=== PATIENT | male | born 1985 | race Caucasian/White ===

== ENCOUNTER 2019-04-13 11:33 | Emergency (ER) | payer MEDICARE, MEDICAID ==
[~2019-04-13] VITALS: Ht 172.7 cm; Wt 109.1 kg
[~2019-04-13 11:33] MED LIST: /THIA10TA; BENADRYL; DOC-Q-LACE; FLEXERIL; FOLI1TAB; LEXA1TAB2; MOBIC; PAXI30TA; PRIL20CA; SERO300T20; SERO400T; TRAZ100T PO
[2019-04-13] MEDS ORDERED: LIDOCAINE 2% 5ML JELLY UROJET TOP ONE (12:30)
[2019-04-13] MEDS ORDERED: DEPA250T32 PO (12:48)
[2019-04-13] MEDS ORDERED: GABA600T4 PO (12:55)
[2019-04-13] MEDS ORDERED: PANT40TA3 PO (12:55)
[2019-04-13] MEDS ORDERED: LITH300C PO (12:55)
[2019-04-13] MEDS ORDERED: COLA100C5 PO (12:55)
[2019-04-13] MEDS ORDERED: CHLO50TA PO (12:55)
[2019-04-13] MEDS ORDERED: PROP10TA56 PO (12:58)
[2019-04-13] MEDS ORDERED: VENL150C43 PO (12:58)
[2019-04-13 13:09] LABS: BLOOD UREA NITROGEN 14 MG/DL (7-18); CALCIUM LEVEL 8.5 MG/DL (8.5-10.1); CARBON DIOXIDE LEVEL 27 MEQ/L (21-32); CHLORIDE LEVEL 108 MEQ/L (98-107); CREATININE FOR GFR 0.81 MG/DL (0.70-1.30); GLOMERULAR FILTRATION RATE > 60.0 (>60); GLUCOSE, FASTING 82 MG/DL (70-100); POTASSIUM SERUM 4.6 MEQ/L (3.5-5.1); SODIUM LEVEL 141 MEQ/L (136-145)
[2019-04-13] MEDS ORDERED: BACTRIM 160MG/800MG DS TAB PO ONE (13:45)
[2019-04-13] MEDS ORDERED: BACT800T5 PO (13:47)
[2019-04-13 14:02] VITALS: BP 112/56
== END 2019-04-13 14:04 | disposition home or self-care (01) ==
LOC: M ED 11:33
DX: N39.0 Urinary tract infection, site not specified (principal); J45.909 Unspecified asthma, uncomplicated; Z88.1 Allergy status to other antibiotic agents; Z88.8 Allergy status to other drugs, medicaments and biological substances; Z79.899 Other long term (current) drug therapy

== ENCOUNTER 2019-04-14 07:16 | Emergency (ER) | payer MEDICARE, MEDICAID ==
[~2019-04-14] VITALS: Ht 172.7 cm; Wt 109.1 kg
[~2019-04-14 07:16] MED LIST changes: +BACT800T5 PO; +CHLO50TA PO; +COLA100C5 PO; +DEPA250T32 PO; +GABA600T4 PO; +LITH300C PO; +PANT40TA3 PO; +PROP10TA56 PO; +VENL150C43 PO
[2019-04-14 08:09] LABS: HEMATOCRIT 44.9 % (42.0-52.0); HEMOGLOBIN 14.5 g/dl (13.5-17.5)
[2019-04-14 09:04] VITALS: BP 117/75
[2019-04-15] MEDS ORDERED: TRAZ-252 (11:45)
== END 2019-04-14 09:10 | disposition home or self-care (01) ==
LOC: M ED 07:16
DX: R31.0 Gross hematuria (principal); Z96.0 Presence of urogenital implants; I10 Essential (primary) hypertension; J45.909 Unspecified asthma, uncomplicated; F20.9 Schizophrenia, unspecified; F17.210 Nicotine dependence, cigarettes, uncomplicated; Z79.899 Other long term (current) drug therapy

== ENCOUNTER 2019-04-15 10:54 | Emergency (ER) | payer MEDICARE, MEDICAID ==
[~2019-04-15] VITALS: Ht 172.7 cm; Wt 104.6 kg
[2019-04-15 11:40] VITALS: BP 118/62
[2019-04-15] MEDS ORDERED: TRAZ-252 (11:45)
[2019-04-15 12:22] LABS: HEMATOCRIT 47.5 % (42.0-52.0); MEAN CORPUSCULAR HEMOGLOBIN 29.7 pg (27.0-33.0); MEAN CORPUSCULAR HGB CONC 31.6 g/dl (32.0-36.5); MEAN CORPUSCULAR VOLUME 94.1 fl (80.0-96.0); PLATELET COUNT, AUTOMATED 234 10^3/uL (150-450); RED BLOOD COUNT 5.05 10^6/uL (4.30-6.10); WHITE BLOOD COUNT 7.9 10^3/uL (4.0-10.0)
[2019-04-15 12:50] LABS: BLOOD UREA NITROGEN 17 MG/DL (7-18); CALCIUM LEVEL 8.9 MG/DL (8.5-10.1); CARBON DIOXIDE LEVEL 27 MEQ/L (21-32); CHLORIDE LEVEL 103 MEQ/L (98-107); GLOMERULAR FILTRATION RATE > 60.0 (>60); GLUCOSE, FASTING 99 MG/DL (70-100); POTASSIUM SERUM 4.2 MEQ/L (3.5-5.1); SODIUM LEVEL 137 MEQ/L (136-145)
[2019-04-16] MEDS ORDERED: DICY10CA13 (19:18)
[2019-04-16] MEDS ORDERED: TRAZ-252 PO (23:16)
[2019-04-16] MEDS ORDERED: CHLOR10TAB PO (23:16)
[2019-04-16] MEDS ORDERED: GABA-843 PO (23:16)
[2019-04-16] MEDS ORDERED: VENL75CA2 PO (23:16)
[2019-04-16] MEDS ORDERED: BACT800T5 PO (23:16)
[2019-04-16] MEDS ORDERED: THIA100T7 PO (23:16)
[2019-04-16] MEDS ORDERED: FOLI1TAB11 PO (23:16)
== END 2019-04-15 12:26 | disposition left against medical advice (07) ==
LOC: M ED 10:54
DX: Z53.20 Procedure and treatment not carried out because of patient's decision for unspecified reasons (principal)

== ENCOUNTER 2019-04-16 18:17 | Inpatient (IN) | payer MEDICARE, MEDICAID ==
[~2019-04-16] VITALS: Ht 172.7 cm; Wt 106.5 kg
[~2019-04-16 18:17] MED LIST changes: +TRAZ-252
[2019-04-16] MEDS ORDERED: LORazepam 2 MG/ML VIAL (J2060) IM ONE (18:45)
[2019-04-16] MEDS ORDERED: HALOPERIDOL 5 MG/ML VIAL (J1630) IM ONE (18:45)
[2019-04-16 19:10] LABS: BASO # 0.1 10^3/uL (0.0-0.2); BASO % 0.8 % (0.0-1.0); EOS # 0.5 10^3/uL (0.0-0.5); EOS % 6.6 % (0.0-3.0); HEMATOCRIT 38.7 % (42.0-52.0); HEMOGLOBIN 12.7 g/dl (13.5-17.5); LYMPH % 39.6 % (24.0-44.0); MEAN CORPUSCULAR HEMOGLOBIN 30.5 pg (27.0-33.0); MEAN CORPUSCULAR HGB CONC 32.8 g/dl (32.0-36.5); NEUTROPHILS % 39.7 % (36.0-66.0); PLATELET COUNT, AUTOMATED 210 10^3/uL (150-450); RED BLOOD COUNT 4.16 10^6/uL (4.30-6.10); WHITE BLOOD COUNT 7.6 10^3/uL (4.0-10.0)
[2019-04-16] MEDS ORDERED: DICY10CA13 (19:18)
[2019-04-16 19:37] LABS: AMPHETAMINES LEVEL URINE NEGATIVE (NEGATIVE); BARBITURATES URINE NEGATIVE (NEGATIVE); BENZODIAZEPINES URINE NEGATIVE (NEGATIVE); CANNABINOIDS URINE NEGATIVE (NEGATIVE); COCAINE METABOLITE URINE NEGATIVE (NEGATIVE); METHADONE URINE NEGATIVE (NEGATIVE); OPIATES URINE NEGATIVE (NEGATIVE); PHENCYCLIDINE URINE NEGATIVE (NEGATIVE)
[2019-04-16] MEDS: NS 1,000 ML IV SCH ×2 (19:44→22:51)
[2019-04-16 19:45] LABS: ACETAMINOPHEN LEVEL < 2.0 UG/ML (10.0-30.0); ALBUMIN 3.3 GM/DL (3.2-5.2); ALT/SGPT 12 U/L (12-78); BILIRUBIN,DIRECT < 0.1 MG/DL (0.0-0.2); BILIRUBIN,TOTAL 0.1 MG/DL (0.2-1.0); BLOOD UREA NITROGEN 19 MG/DL (7-18); CALCIUM LEVEL 7.7 MG/DL (8.5-10.1); CARBON DIOXIDE LEVEL 26 MEQ/L (21-32); CHLORIDE LEVEL 106 MEQ/L (98-107); CPK CREATINE PHOSPHOKINASE 101 U/L (39-308); ETHYL ALCOHOL (ETHANOL) 0.006 % (0.000-0.010); GLOMERULAR FILTRATION RATE > 60.0 (>60); GLUCOSE, FASTING 105 MG/DL (70-100); POTASSIUM SERUM 4.4 MEQ/L (3.5-5.1); SALICYLATE LEVEL 2.1 MG/DL (5.0-30.0); SODIUM LEVEL 138 MEQ/L (136-145); TOTAL PROTEIN 6.4 GM/DL (6.4-8.2)
[2019-04-16 19:52] LABS: LITHIUM LEVEL 0.29 MEQ/L (0.60-1.20)
[2019-04-16] MEDS ORDERED: NS 1,000 ML IV ONE ×2 (20:15→22:30)
[2019-04-16 20:28] LABS: VALPROIC ACID (DEPAKOTE) 169.7 UG/ML (50.0-100.0)
--- NOTE | 2019-04-16 21:10 | ECGEPIP ---
[facility] - ED Test Date: 2019-04-16 Pat Name: OFE CHIN Department: Room: - Gender: Male [employer] Worker: COOKIE : 1985 Requested By: ADELAIDE Child Order Number: [id number] Reading MD: Bismark Millan Measurements Intervals [place] Rate: 82 P: 43 NH: 118 QRS: 60 QRSD: 88 T: 49 QT: 368 QTc: 430 Interpretive Statements SINUS RHYTHM WITH SHORT NH INTERVAL NO PRIORS FOR COMPARISON Electronically Signed on 04-16-2019 21:10:16 EST by Bismark Millan
[2019-04-16] MEDS ORDERED: TRAZ-252 PO (23:16)
[2019-04-16] MEDS ORDERED: GABA-843 PO (23:16)
[2019-04-16] MEDS ORDERED: BACT800T5 PO (23:16)
[2019-04-16] MEDS ORDERED: THIA100T7 PO (23:16)
[2019-04-16] MEDS ORDERED: CHLOR10TAB PO (23:16)
[2019-04-16] MEDS ORDERED: FOLI1TAB11 PO (23:16)
[2019-04-16] MEDS ORDERED: VENL75CA2 PO (23:16)
[2019-04-17] VITALS (18 sets, daily range): BP systolic 84–113; BP diastolic 50–77
[2019-04-17] MEDS ORDERED: NS 1,000 ML IV ONE ×2 (00:15→09:30)
[2019-04-17] MEDS: DOCUSATE SODIUM 100 MG CAP PO SCH ×3 (01:38→20:52)
[2019-04-17] MEDS: NS 1,000 ML IV SCH ×4 (02:26→22:03)
[2019-04-17] MEDS ORDERED: NOREPINEPHRINE 4 MG/4 ML AMP As Ordered ONE (03:20)
[2019-04-17] MEDS ORDERED: NOREPINEPHRINE BITARTRATE 8 MG in D5W 492 ML IV SCH ×2 (03:30→15:00)
[2019-04-17 04:23] LABS: BLOOD UREA NITROGEN 15 MG/DL (7-18); CALCIUM LEVEL 6.4 MG/DL (8.5-10.1); CARBON DIOXIDE LEVEL 23 MEQ/L (21-32); CHLORIDE LEVEL 117 MEQ/L (98-107); CREATININE FOR GFR 0.92 MG/DL (0.70-1.30); GLOMERULAR FILTRATION RATE > 60.0 (>60); GLUCOSE, FASTING 101 MG/DL (70-100); POTASSIUM SERUM 4.6 MEQ/L (3.5-5.1); SODIUM LEVEL 145 MEQ/L (136-145)
[2019-04-17 04:24] LABS: LITHIUM LEVEL 0.22 MEQ/L (0.60-1.20)
[2019-04-17 04:25] LABS: VALPROIC ACID (DEPAKOTE) 239.5 UG/ML (50.0-100.0)
--- NOTE | 2019-04-17 04:45 | ROOPDOC ---
[facility] Report Of Operation Report of Operation DATE OF PROCEDURE: 04/17/19 PREPROCEDURE DIAGNOSES: Need for IV access POSTPROCEDURE DIAGNOSES: Same PROCEDURE: US guided RIJ triple lumen central line placement SURGEON: Andrew Curran MD ANESTHESIA: Local anesthesia 3 cc lidocaine. INDICATION FOR PROCEDURE: Mr Rayo is a 33yo gentleman with urgent need fo Verna access, and I was asked to place central line. Patient is somewhat obtunded and cannot consent, and the hospitalist and ED physician did an emergency consent which I signed. Will proceed. INTERPRETATION: Post procedure CXR shows tip of catheter in SVC right atrial junction, no kinks in the line, no pnemothorax present. REPORT OF PROCEDURE: Patient placed in trendelenburg, and his right neck prepped and draped in a sterile fashion. A time out was performed. Local anesthesia administered to the skin and subcutaneous tissue over the jugular vein, and access was obtained with US guidance. A wire easily advanced, and a dilator was passed over the wire using a seldinger technique, and then the catheter was passed over the wire and the wire was removed. All three ports val back and flushed easily. Line was secured with suture at 4 points. Sterile dressing applied. CXR performed stat at bedside and line is in good position and no pneumothorax and OK to use. ESTIMATED BLOOD LOSS: Approximately 2 mL. COMPLICATIONS: None. PLAN: Ok to use central line. ANDREW CURRAN MD Apr 17, 2019 04:45
--- NOTE | 2019-04-17 06:19 | HPEPDOC ---
General Date of Admission Apr 16, 2019 at 23:34 Date of Service: Apr 16, 2019 Attending Physician: LION RECIO MD Chief Complaint The patient is a 33-year-old male admitted with a reason for visit of Drug O/D Intentional;Drug O/D Multiple Drugs. Source: Patient Exam Limitations: Clinical conditions Timing/Duration: 24 hours Associated Symptoms: Other (Overdose) History of Present Illness 33 yo man with a chart history of schizophrenia, bipolar, anxiety, with a prior history of suicide attempts including jumping off a bridge resulting in back surgeries, who presented to the ED after admitting overdosing on an unknown number of his depakote (500mg tabs) and abilify (5mg). On arrival to the ED he was initially normotensive, afebrile, saturating well on room air and agitated requiring 4 point restraints, banging his head on room equipment and screaming that he wants to . Poison controlled was called that recommended Q4 depakote and ammonia levels as well as supportive care. While in the ED, initial work up was notable for WBC 7.6, hgb 12.7, hct 38.7, platelets 210, na 138, K 4.4, Cr 1.1, normal LFTs, TSH 8.86 with a normal free T4, ammonia 67 --> 136, depakote 169.7-->191.3-->240, lithium level 0.29. He subsequently developed hypotension and was given up to 5L of fluids with persistent hypotension, and eventually a R IJ TLC was placed by Dr. Curran and levophed was started, neri placed with suboptimal output thus far and was placed on nasal canula. While he was initially agitated, he subsequently became somnolent and bradycardic with concern for apneic episodes. Anesthesia evaluated the patient and ultimately decided to defer intubation at this time and check an ABG that is still pending at this time, as he was mentating on waking him and was not hypoxemic. He is now being admitted to the ICU for close monitoring and supportive care and eventual psych evaluation for suicide attempt. Home Medications Scheduled Chlorpromazine HCl (Chlorpromazine HCl) 100 Mg Tablet, 50 MG PO BID, (Reported) Divalproex Sodium (Depakote) 250 Mg Tablet.dr, 750 MG PO BID, (Reported) Docusate Sodium (Colace) 100 Mg Capsule, 200 MG PO BID, (Reported) Folic Acid (Folic Acid) 1 Mg Tablet, 1 MG PO DAILY, (Reported) Gabapentin (Gabapentin) 300 Mg Capsule, 600 MG PO TID, (Reported) [place] Carbonate ([place] Carbonate) 300 Mg Capsule, 300 MG PO DAILY, (Reported) Pantoprazole Sodium (Pantoprazole Sodium) 40 Mg Tablet.dr, 40 MG PO DAILY, (Reported) Propranolol HCl (Propranolol HCl) 10 Mg Tablet, 10 MG PO TID, (Reported) Sulfamethoxazole/Trimethoprim (Bactrim Ds Tablet) 1 Each Tablet, 1 TAB PO Q12H, (Reported) Thiamine HCl (Thiamine HCl) 100 Mg Tablet, 100 MG PO DAILY, (Reported) Trazodone HCl (Trazodone HCl) 50 Mg Tablet, 50 MG PO QHS, (Reported) Venlafaxine HCl (Venlafaxine HCl ER) 75 Mg Cap.er.24h, 150 MG PO DAILY, (Reported) Miscellaneous Medications Dicyclomine HCl (Dicyclomine HCl) 10 Mg Capsule, (Reported) Allergies Coded Allergies: Cephalosporins (Verified Allergy, Mild, HIVES, 04/17/19) haloperidol (Verified Adverse Reaction, Severe, SEIZURES, 04/17/19) ziprasidone (Verified Adverse Reaction, Mild, VOMITING, 04/17/19) Past Medical History Medical History schizophrenia, bipolar, anxiety, with a prior history of suicide attempts including jumping off a bridge resulting in back surgeries, chronic straight cath Surgical History cholecystectomy back surgery after jumping off a bridge Family History Significant Family History: No pertinent family hx unable to get history from patient and unable to reach listed next of kin Social History * Smoker: current smoker Alcohol: Denies Drugs: denies Recent Travel/Sick Contacts: Denies: Recent travel, Recent sick contacts Psychosocial History: Anxiety, Bipolar, Schizophrenia A-FIB/CHADSVASC A-FIB History Current/History of A-Fib/PAF?: No Current PO Anticoag Therapy: No Age/Risk Factor Scoring CHADSVASC: CHADSVASC Response (Comments) Value Age Risk Factor Age < 65 years old 0 Gender Risk Factor Male 0 Hx of CHF No 0 Hx of HTN No 0 Hx of Stroke/TIA/or VTE No 0 Hx of Diabetes No 0 Hx of Vascular Disease No 0 Total 0 Treatment Treatment ordered: NONE Reason Anticoagulant not given: Not indicated/[id number] Review of Systems Constitutional: Denies: Chills, Fever, Night Sweats Eyes: Denies: Pain, Vision change ENT: Denies: Head Aches, Ear Pain, Dysphagia Skin: Denies: Rash, Lesions, Breakdown Pulmonary: Denies: Dyspnea, Cough Cardiovascular: Denies: Chest Pain, Palpitations, Orthopnea, Paroxysmal Noc. Dyspnea, Lt Headedness Gastrointestinal: Denies: Nausea, Vomiting, Abdominal Pain, Diarrhea Genitourinary: Denies: Dysuria, Frequency, Incontinence, Retention Hematologic: Denies: Bruising, Bleeding Excessively Endocrine: Denies: Polydipsia, Polyphagia, Polyuria, Heat Intolerance, Cold Intolerance, Other Endocrine Sx Musculoskeletal: Denies: Neck Pain, Back Pain, Joint Pain, Muscle Pain, Spasms Neurological: Denies: Weakness, Numbness, Change in speech, Confusion Psych: Reports: Depression, Thoughts of Self Harm (reports wanting to ) Physical Examination General Exam: Positive: No Acute Distress, Other (somnolent, responsive to rub and loud voice) Eye Exam: Positive: PERRLA; Negative: Sclera icteric ENT Exam: Positive: Pharynx Normal, Tongue Midline, Nares Patent; Negative: Mucous membr. moist/pink (dry) Neck Exam: Positive: Supple; Negative: JVD, thyromegaly Chest Exam: Positive: Clear to auscultation, Normal air movement, Other (has transmitted upper airway sounds, otherwise no crackles or wheezing) Heart Exam: Positive: Rate Normal, Regular Rhythm, Normal S1, Normal S2; Negative: Murmurs, Rubs Telemetry: Positive: Bradycardia Abdomen Exam: Positive: Normal bowel sounds, Soft; Negative: Tenderness, Hepatospenomegaly Extremity Exam: Positive: Normal pulses; Negative: Clubbing, Cyanosis, Edema Skin Exam: Positive: Nl turgor and temperature; Negative: Breakdown, Lesion Neuro Exam: Positive: Normal Speech (no slurring when he speaks), Strength at 5/5 X4 ext, Other (unable to assess cranial nerves due to his condition) Psych Exam: Negative: Mental status NL (not answering orientation questions, depressed, reports wanting to and bangs head on nearby equipment) Vital Signs Vital Signs Date Time Temp Pulse Resp B/P (MAP) Pulse Ox O2 Delivery O2 Flow Rate FiO2 04/17/19 04:56 104/51 (68) 04/17/19 04:55 85 98 04/17/19 03:39 17 Room Air 04/17/19 02:40 2.0 04/16/19 21:15 98.2 04/16/19 19:13 92 Laboratory Data Labs 24H Laboratory Tests 2 04/16/19 18:54: Immature Granulocyte % (Auto) 0.3, Neutrophils (%) (Auto) 39.7, Lymphocytes (%) (Auto) 39.6, Monocytes (%) (Auto) 13.0H, Eosinophils (%) (Auto) 6.6H, Basophils (%) (Auto) 0.8, Neutrophils # (Auto) 3.0, Lymphocytes # (Auto) 3.0, Monocytes # (Auto) 1.0H, Eosinophils # (Auto) 0.5, Basophils # (Auto) 0.1, Nucleated Red Blood Cells % (auto) 0.0, Anion Gap 6L, Glomerular Filtration Rate > 60.0, Calcium Level 7.7L, Total Bilirubin 0.1L, Direct Bilirubin < 0.1, Aspartate Amino Transf (AST/SGOT) 9, Alanine Aminotransferase (ALT/SGPT) 12, Alkaline Phosphatase 55, Total Creatine Kinase 101, Total Protein 6.4, Albumin 3.3, Albumin/Globulin Ratio 1.06, Thyroid Stimulating Hormone (TSH) 8.860H, Salicylates Level 2.1L, Urine Opiates Screen NEGATIVE, Urine Methadone Screen NEGATIVE, Acetaminophen Level < 2.0L, Urine Barbiturates Screen NEGATIVE, Valproic Acid (Depakene) Level 169.7H, Urine Phencyclidine Screen NEGATIVE, Urine Amphetamines Screen NEGATIVE, Urine Benzodiazepines Screen NEGATIVE, [place] Level 0.29L, Urine Cocaine Metabolite Screen NEGATIVE, Urine Cannabinoids Screen NEGATIVE, Ethyl Alcohol Level 0.006 04/16/19 20:32: Ammonia 67H 04/16/19 21:01: Valproic Acid (Depakene) Level 191.3H 04/17/19 03:02: Anion Gap 5L, Glomerular Filtration Rate > 60.0, Calcium Level 6.4#L, Valproic Acid (Depakene) Level 239.5H, [place] Level 0.22L, Ammonia 136H, Free Thyroxine 1.07 CBC/BMP Laboratory Tests 04/16/19 18:54 04/17/19 03:02 Assessment/Plan 33 yo man with a history of schizophrenia, depression and prior suicide attempt who presents with a drug overdose with his abilify and depakote with rising depakote and ammonia levels with increasing somnolence and hypotension currently on levophed with pending ABG saturating well on nasal canula, now being admitted to the ICU for close monitoring and supportive care with pending psychiatric evaluation when his condition improves. Drug overdose: -Poison controlled contacted by ED --> supportive measures, was past the interval for activated charcoal and without an adequate mental status. To check depakote and ammonia levels Q4H --> currently rising with worsening somnolence and hypotension --> continue nasal canula, ANG pending, s/p 5L fluids and on levophed via TLC. -AM CBC, BMP -Hold all psychotropes at this time -psychiatry consult -Neri for strict I/Os -NPO -sitter and suicide precautions Schizophrenia/Anxiety/Depression: -Psychiatry consulted -Hold all psych meds for now DVT ppx: heparin Dispo: ICU Plan / VTE VTE Prophylaxis Ordered?: Yes LION RECIO MD Apr 17, 2019 06:19
[2019-04-17] MEDS: HEPARIN SOD (PORCINE) 5000 UNITS/ML VIAL SC SCH ×3 (07:13→22:02)
--- NOTE | 2019-04-17 07:36 | REP ---
Portable chest, 03:44 a.m., single supine AP view post central line placement: There are no comparisons. There is a right IJ central venous catheter with the tip in the right atrium. There is no pneumothorax or hemothorax. There is increased density throughout the left lung compatible with diffuse infiltrate. Right lung is clear. Cardiac size is normal. The abril, mediastinum, skeletal structures are unremarkable for positioning. Impression: The central venous catheter is in satisfactory position. There is no hemothorax or pneumothorax. Diffuse left lung infiltrate. Electronically Signed by Cayetano Torre MD 04/17/2019 07:27 A
[2019-04-17] MEDS: PANTOPRAZOLE 40MG TAB (PROTONIX) PO SCH (08:02)
[2019-04-17] MEDS: FOLIC ACID 1 MG TAB PO SCH (08:02)
[2019-04-17] MEDS: THIAMINE 100 MG TAB PO SCH (08:02)
[2019-04-17] MEDS ORDERED: NS IV ONE (08:15)
[2019-04-17] MEDS ORDERED: LEVOCARNITINE IV ONE ×2 (08:15→10:00)
[2019-04-17 09:31] LABS: BLOOD UREA NITROGEN 13 MG/DL (7-18); CALCIUM LEVEL 6.5 MG/DL (8.5-10.1); CARBON DIOXIDE LEVEL 24 MEQ/L (21-32); CHLORIDE LEVEL 119 MEQ/L (98-107); CREATININE FOR GFR 0.85 MG/DL (0.70-1.30); GLOMERULAR FILTRATION RATE > 60.0 (>60); GLUCOSE, FASTING 91 MG/DL (70-100); POTASSIUM SERUM 4.4 MEQ/L (3.5-5.1); SODIUM LEVEL 147 MEQ/L (136-145)
[2019-04-17] MEDS ORDERED: LORazepam 2 MG TAB PO ONE (09:45)
[2019-04-17] MEDS ORDERED: LORazepam 2 MG/ML VIAL (J2060) As Ordered ONE (09:45)
[2019-04-17] MEDS ORDERED: LORazepam 2 MG/ML VIAL (J2060) IV STA (09:48)
[2019-04-17] MEDS ORDERED: LORazepam 2 MG TAB PO PRN (10:00)
[2019-04-17] MEDS ORDERED: LACTULOSE 20 GM/30 ML SYRUP UD PO SCH (12:00)
--- NOTE | 2019-04-17 12:44 | REP ---
Abdominal right upper quadrant ultrasound: The study is technically difficult because of patient altered mental status, inability to suspend respiration and patient body habitus. The gallbladder is not visualized. This is nonspecific and could be from the gallbladder collapse or surgical removal. The the patient has been n.p.o.. The patient is unable to respond to questioning concerning surgical history. The nursing staff has no knowledge of prior surgical history. There is no intrahepatic or extrahepatic biliary duct dilatation. The hepatic parenchyma is homogeneous and otherwise unremarkable. Limited views of the pancreas are unremarkable. The pancreas is mostly obscured by bowel gas. The right kidney measures 11.9 x 5.6 x 6.0 cm and is normal size. There is no right renal calculus or hydronephrosis. There is no right renal solid or cystic mass. There is no right upper quadrant abdominal free fluid. Impression: Limited study as described. The gallbladder could not be identified, as described. The pancreas is mostly obscured by bowel gas. Otherwise, negative right upper quadrant abdominal ultrasound. Electronically Signed by Cayetano Torre MD 04/17/2019 12:35 P
[2019-04-17] MEDS ORDERED: propofoL 200 MG/20 ML VIAL ONE (15:02)
[2019-04-17] MEDS ORDERED: SUCCINYLCHOLINE 100 MG/5 ML SYRINGE (J0330) ONE (15:02)
[2019-04-17] MEDS: LEVOCARNITINE 200 MG/ML IV SCH ×2 (15:12→22:03)
[2019-04-17] MEDS ORDERED: LEVOCARNITINE 200 MG/ML IV SCH (16:00)
--- NOTE | 2019-04-17 16:16 | IPNPDOC ---
Text Note Date of Service The patient was seen on 04/17/19. NOTE 33 yo man with a chart history of schizophrenia, bipolar, anxiety, with a prior history of suicide attempts including jumping off a bridge, who presented to the ED after admitting overdosing on an unknown number of his depakote (500mg tabs) and abilify (5mg). SUBJECTIVE: Patient was extremely lethargic this a.m., he can respond to questions, however a conversational patient was unlikely due to his lethargic. OBJECTIVE: PHYSICAL EXAMINATION: GENERAL APPEARANCE: Sleepy, lethargic, denied any pain SKIN: Warm, well perfused. ENT: Neck supple, moist oral mucosa LUNGS: Clear to auscultation bilaterally. HEART: Normal S1, S2. No murmurs, no rubs, no gallops ABDOMEN: Soft. No masses. Bowel sounds are present. EXTREMITIES: Moves all extremities equally. No gross deformities. PULSES: 2+ upper and lower extremity . LABORATORY DATA: Please see below. ASSEMENT 33 yo man with a chart history of schizophrenia, bipolar, anxiety, with a prior history of suicide attempts including jumping off a bridge, who presented to the ED after admitting overdosing on an unknown number of his depakote (500mg tabs) and abilify (5mg). PLAN: #Encephalopathy: Multifactorial in nature secondary to drug use, secondary to elevated ammonia, secondary to overdose on Depakote and Abilify, secondary suicidal attempt -Poison control has been contacted. Poison control recommended. L-carnitine loading dose, as well as every 6 hours. Poison control also recommended charcoal when patient is significantly more alert. -Monitor INR -Continue to trend ammonia -Continue to trend Depakote levels -[facility] Protocol -Liver ultrasound: Negative liver ultrasound -Consider CT of the head if encephalopathy does not improve #Overdose on Depakote and Abilify -Poison control has recommended. L-carnitine -Will trend ammonia and Depakote levels #Polysubstance abuse including alcohol -[facility] -Toxicology pending -Psych referral once patient is stable #Hypotension , secondary to lethargic, -Workup infection, monitor vitals, will consider UA -Normal saline bolus administered -Will consider labile fed if needed #Tachypnea, multiple etiologies etiologies including pain, lung injury, possible influenza, pneumonia is possible, drug use -Will continue to monitor, -Chest x-ray is negative, to rule out ammonia #Anemia -Reticulocyte count ordered, stool occult ordered #Hyponatremia secondary to fluid dilution. We'll continue to monitor. #DVT prophylaxis Heparin VS,Fishbone, I+O VS, Fishbone, I+O Laboratory Tests 04/16/19 18:54 04/17/19 03:02 04/17/19 08:24 Vital Signs Date Time Temp Pulse Resp B/P (MAP) Pulse Ox O2 Delivery O2 Flow Rate FiO2 04/17/19 15:06 87 104/53 (70) 97 Room Air 04/17/19 12:00 98.4 24 04/17/19 02:40 2.0 04/16/19 19:13 92 I&O- Last 24 Hours up to 6 AM 04/17/19 05:59 Intake Total 4000 ml Output Total 700 ml Balance 3300 ml GME ATTESTATION GME ATTESTATION My faculty preceptor for this patient encounter was physically present during the encounter and was fully available. All aspects of the patient interview, examination, medical decision making process, and medical care plan development were reviewed and approved by the faculty preceptor. The faculty preceptor is aware and concurs with the plan as stated in the body of this note and will attest to such by his/her cosignature. ATTENDING NOTE I examined the patient at 800AM, reviewed and edited the note, and discussed the case with the resident and agree with the findings as documented. DARLENE WIGGINS DO Apr 17, 2019 16:16 NARDA LORENZ MD Apr 17, 2019 17:03
[2019-04-17 17:34] LABS: FOLATE 20.6 NG/ML; PERCENT SATURATION 52.4 % (19.7-50.0)
[2019-04-17 18:34] LABS: BLOOD UREA NITROGEN 11 MG/DL (7-18); CALCIUM LEVEL 6.9 MG/DL (8.5-10.1); CARBON DIOXIDE LEVEL 21 MEQ/L (21-32); CHLORIDE LEVEL 118 MEQ/L (98-107); CREATININE FOR GFR 0.82 MG/DL (0.70-1.30); GLOMERULAR FILTRATION RATE > 60.0 (>60); GLUCOSE, FASTING 79 MG/DL (70-100); POTASSIUM SERUM 3.6 MEQ/L (3.5-5.1); SODIUM LEVEL 147 MEQ/L (136-145)
[2019-04-17] MEDS: LORazepam 2 MG/ML VIAL (J2060) IV PRN (21:43)
[2019-04-18] VITALS (11 sets, daily range): BP systolic 103–140; BP diastolic 56–79
[2019-04-18 01:05] LABS: BLOOD UREA NITROGEN 11 MG/DL (7-18); CALCIUM LEVEL 6.4 MG/DL (8.5-10.1); CARBON DIOXIDE LEVEL 23 MEQ/L (21-32); CHLORIDE LEVEL 115 MEQ/L (98-107); CREATININE FOR GFR 0.74 MG/DL (0.70-1.30); GLOMERULAR FILTRATION RATE > 60.0 (>60); GLUCOSE, FASTING 82 MG/DL (70-100); POTASSIUM SERUM 3.2 MEQ/L (3.5-5.1); SODIUM LEVEL 144 MEQ/L (136-145); VALPROIC ACID (DEPAKOTE) 220.6 UG/ML (50.0-100.0)
[2019-04-18] MEDS ORDERED: POTASSIUM CHLORIDE 10 MEQ SR TABLET PO ONE ×2 (01:45→13:30)
[2019-04-18] MEDS: NS 1,000 ML IV SCH ×3 (03:57→16:45)
[2019-04-18] MEDS: LEVOCARNITINE 200 MG/ML IV SCH ×3 (03:57→16:45)
[2019-04-18] MEDS: HEPARIN SOD (PORCINE) 5000 UNITS/ML VIAL SC SCH ×3 (06:27→21:21)
--- NOTE | 2019-04-18 07:51 | IPNPDOC ---
Text Note Date of Service The patient was seen on 04/18/19. NOTE S: Patient seen and examined at bedside. Reported patient was agitated overnight, resolved with BZD. Also reported large diarrhea. This morning patient has no complaints. Was not compliant with physical examination, stating he was too tired. O: PHYSICAL EXAMINATION: GENERAL APPEARANCE: lethargic, non-compliant, NAD, lying comfortably in bed HEENT: NC/AT LUNGS: Clear to auscultation bilaterally. HEART: Normal S1, S2. No murmurs, no rubs, no gallops ABDOMEN: soft, +BS, NT, ND Ext: no edema A/P: 33 yo man with a chart history of schizophrenia, bipolar, anxiety, with a prior history of suicide attempts including jumping off a bridge, who presented to the ED after admitting to intentional overdose on an unknown number of his depakote (500mg tabs) and abilify (5mg). #Encephalopathy - multifactorial in nature secondary to drug use, secondary to elevated ammonia, secondary to overdose on Depakote and Abilify, secondary suicidal attempt -Poison control has been contacted. Poison control recommended. L-carnitine loading dose, as well as every 6 hours. Poison control also recommended charcoal when patient is significantly more alert. -Monitor INR -Continue to trend ammonia -Continue to trend Depakote levels -[facility] Protocol -Negative liver ultrasound #hyperammonemia - possibly contributing to encephalopathy #Overdose on Depakote and Abilify -Poison control has recommended. L-carnitine -Will trend ammonia and Depakote levels #Polysubstance abuse including alcohol -[facility] -Toxicology pending -Psych referral once patient is stable #Hypotension - resolved - asymptomatic #Tachypnea, multiple etiologies etiologies including pain, lung injury, possible influenza, pneumonia is possible, drug use -Will continue to monitor, -Chest x-ray is negative, to rule out ammonia #Anemia - repeat CBC pending -Reticulocyte count ordered, stool occult ordered #Hypernatremia - BMP pending #DVT prophylaxis - Heparin Dispo: pending clinical improvement VS,Fishbone, I+O VS, Fishbone, I+O Laboratory Tests 04/17/19 08:24 04/17/19 17:49 04/17/19 23:52 Vital Signs Date Time Temp Pulse Resp B/P (MAP) Pulse Ox O2 Delivery O2 Flow Rate FiO2 1/23/20 06:00 85 20 108/56 (73) Room Air 04/18/19 04:00 98.8 99 04/17/19 02:40 2.0 04/16/19 19:13 92 I&O- Last 24 Hours up to 6 AM0 04/18/19 05:59 Intake Total 4280 ml Output Total 5925 ml Balance -1645 ml ALONSO NOYOLA MD Apr 18, 2019 07:51
[2019-04-18 08:09] LABS: HEMATOCRIT 34.8 % (42.0-52.0); HEMOGLOBIN 11.2 g/dl (13.5-17.5); MEAN CORPUSCULAR HGB CONC 32.2 g/dl (32.0-36.5); MEAN CORPUSCULAR VOLUME 93.3 fl (80.0-96.0); PLATELET COUNT, AUTOMATED 145 10^3/uL (150-450); RED BLOOD COUNT 3.73 10^6/uL (4.30-6.10); WHITE BLOOD COUNT 2.7 10^3/uL (4.0-10.0)
[2019-04-18 08:34] LABS: BLOOD UREA NITROGEN 7 MG/DL (7-18); CALCIUM LEVEL 6.6 MG/DL (8.5-10.1); CARBON DIOXIDE LEVEL 25 MEQ/L (21-32); CHLORIDE LEVEL 112 MEQ/L (98-107); CREATININE FOR GFR 0.65 MG/DL (0.70-1.30); GLOMERULAR FILTRATION RATE > 60.0 (>60); GLUCOSE, FASTING 119 MG/DL (70-100); POTASSIUM SERUM 3.2 MEQ/L (3.5-5.1); SODIUM LEVEL 144 MEQ/L (136-145)
[2019-04-18] MEDS: FOLIC ACID 1 MG TAB PO SCH (10:46)
[2019-04-18] MEDS: THIAMINE 100 MG TAB PO SCH (10:46)
[2019-04-18] MEDS: PANTOPRAZOLE 40MG TAB (PROTONIX) PO SCH (10:46)
[2019-04-18] MEDS: LORazepam 2 MG/ML VIAL (J2060) IV PRN ×5 (12:42→20:08)
[2019-04-18] MEDS: VENLAFAXINE **XR** 75MG CAPSULE PO SCH (13:14)
[2019-04-18] MEDS: LITHIUM CARBONATE 300 MG CAP PO SCH (13:14)
[2019-04-18] MEDS ORDERED: LORazepam 2 MG/ML VIAL (J2060) As Ordered ONE ×2 (14:00→18:19)
[2019-04-18] MEDS: NICOTINE 21MG/24HR 1 EA TRANSDERMAL TD SCH (14:30)
[2019-04-18 16:24] LABS: BLOOD UREA NITROGEN 8 MG/DL (7-18); CALCIUM LEVEL 7.1 MG/DL (8.5-10.1); CARBON DIOXIDE LEVEL 24 MEQ/L (21-32); CHLORIDE LEVEL 110 MEQ/L (98-107); GLOMERULAR FILTRATION RATE > 60.0 (>60); GLUCOSE, FASTING 89 MG/DL (70-100); POTASSIUM SERUM 3.6 MEQ/L (3.5-5.1); SODIUM LEVEL 141 MEQ/L (136-145)
[2019-04-18] MEDS: GABAPENTIN 300 MG CAP PO SCH ×2 (16:44→20:18)
[2019-04-18] MEDS ORDERED: LORazepam 2 MG/ML VIAL (J2060) IV STA (19:22)
[2019-04-18] MEDS: traZODone 50 MG TAB PO SCH (21:21)
[2019-04-19] VITALS: BP 134/79
[2019-04-19 00:07] LABS: DIAZEPAM1 <0.1 ug/mL (.); DIAZEPAM2 <0.1 ug/mL (.); DIAZEPAM3 <.2 ug/mL (0.2-2.5)
[2019-04-19 00:19] LABS: BLOOD UREA NITROGEN 6 MG/DL (7-18); CARBON DIOXIDE LEVEL 27 MEQ/L (21-32); CHLORIDE LEVEL 112 MEQ/L (98-107); CREATININE FOR GFR 0.65 MG/DL (0.70-1.30); GLOMERULAR FILTRATION RATE > 60.0 (>60); GLUCOSE, FASTING 96 MG/DL (70-100); POTASSIUM SERUM 3.7 MEQ/L (3.5-5.1); SODIUM LEVEL 141 MEQ/L (136-145)
[2019-04-19 04:00] VITALS: BP 146/75
[2019-04-19] MEDS: HEPARIN SOD (PORCINE) 5000 UNITS/ML VIAL SC SCH ×2 (05:05→14:30)
[2019-04-19 05:37] LABS: BLOOD UREA NITROGEN 6 MG/DL (7-18); CALCIUM LEVEL 7.1 MG/DL (8.5-10.1); CARBON DIOXIDE LEVEL 27 MEQ/L (21-32); CHLORIDE LEVEL 111 MEQ/L (98-107); CREATININE FOR GFR 0.66 MG/DL (0.70-1.30); GLOMERULAR FILTRATION RATE > 60.0 (>60); GLUCOSE, FASTING 91 MG/DL (70-100); POTASSIUM SERUM 3.5 MEQ/L (3.5-5.1); SODIUM LEVEL 143 MEQ/L (136-145)
[2019-04-19 08:00] VITALS: BP 137/84
[2019-04-19] MEDS: LORazepam 2 MG/ML VIAL (J2060) IV PRN ×2 (08:16→10:27)
[2019-04-19] MEDS: GABAPENTIN 300 MG CAP PO SCH ×3 (08:36→21:00)
[2019-04-19] MEDS: NICOTINE 21MG/24HR 1 EA TRANSDERMAL TD SCH (08:36)
[2019-04-19] MEDS: PANTOPRAZOLE 40MG TAB (PROTONIX) PO SCH (08:36)
[2019-04-19] MEDS: FOLIC ACID 1 MG TAB PO SCH (08:36)
[2019-04-19] MEDS: LITHIUM CARBONATE 300 MG CAP PO SCH (08:37)
[2019-04-19] MEDS: THIAMINE 100 MG TAB PO SCH (08:37)
[2019-04-19] MEDS: VENLAFAXINE **XR** 75MG CAPSULE PO SCH (08:37)
--- NOTE | 2019-04-19 10:46 | IPNPDOC ---
Text Note Date of Service The patient was seen on 04/18/19. NOTE 33 yo man with a chart history of schizophrenia, bipolar, anxiety, with a prior history of suicide attempts including jumping off a bridge, who presented to the ED after admitting overdosing on an unknown number of his depakote (500mg tabs) and abilify (5mg). SUBJECTIVE: Overnight patient was agitated. He was seen in his head against the window. Ativan was administered OBJECTIVE: PHYSICAL EXAMINATION: GENERAL APPEARANCE: Sleepy, lethargic, denied any pain SKIN: Warm, well perfused. ENT: Neck supple, moist oral mucosa LUNGS: Clear to auscultation bilaterally. HEART: Normal S1, S2. No murmurs, no rubs, no gallops ABDOMEN: Soft. No masses. Bowel sounds are present. EXTREMITIES: Moves all extremities equally. No gross deformities. PULSES: 2+ upper and lower extremity . LABORATORY DATA: Please see below. ASSEMENT 33 yo man with a chart history of schizophrenia, bipolar, anxiety, with a prior history of suicide attempts including jumping off a bridge, who presented to the ED after admitting overdosing on an unknown number of his depakote (500mg tabs) and abilify (5mg). PLAN: #Encephalopathy: Multifactorial in nature secondary to drug use, secondary to elevated ammonia, secondary to overdose on Depakote and Abilify, secondary suicidal attempt -Poison control has been contacted. Poison control recommended. L-carnitine loading dose, as well as every 6 hours. Poison control also recommended charcoal when patient is significantly more alert. -Monitor INR -Continue to trend ammonia -Continue to trend Depakote levels -[facility] Protocol -Liver ultrasound: Negative liver ultrasound -Consider CT of the head if encephalopathy does not improve #Overdose on Depakote and Abilify -Poison control has recommended. L-carnitine -Will trend ammonia and Depakote levels #Polysubstance abuse including alcohol -[facility] -Toxicology pending -Psych referral once patient is stable #Hypotension , secondary to lethargic, -Workup infection, monitor vitals, will consider UA -Normal saline bolus administered -Will consider labile fed if needed #Tachypnea, multiple etiologies etiologies including pain, lung injury, possible influenza, pneumonia is possible, drug use -Will continue to monitor, -Chest x-ray is negative, to rule out ammonia #Anemia -Reticulocyte count ordered, stool occult ordered #Hyponatremia secondary to fluid dilution. We'll continue to monitor. #DVT prophylaxis Heparin VS,Fishbone, I+O VS, Fishbone, I+O Laboratory Tests 04/17/19 08:24 04/17/19 17:49 04/17/19 23:52 Vital Signs Date Time Temp Pulse Resp B/P (MAP) Pulse Ox O2 Delivery O2 Flow Rate FiO2 04/18/19 06:00 85 20 108/56 (73) Room Air 04/18/19 04:00 98.8 99 04/17/19 02:40 2.0 04/16/19 19:13 92 l I&O- Last 24 Hours up to 6 AM 04/18/19 06:00 Intake Total 5480 ml Output Total 6025 ml Balance -545 ml DARLENE WIGGINS DO Apr 18, 2019 07:39
--- NOTE | 2019-04-19 10:53 | IPNPDOC ---
Text Note Date of Service The patient was seen on 04/19/19. NOTE 33 yo man with a chart history of schizophrenia, bipolar, anxiety, with a prior history of suicide attempts including jumping off a bridge, who presented to the ED after admitting overdosing on an unknown number of his depakote (500mg tabs) and abilify (5mg) SUBJECTIVE: Patient has been medically cleared. He is pending psychiatric evaluation and then transferred to inpatient mental health unit. He continues to have behavioral outburst. He is able to be redirected, by mouth Ativan is available for agitation. OBJECTIVE: PHYSICAL EXAMINATION: GENERAL APPEARANCE alert, denies any pain, no acute distress, eating breakfast SKIN: Warm, well perfused. ENT: Supple neck, no JVD LUNGS: Clear to auscultation bilaterally. HEART: Normal S1, S2. No murmurs, no rubs, no gallops ABDOMEN: Soft, nontender, bowel sounds in all 4 quadrants LABORATORY DATA: Please see below. ASSEMENT 33 yo man with a chart history of schizophrenia, bipolar, anxiety, with a prior history of suicide attempts including jumping off a bridge, who presented to the ED after admitting overdosing on an unknown number of his depakote (500mg tabs) and abilify (5mg). PLAN: #Encephalopathy: Multifactorial in nature secondary to drug use, secondary to elevated ammonia, secondary to overdose on Depakote and Abilify, secondary suicidal attempt -Resolved, was control has signed off, DC. L-carnitine -Ammonia and Depakote within normal range -Liver ultrasound: Negative liver ultrasound -CT head was normal #Urinary incontinence secondary to back injury from prior suicide attempt -Patient is allowed to self cath at least 3 times a day. #Overdose on Depakote and Abilify -Ammonia and Depakote within normal limits #Polysubstance abuse including alcohol -CIWA #Hypotension , secondary to lethargic, -Stable, blood pressure within normal limits #Tachypnea, multiple etiologies etiologies including pain, lung injury, possible influenza, pneumonia is possible, drug use -Resolved #Anemia , Hemoglobin and hematocrit stabilized #Hyponatremia secondary to fluid dilution. We'll continue to monitor. -Resolved #DVT prophylaxis Heparin Disposition, pending psych eval and transferred to [facility] Dank WOODARD, I+O VSDank I+O Laboratory Tests 04/18/19 15:44 04/18/19 23:40 04/19/19 05:00 Vital Signs Date Time Temp Pulse Resp B/P (MAP) Pulse Ox O2 Delivery O2 Flow Rate FiO2 04/19/19 04:00 106 146/75 04/19/19 04:00 98.9 24 94 Room Air 04/17/19 02:40 2.0 04/16/19 19:13 92 I&O- Last 24 Hours up to 6 AM 04/19/19 06:00 Intake Total 3560 ml Output Total 2250 ml Balance 1310 ml DARLENE WIGGINS DO Apr 19, 2019 10:53
[2019-04-19 12:00] VITALS: BP 138/88
--- NOTE | 2019-04-19 14:01 | DS.PDOC ---
Discharge Summary General Date of Admission Apr 16, 2019 at 23:34 Date of Discharge 04/19/19 Attending Physician: ALONSO NOYOLA MD Specialist/Consultants Involve: ANDREW ROLON MD Discharge Summary PROCEDURES PERFORMED DURING STAY: US guided RIJ triple lumen central line placement ADMITTING DIAGNOSES: 1. Intentional Overdose abilify and Depakote DISCHARGE DIAGNOSES: 1. Intentional overdose 2. Suicide attempt 3. Schizophrenia 4. Anxiety COMPLICATIONS/CHIEF COMPLAINT: Drug O/D Intentional;Drug O/D Multiple Drugs. HISTORY OF PRESENT ILLNESS/HOSPITAL COURSE: Presented to the ED after admitting to overdosing on an unknown number of his depakote (500mg tabs) and abilify (5mg). On arrival to the ED he was initially normotensive, afebrile, saturating well on room air and agitated requiring 4 point restraints, banging his head on room equipment and screaming that he wants to . Poison controlled was called and they recommended starting l-carnitine and every four hours levels of depakote and ammonia levels as well as supportive care. Poison control recommended trending patient's Depakote and ammonia until Depakote was less than 120 and ammonia was less than 80. Patient was admitted to the ICU due to initial hypotension after 5 L of fluids. Right internal jugular triple-lumen catheter was placed by vascular surgeon, Dr. Reece, and patient was started on levophed. Once his pressure stabilizes. Levophed was discontinued. Patient did not require intubation during his hospital stay. On day 2 of hospitalization, once patient's ammonia Depakote had normalized as per recommendation by poison control, His l-carnitine, was discontinued. Patient's mentation was also noted to have been significantly improved despite his behavior and somewhat violent outburst. His home medication was restarted and carefully monitored. On day 3 of hospitalization, patient was deemed medically stable for discharge to inpatient mental health unit. Psychiatrist, Dr. Aleman, was consulted. Psychiatrist evaluated patient and confirmed patient was appropriate to be discharged for inpatient mental health care. DISCHARGE MEDICATIONS: Please see below. ALLERGIES: Please see below. PHYSICAL EXAMINATION ON DISCHARGE: VITAL SIGNS: Please see below. General: NAD, no complaints HEENT: PERRL, Neck is supple Lungs: CTA B/L Heart: +S1S2, RRR, no murmur Abd: soft, tender, active bowel sounds Ext: no edema, no cyanosis LABORATORY DATA: Please see below. IMAGING: Abdominal CT IMPRESSION: 1. Limited noncontrast examination. 2. Questionable subtle peripancreatic edema. Correlate with serum amylase and lipase levels to exclude acute pancreatitis. 3. Mild wall thickening of the proximal small bowel loops in the left upper quadrant/mid abdomen, similar to prior. Mild nonspecific enteritis could produce this appearance. PROGNOSIS: Stable ACTIVITY: As tolerated DIET: As tolerated DISCHARGE PLAN: To [facility] DISPOSITION: Medically Stable DISCHARGE INSTRUCTIONS: 1. Follow follow recommendations, instructions per psychiatrist ITEMS TO FOLLOWUP ON ON OUTPATIENT: 1. Intentional overdose 2. Suicide attempt 3. Schizophrenia 4. Anxiety DISCHARGE CONDITION: Stable TIME SPENT ON DISCHARGE: Greater than 30 minutes. Vital Signs/I&Os Vital Signs Date Time Temp Pulse Resp B/P (MAP) Pulse Ox O2 Delivery O2 Flow Rate FiO2 04/19/19 12:00 98.0 88 22 138/88 (105) 98 Room Air 04/17/19 02:40 2.0 04/16/19 19:13 92 I&O- Last 24 Hours up to 6 AM 04/19/19 05:59 Intake Total 4700 ml Output Total 2800 ml Balance 1900 ml Laboratory Data Labs 24H Laboratory Tests 2 04/18/19 15:44: Anion Gap 7L, Glomerular Filtration Rate > 60.0, Calcium Level 7.1L, Ammonia 42H, Valproic Acid (Depakene) Level 81.1 04/18/19 19:23: Ammonia 79H, Valproic Acid (Depakene) Level 71.1 04/18/19 23:40: Anion Gap 2L, Glomerular Filtration Rate > 60.0, Calcium Level 7.0L, Ammonia 45H, Valproic Acid (Depakene) Level 56.4 04/19/19 05:00: Anion Gap 5L, Glomerular Filtration Rate > 60.0, Calcium Level 7.1L, Ammonia 41H, Valproic Acid (Depakene) Level 44.5L CBC/BMP Laboratory Tests 04/18/19 15:44 04/18/19 23:40 04/19/19 05:00 Discharge Medications Scheduled Chlorpromazine HCl (Chlorpromazine HCl) 100 Mg Tablet, 50 MG PO BID, (Reported) Divalproex Sodium (Depakote) 250 Mg Tablet.dr, 750 MG PO BID, (Reported) Docusate Sodium (Colace) 100 Mg Capsule, 200 MG PO BID, (Reported) Folic Acid (Folic Acid) 1 Mg Tablet, 1 MG PO DAILY, (Reported) Gabapentin (Gabapentin) 300 Mg Capsule, 600 MG PO TID, (Reported) [place] Carbonate ([place] Carbonate) 300 Mg Capsule, 300 MG PO DAILY, (Reported) Pantoprazole Sodium (Pantoprazole Sodium) 40 Mg Tablet.dr, 40 MG PO DAILY, (Reported) Propranolol HCl (Propranolol HCl) 10 Mg Tablet, 10 MG PO TID, (Reported) Sulfamethoxazole/Trimethoprim (Bactrim Ds Tablet) 1 Each Tablet, 1 TAB PO Q12H, (Reported) Thiamine HCl (Thiamine HCl) 100 Mg Tablet, 100 MG PO DAILY, (Reported) Trazodone HCl (Trazodone HCl) 50 Mg Tablet, 50 MG PO QHS, (Reported) Venlafaxine HCl (Venlafaxine HCl ER) 75 Mg Cap.er.24h, 150 MG PO DAILY, (Reported) Miscellaneous Medications Dicyclomine HCl (Dicyclomine HCl) 10 Mg Capsule, (Reported) Allergies Coded Allergies: Cephalosporins (Verified Allergy, Mild, HIVES, 04/17/19) haloperidol (Verified Adverse Reaction, Severe, SEIZURES, 04/17/19) ziprasidone (Verified Adverse Reaction, Mild, VOMITING, 04/17/19) DARLENE WIGGINS DO Apr 19, 2019 14:01
[2019-04-19] MEDS ORDERED: SODIUM CHLORIDE 0.9% INJ 10 ML SYR IV PRN (14:30)
[2019-04-19 16:00] VITALS: BP 151/96
[2019-04-19] MEDS ORDERED: LORazepam 2 MG/ML VIAL (J2060) IM STA ×2 (17:33→19:01)
[2019-04-19] MEDS ORDERED: HALOPERIDOL 5 MG/ML VIAL (J1630) As Ordered ONE (19:01)
[2019-04-19 20:00] VITALS: BP 146/88
--- NOTE | 2019-04-19 20:31 | MHCR ---
DATE OF CONSULTATION: 04/19/2019 CHIEF COMPLAINT: He took an overdose. SUBJECTIVE: I have been asked to see this patient, a 33-year-old male. Has a history of psychosis, dizziness versus bipolar disorder. Has had previous hospitalizations. The last one I can see through medical records here was about 10 y ears ago. Unclear at the moment if he is any treatment. He is on various psychotropics. These include Depakote, lithium, gabapentin, chlorpromazine, venlafaxine, trazodone. I have been asked to see him by the hospitalist, as he is deemed to be medically cleared. He came in after he had taken an unknown number of Depakote and Abilify tablets. Has had prior suicide attempts as well, including jumping off a bridge. Says it resulted in back injuries in the past. I was not able to obtain any historical information from the patient, as apparently he has been agitated during the day. He has just been given medication, 1 mg of Ativan intramuscular just before I saw him, and during an attempt at conversation he became quite agitated and began shouting, asking why I was questioning him. I understand from staff that he has been agitated and easily irritated, to the point where "a Code 25" was called. According to the emergency room records, he was quite agitated downstairs, required 4-point restraints, was banging his head on room equipment, and was screaming that he wanted to . Was hospitalized in the intensive care unit, which is where I saw him. Has had periods of agitation here. Depakote levels were 105; this was yesterday. Today 44.5. Ammonia levels were high, 79 yesterday and then later today 41 (normals are less than 32). PAST PSYCHIATRIC HISTORY: As indicated above, has a history of schizophrenia versus bipolar disorder. Has been hospitalized in the past. Last hospitalization was August 2009. At that time he carried a diagnosis of chronic paranoid schizophrenia. Apparently because of agitation was given lorazepam 2 mg intravenous yesterday and 1 mg intramuscular just a little while ago, less than half an hour ago. Has had prior suicide attempts, including jumping off a bride. This had resulted in back surgeries. Had recently had chronic straight catheterization. ALLERGIES: CEPHALOSPORINS, HALOPERIDOL, ZIPRASIDONE. SURGICAL HISTORY: Per record, cholecystectomy, back surgery. MEDICATIONS: Please see the list. Unclear whether he has been taking them. These include: - chlorpromazine 50 mg twice a day - Depakote 750 mg twice a day - gabapentin 600 mg three times a day - lithium carbonate 300 mg daily - trazodone 50 mg at night - thiamine 100 mg daily - venlafaxine 150 mg daily - propranolol 10 mg three times a day. FAMILY PSYCHIATRIC HISTORY: Unknown. SOCIAL HISTORY: Currently unknown. May need to refer to prior summaries for details. VITAL SIGNS: Blood pressure 151/96, pulse 92, temperature 99. OTHER INVESTIGATIONS: Metabolic profile. Essentially within normal limits except for chloride at 111 (98-107). Calcium is 7.1 (8.5-10.1). BUN is 6, creatinine 0.66. MENTAL STATUS EXAMINATION: Neat, sitting up in bed, somewhat superficially cooperative. No agitation initially but after a few minutes became quite agitated with me. Displayed considerable anger and started shouting as to why I was asking these questions. I had asked him questions related to orientation, and he indicated he knew that he was in the hospital at [facility] in [place]. Thought it was April 15. Then became quite agitated. Started shouting. Had sat up. Was coherent in his shouting, however. Did not ask him any further questions given the agitation displayed. Unable to ascertain for homicidal ideas or any current active psychosis. He is alert and oriented. Judgment and insight remain poor. ASSESSMENT: 1. Schizophrenia. 2. Status post overdose. Has a history of schizophrenia. Some question as to whether he is bipolar disorder, and it is quite possible the differential may include schizoaffective disorder given his history and the medications he has been on. He came in after he had taken an overdose. Was admitted to the ICU. H as been stabilized medically. Cleared by the hospitalist, Dr. Loera, and needs inpatient psychiatric hospitalization for further management and stabilization. RECOMMENDATIONS: Needs inpatient psychiatric hospitalization for further management and stabilization when fully medically cleared. I have spoken with Dr. Loera, and they will proceed with transferring the patient to inpatient psychiatry. The relevant legal forms will be signed by the hospitalist. Thank you for the consult. The assessment took 30 minutes.
[2019-04-19] MEDS ORDERED: chlorproMAZINE 25 MG TAB (Q0161) PO SCH (21:00)
[2019-04-19] MEDS ORDERED: DIVALPROEX 250 MG TAB PO SCH (21:00)
[2019-04-19] MEDS: traZODone 50 MG TAB PO SCH (21:01)
[2019-04-19] MEDS ORDERED: SODIUM CHLORIDE 0.9% INJ 10 ML SYR IV SCH (22:00)
== END 2019-04-19 21:15 | DRG 918 ==
LOC: EDBD 18:17 → M ED 18:17 → M ED INP 23:34 → ENRESERV 04-17 00:29 → M ICU 04-17 05:37
PROVIDERS: ADMIT Internal Medicine; ATTEND Internal Medicine
PROC: 05HM33Z Insertion of Infusion Device into Right Internal Jugular Vein, Percutaneous Approach (ICD-10-PCS; principal; 2019-04-17)
DX: T42.6X2A Poisoning by other antiepileptic and sedative-hypnotic drugs, intentional self-harm, initial encounter (principal); G93.40 Encephalopathy, unspecified; E87.1 Hypo-osmolality and hyponatremia; F20.9 Schizophrenia, unspecified; T43.592A Poisoning by other antipsychotics and neuroleptics, intentional self-harm, initial encounter; F31.9 Bipolar disorder, unspecified; I95.9 Hypotension, unspecified; F41.9 Anxiety disorder, unspecified; Z79.899 Other long term (current) drug therapy; Z88.8 Allergy status to other drugs, medicaments and biological substances; D64.9 Anemia, unspecified; F10.10 Alcohol abuse, uncomplicated

== ENCOUNTER 2019-04-19 19:43 | Inpatient (IN) | payer MEDICARE, MEDICAID ==
[~2019-04-19] VITALS: Ht 172.7 cm; Wt 106.5 kg
[~2019-04-19 19:43] MED LIST changes: +CHLOR10TAB PO; +DICY10CA13; +FOLI1TAB11 PO; +GABA-843 PO; +THIA100T7 PO; +TRAZ-252 PO; +VENL75CA2 PO
[2019-04-19] MEDS ORDERED: MAALOX 30 ML SUSP *UDC PO PRN (20:15)
[2019-04-19] MEDS ORDERED: MOM 30ML SUSPENSION UDC PO PRN (20:15)
[2019-04-19] MEDS ORDERED: DICYCLOMINE 10 MG CAP PO PRN (21:45)
[2019-04-19 22:25] VITALS: BP 149/100
[2019-04-19] MEDS: BACTRIM 160MG/800MG DS TAB PO SCH (22:49)
[2019-04-19] MEDS: PROPRANOLOL 10 MG TAB PO SCH (22:53)
[2019-04-20 06:31] VITALS: BP 137/87
[2019-04-20 08:00] VITALS: BP 139/91
[2019-04-20] MEDS: DIVALPROEX 250 MG TAB PO SCH ×2 (08:38→20:17)
[2019-04-20] MEDS: chlorproMAZINE 25 MG TAB (Q0161) PO SCH ×2 (08:40→20:15)
[2019-04-20] MEDS: PANTOPRAZOLE 40MG TAB (PROTONIX) PO SCH (08:40)
[2019-04-20] MEDS: GABAPENTIN 300 MG CAP PO SCH ×3 (08:40→20:17)
[2019-04-20] MEDS: DOCUSATE SODIUM 100 MG CAP PO SCH ×2 (08:41→20:17)
[2019-04-20] MEDS: THIAMINE 100 MG TAB PO SCH (08:41)
[2019-04-20] MEDS: VENLAFAXINE **XR** 75MG CAPSULE PO SCH (08:42)
[2019-04-20] MEDS: FOLIC ACID 1 MG TAB PO SCH (08:42)
[2019-04-20] MEDS: PROPRANOLOL 10 MG TAB PO SCH ×3 (08:42→20:17)
[2019-04-20] MEDS: LITHIUM CARBONATE 300 MG CAP PO SCH (08:42)
[2019-04-20] MEDS: BACTRIM 160MG/800MG DS TAB PO SCH ×2 (08:44→20:15)
[2019-04-20 09:00] VITALS: BP 133/87
[2019-04-20] MEDS: NICOTINE 21MG/24HR 1 EA TRANSDERMAL TD SCH (09:14)
[2019-04-20 10:00] VITALS: BP 148/83
[2019-04-20 11:00] VITALS: BP 135/79
[2019-04-20] MEDS: OLANZapine ORAL DISINTEGRATING TAB 5MG PO PRN (12:11)
[2019-04-20] MEDS: LORazepam 1 MG TAB PO PRN (12:11)
[2019-04-20] MEDS ORDERED: chlorproMAZINE INJ 50MG/2ML AMP (J3230) IM STA (12:34)
--- NOTE | 2019-04-20 15:22 | HPEPDOC ---
General Date of Admission Apr 19, 2019 at 21:21 Date of Service: Apr 20, 2019 Chief Complaint The patient is a 33-year-old male admitted with a reason for visit of Suicidal Ideations. Source: RN/, Old records History of Present Illness Went to see the Patient. As per nurses he was banging his head against the jennings, punching the jennings so he was on 4 point restraints. He had just come off restraints and was having lunch in his bed. I went into the room accompanied by nurse and another staff and introduced my self and explained that i was here for a medical history and physical . He refused to talk to me. He refused to allow a physical examination. He said until his lithium is increased he wont allow an examination. Home Medications Scheduled Chlorpromazine HCl (Chlorpromazine HCl) 100 Mg Tablet, 50 MG PO BID, (Reported) Divalproex Sodium (Depakote) 250 Mg Tablet.dr, 750 MG PO BID, (Reported) Docusate Sodium (Colace) 100 Mg Capsule, 200 MG PO BID, (Reported) Folic Acid (Folic Acid) 1 Mg Tablet, 1 MG PO DAILY, (Reported) Gabapentin (Gabapentin) 300 Mg Capsule, 600 MG PO TID, (Reported) [place] Carbonate ([place] Carbonate) 300 Mg Capsule, 300 MG PO DAILY, (Reported) Pantoprazole Sodium (Pantoprazole Sodium) 40 Mg Tablet.dr, 40 MG PO DAILY, (Reported) Propranolol HCl (Propranolol HCl) 10 Mg Tablet, 10 MG PO TID, (Reported) Sulfamethoxazole/Trimethoprim (Bactrim Ds Tablet) 1 Each Tablet, 1 TAB PO Q12H, (Reported) Thiamine HCl (Thiamine HCl) 100 Mg Tablet, 100 MG PO DAILY, (Reported) Trazodone HCl (Trazodone HCl) 50 Mg Tablet, 50 MG PO QHS, (Reported) Venlafaxine HCl (Venlafaxine HCl ER) 75 Mg Cap.er.24h, 150 MG PO DAILY, (Reported) Miscellaneous Medications Dicyclomine HCl (Dicyclomine HCl) 10 Mg Capsule, (Reported) Allergies Coded Allergies: Cephalosporins (Verified Allergy, Mild, HIVES, 04/17/19) haloperidol (Verified Adverse Reaction, Severe, SEIZURES, 04/17/19) ziprasidone (Verified Adverse Reaction, Mild, VOMITING, 04/17/19) Past Medical History Medical History As from EMR Intentional Overdose abilify and Depakote on 04/16/19 Depression with Suicide attempt Schizophrenia Anxiety prior history of suicide attempts including jumping off a bridge resulting in back surgeries, Urinary incontinence secondary to back injury from prior suicide attempt. Self caths Polysubstance abuse Alcohol abuse UTI Surgical History As from EMR Cholecystectomy and back surgeries A-FIB/CHADSVASC A-FIB History Current/History of A-Fib/PAF?: No Physical Examination Other physical findings refused Vital Signs Vital Signs Date Time Temp Pulse Resp B/P (MAP) Pulse Ox O2 Delivery O2 Flow Rate FiO2 04/20/19 11:00 76 20 135/79 (97) 04/20/19 06:31 98.6 04/19/19 22:25 98 Room Air Laboratory Data Labs 24H Laboratory Tests 2 04/20/19 07:47: [place] Level < 0.20L Assessment/Plan Pateint refused to give a history and refused to be examined. Plan / VTE VTE Prophylaxis Ordered?: No STEVENSON MARTINEZ MD Apr 20, 2019 13:28
[2019-04-20 16:30] VITALS: BP 128/81
[2019-04-20] MEDS: traZODone 50 MG TAB PO PRN (20:17)
--- NOTE | 2019-04-20 21:44 | MHHPE ---
DATE OF ADMISSION: 04/19/2019 VITAL SIGNS: Blood pressure 121/81, pulse 86, temperature 98.7. CHIEF COMPLAINT: He has been agitated. SUBJECTIVE: He is 33 years old. He has a history of psychiatric difficulties, primarily psychosis, has been diagnosed with schizophrenia. He was admitted here from the intensive care unit (ICU) where I saw him yesterday, he had taken an overdose. Please refer to yesterday's evaluation for details related to the circumstances of the admission and the assessment yesterday. He has a history of previous hospitalizations, last one here was several years ago. He is on various psychotropics, these include Depakote, lithium, chlorpromazine, gabapentin, venlafaxine, and trazodone. I had seen him yesterday after he had taken an overdose in an attempt to kill himself. He was admitted to the intensive care unit (ICU) for further stabilization. He was irritable and agitated when there, received antiagitation medication, including lorazepam. When I had seen him, he became quickly agitated. He was transferred to the inpatient psychiatry unit. I understand from staff that he has tried to leave the unit today by crawling on the floor and then was seen. He has been angry periodically. The anger had worsened. He was given antiagitation medications with limited effect, and then put in restraints to help address his current behaviors. When I saw him, he was in restraints, feeling a bit drowsy, but indicated that he took higher doses of lithium than he had been given here. This morning, his lithium level was quite low. He was not able to engage much in conversation after that, which is due to sedation. PAST PSYCHIATRIC HISTORY/BACKGROUND HISTORY: Please refer to previous summaries. MENTAL STATUS EXAMINATION: He is in four-point restraints, currently no agitation, feels drowsy but is coherent for only a brief period. Further evaluation regarding active suicidal thoughts could not be made. Judgment and insight are poor. ASSESSMENT: 1. Schizophrenia. 2. Status post overdose. Bipolar disorder, as well as schizoaffective disorder remain possibilities, this will require further information and collateral information. He had taken an overdose, had come to the hospital. PLAN: He is admitted to the inpatient psychiatry unit and placed on relevant precautions, including restraints if indicated. We will resume some of his medications that he has been on, but with caution. I resumed the lithium at 300 mg daily. He is on chlorpromazine at 50 mg twice a day, Depakote 750 mg twice a day, venlafaxine 150 mg daily. We will monitor him, per protocol. He will be encouraged to participate in activities in the unit as tolerated. He will be seen by the Department of Medicine. He will be discharged with followup once he is stable. I wound anticipate at least a 5 to 7 day stay. Further recommendations will be made depending on the clinical picture.
[2019-04-21 06:24] VITALS: BP 128/78
[2019-04-21] MEDS: VENLAFAXINE **XR** 75MG CAPSULE PO SCH (08:34)
[2019-04-21] MEDS: GABAPENTIN 300 MG CAP PO SCH ×3 (08:35→20:34)
[2019-04-21] MEDS: PROPRANOLOL 10 MG TAB PO SCH ×3 (08:36→20:35)
[2019-04-21] MEDS: DOCUSATE SODIUM 100 MG CAP PO SCH ×2 (08:36→20:36)
[2019-04-21] MEDS: PANTOPRAZOLE 40MG TAB (PROTONIX) PO SCH (08:37)
[2019-04-21] MEDS: LITHIUM CARBONATE 300 MG CAP PO SCH (08:37)
[2019-04-21] MEDS: FOLIC ACID 1 MG TAB PO SCH (08:38)
[2019-04-21] MEDS: BACTRIM 160MG/800MG DS TAB PO SCH ×2 (08:38→20:36)
[2019-04-21] MEDS: chlorproMAZINE 25 MG TAB (Q0161) PO SCH ×2 (08:38→20:36)
[2019-04-21] MEDS: THIAMINE 100 MG TAB PO SCH (08:38)
[2019-04-21] MEDS: DIVALPROEX 250 MG TAB PO SCH ×2 (08:39→20:37)
[2019-04-21] MEDS: NICOTINE 21MG/24HR 1 EA TRANSDERMAL TD SCH (08:40)
[2019-04-21] MEDS: LORazepam 1 MG TAB PO PRN (14:34)
[2019-04-21 16:49] VITALS: BP 131/92
[2019-04-21] MEDS: ACETAMINOPHEN TAB 650MG DOSE (2X325MG) PO PRN (18:24)
[2019-04-21] MEDS ORDERED: traMADol 50 MG TAB PO ONE (19:45)
[2019-04-21] MEDS: traZODone 50 MG TAB PO PRN (20:34)
[2019-04-21] MEDS ORDERED: chlorproMAZINE INJ 50MG/2ML AMP (J3230) IM STA (21:18)
[2019-04-21] MEDS ORDERED: LORazepam 2 MG/ML VIAL (J2060) IM STA (21:18)
[2019-04-21 21:36] VITALS: BP 131/92
[2019-04-21 21:51] VITALS: BP 120/74
[2019-04-21 22:06] VITALS: BP 131/92
[2019-04-21] MEDS: OLANZapine ORAL DISINTEGRATING TAB 5MG PO PRN (23:42)
[2019-04-22] MEDS: LITHIUM CARBONATE 300 MG CAP PO SCH (09:11)
[2019-04-22] MEDS: DOCUSATE SODIUM 100 MG CAP PO SCH ×2 (09:11→20:13)
[2019-04-22] MEDS: FOLIC ACID 1 MG TAB PO SCH (09:11)
[2019-04-22] MEDS: PROPRANOLOL 10 MG TAB PO SCH ×3 (09:12→20:15)
[2019-04-22] MEDS: VENLAFAXINE **XR** 75MG CAPSULE PO SCH (09:12)
[2019-04-22] MEDS: BACTRIM 160MG/800MG DS TAB PO SCH ×2 (09:12→20:13)
[2019-04-22] MEDS: PANTOPRAZOLE 40MG TAB (PROTONIX) PO SCH (09:12)
[2019-04-22] MEDS: DIVALPROEX 250 MG TAB PO SCH ×2 (09:12→20:15)
[2019-04-22] MEDS: THIAMINE 100 MG TAB PO SCH (09:12)
[2019-04-22] MEDS: GABAPENTIN 300 MG CAP PO SCH ×3 (09:12→20:15)
[2019-04-22] MEDS: chlorproMAZINE 25 MG TAB (Q0161) PO SCH ×2 (09:12→20:13)
[2019-04-22] MEDS: NICOTINE 21MG/24HR 1 EA TRANSDERMAL TD SCH (09:13)
--- NOTE | 2019-04-22 11:02 | MHIPNPDOC ---
[facility] Progress Note Progress Note DATE OF SERVICE: 04/22/19 HISTORY: Per Dr. Aleman admit note: "He is 33 years old. He has a history of psychiatric difficulties, primarily psychosis, has been diagnosed with schizophrenia. He was admitted here from the intensive care unit (ICU) where I saw him yesterday, he had taken an overdose. Please refer to yesterday's evaluation for details related to the circumstances of the admission and the assessment yesterday. He has a history of previous hospitalizations, last one here was several years ago. He is on various psychotropics, these include Depakote, lithium, chlorpromazine, gabapentin, venlafaxine, and trazodone. I had seen him yesterday after he had taken an overdose in an attempt to kill himself. He was admitted to the intensive care unit (ICU) for further stabilization. He was irritable and agitated when there, received antiagitation medication, including lorazepam. When I had seen him, he became quickly agitated. He was transferred to the inpatient psychiatry unit. I understand from staff that he has tried to leave the unit today by crawling on the floor and then was seen. He has been angry periodically. The anger had worsened. He was given anti-agitation medications with limited effect, and then put in restraints to help address his current behaviors. When I saw him, he was in restraints, feeling a bit drowsy, but indicated that he took higher doses of lithium than he had been given here. This morning, his lithium level was quite low. He was not able to engage much in conversation after that, which is due to sedation." VITAL SIGNS: See below. NEW TEST RESULTS: See below. CURRENT MEDICATIONS: See below. MENTAL STATUS EXAMINATION: Patient is a 33-year old male, who is in bed asleep and left sleeping due to agitation and psychosis when awake unable to assess rest of MSE as pt asleep. DIAGNOSES: Paranoid Schizophrenia ASSESSMENT: Per nursing pt agitated most of yesterday, refusing to follow nursing orders, urinating on himself and not straight cathing as he should, had to be restrained lst evening during to agitation. Pt seen in his room with sitter present and sleeping after given chemical and physical restraints last evening for agitation. Per staff did get up and eat breakfast this am then went back to sleep. Will d/c lithium as in light of recent overdose on it and depakote prior admission, safer to use one stabilizer rather than 2, will continue depakote. MANAGEMENT PLAN: D/c oral lithium, continue rest of meds and 1:1 sitter. chlorpromazine at 50 mg twice a day Depakote 750 mg twice a day, venlafaxine 150 mg daily. TIME SPENT: 30 minutes. Vital Signs Vital Signs Date Time Temp Pulse Resp B/P (MAP) Pulse Ox O2 Delivery O2 Flow Rate FiO2 04/22/19 09:12 85 136/80 04/21/19 22:06 98.8 85 99 04/21/19 21:36 Room Air Current Medications Current Medications Medications (Trade) Dose Ordered Sig/Ivette Route PRN Reason Start Time Stop Time Status Last Admin Dose Admin Acetaminophen (Tylenol Tab) 650 mg Q6HP PRN PO HEADACHE or DISCOMFORT 04/19/19 20:15 04/21/19 18:24 Al Hydrox/Mg Hydrox/Simethicone (Mylanta) 30 ml Q4HP PRN PO HEARTBURN/INDIGESTION 04/19/19 20:15 Chlorpromazine HCl (Thorazine) 25 mg STAT STAT IM 04/20/19 12:34 04/20/19 12:35 DC 04/20/19 12:43 Chlorpromazine HCl (Thorazine) 25 mg STAT STAT IM 04/21/19 21:18 04/21/19 21:24 DC 04/21/19 21:41 Chlorpromazine HCl (Thorazine) 50 mg BID PO 04/20/19 09:00 04/22/19 09:12 Dicyclomine HCl (Bentyl) 10 mg TIDP PRN PO CRAMPS 04/19/19 21:45 Divalproex Sodium (Depakote) 750 mg BID PO 04/20/19 09:00 04/22/19 09:12 Docusate Sodium (Colace) 200 mg BID PO 04/20/19 09:00 04/22/19 09:11 Folic Acid (Folic Acid) 1 mg DAILY PO 04/20/19 09:00 04/22/19 09:11 Gabapentin (Neurontin) 600 mg TID PO 04/20/19 09:00 04/22/19 09:12 [place] Carbonate ([place] Carbonate) 300 mg DAILY PO 04/20/19 09:00 04/22/19 09:11 Lorazepam (Ativan) 1 mg Q6HP PRN PO ANXIETY/AGITATION 04/19/19 20:15 04/21/19 14:34 Lorazepam (Ativan) 1 mg STAT STAT IM 04/21/19 21:18 04/21/19 21:24 DC 04/21/19 21:41 Magnesium Hydroxide (Milk Of Magnesia) 30 ml DAILYPRN PRN PO CONSTIPATION 04/19/19 20:15 Nicotine (Nicoderm Cq 21mg) 1 patch DAILY TD 04/20/19 09:00 04/22/19 09:13 Olanzapine (ZyPREXA ZYDIS) 5 mg Q4HP PRN PO ANXIETY 04/19/19 20:15 04/21/19 23:42 Pantoprazole Sodium (Protonix) 40 mg DAILY PO 04/20/19 09:00 04/22/19 09:12 Propranolol HCl (Inderal) 10 mg TID PO 04/19/19 21:00 04/22/19 09:12 Thiamine HCl (Thiamine HCl) 100 mg DAILY PO 04/20/19 09:00 04/22/19 09:12 Trazodone HCl (Desyrel) 50 mg QHSP PRN PO INSOMNIA 04/19/19 20:15 04/21/19 20:34 Trimethoprim/ Sulfamethoxazole (Bactrim Ds, Septra Ds 160mg/ 800mg) 1 tab Q12H PO 04/19/19 21:00 04/23/19 12:00 04/22/19 09:12 Venlafaxine HCl (Effexor Xr) 150 mg DAILY PO 04/20/19 09:00 04/22/19 09:12 Allergies Coded Allergies: Cephalosporins (Verified Allergy, Mild, HIVES, 04/17/19) haloperidol (Verified Adverse Reaction, Severe, SEIZURES, 04/17/19) ziprasidone (Verified Adverse Reaction, Mild, VOMITING, 04/17/19) MICHELLE CONLEY DO Apr 22, 2019 10:16 am
[2019-04-22 14:00] VITALS: BP 110/66
[2019-04-22] MEDS: LORazepam 1 MG TAB PO PRN ×2 (14:49→21:05)
[2019-04-22] MEDS: ACETAMINOPHEN TAB 650MG DOSE (2X325MG) PO PRN (18:15)
[2019-04-22] MEDS: NICOTINE POLACRILEX 2 MG GUM PO PRN ×3 (18:29→23:00)
--- NOTE | 2019-04-22 18:29 | MHIPN ---
DATE: 04/21/2019 VITAL SIGNS: Blood pressure 127/78, pulse 80, temperature 98.3. SUBJECTIVE: He has been less agitated. He had been agitated yesterday at night, required redirection and has had a relatively quiet night. He is currently asleep, so I did not wake him up or engage him in conversation. He remains on one-on-one observation, and we will continue with that for now. I would suggest that the combination of medications remain unchanged for now, and we will keep the lithium carbonate at 300 mg daily until we get further information on outpatient regimen and his adherence to treatment overall. We will continue monitoring on a one-on-one basis and further recommendations will be made when he sees the inpatient psychiatrist and team tomorrow.
--- NOTE | 2019-04-22 18:31 | MHIPN ---
DATE: 04/21/2019 A further attempt was made to engage with the patient, who has been resting, eyes closed, briefly opened them, and closed them again, did not reply to my attempts to engage in any conversation. He remains on one-to-one observation, and we will continue with that. Further recommendations will be made depending on the clinical picture.
[2019-04-23] MEDS: OLANZapine ORAL DISINTEGRATING TAB 5MG PO PRN (05:54)
[2019-04-23] MEDS: DIVALPROEX 250 MG TAB PO SCH (08:16)
[2019-04-23] MEDS: PROPRANOLOL 10 MG TAB PO SCH ×3 (08:17→20:08)
[2019-04-23] MEDS: BACTRIM 160MG/800MG DS TAB PO SCH (08:17)
[2019-04-23] MEDS: THIAMINE 100 MG TAB PO SCH (08:17)
[2019-04-23] MEDS: chlorproMAZINE 25 MG TAB (Q0161) PO SCH ×2 (08:17→20:06)
[2019-04-23] MEDS: FOLIC ACID 1 MG TAB PO SCH (08:18)
[2019-04-23] MEDS: DOCUSATE SODIUM 100 MG CAP PO SCH ×2 (08:18→20:06)
[2019-04-23] MEDS: GABAPENTIN 300 MG CAP PO SCH ×3 (08:18→20:06)
[2019-04-23] MEDS: PANTOPRAZOLE 40MG TAB (PROTONIX) PO SCH (08:18)
[2019-04-23] MEDS: NICOTINE POLACRILEX 2 MG GUM PO PRN ×6 (08:21→22:03)
[2019-04-23] MEDS: VENLAFAXINE **XR** 75MG CAPSULE PO SCH (08:41)
[2019-04-23] MEDS: LORazepam 1 MG TAB PO PRN ×2 (08:43→23:05)
--- NOTE | 2019-04-23 10:42 | MHIPNPDOC ---
[facility] Progress Note Progress Note Inpatient Progress Note Ofe Rayo MRN: N/A Date of : N/A Date of Service: 04/23/2019 History of Present Illness Patient a 33-year-old man with schizophrenia presents after significant overdose of Depakote, lithium and other medications Interval History Psychiatric symptoms today: The patient is initially attempted to be met with today, however, he was sedated on Ativan. He was later to be met with after requesting patient reports that he wants to be on lithium. Affective: unable to determine Psychotic: The patient is still disorganized and impulsive. Anxiety: Eating behavior is normal. Misc: Group Attendance: None Medication Side effects: See ROS below Behavioral problems/significant events overnight: Smashing head on jennings, needing medications Staff Report: The patient has remained psychotic and unable to redirect Review Of Systems Unable to determine due to mental status. Psychotherapy None on this visit. Vital Signs Reviewed. Mental Status Examination General: Poor hygiene. Speech: Monotone Thought processes: Tangential at times. MSK: Smooth and coordinated gait, no signs of tremors or involuntary orofacial movements Thought content: Focused on lithium. Abstract reasoning, and computation: Impaired. Description of associations: Impaired. Description of abnormal or psychotic thoughts: Is able to contract for safety on the unit. Judgment: Impaired. Insight: Impaired. Orientation: Alert and orientated 3 Cognition: Some slowing. Recent and remote memory: Intact Attention span and concentration: Some impairment. Fund of knowledge: Adequate Mood: "I want lithium." Affect: Flat with little reactivity. Diagnoses Schizophrenia. Assessment and Plan Schizophrenia: Discontinue Depakote, start lithium patient's home dose of extended release 600 mg daily with one time dose now. Continue Ativan as needed and neuroleptic as below. Disposition Patient will need a further inpatient admission due to his severely impairing psychosis and overdose. He will remain on a 1 to 1 sitter due to his agitation and self destructive behavior. Time Spent 15 minutes Monday Vital Signs Vital Signs Date Time Temp Pulse Resp B/P (MAP) Pulse Ox O2 Delivery O2 Flow Rate FiO2 04/23/19 08:17 99 114/76 04/22/19 14:00 98.0 16 04/21/19 22:06 99 04/21/19 21:36 Room Air Current Medications Current Medications Medications (Trade) Dose Ordered Sig/Ivette Route PRN Reason Start Time Stop Time Status Last Admin Dose Admin Acetaminophen (Tylenol Tab) 650 mg Q6HP PRN PO HEADACHE or DISCOMFORT 04/19/19 20:15 04/22/19 18:15 Al Hydrox/Mg Hydrox/Simethicone (Mylanta) 30 ml Q4HP PRN PO HEARTBURN/INDIGESTION 04/19/19 20:15 Chlorpromazine HCl (Thorazine) 25 mg STAT STAT IM 04/20/19 12:34 04/20/19 12:35 DC 04/20/19 12:43 Chlorpromazine HCl (Thorazine) 25 mg STAT STAT IM 04/21/19 21:18 04/21/19 21:24 DC 04/21/19 21:41 Chlorpromazine HCl (Thorazine) 50 mg BID PO 04/20/19 09:00 04/23/19 08:17 Dicyclomine HCl (Bentyl) 10 mg TIDP PRN PO CRAMPS 04/19/19 21:45 Divalproex Sodium (Depakote) 750 mg BID PO 04/20/19 09:00 04/23/19 08:16 Docusate Sodium (Colace) 200 mg BID PO 04/20/19 09:00 04/23/19 08:18 Folic Acid (Folic Acid) 1 mg DAILY PO 04/20/19 09:00 04/23/19 08:18 Gabapentin (Neurontin) 600 mg TID PO 04/20/19 09:00 04/23/19 08:18 [place] Carbonate ([place] Carbonate) 300 mg DAILY PO 04/20/19 09:00 04/22/19 11:05 DC 04/22/19 09:11 Lorazepam (Ativan) 1 mg Q6HP PRN PO ANXIETY/AGITATION 04/19/19 20:15 04/23/19 08:43 Lorazepam (Ativan) 1 mg STAT STAT IM 04/21/19 21:18 04/21/19 21:24 DC 04/21/19 21:41 Magnesium Hydroxide (Milk Of Magnesia) 30 ml DAILYPRN PRN PO CONSTIPATION 04/19/19 20:15 Nicotine (Nicoderm Cq 21mg) 1 patch DAILY TD 04/20/19 09:00 04/22/19 18:16 DC 04/22/19 09:13 Nicotine (Nicorette) 4 mg Q2HP PRN PO NICOTINE WITHDRAWAL 04/22/19 18:15 04/23/19 08:21 Olanzapine (ZyPREXA ZYDIS) 5 mg Q4HP PRN PO ANXIETY 04/19/19 20:15 04/23/19 05:54 Pantoprazole Sodium (Protonix) 40 mg DAILY PO 04/20/19 09:00 04/23/19 08:18 Propranolol HCl (Inderal) 10 mg TID PO 04/19/19 21:00 04/23/19 08:17 Thiamine HCl (Thiamine HCl) 100 mg DAILY PO 04/20/19 09:00 04/23/19 08:17 Trazodone HCl (Desyrel) 50 mg QHSP PRN PO INSOMNIA 04/19/19 20:15 04/21/19 20:34 Trimethoprim/ Sulfamethoxazole (Bactrim Ds, Septra Ds 160mg/ 800mg) 1 tab Q12H PO 04/19/19 21:00 04/23/19 12:00 04/23/19 08:17 Venlafaxine HCl (Effexor Xr) 150 mg DAILY PO 04/20/19 09:00 04/23/19 08:41 Allergies Coded Allergies: Cephalosporins (Verified Allergy, Mild, HIVES, 04/17/19) haloperidol (Verified Adverse Reaction, Severe, SEIZURES, 04/17/19) ziprasidone (Verified Adverse Reaction, Mild, VOMITING, 04/17/19) OFE WHITFIELD DO Apr 23, 2019 10:42
[2019-04-23] MEDS ORDERED: LORazepam 1 MG TAB PO ONE (15:30)
[2019-04-23] MEDS ORDERED: LITHIUM CARBONATE 300 MG **CR** TAB PO ONE (17:15)
[2019-04-23 17:43] VITALS: BP 136/90
[2019-04-23] MEDS: traZODone 50 MG TAB PO PRN (20:08)
[2019-04-24 08:17] VITALS: BP 133/80
[2019-04-24] MEDS: DOCUSATE SODIUM 100 MG CAP PO SCH ×2 (08:18→20:17)
[2019-04-24] MEDS: VENLAFAXINE **XR** 75MG CAPSULE PO SCH (08:18)
[2019-04-24] MEDS: LITHIUM CARBONATE 300 MG **CR** TAB PO SCH (08:19)
[2019-04-24] MEDS: THIAMINE 100 MG TAB PO SCH (08:19)
[2019-04-24] MEDS: PROPRANOLOL 10 MG TAB PO SCH ×3 (08:19→20:18)
[2019-04-24] MEDS: FOLIC ACID 1 MG TAB PO SCH (08:19)
[2019-04-24] MEDS: chlorproMAZINE 25 MG TAB (Q0161) PO SCH ×2 (08:20→20:17)
[2019-04-24] MEDS: NICOTINE POLACRILEX 2 MG GUM PO PRN ×3 (08:20→20:23)
[2019-04-24] MEDS: PANTOPRAZOLE 40MG TAB (PROTONIX) PO SCH (09:19)
[2019-04-24] MEDS: GABAPENTIN 300 MG CAP PO SCH ×3 (09:19→20:17)
[2019-04-24] MEDS: LORazepam 1 MG TAB PO PRN (10:06)
--- NOTE | 2019-04-24 10:41 | MHIPNPDOC ---
[facility] Progress Note Progress Note DATE OF SERVICE: 04/24/19 HISTORY: Per Dr. Aleman admit note: "He is 33 years old. He has a history of psychiatric difficulties, primarily psychosis, has been diagnosed with schizophrenia. He was admitted here from the intensive care unit (ICU) where I saw him yesterday, he had taken an overdose. Please refer to yesterday's evaluation for details related to the circumstances of the admission and the assessment yesterday. He has a history of previous hospitalizations, last one here was several years ago. He is on various psychotropics, these include Depakote, lithium, chlorpromazine, gabapentin, venlafaxine, and trazodone. I had seen him yesterday after he had taken an overdose in an attempt to kill himself. He was admitted to the intensive care unit (ICU) for further stabilization. He was irritable and agitated when there, received antiagitation medication, including lorazepam. When I had seen him, he became quickly agitated. He was transferred to the inpatient psychiatry unit. I understand from staff that he has tried to leave the unit today by crawling on the floor and then was seen. He has been angry periodically. The anger had worsened. He was given anti-agitation medications with limited effect, and then put in restraints to help address his current behaviors. When I saw him, he was in restraints, feeling a bit drowsy, but indicated that he took higher doses of lithium than he had been given here. This morning, his lithium level was quite low. He was not able to engage much in conversation after that, which is due to sedation." VITAL SIGNS: See below. NEW TEST RESULTS: See below. CURRENT MEDICATIONS: See below. MENTAL STATUS EXAMINATION: Pt seen and is cooperative and pleasant. States his mood is "better," affect appears euthymic but labile and reactive at times based on situation/internal stimulation, thoughts appear linear and concrete, insight and judgment are improving, appears to have improved concentration with less internal stimulation. Denies SI/HI. Denies delusions, appears mildly paranoid still but denies he is. DIAGNOSES: Paranoid Schizophrenia ASSESSMENT: Per nursing pt agitated and banging his head yesterday, had to be restrained lst evening during to agitation. Pt seen in his room with sitter present and sleeping after given chemically for agitation. Pt seen by Dr. Moreira yesterday and unhappy his lithium was discontinued by myself on Monday. Dr. Moreira restarted pt on lithium 600mg daily and d/c his depakote which per staff pt appears happy about and more engaged in his treatment on the unit after the change. Pts started on inderal 10mg tid for anxiety and agitation which pt appears to be tolerating well with good benefit regarding agitation and anxiety. Pt seen today and states he's doing better now that he's on lithium daily and depakote d/c and it's benficial with good tolerance. States the only reason he was agitated and banging his head yesterday was b/c his lithium was d/c and feels much better, no longer agitated since lithium restarted. Pt is seen to be more engaged in milieu and was cooperative when seen. States he feels he will be good without at 1:1 sitter now that he's on lithium and not having agitation anymore. States that he can cooperate with unit rules and treatment w/o sitter so will d/c sitter and see how pt does. Enouraged to go to groups. States he's find with returning to [facility] upon d/c and would like to work with them to return to [facility] as "my family lives in [facility] and I like being close to him." Denies SI/HI today. Feels safe here. MANAGEMENT PLAN: d/c 1:1 sitter. chlorpromazine at 50 mg twice a day [place] 600mg daily inderal 10mg tid venlafaxine 150 mg daily. TIME SPENT: 30 minutes. Vital Signs Vital Signs Date Time Temp Pulse Resp B/P (MAP) Pulse Ox O2 Delivery O2 Flow Rate FiO2 04/24/19 08:19 113 133/80 04/24/19 08:17 16 04/23/19 21:56 97.9 04/21/19 22:06 99 04/21/19 21:36 Room Air Current Medications Current Medications Medications (Trade) Dose Ordered Sig/Ivette Route PRN Reason Start Time Stop Time Status Last Admin Dose Admin Acetaminophen (Tylenol Tab) 650 mg Q6HP PRN PO HEADACHE or DISCOMFORT 04/19/19 20:15 04/22/19 18:15 Al Hydrox/Mg Hydrox/Simethicone (Mylanta) 30 ml Q4HP PRN PO HEARTBURN/INDIGESTION 04/19/19 20:15 Chlorpromazine HCl (Thorazine) 25 mg STAT STAT IM 04/20/19 12:34 04/20/19 12:35 DC 04/20/19 12:43 Chlorpromazine HCl (Thorazine) 25 mg STAT STAT IM 04/21/19 21:18 04/21/19 21:24 DC 04/21/19 21:41 Chlorpromazine HCl (Thorazine) 50 mg BID PO 04/20/19 09:00 04/24/19 08:20 Dicyclomine HCl (Bentyl) 10 mg TIDP PRN PO CRAMPS 04/19/19 21:45 Divalproex Sodium (Depakote) 750 mg BID PO 04/20/19 09:00 04/23/19 17:16 DC 04/23/19 08:16 Docusate Sodium (Colace) 200 mg BID PO 04/20/19 09:00 04/24/19 08:18 Folic Acid (Folic Acid) 1 mg DAILY PO 04/20/19 09:00 04/24/19 08:19 Gabapentin (Neurontin) 600 mg TID PO 04/20/19 09:00 04/23/19 20:06 [place] Carbonate ([place] Carbonate) 300 mg DAILY PO 04/20/19 09:00 04/22/19 11:05 DC 04/22/19 09:11 [place] Carbonate (Lithobid Cr) 600 mg QAM PO 04/24/19 09:00 04/24/19 08:19 Lorazepam (Ativan) 1 mg Q6HP PRN PO ANXIETY/AGITATION 04/19/19 20:15 04/23/19 23:05 Lorazepam (Ativan) 1 mg STAT STAT IM 04/21/19 21:18 04/21/19 21:24 DC 04/21/19 21:41 Magnesium Hydroxide (Milk Of Magnesia) 30 ml DAILYPRN PRN PO CONSTIPATION 04/19/19 20:15 Nicotine (Nicoderm Cq 21mg) 1 patch DAILY TD 04/20/19 09:00 04/22/19 18:16 DC 04/22/19 09:13 Nicotine (Nicorette) 4 mg Q2HP PRN PO NICOTINE WITHDRAWAL 04/22/19 18:15 04/24/19 08:20 Olanzapine (ZyPREXA ZYDIS) 5 mg Q4HP PRN PO ANXIETY 04/19/19 20:15 04/23/19 05:54 Pantoprazole Sodium (Protonix) 40 mg DAILY PO 04/20/19 09:00 04/23/19 08:18 Propranolol HCl (Inderal) 10 mg TID PO 04/19/19 21:00 04/24/19 08:19 Thiamine HCl (Thiamine HCl) 100 mg DAILY PO 04/20/19 09:00 04/24/19 08:19 Trazodone HCl (Desyrel) 50 mg QHSP PRN PO INSOMNIA 04/19/19 20:15 04/23/19 20:08 Trimethoprim/ Sulfamethoxazole (Bactrim Ds, Septra Ds 160mg/ 800mg) 1 tab Q12H PO 04/19/19 21:00 04/23/19 12:00 DC 04/23/19 08:17 Venlafaxine HCl (Effexor Xr) 150 mg DAILY PO 04/20/19 09:00 04/24/19 08:18 Allergies Coded Allergies: Cephalosporins (Verified Allergy, Mild, HIVES, 04/17/19) haloperidol (Verified Adverse Reaction, Severe, SEIZURES, 04/17/19) ziprasidone (Verified Adverse Reaction, Mild, VOMITING, 04/17/19) MICHELLE CONLEY DO Apr 24, 2019 09:11
[2019-04-24 16:00] VITALS: BP 123/69
[2019-04-24 16:12] VITALS: BP 123/69
[2019-04-24] MEDS: BACTRIM 160MG/800MG DS TAB PO SCH (18:02)
[2019-04-24 18:21] LABS: HEMATOCRIT 42.2 % (42.0-52.0); HEMOGLOBIN 13.4 g/dl (13.5-17.5); MEAN CORPUSCULAR HEMOGLOBIN 29.6 pg (27.0-33.0); MEAN CORPUSCULAR HGB CONC 31.8 g/dl (32.0-36.5); MEAN CORPUSCULAR VOLUME 93.4 fl (80.0-96.0); PLATELET COUNT, AUTOMATED 222 10^3/uL (150-450); RED BLOOD COUNT 4.52 10^6/uL (4.30-6.10); WHITE BLOOD COUNT 7.5 10^3/uL (4.0-10.0)
[2019-04-24] MEDS: OLANZapine ORAL DISINTEGRATING TAB 5MG PO PRN (18:34)
[2019-04-24 18:41] LABS: BLOOD UREA NITROGEN 15 MG/DL (7-18); CALCIUM LEVEL 8.7 MG/DL (8.5-10.1); CARBON DIOXIDE LEVEL 30 MEQ/L (21-32); CHLORIDE LEVEL 105 MEQ/L (98-107); CREATININE FOR GFR 1.16 MG/DL (0.70-1.30); GLOMERULAR FILTRATION RATE > 60.0 (>60); GLUCOSE, FASTING 95 MG/DL (70-100); POTASSIUM SERUM 4.5 MEQ/L (3.5-5.1); SODIUM LEVEL 138 MEQ/L (136-145)
[2019-04-25 06:28] VITALS: BP 116/72
[2019-04-25] MEDS: LITHIUM CARBONATE 300 MG **CR** TAB PO SCH (08:41)
[2019-04-25] MEDS: DOCUSATE SODIUM 100 MG CAP PO SCH ×2 (08:42→20:11)
[2019-04-25] MEDS: PANTOPRAZOLE 40MG TAB (PROTONIX) PO SCH (08:42)
[2019-04-25] MEDS: BACTRIM 160MG/800MG DS TAB PO SCH ×2 (08:42→20:10)
[2019-04-25] MEDS: FOLIC ACID 1 MG TAB PO SCH (08:42)
[2019-04-25] MEDS: GABAPENTIN 300 MG CAP PO SCH ×3 (08:42→20:11)
[2019-04-25] MEDS: THIAMINE 100 MG TAB PO SCH (08:42)
[2019-04-25] MEDS: VENLAFAXINE **XR** 75MG CAPSULE PO SCH (08:42)
[2019-04-25] MEDS: PROPRANOLOL 10 MG TAB PO SCH ×3 (08:42→20:11)
[2019-04-25] MEDS: NICOTINE POLACRILEX 2 MG GUM PO PRN ×4 (08:42→22:00)
[2019-04-25] MEDS: chlorproMAZINE 25 MG TAB (Q0161) PO SCH ×2 (08:42→20:11)
--- NOTE | 2019-04-25 10:04 | CR ---
DATE OF CONSULTATION: 04/24/2019 TIME: Approximately 5:00 p.m. REASON FOR CONSULTATION: Medical treatment of complicated urinary tract infection (UTI). HISTORY OF PRESENT ILLNESS: Mr. Rayo is a 33-year-old gentleman who was admitted to the inpatient psychiatric unit following an intentional overdose with Abilify and Depakote. He was hospitalized in the hospital in the intensive care unit (ICU) and then subsequently transferred to the inpatient psychiatric unit. He has a past medical history of neurogenic bladder, for which he self catheterizes following a back injury from jumping out of a building during a prior suicide attempt. The patient had a urinalysis done today, which was grossly abnormal. I was consulted to see the patient. Pending review of his previous urine cultures, it appears that on 04/13/2019 he grew Escherichia (E) coli resistant to ampicillin, as well as fluoroquinolones. At this point, he is not having any costovertebral angle tenderness suggestive of pyelonephritis. He did not appear septic. ALLERGIES: CEPHALOSPORINS, cause hives. HALOPERIDOL causes seizures. RISPERIDONE causes vomiting. MEDICATIONS: - Nicorette - lithium - thorazine - Colace - folic acid - Neurontin - Protonix - thiamine - Effexor - Ventolin - Inderal - Ativan - Desyrel PAST MEDICAL HISTORY: 1. Intentional overdose on 04/16/2019 with Abilify and Depakote. 2. History of depression with several suicide attempts. 3. History of chronic anxiety. 4. Neurogenic bladder. 5. Polysubstance use. 6. History of cholecystectomy. 7. Back surgeries in the past. LABORATORIES: White count 7.5, hemoglobin 13.4, hematocrit 42, platelet count 222,000. Sodium 138, potassium 4.5, chloride 101, bicarbonate 38, anion gap 3, BUN 15, creatinine 1.16, glucose 95, calcium 3.6. Microbiology: Urine culture is pending at this time. Urinalysis is grossly positive for nitrites, as well as 3+ leukocyte esterase with 4 urine RBCs, 3+ urine bacteria, and multiple urine WBCs. IMPRESSION: 1. Complicated urinary tract infection (UTI). RECOMMENDATION: At this point in time, the patient does not need transfer to the hospital floor. He is stable. Based on his prior sensitivities to organism growing in his previous urine culture, which shows Escherichia (E) coli, I assume he is growing another gram-negative. At this time, I am going to put him on Bactrim DS one tablet twice a day for the next 3 days. That should be sufficient to treat his urinary tract infection. He does not have any evidence to suggest pyelonephritis. We will monitor his cultures over the next 24 hours and if it is routine organism, we will sign off at that time. Thank you for consulting us. REBA
[2019-04-25] MEDS: LORazepam 1 MG TAB PO PRN (10:09)
--- NOTE | 2019-04-25 10:17 | MHIPNPDOC ---
[facility] Progress Note Progress Note DATE OF SERVICE: 04/25/19 HISTORY: Per Dr. Aleman admit note: "He is 33 years old. He has a history of psychiatric difficulties, primarily psychosis, has been diagnosed with schizophrenia. He was admitted here from the intensive care unit (ICU) where I saw him yesterday, he had taken an overdose. Please refer to yesterday's evaluation for details related to the circumstances of the admission and the assessment yesterday. He has a history of previous hospitalizations, last one here was several years ago. He is on various psychotropics, these include Depakote, lithium, chlorpromazine, gabapentin, venlafaxine, and trazodone. I had seen him yesterday after he had taken an overdose in an attempt to kill himself. He was admitted to the intensive care unit (ICU) for further stabilization. He was irritable and agitated when there, received antiagitation medication, including lorazepam. When I had seen him, he became quickly agitated. He was transferred to the inpatient psychiatry unit. I understand from staff that he has tried to leave the unit today by crawling on the floor and then was seen. He has been angry periodically. The anger had worsened. He was given anti-agitation medications with limited effect, and then put in restraints to help address his current behaviors. When I saw him, he was in restraints, feeling a bit drowsy, but indicated that he took higher doses of lithium than he had been given here. This morning, his lithium level was quite low. He was not able to engage much in conversation after that, which is due to sedation." VITAL SIGNS: See below. NEW TEST RESULTS: See below. CURRENT MEDICATIONS: See below. MENTAL STATUS EXAMINATION: Pt seen and is cooperative and pleasant. States his mood is "good," affect appears euthymic and no longer labile and reactive to situation, no longer appears to be responding to internal stimulation, thoughts appear linear and concrete, insight and judgment are improving, appears to have improved concentration. Able to have appropriate conversation with me and is present and engaged in the milieu. Cooperative and pleasant on the unit. Denies SI/HI. Denies delusions, and paranoia today. DIAGNOSES: Paranoid Schizophrenia ASSESSMENT: Pt seen and is cooperative and pleasant. States his mood is "good," affect appears euthymic and no longer labile and reactive to situation, no longer appears to be responding to internal stimulation, thoughts appear linear and concrete, insight and judgment are improving, appears to have improved concentration. Able to have appropriate conversation with me and is present and engaged in the milieu. States he's tolerating his medication well adn feels it's benefiical especially his lithium now that he's back on it. Per staff pt appears to be doing very well overall and no behavior problems for past 2 days, cooperative and pleasant on the unit. Denies SI/HI. Denies delusions, and paranoia today. is going to groups and feels they're helpful States he's find with returning to [facility] upon d/c and would like to work with them to return to [facility] as "my family lives in [facility] and I like being close to him." Denies SI/HI today. Feels safe here. MANAGEMENT PLAN: d/c back to [facility] tomorrow chlorpromazine at 50 mg twice a day [place] 600mg daily inderal 10mg tid venlafaxine 150 mg daily. TIME SPENT: 30 minutes. Vital Signs Vital Signs Date Time Temp Pulse Resp B/P (MAP) Pulse Ox O2 Delivery O2 Flow Rate FiO2 04/25/19 08:42 108 138/87 04/25/19 06:28 98.6 16 04/21/19 22:06 99 04/21/19 21:36 Room Air Laboratory Data 24H Labs Laboratory Tests 2 04/24/19 12:04: Urine Color YELLOW, Urine Appearance CLOUDYH, Urine pH 7.0, Urine Specific [place] 1.009, Urine Protein NEGATIVE, Urine Glucose (UA) NEGATIVE, Urine Ketones NEGATIVE, Urine Blood NEGATIVE, Urine Nitrite POSITIVEH, Urine Bilirubin NEGATIVE, Urine Urobilinogen 0.2, Urine Leukocyte Esterase 3+H, Urine WBC (Auto) TNTCH, Urine RBC (Auto) 4H, Urine Hyaline Casts (Auto) 0, Urine Bacteria (Auto) 3+H, Urine Squamous Epithelial Cells 0, Urine Sperm (Auto) 04/24/19 17:54: Nucleated Red Blood Cells % (auto) 0.0, Anion Gap 3L, Glomerular Filtration Rate > 60.0, Calcium Level 8.7 CBC/BMP Laboratory Tests 04/24/19 17:54 Current Medications Current Medications Medications (Trade) Dose Ordered Sig/Ivette Route PRN Reason Start Time Stop Time Status Last Admin Dose Admin Acetaminophen (Tylenol Tab) 650 mg Q6HP PRN PO HEADACHE or DISCOMFORT 04/19/19 20:15 04/22/19 18:15 Al Hydrox/Mg Hydrox/Simethicone (Mylanta) 30 ml Q4HP PRN PO HEARTBURN/INDIGESTION 04/19/19 20:15 Chlorpromazine HCl (Thorazine) 25 mg STAT STAT IM 04/20/19 12:34 04/20/19 12:35 DC 04/20/19 12:43 Chlorpromazine HCl (Thorazine) 25 mg STAT STAT IM 04/21/19 21:18 04/21/19 21:24 DC 04/21/19 21:41 Chlorpromazine HCl (Thorazine) 50 mg BID PO 04/20/19 09:00 04/25/19 08:42 Dicyclomine HCl (Bentyl) 10 mg TIDP PRN PO CRAMPS 04/19/19 21:45 Divalproex Sodium (Depakote) 750 mg BID PO 04/20/19 09:00 04/23/19 17:16 DC 04/23/19 08:16 Docusate Sodium (Colace) 200 mg BID PO 04/20/19 09:00 04/25/19 08:42 Folic Acid (Folic Acid) 1 mg DAILY PO 04/20/19 09:00 04/25/19 08:42 Gabapentin (Neurontin) 600 mg TID PO 04/20/19 09:00 04/25/19 08:42 [place] Carbonate ([place] Carbonate) 300 mg DAILY PO 04/20/19 09:00 04/22/19 11:05 DC 04/22/19 09:11 [place] Carbonate (Lithobid Cr) 600 mg QAM PO 04/24/19 09:00 04/25/19 08:41 Lorazepam (Ativan) 1 mg Q6HP PRN PO ANXIETY/AGITATION 04/19/19 20:15 04/24/19 10:06 Lorazepam (Ativan) 1 mg STAT STAT IM 04/21/19 21:18 04/21/19 21:24 DC 04/21/19 21:41 Magnesium Hydroxide (Milk Of Magnesia) 30 ml DAILYPRN PRN PO CONSTIPATION 04/19/19 20:15 Nicotine (Nicoderm Cq 21mg) 1 patch DAILY TD 04/20/19 09:00 04/22/19 18:16 DC 04/22/19 09:13 Nicotine (Nicorette) 4 mg Q2HP PRN PO NICOTINE WITHDRAWAL 04/22/19 18:15 04/24/19 10:45 DC 04/24/19 08:20 Nicotine (Nicorette) 4 mg Q4HP PRN PO NICOTINE WITHDRAWAL 04/24/19 10:45 04/25/19 08:42 Olanzapine (ZyPREXA ZYDIS) 5 mg Q4HP PRN PO ANXIETY 04/19/19 20:15 04/24/19 18:34 Pantoprazole Sodium (Protonix) 40 mg DAILY PO 04/20/19 09:00 04/25/19 08:42 Propranolol HCl (Inderal) 10 mg TID PO 04/19/19 21:00 04/25/19 08:42 Thiamine HCl (Thiamine HCl) 100 mg DAILY PO 04/20/19 09:00 04/25/19 08:42 Trazodone HCl (Desyrel) 50 mg QHSP PRN PO INSOMNIA 04/19/19 20:15 04/23/19 20:08 Trimethoprim/ Sulfamethoxazole (Bactrim Ds, Septra Ds 160mg/ 800mg) 1 tab BID PO 04/24/19 16:30 04/27/19 16:29 04/25/19 08:42 Trimethoprim/ Sulfamethoxazole (Bactrim Ds, Septra Ds 160mg/ 800mg) 1 tab Q12H PO 04/19/19 21:00 04/23/19 12:00 DC 04/23/19 08:17 Venlafaxine HCl (Effexor Xr) 150 mg DAILY PO 04/20/19 09:00 04/25/19 08:42 Allergies Coded Allergies: Cephalosporins (Verified Allergy, Mild, HIVES, 04/17/19) haloperidol (Verified Adverse Reaction, Severe, SEIZURES, 04/17/19) ziprasidone (Verified Adverse Reaction, Mild, VOMITING, 04/17/19) MICHELLE CONLEY DO Apr 25, 2019 9:12 am
[2019-04-25 15:42] VITALS: BP 121/75
[2019-04-25] MEDS ORDERED: TAMSULOSIN 0.4 MG CAP PO SCH (21:00)
[2019-04-26 06:11] VITALS: BP 133/70
[2019-04-26] MEDS: GABAPENTIN 300 MG CAP PO SCH (08:03)
[2019-04-26] MEDS: VENLAFAXINE **XR** 75MG CAPSULE PO SCH (08:04)
[2019-04-26 08:09] VITALS: BP 112/68
[2019-04-26] MEDS: PROPRANOLOL 10 MG TAB PO SCH (08:09)
[2019-04-26] MEDS: NICOTINE POLACRILEX 2 MG GUM PO PRN (08:10)
[2019-04-26] MEDS: LITHIUM CARBONATE 300 MG **CR** TAB PO SCH (08:10)
[2019-04-26] MEDS: FOLIC ACID 1 MG TAB PO SCH (08:10)
[2019-04-26] MEDS: THIAMINE 100 MG TAB PO SCH (08:10)
[2019-04-26] MEDS: DOCUSATE SODIUM 100 MG CAP PO SCH (08:10)
[2019-04-26] MEDS: chlorproMAZINE 25 MG TAB (Q0161) PO SCH (08:10)
[2019-04-26] MEDS: PANTOPRAZOLE 40MG TAB (PROTONIX) PO SCH (08:10)
[2019-04-26] MEDS ORDERED: LITH1TAB PO (08:50)
[2019-04-26] MEDS ORDERED: TRAZ-252 PO (08:50)
[2019-04-26] MEDS ORDERED: VENL75CA2 PO (08:50)
[2019-04-26] MEDS ORDERED: PROP10TA56 PO (08:50)
[2019-04-26] MEDS ORDERED: CHLOR10TAB PO (08:50)
--- NOTE | 2019-04-26 08:51 | MHDSPDOC ---
[facility] [place] Discharge Summary Discharge Summary DATE OF ADMISSION: Apr 19, 2019 at 9:21 pm DATE OF DISCHARGE: Apr 26, 2019 DISCHARGE DIAGNOSES: Paranoid Schizophrenia REASON FOR ADMISSION: Per Dr. Aleman admit note: "He is 33 years old. He has a history of psychiatric difficulties, primarily psychosis, has been diagnosed with schizophrenia. He was admitted here from the intensive care unit (ICU) where I saw him yesterday, he had taken an overdose. Please refer to yesterday's evaluation for details related to the circumstances of the admission and the assessment yesterday. He has a history of previous hospitalizations, last one here was several years ago. He is on various psychotropics, these include Depakote, lithium, chlorpromazine, gabapentin, venlafaxine, and trazodone. I had seen him yesterday after he had taken an overdose in an attempt to kill himself. He was admitted to the intensive care unit (ICU) for further stabilization. He was irritable and agitated when there, received antiagitation medication, including lorazepam. When I had seen him, he became quickly agitated. He was transferred to the inpatient psychiatry unit. I understand from staff that he has tried to leave the unit today by crawling on the floor and then was seen. He has been angry periodically. The anger had worsened. He was given anti-agitation medications with limited effect, and then put in restraints to help address his current behaviors. When I saw him, he was in restraints, feeling a bit drowsy, but indicated that he took higher doses of lithium than he had been given here. This morning, his lithium level was quite low. He was not able to engage much in conversation after that, which is due to sedation." CONSULTANTS INVOLVED: none TREATMENT AND PROGRESS ON THE UNIT :Pt was admitted to [facility], seen for psychiatric assessment and restarted on his outpatient medication chlorpromazine at 50 mg twice a day, [place] increased to 600mg daily, inderal 10mg tid, venlafaxine 150 mg daily. His depakote was discontinued after pt took an overdose on it and was already on lithium as a mood stabilizer. He was provided trazodone 50mg qhs prn insomnia. Pt had to be be given chemical and mechanical restraints twice during his admission due to agitation, self harm (banging his head on the wall), and aggression that he tolerated well and calmed down safely. After his lithium was increased his agitation, mood, aggression, thoughts, psychosis improved greatly to linear logical thought, pleasant/cooperative beh avior, good mood, denial of psychosis and paranoia. Pt found his medications beneficial and tolerated them well. He attended groups daily during his stay. His symptoms improved with treatment. On day of discharge he denied depression, anxiety, insomnia, SI/HI, hallucinations, delusions, paranoia. He was discharged back to [facility] residential with follow-up at [facility]. He felt safe for discharge. DISCHARGE ASSESSMENT: Pt seen and is cooperative and pleasant. States his mood is "good," affect appears euthymic and no longer labile and reactive to situation, no longer appears to be responding to internal stimulation, thoughts appear linear and concrete, insight and judgment are improving, appears to have good concentration. Able to have appropriate conversation with me and is present and engaged in the milieu. States he's tolerating his medication well and feels it's beneficial especially his lithium now that he's back on it. Per staff pt appears to be doing very well overall and no behavior problems for past 2 days, cooperative and pleasant on the unit. Denies SI/HI. Denies delusions, and paranoia today. is going to groups and feels they're helpful States he's looking forward to returning to [facility] residential today. He denies depression, anxiety, insomnia, SI/HI, hallucinations, delusions, paranoia. Feels safe to d/c back to [facility]. MENTAL STATUS EXAMINATION ON DISCHARGE: Pt seen and is cooperative and pleasant. States his mood is "good," affect appears euthymic and no longer labile and reactive to situation, no longer appears to be responding to internal stimulation, thoughts appear linear and concrete, insight and judgment are fair-good, appears to have good concentration. Able to have appropriate conversation with me and is present and engaged in the milieu. Cooperative and pleasant on the unit. Denies SI/HI. Denies delusions, and paranoia today. MEDICATIONS ON DISCHARGE: chlorpromazine at 50 mg twice a day [place] 600mg daily inderal 10mg tid venlafaxine 150 mg daily. trazodone 50mg qhs prn insomnia PLAN/FOLLOWUP ARRANGEMENTS: d/c back to [facility] with follow-up at [facility]. The amount of time spent in the coordination of care for this patient was approximately 30 minutes. Vital Signs/I&Os Vital Signs Date Time Temp Pulse Resp B/P (MAP) Pulse Ox O2 Delivery O2 Flow Rate FiO2 04/26/19 08:09 89 112/68 04/26/19 06:11 97.8 16 04/21/19 22:06 99 04/21/19 21:36 Room Air I&O- Last 24 Hours up to 6 AM 04/26/19 06:00 Output Total 400 ml Balance -400 ml Laboratory Data Microbiology Microbiology 04/24/19 Urine Culture - Final, Complete Enterobacter Cloacae Complex Medications Scheduled Chlorpromazine HCl (Chlorpromazine HCl) 100 Mg Tablet, 50 MG PO BID, (Reported) Divalproex Sodium (Depakote) 250 Mg Tablet.dr, 750 MG PO BID, (Reported) Docusate Sodium (Colace) 100 Mg Capsule, 200 MG PO BID, (Reported) Folic Acid (Folic Acid) 1 Mg Tablet, 1 MG PO DAILY, (Reported) Gabapentin (Gabapentin) 300 Mg Capsule, 600 MG PO TID, (Reported) [place] Carbonate ([place] Carbonate) 300 Mg Capsule, 300 MG PO DAILY, (Reported) Pantoprazole Sodium (Pantoprazole Sodium) 40 Mg Tablet.dr, 40 MG PO DAILY, (Reported) Propranolol HCl (Propranolol HCl) 10 Mg Tablet, 10 MG PO TID, (Reported) Sulfamethoxazole/Trimethoprim (Bactrim Ds Tablet) 1 Each Tablet, 1 TAB PO Q12H, (Reported) Thiamine HCl (Thiamine HCl) 100 Mg Tablet, 100 MG PO DAILY, (Reported) Trazodone HCl (Trazodone HCl) 50 Mg Tablet, 50 MG PO QHS, (Reported) Venlafaxine HCl (Venlafaxine HCl ER) 75 Mg Cap.er.24h, 150 MG PO DAILY, (Reported) Miscellaneous Medications Dicyclomine HCl (Dicyclomine HCl) 10 Mg Capsule, (Reported) Allergies Coded Allergies: Cephalosporins (Verified Allergy, Mild, HIVES, 04/17/19) haloperidol (Verified Adverse Reaction, Severe, SEIZURES, 04/17/19) ziprasidone (Verified Adverse Reaction, Mild, VOMITING, 04/17/19) MICHELLE CONLEY DO Apr 26, 2019 8:51 am
--- NOTE | 2019-04-26 08:56 | IPNPDOC ---
Subjective Date Seen The patient was seen on 04/26/19. Subjective Chief Complaint/HPI Carlos is fine this morning. Afebrile with normal vitals. No CVA tenderness. Had issues with self cath yesterday, but staff able to cath him w/o difficulty. Objective Physical Examination General Exam: Positive: Alert, No Acute Distress Eye Exam: Positive: EOMI; Negative: Sclera icteric ENT Exam: Positive: Atraumatic, Mucous membr. moist/pink, Pharynx Normal Neck Exam: Positive: Supple; Negative: JVD, thyromegaly Chest Exam: Positive: Clear to auscultation, Normal air movement Heart Exam: Positive: Rate Normal, Regular Rhythm, Normal S1, Normal S2; Negative: Murmurs, Rubs Telemetry: Positive: No significant arrhythmia Abdomen Exam: Positive: Normal bowel sounds, Soft; Negative: Tenderness, Hepatospenomegaly Male Exam: Positive: Normal Genital Exam Extremity Exam: Positive: Normal pulses; Negative: Clubbing, Cyanosis, Edema Skin Exam: Positive: Nl turgor and temperature; Negative: Rash, Breakdown Neuro Exam: Positive: Normal Gait, Normal Speech, Cranial Nerves 3-12 NL Psych Exam: Positive: Mood NL, Oriented x 3 Assessment /Plan Assessment Enterobacter - resistant to bactrim per c/s - stop bactrim - likely represents colonization, he has not clinically worsened nor developed worsening symptoms over the past 48 hours. - no treatment recommended unless develops fever or worsening symptoms - d/w with his nurse and patient this morning Plan/VTE VTE Prophylaxis Ordered?: No VS, I&O, 24H, Fishbone Vital Signs/I&O Vital Signs Date Time Temp Pulse Resp B/P (MAP) Pulse Ox O2 Delivery O2 Flow Rate FiO2 04/26/19 08:09 89 112/68 04/26/19 06:11 97.8 16 04/21/19 22:06 99 04/21/19 21:36 Room Air I&O- Last 24 Hours up to 6 AM 04/26/19 06:00 Output Total 400 ml Balance -400 ml Laboratory Data Microbiology Microbiology 04/24/19 Urine Culture - Final, Complete Enterobacter Cloacae Complex RAF LUNDBERG MD Apr 26, 2019 08:56
[2019-04-27] MEDS ORDERED: CIPR-249 PO (04:39)
== END 2019-04-26 10:49 | disposition home or self-care (01) | DRG 885 ==
LOC: M PSY 21:21
PROVIDERS: ADMIT Psychiatry & Neurology Psychiatry; ATTEND Psychiatry & Neurology Psychiatry
DX: F20.0 Paranoid schizophrenia (principal); N39.0 Urinary tract infection, site not specified; Z79.899 Other long term (current) drug therapy; Z88.8 Allergy status to other drugs, medicaments and biological substances

== ENCOUNTER 2019-04-29 17:25 | Inpatient (IN) | payer MEDICARE, MEDICAID ==
[~2019-04-29] VITALS: Ht 172.7 cm; Wt 112.7 kg
[~2019-04-29 17:25] MED LIST changes: +CIPR-249 PO; +LITH1TAB PO
[2019-04-29] MEDS ORDERED: ADACEL/BOOSTRIX VACCINE (DIPHTH/PERTUSS/ACELL/TETANUS)0.5ML SYR (90715) IM ONE (18:30)
[2019-04-29] MEDS ORDERED: VANCOMYCIN HCL 1,000 MG, VIAL MATE ADAPTER 1 EACH in D5W 250 ML IV ONE (18:30)
[2019-04-29 18:44] LABS: MEAN CORPUSCULAR HEMOGLOBIN 30.2 pg (27.0-33.0); MEAN CORPUSCULAR HGB CONC 32.4 g/dl (32.0-36.5); MEAN CORPUSCULAR VOLUME 93.2 fl (80.0-96.0); PLATELET COUNT, AUTOMATED 388 10^3/uL (150-450); RED BLOOD COUNT 3.97 10^6/uL (4.30-6.10); WHITE BLOOD COUNT 8.3 10^3/uL (4.0-10.0)
[2019-04-29] MEDS ORDERED: LIDOCAINE W/EPINEPHRINE 1% 20ML VIAL SC ONE (19:00)
[2019-04-29 19:10] LABS: ACETAMINOPHEN LEVEL < 2.0 UG/ML (10.0-30.0); ALBUMIN 3.2 GM/DL (3.2-5.2); ALT/SGPT 26 U/L (12-78); BILIRUBIN,DIRECT < 0.1 MG/DL (0.0-0.2); BILIRUBIN,TOTAL 0.1 MG/DL (0.2-1.0); BLOOD UREA NITROGEN 15 MG/DL (7-18); CARBON DIOXIDE LEVEL 28 MEQ/L (21-32); CHLORIDE LEVEL 109 MEQ/L (98-107); CREATININE FOR GFR 0.87 MG/DL (0.70-1.30); ETHYL ALCOHOL (ETHANOL) < 0.003 % (0.000-0.010); GLOMERULAR FILTRATION RATE > 60.0 (>60); GLUCOSE, FASTING 84 MG/DL (70-100); POTASSIUM SERUM 4.1 MEQ/L (3.5-5.1); SALICYLATE LEVEL < 1.7 MG/DL (5.0-30.0); SODIUM LEVEL 142 MEQ/L (136-145); TOTAL PROTEIN 6.4 GM/DL (6.4-8.2)
[2019-04-29 19:11] LABS: AMPHETAMINES LEVEL URINE NEGATIVE (NEGATIVE); BARBITURATES URINE NEGATIVE (NEGATIVE); BENZODIAZEPINES URINE NEGATIVE (NEGATIVE); CANNABINOIDS URINE POSITIVE (NEGATIVE); COCAINE METABOLITE URINE NEGATIVE (NEGATIVE); METHADONE URINE NEGATIVE (NEGATIVE); OPIATES URINE NEGATIVE (NEGATIVE); PHENCYCLIDINE URINE NEGATIVE (NEGATIVE)
[2019-04-29] MEDS ORDERED: MOM 30ML SUSPENSION UDC PO PRN (20:30)
[2019-04-29] MEDS ORDERED: ACETAMINOPHEN TAB 650MG DOSE (2X325MG) PO PRN (20:30)
[2019-04-29] MEDS ORDERED: MAALOX 30 ML SUSP *UDC PO PRN (20:30)
--- NOTE | 2019-04-29 20:37 | HPEPDOC ---
[facility] Medical History & Physical Date of Admission Apr 29, 2019 Date of Service: Apr 29, 2019 Attending Physician: NARDA LORENZ MD History and Physical TIME OF SERVICE: 9:30 PM CHIEF COMPLAINT: Depression HISTORY OF PRESENT ILLNESS: This is a 33-year-old male who came to the hospital after cutting his wrists because he is feeling very depressed. He has had multiple suicide attempts and reports feeling depressed since his mother during the summer. Currently, he is very agitated. He pulled out his IV line and has been trying to choke himself . REVIEW OF SYSTEMS: Obtainable because the patient is agitated PAST MEDICAL/ SURGICAL HISTORY: Schizophrenia Bipolar disorder Anxiety History of unintentional Depakote and Abilify overdose Strip multiple suicide attempts including jumping off a bridge resulting impact trauma requiring surgery's Status post cholecystectomy SOCIAL HISTORY: He smokes He uses THC FAMILY HISTORY: N/A ALLERGIES: Please see below. HOME MEDICATIONS: Please see below. PHYSICAL EXAMINATION: VITAL SIGNS: Please see below. GEN: well-nourished / well developed/ anxious INTEGUMENT: flushed/diaphoretic HEENT: NCAT / mucus membranes moist and pink CVS: RRR/NMRG LUNGS: clear to auscultation bilaterally on room air ABDOMEN: Contour (obese) MSK/EXTREMITIES: He has a splint, wrapped around his left lower arm covering his wrist NEURO: CN 2-12 are grossly intact / speech is not dysarthric PSYCH: alert and oriented to person place and time/ has a flat affect and is teary during parts of exam LABORATORY DATA: See below. IMAGING: Report from the wrist x-ray is pending MICROBIOLOGY: Please see below. ASSESSMENT: Mr. Rayo is 33-year-old male the past month. History of schizophrenia, anxiety, bipolar disorder, and previous suicide attempts who is admitted for management of left tendon tear secondary to cutting himself. PLAN: 1. Left Torn tendon secondary to cutting himself. He received vancomycin and tetanus vaccine in the ER. There are plans for surgery later on this week - Plan: Orthopedic Surgery consult,/Wound Care/continue vancomycin / tramadol for pain 2. Suicidal ideation. He has a history of schizophrenia, bipolar disorder, depression and multiple suicide attempts - Plan: One-on-one sitter psych consult in the morning, resume chlorpromazine, lithium, propranolol, thiamine, trazodone, and venlafaxine 3. Elevated TSH - Plan: Follow-up free T4 4. Normocytic normochromic anemia. His hemoglobin has dropped from his baseline of 15 on April 15 down to 12 today. - Plan: Follow-up reticulocyte count and iron panel and ferritin 5.Schizophrenia/bipolar/anxiety/depression - Plan: Continue home meds 6. Polysubstance abuse 7. Obesity. His BMI is 37.8 , which complicates care - Plan: can f/u w PCP for STOP BANG questionnaire, wood preparation supervisor consult & referral for Bariatric Surgeon / recommend cardiovascular exercise for 40 min 4-5 days a week DVT PROPHYLAXIS: SCDs DISPOSITION: Possibly transfer to inpatient psych after more than 2 midnight stay Vital Signs Vital Signs Date Time Temp Pulse Resp B/P (MAP) Pulse Ox O2 Delivery O2 Flow Rate FiO2 04/29/19 20:10 98.2 88 18 150/78 (102) 100 Room Air Laboratory Data Labs 24H Laboratory Tests 2 04/29/19 18:08: Nucleated Red Blood Cells % (auto) 0.0, Anion Gap 5L, Glomerular Filtration Rate > 60.0, Calcium Level 8.0L, Total Bilirubin 0.1L, Direct Bilirubin < 0.1, Aspartate Amino Transf (AST/SGOT) 11, Alanine Aminotransferase (ALT/SGPT) 26, Alkaline Phosphatase 63, Total Protein 6.4, Albumin 3.2, Albumin/Globulin Ratio 1.00, Thyroid Stimulating Hormone (TSH) 8.210H, Salicylates Level < 1.7L, Acetaminophen Level < 2.0L, Ethyl Alcohol Level < 0.003 04/29/19 18:11: Urine Opiates Screen NEGATIVE, Urine Methadone Screen NEGATIVE, Urine Barbiturates Screen NEGATIVE, Urine Phencyclidine Screen NEGATIVE, Urine Amphetamines Screen NEGATIVE, Urine Benzodiazepines Screen NEGATIVE, Urine Cocaine Metabolite Screen NEGATIVE, Urine Cannabinoids Screen POSITIVEH CBC/BMP Laboratory Tests 04/29/19 18:08 Home Medications Scheduled Chlorpromazine HCl (Chlorpromazine HCl) 100 Mg Tablet, 50 MG PO BID Ciprofloxacin HCl (Ciprofloxacin HCl) 500 Mg Tablet, 500 MG PO BID FILLED 04/27/19 - HAS NOT STARTED YET Docusate Sodium (Colace) 100 Mg Capsule, 200 MG PO BID Folic Acid (Folic Acid) 1 Mg Tablet, 1 MG PO DAILY Gabapentin (Gabapentin) 300 Mg Capsule, 600 MG PO TID [place] Carbonate ([place] Carbonate ER) 300 Mg Tablet.er, 600 MG PO DAILY Pantoprazole Sodium (Pantoprazole Sodium) 40 Mg Tablet.dr, 40 MG PO DAILY Propranolol HCl (Propranolol HCl) 10 Mg Tablet, 10 MG PO TID Trazodone HCl (Trazodone HCl) 50 Mg Tablet, 50 MG PO QHS Venlafaxine HCl (Venlafaxine HCl ER) 75 Mg Cap.er.24h, 150 MG PO DAILY Allergies Coded Allergies: Cephalosporins (Verified Allergy, Intermediate, HIVES, 04/29/19) haloperidol (Verified Adverse Reaction, Severe, SEIZURES, 04/29/19) ziprasidone (Verified Adverse Reaction, Mild, VOMITING, 04/29/19) A-FIB/CHADSVASC A-FIB History Current/History of A-Fib/PAF?: No Current PO Anticoag Therapy: NARDA Cruz MD Apr 29, 2019 20:37
[2019-04-29] MEDS ORDERED: LITH300T PO (20:42)
[2019-04-29] MEDS ORDERED: COLA100C5 PO (20:42)
[2019-04-29] MEDS ORDERED: CIPR500T3 PO (20:42)
[2019-04-29] MEDS ORDERED: PROP10TA56 PO (20:42)
[2019-04-29] MEDS ORDERED: CHLOR10TAB PO (20:42)
[2019-04-29] MEDS ORDERED: TRAZ-186 PO (20:42)
[2019-04-29] MEDS ORDERED: VENL75CA2 PO (20:42)
[2019-04-29] MEDS ORDERED: PANT-23 PO (20:42)
[2019-04-29] MEDS ORDERED: GABA-843 PO (20:42)
[2019-04-29] MEDS ORDERED: FOLI1TAB11 PO (20:42)
[2019-04-29] MEDS ORDERED: DOCUSATE SODIUM 100 MG CAP PO SCH (21:00)
[2019-04-29] MEDS ORDERED: chlorproMAZINE 25 MG TAB (Q0161) PO SCH (21:00)
[2019-04-29] MEDS ORDERED: traMADol ER 100MG TABLET (ULTRAM ER) PO SCH (21:00)
[2019-04-29] MEDS ORDERED: NICOTINE 21MG/24HR 1 EA TRANSDERMAL TD ONE (21:15)
[2019-04-29] MEDS ORDERED: LORazepam 2 MG/ML VIAL (J2060) As Ordered ONE (21:20)
[2019-04-29] MEDS ORDERED: LORazepam 2 MG/ML VIAL (J2060) IV STA (21:33)
[2019-04-29 21:42] LABS: FREE T4 0.97 NG/DL (0.76-1.46)
[2019-04-29] MEDS ORDERED: chlorproMAZINE INJ 50MG/2ML AMP (J3230) IM STA (22:03)
[2019-04-29] MEDS: GABAPENTIN 300 MG CAP PO SCH (22:28)
[2019-04-29] MEDS: traZODone 50 MG TAB PO SCH (22:28)
[2019-04-29] MEDS: PROPRANOLOL 10 MG TAB PO SCH (23:26)
[2019-04-29 23:30] VITALS: BP 137/82
[2019-04-29 23:31] VITALS: BP 137/82
[2019-04-29 23:36] VITALS: BP 137/82
[2019-04-29 23:38] LABS: FERRITIN 26 NG/ML (26-388); IRON (FE) 48 UG/DL (65-175); PERCENT SATURATION 16.1 % (19.7-50.0); TOTAL IRON BINDING CAPACITY 299 UG/DL (250-450)
[2019-04-30 00:06] VITALS: BP 139/85
[2019-04-30 00:15] VITALS: BP 139/85
[2019-04-30 02:00] VITALS: BP 130/79
[2019-04-30] MEDS: VANCOMYCIN HCL 1,000 MG, VIAL MATE ADAPTER 1 EACH in D5W 250 ML IV SCH ×4 (03:25→21:20)
[2019-04-30 06:00] VITALS: BP 116/71
[2019-04-30] MEDS ORDERED: CIPROFLOXACIN 500 MG TAB PO SCH (06:00)
--- NOTE | 2019-04-30 07:16 | REP ---
LEFT WRIST SERIES: Four views. HISTORY: Laceration. FINDINGS: Four views of the left wrist demonstrate no evidence of fracture, subluxation or opaque foreign body. There is soft tissue irregularity and swelling at the volar aspect of the distal forearm. IMPRESSION: Soft-tissue swelling and irregularity consistent with laceration. No fracture or opaque foreign body seen. Electronically Signed by Eladio Conde MD 04/30/2019 08:16 A
[2019-04-30] MEDS: LORazepam 2 MG/ML VIAL (J2060) IV PRN ×5 (08:07→22:49)
[2019-04-30] MEDS: LITHIUM CARBONATE 300 MG **CR** TAB PO SCH (08:21)
[2019-04-30] MEDS: GABAPENTIN 300 MG CAP PO SCH ×3 (08:21→21:19)
[2019-04-30] MEDS: VENLAFAXINE **XR** 75MG CAPSULE PO SCH (08:21)
[2019-04-30] MEDS: PANTOPRAZOLE 40MG TAB (PROTONIX) PO SCH (08:22)
[2019-04-30] MEDS: PROPRANOLOL 10 MG TAB PO SCH ×3 (08:22→21:20)
[2019-04-30] MEDS: DOCUSATE SODIUM 100 MG CAP PO SCH ×2 (08:22→21:19)
[2019-04-30] MEDS: FOLIC ACID 1 MG TAB PO SCH (08:22)
[2019-04-30] MEDS ORDERED: INFLUENZA QUADRIVALENT PF VACCINE 0.5ML SYRINGE (90686) IM ONE (09:00)
[2019-04-30] MEDS ORDERED: chlorproMAZINE 25 MG TAB (Q0161) PO SCH (09:00)
[2019-04-30] MEDS ORDERED: LORazepam 2 MG/ML VIAL (J2060) IV PRN (09:15)
[2019-04-30] MEDS: AZTREONAM 1 GM in D5W MINI-BAG PLUS 50 ML IV SCH ×2 (11:04→18:05)
--- NOTE | 2019-04-30 13:28 | CR ---
DATE OF CONSULTATION: 04/29/2019 CHIEF COMPLAINT: Left wrist pain. Patient presents today after being admitted overnight after cutting his wrist due to feeling depressed. Per report, he has had multiple suicide attempts in the past ever since his mother this past summer. He currently complains of a dull aching, constant pain to the left wrist along with intermittent sharp pains about 5-6 out of 10 when he tries to move his fingers or wrist. The pain is improved with immobilization. He was initially evaluated in the ER where it was reported possible tendon laceration. The wound was irrigated thoroughly and closed with suture. The patient was then placed into a brace to help maintain the dressing in place as the patient has been borderline combatable. The patient denies any fevers, chills, nausea or vomiting. We were unable to obtain a complete review of systems due to the patient's sedated state due to his previous severe agitation requiring multiple people to restrain. PAST MEDICAL/SURGICAL HISTORY: Bipolar. Anxiety. History of difficult Abilify overdose. Multiple suicide attempts including jumping off a bridge. Status post cholecystectomy. SOCIAL HISTORY: : He smokes and uses THC. ALLERGIES: 1. CEPHALOSPORINS - intermediate hives. 2. HALOPERIDOL - pseudoseizures. 3. RISPERIDONE - vomiting. CURRENT MEDICATIONS: - chlorpromazine - ciprofloxacin - docusate - folic acid - gabapentin - lithium - pantoprazole - propranolol - trazodone - venlafaxine PHYSICAL EXAMINATION: Patient is sedated. Normocephalic, atraumatic. Breathing unlabored on room air. Left upper extremity: There is about a 6 cm laceration over the distal volar forearm, approximately 3-4 cm from the buccal wrist crease. There is no surrounding erythema. It is nicely closed by the ER staff. Sutures in place. No significant fluctuance or drainage. The patient states he has intact sensation, superficial, sensory branch, radial nerve, median nerve and ulnar nerve distributions. Positive AIN, PIN and ulnar motor nerve function. Able to make a composite fist and with much encouragement able to flex his wrist and has palpable FCR distally, suggesting good tension without being lacerated or at least completely lacerated. Radial pulses 2+, regular rate. Imaging reviewed of the left wrist. Four views demonstrates no acute fracture, dislocation, but apparent soft tissue laceration evident on saggital view. ASSESSMENT: This is a 33-year-old male with self mutilation of the left wrist. Based on physical exam, I do not believe that the patient suffered laceration of any of his FDP or FDS to all four fingers. Appears to have FPL intact and is able to flex the wrist suggestive of either at least FCU or FCR intact. As long as he has one of these in continuity then he will have intact wrist flexion and there is no need for repair, especially in a high risk patient. At this point in time there is no urgency, or no indication for orthopedic surgical intervention for a tendon repair as it appears that he has all function as possible. He had a partial laceration of one or many of these, however the longer it remains in continuity and is less than 50% he will have full function. If he starts having issues in the future he is welcome to followup with me for a repeat evaluation. He can followup with his primary care in 2 weeks for suture removal. He should have his tetanus status updated and should be on oral antibiotics, preferably Keflex for 7 days to help prevent the risk of infection. Please feel free to call with any further questions or concerns. Once again, there is no indication at this point for surgical intervention.
[2019-04-30 14:00] VITALS: BP 127/91
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
[2019-04-30] MEDS ORDERED: OLANZapine INTRAMUSCULAR 10 MG VIAL (S0166) IM ONE (17:00)
[2019-04-30 19:47] LABS: LITHIUM LEVEL 0.51 MEQ/L (0.60-1.20); VANCOMYCIN LEVEL TROUGH 8.7 UG/ML (10.0-20.0)
[2019-04-30] MEDS ORDERED: VANCOMYCIN HCL 750 MG, VIAL MATE ADAPTER 1 EACH in D5W 250 ML IV SCH (20:30)
[2019-04-30] MEDS ORDERED: OLANZapine INTRAMUSCULAR 10 MG VIAL (S0166) IM SCH (21:00)
[2019-04-30] MEDS: traZODone 50 MG TAB PO SCH (21:20)
[2019-04-30 22:00] VITALS: BP 137/79
--- NOTE | 2019-04-30 22:18 | MHCR ---
DATE OF CONSULTATION: 04/30/2019 CHIEF COMPLAINT: He tried killing himself by cutting his left wrist. SUBJECTIVE: He is 33 years old. He has a long history of psychiatric difficulties, has been diagnosed with schizophrenia, has had several inpatient hospitalizations, has made several suicide attempts, including, on one occasion, jumping off a bridge, breaking his back, for which he required surgery. He was just recently discharged from the inpatient psychiatry unit here at [facility], about 4 days ago, Dr. Arellano discharge summary is reviewed. He was discharged after a 7-day stay. Please refer to the discharge summary for details related to the circumstances of the hospitalization, as well as the hospital course itself. On discharge, he was discharged on chlorpromazine 50 mg twice a day, lithium 600 mg daily, Inderal 10 mg three times a day, venlafaxine 150 mg a day, trazodone 50 mg at night as needed for insomnia. I had seen him at the time of admission, had seen on the consult service, within the last couple of weeks, and then in the inpatient unit, during the course of his hospitalization. Please see my consultation note and admission summary for details related to those circumstances and his state at the time of admission. He was quite agitated, required intramuscular medications, also required restraints at various points. He has come in this time around to the hospital as he cut his left wrist in an attempt to kill himself. He apparently used a pocket knife. He has been admitted to the medical floor, has been agitated, on one occasion, per the record, tried pulling his IV line out, and also tried to choke himself. A Code 25 was called this afternoon. He has been give anti-agitation medications. The medications have included a total of 6 mg of lorazepam intravenous in the last 24 hours, and olanzapine 10 mg intramuscular. He is being treated for a urinary tract infection as well, has urinary difficulties, which have been somewhat longstanding, requires regular catheterization. The patient has been sedated, particularly after the anti-agitation medications, and currently is not able to provide much of a history, as is somewhat drowsy but answers questions briefly, coherently. Not much of this history is obtained from him, the bulk is obtained from the medical record itself, and recent past history. PAST PSYCHIATRIC HISTORY: As indicated above. Please see previous summaries, has a history of schizophrenia, has had several hospitalizations, the last one was just a few days ago, was discharged after weeks of stay at [facility] inpatient psychiatry. Other matters of significance are the fact that he lost his mother last summer. MEDICAL HISTORY: See above, and has cut his left wrist. He has been seen by orthopedics, and they have concluded that he does not require surgery to repair it, at this point. There were concerns that he may require surgery earlier on, apparently. MENTAL STATUS EXAM: He is sitting up in bed, mildly unkempt, cooperative but appears tired, mildly sedated, currently there is no agitation. Some psychomotor retardation. Answers questions very briefly and logically. Affect is restricted. At present, can not ascertain for any active suicidal thoughts or intent, but within the last few hours, has demonstrated that he does have. No homicidal ideas or intent. Currently unable to ascertain any psychotic features. He is somewhat drowsy, but arousable, not able to maintain much attention. His judgment is quite clouded and insight is limited. ASSESSMENT: Schizophrenia. Status post laceration of left wrist, as a suicide attempt. The patient has a long history of psychiatric difficulties, schizophrenia, was hospitalized recently, discharged from the inpatient psychiatry unit 4 days ago. Has been agitated, has received lorazepam 6 mg intravenously in the last 24 hours or so, also got olanzapine 10 mg intramuscular. Has attempted killing himself, cutting his left wrist. Has been seen by the specialists, orthopedics, who do not think that he requires further surgery for the wrist or the tendon. He is currently a bit sedated, and not able to engage much in conversation, is coherent for brief periods. He is sedated mildly. Judgment and insight are poor. Affect is restricted in range. He is being treated for a urinary tract infection (UTI) with intravenous antibiotics, which I am told will require another 2 days or so. RECOMMENDATIONS: He will need inpatient psychiatric hospitalization for stabilization and management, when he is fully medically stable. May need to consider long-term psychiatric care, given the severity of his illness, and the latest of suicide attempts. Meanwhile, continue with current monitoring, including having a sitter. I would suggest discontinuing olanzapine intramuscular, as that combined with Ativan intravenous increases the risk of respiratory depression. Suggest using Thorazine 50 mg intramuscular instead of the olanzapine, may need to be combined with the Ativan if there is severe agitation. Thank you for the consult. If there are questions, please call. The assessment took 30 minutes.
[2019-04-30] MEDS ORDERED: chlorproMAZINE INJ 50MG/2ML AMP (J3230) IM PRN (22:45)
[2019-05-01] MEDS: VANCOMYCIN HCL 1,000 MG, VIAL MATE ADAPTER 1 EACH in D5W 250 ML IV SCH (04:55)
[2019-05-01] MEDS: LORazepam 2 MG/ML VIAL (J2060) IV PRN ×2 (05:55→10:12)
[2019-05-01] MEDS ORDERED: OLANZapine INTRAMUSCULAR 10 MG VIAL (S0166) IM ONE (07:00)
[2019-05-01] MEDS ORDERED: CEPHALEXIN 500 MG CAP PO SCH (09:00)
[2019-05-01 09:14] VITALS: BP 137/79
[2019-05-01] MEDS: LITHIUM CARBONATE 300 MG **CR** TAB PO SCH (09:14)
[2019-05-01] MEDS: FOLIC ACID 1 MG TAB PO SCH (09:14)
[2019-05-01] MEDS: DOCUSATE SODIUM 100 MG CAP PO SCH (09:14)
[2019-05-01] MEDS: PROPRANOLOL 10 MG TAB PO SCH (09:14)
[2019-05-01] MEDS: PANTOPRAZOLE 40MG TAB (PROTONIX) PO SCH (09:14)
[2019-05-01] MEDS: GABAPENTIN 300 MG CAP PO SCH (09:14)
[2019-05-01] MEDS: VENLAFAXINE **XR** 75MG CAPSULE PO SCH (09:14)
[2019-05-01] MEDS ORDERED: CLIN150C14 PO (09:45)
[2019-05-01 10:00] VITALS: BP 134/86
[2019-05-01] MEDS ORDERED: CLINDAMYCIN 150 MG CAP PO ONE (10:00)
[2019-05-01] MEDS ORDERED: NICOTINE POLACRILEX 2 MG GUM PO ONE (10:00)
[2019-05-01] MEDS ORDERED: chlorproMAZINE INJ 50MG/2ML AMP (J3230) IM STA (11:09)
--- NOTE | 2019-05-01 13:13 | DS.PDOC ---
Discharge Summary General Date of Admission Apr 29, 2019 at 20:33 Date of Discharge 05/01/19 Discharge Summary PROCEDURES PERFORMED DURING STAY: None. ADMITTING DIAGNOSES: 1. Suicidal attempt. Laceration of wrist. DISCHARGE DIAGNOSES: 1. Suicidal attempt. Laceration of left wrist. COMPLICATIONS/CHIEF COMPLAINT: Laceration Of Flecor Tendon On L Forearm. HISTORY OF PRESENT ILLNESS: This is a 33-year-old male who came to the hospital after cutting his wrists because he is feeling very depressed. He has had multiple suicide attempts and reports feeling depressed since his mother during the summer. Currently, he is very agitated. He pulled out his IV line and has been trying to choke himself .. HOSPITAL COURSE: Patient was a admitted to medical floor with possible laceration of flexor tendon on the forearm as he tried to cut his left wrist due to suicidal attempt. Patient was seen by Dr. Marquez from orthopedic and laceration was sutured, but since there was no damage to the flexor tendon no further orthopedic intervention was recommended and this time and patient has been advised to follow with him as an outpatient a few months. Patient was continued on all present medication, but he remained very agitated, pulling his IV lines. His dressing jumping on the bed and hands "25 was called and patient was given Thorazine 100 mg IM and psychiatric consult was called and patient was transferred to inpatient mental health unit for further psych care. DISCHARGE MEDICATIONS: Please see below. ALLERGIES: Please see below. PHYSICAL EXAMINATION ON DISCHARGE: VITAL SIGNS: Please see below. GENERAL: Within normal limits HEENT: PERRLA. Extraocular muscles intact NECK: [Supple. Negative JVD, negative lymphadenopathy CARDIOVASCULAR EXAMINATION: S1, S2, regular RESPIRATORY EXAMINATION: Clear to A&P ABDOMINAL EXAMINATION: , Soft, nontender. Pulses are present. Organomegaly EXTREMITIES: No clubbing, cyanosis, edema SKIN: Normal NEUROLOGICAL EXAMINATION: . No focal motor sensory deficit PSYCHIATRIC EXAMINATION: Agitated LABORATORY DATA: Please see below. IMAGING: Not applicable PROGNOSIS: Unknown ACTIVITY: As tolerated. DIET: As tolerated DISCHARGE PLAN: As tolerated DISPOSITION: [facility]. DISCHARGE INSTRUCTIONS: 1. As per discharge instruction. ITEMS TO FOLLOWUP ON ON OUTPATIENT: 1. Follow with psych in the inpatient psych unit. DISCHARGE CONDITION: Stable. TIME SPENT ON DISCHARGE: 35 minutes. Vital Signs/I&Os Vital Signs Date Time Temp Pulse Resp B/P (MAP) Pulse Ox O2 Delivery O2 Flow Rate FiO2 05/01/19 10:00 98.6 103 20 134/86 (102) 97 Room Air I&O- Last 24 Hours up to 6 AM 05/01/19 06:00 Intake Total 1890 ml Output Total 1225 ml Balance 665 ml Laboratory Data Labs 24H Laboratory Tests 2 04/30/19 19:02: Vancomycin Level Trough 8.7L, Keno Level 0.51L 05/01/19 05:00: Urine Color YELLOW, Urine Appearance HAZY, Urine pH 5.0, Urine Specific [place] 1.012, Urine Protein NEGATIVE, Urine Glucose (UA) NEGATIVE, Urine Ketones NEGATIVE, Urine Blood NEGATIVE, Urine Nitrite NEGATIVE, Urine Bilirubin NEGATI VE, Urine Urobilinogen 0.2, Urine Leukocyte Esterase TRACEH, Urine WBC (Auto) 31H, Urine RBC (Auto) 3, Urine Hyaline Casts (Auto) 0, Urine Bacteria (Auto) NEGATIVE, Urine Squamous Epithelial Cells 0, Urine Transitional Epithelial Cells <1, Urine Mucus (Auto) SMALL, Urine Sperm (Auto) 05/01/19 05:40: Methicillin-Resist S.aureus DNA PCR NOT DETECTED Microbiology Microbiology 05/01/19 Urine Culture, Received Pending Discharge Medications Scheduled Chlorpromazine HCl (Chlorpromazine HCl) 100 Mg Tablet, 50 MG PO BID, (Reported) Clindamycin Hcl (Clindamycin HCl) 150 Mg Capsule, 150 MG PO Q6H Docusate Sodium (Colace) 100 Mg Capsule, 200 MG PO BID, (Reported) Folic Acid (Folic Acid) 1 Mg Tablet, 1 MG PO DAILY, (Reported) Gabapentin (Gabapentin) 300 Mg Capsule, 600 MG PO TID, (Reported) Keno Carbonate (Keno Carbonate ER) 300 Mg Tablet.er, 600 MG PO DAILY, (Reported) Pantoprazole Sodium (Pantoprazole Sodium) 40 Mg Tablet.dr, 40 MG PO DAILY, (Reported) Propranolol HCl (Propranolol HCl) 10 Mg Tablet, 10 MG PO TID, (Reported) Trazodone HCl (Trazodone HCl) 50 Mg Tablet, 50 MG PO QHS, (Reported) Venlafaxine HCl (Venlafaxine HCl ER) 75 Mg Cap.er.24h, 150 MG PO DAILY, (Reported) Allergies Coded Allergies: Cephalosporins (Verified Allergy, Intermediate, HIVES, 04/29/19) haloperidol (Verified Adverse Reaction, Severe, SEIZURES, 04/29/19) ziprasidone (Verified Adverse Reaction, Mild, VOMITING, 04/29/19) GI PARIS MD May 01, 2019 13:13
[2019-05-01] MEDS ORDERED: CLINDAMYCIN 150 MG CAP PO SCH (18:00)
[2019-05-01] MEDS ORDERED: OLANZapine INTRAMUSCULAR 10 MG VIAL (S0166) IM SCH (21:00)
== END 2019-05-01 11:40 | DRG 914 ==
LOC: M ED 17:25 → M ED INP 20:33 → ENRESERV 22:55 → M MS5PR 23:30
PROVIDERS: ADMIT Internal Medicine; ATTEND Internal Medicine
DX: T14.91XA Suicide attempt, initial encounter (principal); F20.0 Paranoid schizophrenia; S56.222A Laceration of other flexor muscle, fascia and tendon at forearm level, left arm, initial encounter; F31.9 Bipolar disorder, unspecified; Z98.1 Arthrodesis status; F17.210 Nicotine dependence, cigarettes, uncomplicated; Z79.83 Long term (current) use of bisphosphonates; Z79.899 Other long term (current) drug therapy; Z88.8 Allergy status to other drugs, medicaments and biological substances; D64.9 Anemia, unspecified; E66.9 Obesity, unspecified; Z68.37 Body mass index [BMI] 37.0-37.9, adult

== ENCOUNTER 2019-05-01 11:57 | Inpatient (IN) | payer MEDICARE, MEDICAID ==
[2019-05-01] VITALS (7 sets, daily range): BP systolic 125–145; BP diastolic 78–91
[~2019-05-01] VITALS: Ht 172.7 cm; Wt 105.5 kg
[2019-05-01] MEDS: chlorproMAZINE 25 MG TAB (Q0161) PO SCH ×2 (09:00→21:00)
[~2019-05-01 11:57] MED LIST changes: +CIPR500T3 PO; +CLIN150C14 PO; +LITH300T PO; +PANT-23 PO; +TRAZ-186 PO
[2019-05-01] MEDS ORDERED: MAALOX 30 ML SUSP *UDC PO PRN (12:30)
[2019-05-01] MEDS ORDERED: ACETAMINOPHEN TAB 650MG DOSE (2X325MG) PO PRN (12:30)
--- NOTE | 2019-05-01 16:03 | MHIR ---
General Date: May 01, 2019 Time Initiated: 11:45 Restraint Documentation Order/Evaluation FACE TO FACE: yes PHYSICIAN ASSESSMENT: pt attempting to harm himself and stating he's going to harm himself, attempting to fight with staff during process of admission from medical floor REASON FOR RESTRAINT: Patient poses imminent danger of harming self or others: yes, per above DE-ESCALATION INTERVENTIONS ATTEMPTED BEFORE USE OF RESTRAINTS: redirection, prn meds, staff support [MECHANICAL AND/OR CHEMICAL] RESTRAINTS USED: both, given thorazine 100mg im x1 on unit (received on medical unit thorazine and ativan for agitation previously) LENGTH OF TIME ORDERED IN RESTRAINTS: 240 minutes. WHEN TO DISCONTINUE RESTRAINTS: When the patient is no longer a threat to themselves or others. Post evaluation of restraint due in 24 hours. MICHELLE CONLEY DO May 01, 2019 4:02 pm
[2019-05-01] MEDS: PROPRANOLOL 10 MG TAB PO SCH ×2 (16:57→20:11)
[2019-05-01] MEDS: GABAPENTIN 300 MG CAP PO SCH ×2 (16:57→20:10)
[2019-05-01] MEDS: NICOTINE POLACRILEX 2 MG GUM PO PRN ×2 (16:58→19:02)
[2019-05-01] MEDS ORDERED: LORazepam 2 MG TAB PO STA (18:16)
[2019-05-01] MEDS ORDERED: chlorproMAZINE 25 MG TAB (Q0161) PO STA (18:16)
[2019-05-01] MEDS: DOCUSATE SODIUM 100 MG CAP PO SCH (20:10)
[2019-05-01] MEDS: traZODone 50 MG TAB PO PRN (20:11)
[2019-05-02] VITALS (7 sets, daily range): BP systolic 131–167; BP diastolic 67–84
[2019-05-02] MEDS: NICOTINE POLACRILEX 2 MG GUM PO PRN ×4 (08:47→17:48)
[2019-05-02] MEDS: VENLAFAXINE **XR** 75MG CAPSULE PO SCH (08:47)
[2019-05-02] MEDS: GABAPENTIN 300 MG CAP PO SCH ×3 (08:48→21:00)
[2019-05-02] MEDS: PANTOPRAZOLE 40MG TAB (PROTONIX) PO SCH (08:48)
[2019-05-02] MEDS: DOCUSATE SODIUM 100 MG CAP PO SCH ×2 (08:48→21:00)
[2019-05-02] MEDS: LITHIUM CARBONATE 300 MG **CR** TAB PO SCH (08:48)
[2019-05-02] MEDS: FOLIC ACID 1 MG TAB PO SCH (08:48)
[2019-05-02] MEDS: chlorproMAZINE 25 MG TAB (Q0161) PO SCH ×2 (08:48→21:00)
[2019-05-02] MEDS: PROPRANOLOL 10 MG TAB PO SCH ×3 (08:49→21:00)
[2019-05-02] MEDS: LORazepam 2 MG TAB PO PRN ×2 (09:38→15:26)
--- NOTE | 2019-05-02 10:12 | MHHPEPDOC ---
General Date Of Admission: May 01, 2019 Legal Status: 9.39 Chief Complaint "I want to be in [place] where my family is." History of Present Illness HISTORY OF THE PRESENT ILLNESS: Patient is a 33 -year-old , male, with a history of schizophrenia who was recently d/c from [facility] s/p OD last week who was consulted on while on medical floor for SA via left arm laceration. Per Dr. Aleman's admit note: "He is 33 years old. He has a long history of psychiatric difficulties, has been diagnosed with schizophrenia, has had several inpatient hospitalizations, has made several suicide attempts, including, on one occasion, jumping off a bridge, breaking his back, for which he required surgery. He was just recently discharged from the inpatient psychiatry unit here at [facility], about 4 days ago, Dr. Arellano discharge summary is reviewed. He was discharged after a 7-day stay. Please refer to the discharge summary for details related to the circumstances of the hospitalization, as well as the hospital course itself. On discharge, he was discharged on chlorpromazine 50 mg twice a day, lithium 600 mg daily, Inderal 10 mg three times a day, venlafaxine 150 mg a day, trazodone 50 mg at night as needed for insomnia. I had seen him at the time of admission, had seen on the consult service, within the last couple of weeks, and then in the inpatient unit, during the course of his hospitalization. Please see my consultation note and admission summary for details related to those circumstances and his state at the time of admission. He was quite agitated, required intramuscular medications, also required restraints at various points. He has come in this time around to the hospital as he cut his left wrist in an attempt to kill himself. He apparently used a pocket knife. He has been admitted to the medical floor, has been agitated, on one occasion, per the record, tried pulling his IV line out, and also tried to choke himself. A Code 25 was called this afternoon. He has been give anti-agitation medications. The medications have included a total of 6 mg of lorazepam intravenous in the last 24 hours, and olanzapine 10 mg intramuscular. He is being treated for a urinary tract infection as well, has urinary difficulties, which have been somewhat longstanding, requires regular catheterization. The patient has been sedated, particularly after the anti-agitation medications, and currently is not able to provide much of a history, as is somewhat drowsy but answers questions briefly, coherently. Not much of this history is obtained from him, the bulk is obtained from the medical record itself, and recent past history." Past Psychiatric History Previous Psychiatric Diagnosis: schizophrenia Previous Psychiatric Admissions: multiple admissions to [facility] with recent d/c last week s/p OD on depakote and lithium Suicide Attempts: multiple, d/c [facility] last week s/p OD on depakote and lithium, unintentional Depakote and Abilify overdose, multiple suicide attempts including jumping off a bridge resulting impact trauma requiring surgery's Psychiatric Follow-up: [facility] Psychiatric medications: thorazine 50mg bid, effexor xr 150mg daily, lithium 600mg qhs, inderal 10mg tid Past Medical History Medical Problems currently being treated for a UTI. must self cath Head Injury: No Seizures: No Hospitalizations: Yes Surgeries: Yes (cholecystectomy) Family Medical/Psychiatric HX Medical Problems noncontributory Psychiatric Disorders: No Addiction: No Suicide Attemps/Completions: No Addiction History other (cannabis abuse, utox positive) Social History Childhood: born and raised [place] area where his family still resides and wants to move to [place] [facility] to be closer to them Abuse/Trauma:denies Current Living Situation: [facility] in [place] Education: some high school Employment: on disability Social Support: family Legal: denies Marital: single, never , no kids Mental Status Examination General Appearance: unkempt, disheveled, appears stated age, hospital scubs/c lothing Build: overweight Demeanor: average, preoccupied (with being close to family in [place]) Eye Contact: fair Activity: average, other (reactive) Behavior: cooperative, impulsive, restless Speech: clear, normal volume, non-spontaneous, impoverished Mood: euthymic, other (reactive) Mood "ok" Affect: full, flat, labile Thought Process: concrete Thought Content (Delusions): denies SI, HI, AVH (states cut himself b/c he wants to be in [place] close to his family) Thought Content (Other): obsessional (with being in [place] jer to family) Thought Content (Aggressive): aggressive (assess), other (impulsive) Perception (Hallucinations): none reported Perception (Other): none reported Cognition (Impairment of): attention/concentration, ability to abstract Cognition(Intelligence Est.): borderline Oriented: Awake, Alert, Oriented times three Insight: poor Judgment: Poor Psychosis: Abstract Thinking Diagnoses schizophrenia - undifferentiated type cannabise use d/o A-FIB/CHADSVASC A-FIB History Current/History of A-Fib/PAF?: No Assessment Pt had to be coded yesterday during admission from medical floor due to agitation, attempting to harm himself with a pillow case around his neck (this was on medical floor) and trying to fight staff with mechanical and chemical restraints that he tolerated well and feel asleep a little after although was attempting to pull off wrist restraints immediately after restraints but on and staff had to tighten the wrist restraints so the he could get to them with his teeth. Pt was place with a 1:1 sitter for safety and impulsive agitation and aggression. Pt seen this am with 1:1 sitter and states he feels "ok" and admits the reason he cut himself was b/c he wants to be placed back in the [facility] to be close with his family in [place] which was the same reason he OD 2 weeks ago when admitted to [facility] even though on d/c he said he would work with [facility] to be transferred to [place] and was ok residing at [facility] until that occurred. He continues to be labile with impulsive agitation, aggression, self harm as shortly after I saw him he was attempting to pull out his stitches on his left wrist and was given oral thorazine prn agitation which he took and the behavior stopped with medication and staff redirection. When pt was seen he said he was doing well on his medication and tolerating it well. He is compliant with all his meds. Encouraged to behave and follow unit rules when seen but did not as he attempted to remove his stitches shortly after being seen. States though that he feels safe here. Initial Treatment Plan 1. Patient was admitted on a 9.39 status. 2. Complete history was obtained. 3. With patients permission, family will be contacted and database will be expanded. 4. Patients medication regimen will be reviewed and changed accordingly. 5. Patient will be provided with protected environment. 6. Patient will be treated with individual, group, and milieu therapies. 7. Patient will receive supportive psych-education. 8. Discharge planning will commence immediately. 9. Outpatient follow-up treatment will be strongly recommended. 10. The initial treatment plan will focus initially on: * Depression. * Risk for suicide. 11. restart thorazine 50mg bid, effexor xr 150mg daily, lithium 600mg qhs, inderal 10mg tid; prn thorazine 100mg and ativan 2mg q4hr prn anxiety/agitation ESTIMATED LENGTH OF STAY: 7-10 DAYS. TIME SPENT COUNSELING AND COORDINATING INITIAL CARE: 60 minutes. Vital Signs Vital Signs Date Time Temp Pulse Resp B/P (MAP) Pulse Ox O2 Delivery O2 Flow Rate FiO2 05/02/19 08:49 104 150/84 05/01/19 16:59 98.4 18 05/01/19 13:40 96 Room Air Medications Scheduled Chlorpromazine HCl (Chlorpromazine HCl) 100 Mg Tablet, 50 MG PO BID, (Reported) Clindamycin Hcl (Clindamycin HCl) 150 Mg Capsule, 150 MG PO Q6H Docusate Sodium (Colace) 100 Mg Capsule, 200 MG PO BID, (Reported) Folic Acid (Folic Acid) 1 Mg Tablet, 1 MG PO DAILY, (Reported) Gabapentin (Gabapentin) 300 Mg Capsule, 600 MG PO TID, (Reported) Cubero Carbonate (Cubero Carbonate ER) 300 Mg Tablet.er, 600 MG PO DAILY, (Reported) Pantoprazole Sodium (Pantoprazole Sodium) 40 Mg Tablet.dr, 40 MG PO DAILY, (Reported) Propranolol HCl (Propranolol HCl) 10 Mg Tablet, 10 MG PO TID, (Reported) Trazodone HCl (Trazodone HCl) 50 Mg Tablet, 50 MG PO QHS, (Reported) Venlafaxine HCl (Venlafaxine HCl ER) 75 Mg Cap.er.24h, 150 MG PO DAILY, (Reported) Allergies Coded Allergies: Cephalosporins (Verified Allergy, Intermediate, HIVES, 04/29/19) haloperidol (Verified Adverse Reaction, Severe, SEIZURES, 04/29/19) ziprasidone (Verified Adverse Reaction, Mild, VOMITING, 04/29/19) MICHELLE ARELLANO DO May 02, 2019 9:35 am
--- NOTE | 2019-05-02 10:14 | MHPR ---
General Date: May 02, 2019 Post-Restraint Evaluation THE OUTCOME OF THE RESTRAINT: good EFFECTIVENESS OF THE RESTRAINT: Mechanical and/or chemical: both used, thorazine 100mg im give and outcome positive. ANY EVIDENCE THAT THE PATIENT WAS AFFECTED EMOTIONALLY: no ANY NEED FOR COUNSELING/ASSISTANCE: no CHANGES IN TREATMENT PLAN: no RECOMMENDATIONS FOR FUTURE INCIDENTS: continue current plan, encourage prn thorazine and ativan when pt agitated or aggressive MICHELLE CONLEY DO May 02, 2019 10:14 am
--- NOTE | 2019-05-02 15:22 | MHCR ---
DATE OF CONSULTATION: 04/30/2019 CHIEF COMPLAINT: Left wrist pain. HISTORY OF PRESENT ILLNESS: This is a 33-year-old male who was admitted to the medical service after a suicide attempt in which he lacerated his left wrist. I was called by the emergency room physician who stated during irrigation and debridement of the wound there appeared to be a lacerated tendon end. The patient's wound was washed out and appropriately closed in the emergency room. It was bandaged and he was placed into a splint and was then admitted to the medical service. He has been agitated since admission and has multiple suicide attempts in the summer. The patient denies any significant wrist pain at this moment and denies numbness or difficulty moving his fingers or wrist. PAST MEDICAL/SURGICAL HISTORY: 1. Biopolar. 2. Anxiety. 3. History of multiple suicide attempts. 4. Status post cholecystectomy. SOCIAL HISTORY: The patient smokes and uses THC. HOME MEDICATIONS: - chlorpromazine - ciprofloxacin - Colace - folic acid - gabapentin - lithium - pantoprazole - propranolol - trazodone - venlafaxine ALLERGIES: CEPHALOSPORINS, ALLOPURINOL and ZIPRASIDONE. PHYSICAL EXAMINATION: GENERAL: Well-nourished, but anxious and agitated. PULMONARY: Patient's breathing without difficulties. MUSCULOSKELETAL: With the patient's permission I am able to take down his brace and bandage. There is an approximately 4 to 5 cm laceration over the distal lower forearm, proximal to the wrist crease. There is no surrounding erythema. No drainage. He has intact medial, ulnar and radial sensation. He has intact flexion of his FDS, FDP and FPL. Extension of his wrist and fingers are also intact. He also is able to flex his wrist. There is a palpable radial pulse. IMAGING: Left wrist x-rays are reviewed and there are no fractures to the left wrist, but a soft tissue defect evident. IMPRESSION: Left wrist laceration. PLAN: Patient should keep the wound clean and dry and keep the brace on as well. I would continue with antibiotics to prevent infection. I will also defer to my partner, Dr. Marquez about a possible repair of tendon laceration, however, patient does appear to have adequate flexion of his wrist and fingers at this time. Dr. Marquez has agreed to see the patient today.
[2019-05-02] MEDS: chlorproMAZINE 25 MG TAB (Q0161) PO PRN (15:52)
[2019-05-03] MEDS: chlorproMAZINE 25 MG TAB (Q0161) PO SCH ×3 (00:36→21:00)
[2019-05-03] MEDS: DOCUSATE SODIUM 100 MG CAP PO SCH ×3 (00:37→21:00)
[2019-05-03] MEDS: GABAPENTIN 300 MG CAP PO SCH ×4 (00:37→21:00)
[2019-05-03] MEDS: traZODone 50 MG TAB PO PRN (00:37)
[2019-05-03] MEDS: NICOTINE POLACRILEX 2 MG GUM PO PRN ×5 (00:43→16:23)
[2019-05-03] MEDS: PROPRANOLOL 10 MG TAB PO SCH ×3 (08:06→21:00)
[2019-05-03] MEDS: VENLAFAXINE **XR** 75MG CAPSULE PO SCH (08:06)
[2019-05-03] MEDS: FOLIC ACID 1 MG TAB PO SCH (08:06)
[2019-05-03] MEDS: LITHIUM CARBONATE 300 MG **CR** TAB PO SCH (08:06)
[2019-05-03] MEDS: PANTOPRAZOLE 40MG TAB (PROTONIX) PO SCH (08:07)
[2019-05-03] MEDS: LORazepam 2 MG TAB PO PRN (08:48)
[2019-05-03] MEDS ORDERED: **PENDING PPD ENTRY XX SCH (09:00)
--- NOTE | 2019-05-03 10:27 | MHIPNPDOC ---
[facility] Progress Note Progress Note DATE OF SERVICE: 05/03/19 HISTORY: Patient is a 33 -year-old , male, with a history of schizophrenia who was recently d/c from [facility] s/p OD last week who was consulted on while on medical floor for SA via left arm laceration. Per Dr. Aleman's admit note: "He is 33 years old. He has a long history of psychiatric difficulties, has been diagnosed with schizophrenia, has had several inpatient hospitalizations, has made several suicide attempts, including, on one occasion, jumping off a bridge, breaking his back, for which he required surgery. He was just recently discharged from the inpatient psychiatry unit here at [facility], about 4 days ago, Dr. Arellano discharge summary is reviewed. He was discharged after a 7-day stay. Please refer to the discharge summary for details related to the circumstances of the hospitalization, as well as the hospital course itself. On discharge, he was discharged on chlorpromazine 50 mg twice a day, lithium 600 mg daily, Inderal 10 mg three times a day, venlafaxine 150 mg a day, trazodone 50 mg at night as needed for insomnia. I had seen him at the time of admission, had seen on the consult service, within the last couple of weeks, and then in the inpatient unit, during the course of his hospitalization. Please see my consultation note and admission summary for details related to those circumstances and his state at the time of admission. He was quite agitated, required intramuscular medications, also required restraints at various points. He has come in this time around to the hospital as he cut his left wrist in an attempt to kill himself. He apparently used a pocket knife. He has been admitted to the medical floor, has been agitated, on one occasion, per the record, tried pulling his IV line out, and also tried to choke himself. A Code 25 was called this afternoon. He has been give anti-agitation medications. The medications have included a total of 6 mg of lorazepam intravenous in the last 24 hours, and olanzapine 10 mg intramuscular. He is being treated for a urinary tract infection as well, has urinary difficulties, which have been somewhat longstanding, requires regular catheterization. The patient has been sedated, particularly after the anti-agitation medications, and currently is not able to provide much of a history, as is somewhat drowsy but answers questions briefly, coherently. Not much of this history is obtained from him, the bulk is obtained from the medical record itself, and recent past history." Pt had to be coded yesterday during admission from medical floor due to agitation, attempting to harm himself with a pillow case around his neck (this was on medical floor) and trying to fight staff with mechanical and chemical restraints that he tolerated well and feel asleep a little after although was attempting to pull off wrist restraints immediately after restraints but on and staff had to tighten the wrist restraints so the he could get to them with his teeth. Pt was place with a 1:1 sitter for safety and impulsive agitation and aggression. Pt seen this am with 1:1 sitter and states he feels "ok" and admits the reason he cut himself was b/c he wants to be placed back in the [facility] to be close with his family in [place] which was the same reason he OD 2 weeks ago when admitted to [facility] even though on d/c he said he would work with [facility] to be transferred to [place] and was ok residing at [facility] until that occurred. He continues to be labile with impulsive agitation, aggression, self harm as shortly after I saw him he was attempting to pull out his stitches on his left wrist and was given oral thorazine prn agitation which he took and the behavior stopped with medication and staff redirection. When pt was seen he said he was doing well on his medication and tolerating it well. He is compliant with all his meds. Encouraged to behave and follow unit rules when seen but did not as he attempted to remove his stitches shortly after being seen. States though that he feels safe here. VITAL SIGNS: See below. NEW TEST RESULTS: See below. CURRENT MEDICATIONS: See below. MENTAL STATUS EXAMINATION: General Appearance: unkempt, disheveled, appears stated age, hospital scubs/clothing Build: overweight Demeanor: average, preoccupied (with being close to family in [place]) Eye Contact: fair Activity: average, other (reactive) Behavior: cooperative, impulsive, restless Speech: clear, normal volume, non-spontaneous, impoverished Mood: euthymic, other (reactive) Mood "alright" Affect: full, labile Thought Process: concrete Thought Content (Delusions): denies SI, HI, AVH (states cut himself b/c he wa nts to be in [place] close to his family) Thought Content (Other): obsessional (with being in [place] jer to family) Thought Content (Aggressive): aggressive (assess), other (impulsive) Perception (Hallucinations): none reported Perception (Other): none reported Cognition (Impairment of): attention/concentration, ability to abstract Cognition(Intelligence Est.): borderline Oriented: Awake, Alert, Oriented times three Insight: poor Judgment: Poor Psychosis: Abstract Thinking 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 Pt seen this morning and states he's doing "alright." Per med nurse, pt just took prn ativan for anxiety prior to being seen with his sitter present. Pt stated that the ativan was helpful and that he no longer felt anxious. Asked pt why he was banging his head on the wall yesterday and wasn't really able to give me an answer as to why he was doing that. Pt encouraged to ask for help at times he feels agitated, anxious before he acts to harm himself in any way as he has prn thorazine and ativan to help him. Advised [facility] will be less likely to accept him to their residential treatment if he continues to harm himself and be agitated to encourage him to not do such things as he admits what he wants most is to go to the [facility] for residential services to be close to his family there. States he slept well last night. Feels he is tolerating his medications and they're beneficial. He is attending groups and finding them helpful. Pt feels safe here. MANAGEMENT PLAN: increase oral thorazine to 100mg bid. start referral process to [facility] residential. thorazine 100mg bid effexor xr 150mg daily lithium 600mg qhs, inderal 10mg tid thorazine 100mg q4hr prn anxiety/agitation ativan 2mg q4hr prn anxiety/agitation TIME SPENT: 30 minutes. Vital Signs Vital Signs Date Time Temp Pulse Resp B/P (MAP) Pulse Ox O2 Delivery O2 Flow Rate FiO2 2/7/20 08:06 94 134/81 05/02/19 18:47 97.9 18 05/02/19 17:30 96 Room Air Current Medications Current Medications Medications (Trade) Dose Ordered Sig/Ivette Route PRN Reason Start Time Stop Time Status Last Admin Dose Admin Acetaminophen (Tylenol Tab) 650 mg Q6HP PRN PO HEADACHE or DISCOMFORT 05/01/19 12:30 Al Hydrox/Mg Hydrox/Simethicone (Mylanta) 30 ml Q4HP PRN PO HEARTBURN/INDIGESTION 05/01/19 12:30 Chlorpromazine HCl (Thorazine) 50 mg BID PO 05/01/19 09:00 05/03/19 08:06 Chlorpromazine HCl (Thorazine) 100 mg Q4HP PRN PO AGITATION 05/02/19 09:30 05/02/19 15:52 Chlorpromazine HCl (Thorazine) 100 mg STAT STAT PO 05/01/19 18:16 05/01/19 18:18 DC 05/01/19 18:26 Docusate Sodium (Colace) 200 mg BID PO 05/01/19 21:00 05/03/19 08:07 Folic Acid (Folic Acid) 1 mg DAILY PO 05/02/19 09:00 05/03/19 08:06 Gabapentin (Neurontin) 600 mg TID PO 05/01/19 16:00 05/03/19 08:06 [place] Carbonate (Lithobid Cr) 600 mg DAILY PO 05/02/19 09:00 05/03/19 08:06 Lorazepam (Ativan) 2 mg Q4HP PRN PO ANXIETY/AGITATION 05/02/19 09:30 05/03/19 08:48 Lorazepam (Ativan) 2 mg STAT STAT PO 05/01/19 18:16 05/01/19 18:18 DC 05/01/19 18:26 Magnesium Hydroxide (Milk Of Magnesia) 30 ml DAILYPRN PRN PO CONSTIPATION 05/01/19 12:30 Nicotine (Nicorette) 2 mg Q2HP PRN PO NICOTINE WITHDRAWAL 05/01/19 14:00 05/03/19 08:07 Pantoprazole Sodium (Protonix) 40 mg DAILY PO 05/02/19 09:00 05/03/19 08:07 Propranolol HCl (Inderal) 10 mg TID PO 05/01/19 16:00 05/03/19 08:06 Trazodone HCl (Desyrel) 50 mg QHSP PRN PO INSOMNIA 05/01/19 12:30 05/03/19 00:37 Venlafaxine HCl (Effexor Xr) 150 mg DAILY PO 05/02/19 09:00 05/03/19 08:06 Allergies Coded Allergies: Cephalosporins (Verified Allergy, Intermediate, HIVES, 04/29/19) haloperidol (Verified Adverse Reaction, Severe, SEIZURES, 04/29/19) ziprasidone (Verified Adverse Reaction, Mild, VOMITING, 04/29/19) MICHELLE ARELLANO DO May 03, 2019 9:21 am
[2019-05-03] MEDS ORDERED: TUBERCULIN PPD 5 UNITS/0.1 ML ID ONE ×2 (10:30→11:00)
[2019-05-03] MEDS ORDERED: chlorproMAZINE INJ 50MG/2ML AMP (J3230) IM ONE (10:45)
[2019-05-03] MEDS ORDERED: LORazepam 2 MG/ML VIAL (J2060) IM ONE (11:30)
--- NOTE | 2019-05-03 12:38 | MHIPNPDOC ---
[facility] Progress Note Progress Note Patient seen for 2pc eval, agree with Dr. Arellano, has significant SI, attempting to self harm in front of this provider Vital Signs Vital Signs Date Time Temp Pulse Resp B/P (MAP) Pulse Ox O2 Delivery O2 Flow Rate FiO2 05/03/19 08:06 94 134/81 05/02/19 18:47 97.9 18 05/02/19 17:30 96 Room Air Current Medications Current Medications Medications (Trade) Dose Ordered Sig/Ivette Route PRN Reason Start Time Stop Time Status Last Admin Dose Admin Acetaminophen (Tylenol Tab) 650 mg Q6HP PRN PO HEADACHE or DISCOMFORT 05/01/19 12:30 Al Hydrox/Mg Hydrox/Simethicone (Mylanta) 30 ml Q4HP PRN PO HEARTBURN/INDIGESTION 05/01/19 12:30 Chlorpromazine HCl (Thorazine) 50 mg BID PO 05/01/19 09:00 05/03/19 08:06 Chlorpromazine HCl (Thorazine) 100 mg Q4HP PRN PO AGITATION 05/02/19 09:30 05/02/19 15:52 Chlorpromazine HCl (Thorazine) 100 mg STAT STAT PO 05/01/19 18:16 05/01/19 18:18 DC 05/01/19 18:26 Docusate Sodium (Colace) 200 mg BID PO 05/01/19 21:00 05/03/19 08:07 Folic Acid (Folic Acid) 1 mg DAILY PO 05/02/19 09:00 05/03/19 08:06 Gabapentin (Neurontin) 600 mg TID PO 05/01/19 16:00 05/03/19 08:06 [place] Carbonate (Lithobid Cr) 600 mg DAILY PO 05/02/19 09:00 05/03/19 08:06 Lorazepam (Ativan) 2 mg Q4HP PRN PO ANXIETY/AGITATION 05/02/19 09:30 05/03/19 08:48 Lorazepam (Ativan) 2 mg STAT STAT PO 05/01/19 18:16 05/01/19 18:18 DC 05/01/19 18:26 Magnesium Hydroxide (Milk Of Magnesia) 30 ml DAILYPRN PRN PO CONSTIPATION 05/01/19 12:30 Nicotine (Nicorette) 2 mg Q2HP PRN PO NICOTINE WITHDRAWAL 05/01/19 14:00 05/03/19 12:11 Non-Formulary Medication ( See Comment Field Below ) SEE COMMENTS SECTION 1T@10 ID 05/05/19 10:00 05/03/19 10:30 DC Non-Formulary Medication ( See Comment Field Below ) SEE LABEL COMMENTS DAILY XX 05/03/19 09:00 05/03/19 10:50 DC Pantoprazole Sodium (Protonix) 40 mg DAILY PO 05/02/19 09:00 05/03/19 08:07 Propranolol HCl (Inderal) 10 mg TID PO 05/01/19 16:00 05/03/19 08:06 Trazodone HCl (Desyrel) 50 mg QHSP PRN PO INSOMNIA 05/01/19 12:30 05/03/19 00:37 Venlafaxine HCl (Effexor Xr) 150 mg DAILY PO 05/02/19 09:00 05/03/19 08:06 Allergies Coded Allergies: Cephalosporins (Verified Allergy, Intermediate, HIVES, 04/29/19) haloperidol (Verified Adverse Reaction, Severe, SEIZURES, 04/29/19) ziprasidone (Verified Adverse Reaction, Mild, VOMITING, 04/29/19) OFE WHITFIELD DO May 03, 2019 12:37
--- NOTE | 2019-05-03 13:39 | MHIR ---
General Date: May 03, 2019 Time Initiated: 13:36 Restraint Documentation Order/Evaluation FACE TO FACE: Yes PHYSICIAN ASSESSMENT: Attempting to pull out stitches, thrashing around REASON FOR RESTRAINT: Patient poses imminent danger of harming self or others: self-harm, thrashing violence DE-ESCALATION INTERVENTIONS ATTEMPTED BEFORE USE OF RESTRAINTS: medication, redirection, remove from situation [MECHANICAL AND/OR CHEMICAL] RESTRAINTS USED: 4 points, Haldol 10mg Diphenhydramine 50mg LENGTH OF TIME ORDERED IN RESTRAINTS: 240 minutes. WHEN TO DISCONTINUE RESTRAINTS: when in behavioral control Post evaluation of restraint due in 24 hours. OFE WHITFIELD DO May 03, 2019 13:39
[2019-05-03] MEDS ORDERED: MULTI IM ONE (15:00)
[2019-05-03] MEDS ORDERED: FLUPHENAZINE 2.5 MG/ML IM ONE (15:00)
[2019-05-03] MEDS ORDERED: OLANZapine INTRAMUSCULAR 10 MG VIAL (S0166) IM ONE (16:00)
[2019-05-03 16:34] VITALS: BP 111/57
--- NOTE | 2019-05-03 17:42 | HPEPDOC ---
[facility] Medical History & Physical Date of Admission May 03, 2019 Date of Service: May 03, 2019 History and Physical CHIEF COMPLAINT: [Admitted to inpatient mental health unit for suicide attempt and depression] HISTORY OF PRESENT ILLNESS: [33-year-old male who was initially admitted to the hospital after attempted to commit suicide by lacerating his right wrist is now admitted to mental health unit for further treatment. Patient is had multiple suicide attempts in the past, reportedly due to most this family members passing away. Patient was seen in inpatient mental health unit, currently on 4 point restraints because he is trying to harm herself. He has been attempting to pull out his sutures and hurt himself in any way he can. Now that he is restrained. He appears calm, depressed, without any medical complaints at this time. He denies any shortness of breath, chest pain, nausea, vomiting or diarrhea. 10 point review of system is negative except for above PAST MEDICAL HISTORY: 1. [Depression]. 2. [Multiple suicide attempts]. PAST SURGICAL HISTORY: 1. [Back surgery]. SOCIAL HISTORY: Unable to obtain FAMILY HISTORY: Unable to obtain ALLERGIES: Please see below. PHYSICAL EXAMINATION: VITAL SIGNS: Please see below. GENERAL: [Currently restrained] HEENT: [moist mucous membranes] NECK: [Supple] CARDIOVASCULAR EXAMINATION: [S1, S2, no murmurs] RESPIRATORY EXAMINATION: [Clear to auscultation, no wheezing] ABDOMINAL EXAMINATION: [Soft, nontender, nondistended, positive bowel sounds] EXTREMITIES: [Range of motion intact] SKIN: [No rash] NEUROLOGICAL EXAMINATION: no focal deficits PSYCHIATRIC EXAMINATION: [Anxious] LABORATORY DATA: See below. MICROBIOLOGY: Please see below. ASSESSMENT: [33-year-old male who was initially admitted for suicide attempt by cutting his right wrist now admitted to outpatient mental health unit for further evaluation and treatment]. . PLAN: 1. [Suicide attempt]. Management as per primary team Patient does not have any active medical issues at this, please reconsult if needed. Vital Signs Vital Signs Date Time Temp Pulse Resp B/P (MAP) Pulse Ox O2 Delivery O2 Flow Rate FiO2 05/03/19 16:34 98.0 74 18 111/57 (75) 05/02/19 17:30 96 Room Air Home Medications Scheduled Chlorpromazine HCl (Chlorpromazine HCl) 100 Mg Tablet, 50 MG PO BID Clindamycin Hcl (Clindamycin HCl) 150 Mg Capsule, 150 MG PO Q6H Docusate Sodium (Colace) 100 Mg Capsule, 200 MG PO BID Folic Acid (Folic Acid) 1 Mg Tablet, 1 MG PO DAILY Gabapentin (Gabapentin) 300 Mg Capsule, 600 MG PO TID [place] Carbonate ([place] Carbonate ER) 300 Mg Tablet.er, 600 MG PO DAILY Pantoprazole Sodium (Pantoprazole Sodium) 40 Mg Tablet.dr, 40 MG PO DAILY Propranolol HCl (Propranolol HCl) 10 Mg Tablet, 10 MG PO TID Trazodone HCl (Trazodone HCl) 50 Mg Tablet, 50 MG PO QHS Venlafaxine HCl (Venlafaxine HCl ER) 75 Mg Cap.er.24h, 150 MG PO DAILY Allergies Coded Allergies: Cephalosporins (Verified Allergy, Intermediate, HIVES, 04/29/19) haloperidol (Verified Adverse Reaction, Severe, SEIZURES, 04/29/19) ziprasidone (Verified Adverse Reaction, Mild, VOMITING, 04/29/19) A-FIB/CHADSVASC A-FIB History Current/History of A-Fib/PAF?: No SHARRON DOWNEY MD May 03, 2019 17:42
[2019-05-04] MEDS: NICOTINE POLACRILEX 2 MG GUM PO PRN ×4 (06:04→21:08)
[2019-05-04] MEDS: LORazepam 2 MG TAB PO PRN ×2 (06:04→13:46)
[2019-05-04 06:28] VITALS: BP 130/91
[2019-05-04] MEDS: MOM 30ML SUSPENSION UDC PO PRN (07:32)
[2019-05-04] MEDS: LITHIUM CARBONATE 300 MG **CR** TAB PO SCH (08:04)
[2019-05-04] MEDS: VENLAFAXINE **XR** 75MG CAPSULE PO SCH (08:04)
[2019-05-04] MEDS: PANTOPRAZOLE 40MG TAB (PROTONIX) PO SCH (08:04)
[2019-05-04] MEDS: DOCUSATE SODIUM 100 MG CAP PO SCH ×2 (08:04→21:08)
[2019-05-04] MEDS: GABAPENTIN 300 MG CAP PO SCH ×3 (08:04→21:08)
[2019-05-04] MEDS: FOLIC ACID 1 MG TAB PO SCH (08:04)
[2019-05-04] MEDS: chlorproMAZINE 25 MG TAB (Q0161) PO SCH ×2 (08:04→21:07)
[2019-05-04] MEDS: PROPRANOLOL 10 MG TAB PO SCH ×3 (08:05→21:08)
--- NOTE | 2019-05-04 10:00 | MHIPNPDOC ---
[facility] Progress Note Progress Note DATE OF SERVICE: 05/04/19 HISTORY: Patient is a 33 -year-old , male, with a history of schizophrenia who was [facility] d[facility]/p [facility] last week who was consulted on while on medical floor for SA via left arm laceration. Per Dr. Aleman's admit note: "He is 33 years old. He has a long history of psychiatric difficulties, has been diagnosed with schizophrenia, has had several inpatient hospitalizations, has made several suicide attempts, including, on one occasion, jumping off a bridge, breaking his back, for which he required surgery. He was just recently discharged from the inpatient psychiatry unit here at [facility], about 4 days ago, Dr. Arellano discharge summary is reviewed. He was discharged after a 7-day stay. Please refer to the discharge summary for details related to the circumstances of the hospitalization, as well as the hospital course itself. On discharge, he was discharged on chlorpromazine 50 mg twice a day, lithium 600 mg daily, Inderal 10 mg three times a day, venlafaxine 150 mg a day, trazodone 50 mg at night as needed for insomnia. I had seen him at the time of admission, had seen on the consult service, within the last couple of weeks, and then in the inpatient unit, during the course of his hospitalization. Please see my consultation note and admission summary for details related to those circumstances and his state at the time of admission. He was quite agitated, required intramuscular medications, also required restraints at various points. He has come in this time around to the hospital as he cut his left wrist in an attempt to kill himself. He apparently used a pocket knife. He has been admitted to the medical floor, has been agitated, on one occasion, per the record, tried pulling his IV line out, and also tried to choke himself. A Code 25 was called this afternoon. He has been give anti-agitation medications. The medications have included a total of 6 mg of lorazepam intravenous in the last 24 hours, and olanzapine 10 mg intramuscular. He is being treated for a urinary tract infection as well, has urinary difficulties, which have been somewhat longstanding, requires regular catheterization. The patient has been sedated, particularly after the anti-agitation medications, and currently is not able to provide much of a history, as is somewhat drowsy but answers questions briefly, coherently. Not much of this history is obtained from him, the bulk is obtained from the medical record itself, and recent past history." Pt had to be coded yesterday during admission from medical floor due to agitation, attempting to harm himself with a pillow case around his neck (this was on medical floor) and trying to fight staff with mechanical and chemical restraints that he tolerated well and feel asleep a little after although was attempting to pull off wrist restraints immediately after restraints but on and staff had to tighten the wrist restraints so the he could get to them with his teeth. Pt was place with a 1:1 sitter for safety and impulsive agitation and aggression. Pt seen this am with 1:1 sitter and states he feels "ok" and admits the reason he cut himself was b/c he wants to be placed back in the [facility] to be close with his family in [place] which was the same reason he OD 2 weeks ago when admitted [facility] even though on d/c he said he would work with [facility] to be transferred to [place] and was ok residing at [facility] until that occurred. He continues to be labile with impulsive agitation, aggression, self harm as shortly after I saw him he was attempting to pull out his stitches on his left wrist and was given oral thorazine prn agitation which he took and the behavior stopped with medication and staff redirection. When pt was seen he said he was doing well on his medication and tolerating it well. He is compliant with all his meds. Encouraged to behave and follow unit rules when seen but did not as he attempted to remove his stitches shortly after being seen. States though that he feels safe here. VITAL SIGNS: See below. NEW TEST RESULTS: See below. CURRENT MEDICATIONS: See below. MENTAL STATUS EXAMINATION: General Appearance: unkempt, disheveled, appears stated age, hospital scubs/clothing Build: overweight Demeanor: average, preoccupied (with being close to family in [place]) Eye Contact: fair Activity: average, other (reactive) Behavior: cooperative, impulsive, restless Speech: clear, normal volume, non-spontaneous, impoverished Mood: euthymic, other (reactive) Mood "ok" Affect: full, labile Thought Process: concrete Thought Content (Delusions): denies SI, HI, AVH (states cut himself b/c he wants to be in [place] close to his family) Thought Content (Other): obsessional (with being in [place] jer to family) Thought Content (Aggressive): aggressive (assess), other (impulsive) Perception (Hallucinations): none reported Perception (Other): none reported Cognition (Impairment of): attention/concentration, ability to abstract Cognition(Intelligence Est.): borderline Oriented: Awake, Alert, Oriented times three Insight: poor Judgment: Poor Psychosis: Abstract Thinking 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 Ortho was called to re-suture pt's left arm and pt seen today with new clean stitches in place. Pt calmed after im zyprexa given. Pt encouraged to behave today and not ripe his stitches out again. Complains that he can't feel his fingers today and that that was going on prior to him ripping his stitches out. Pt advised that it's most carl due to him recent cutting his left arm badly and that with time and leaving his stitches alone it should improve which he stated ok to. Pt encouraged to ask for help at times he feels agitated, anxious before he acts to harm himself in any way as he has prn zyprexa zydis, thorazine, and ativan to help him. Advised again that [facility] will be less likely to accept him to their residential treatment if he continues to harm himself and be agitated to encourage him to not do such things as he admits what he wants most is to go to the [facility] for residential services to be close to his family there. States he slept well last night. Feels he is tolerating his medications and they're beneficial. He is attending groups and finding them helpful. Pt feels safe here. MANAGEMENT PLAN: increase oral thorazine to 100mg bid. [facility] started. thorazine 100mg bid effexor xr 150mg daily lithium 600mg qhs, inderal 10mg tid thorazine 100mg q4hr prn anxiety/agitation ativan 2mg q4hr prn anxiety/agitation zyprexa zydis 10mg q4hr prn anxiety/agitation TIME SPENT: 30 minutes. Vital Signs Vital Signs Date Time Temp Pulse Resp B/P (MAP) Pulse Ox O2 Delivery O2 Flow Rate FiO2 05/04/19 08:05 98 131/85 05/04/19 06:28 98.1 18 05/02/19 17:30 96 Room Air Current Medications Current Medications Medications (Trade) Dose Ordered Sig/Ivette Route PRN Reason Start Time Stop Time Status Last Admin Dose Admin Acetaminophen (Tylenol Tab) 650 mg Q6HP PRN PO HEADACHE or DISCOMFORT 05/01/19 12:30 Al Hydrox/Mg Hydrox/Simethicone (Mylanta) 30 ml Q4HP PRN PO HEARTBURN/INDIGESTION 05/01/19 12:30 Chlorpromazine HCl (Thorazine) 50 mg BID PO 05/01/19 09:00 05/04/19 08:04 Chlorpromazine HCl (Thorazine) 100 mg Q4HP PRN PO AGITATION 05/02/19 09:30 05/02/19 15:52 Chlorpromazine HCl (Thorazine) 100 mg STAT STAT PO 05/01/19 18:16 05/01/19 18:18 DC 05/01/19 18:26 Docusate Sodium (Colace) 200 mg BID PO 05/01/19 21:00 05/04/19 08:04 Folic Acid (Folic Acid) 1 mg DAILY PO 05/02/19 09:00 05/04/19 08:04 Gabapentin (Neurontin) 600 mg TID PO 05/01/19 16:00 05/04/19 08:04 [place] Carbonate (Lithobid Cr) 600 mg DAILY PO 05/02/19 09:00 05/04/19 08:04 Lorazepam (Ativan) 2 mg Q4HP PRN PO ANXIETY/AGITATION 05/02/19 09:30 05/04/19 06:04 Lorazepam (Ativan) 2 mg STAT STAT PO 05/01/19 18:16 05/01/19 18:18 DC 05/01/19 18:26 Magnesium Hydroxide (Milk Of Magnesia) 30 ml DAILYPRN PRN PO CONSTIPATION 05/01/19 12:30 05/04/19 07:32 Nicotine (Nicorette) 2 mg Q2HP PRN PO NICOTINE WITHDRAWAL 05/01/19 14:00 05/04/19 08:03 Non-Formulary Medication ( See Comment Field Below ) SEE COMMENTS SECTION 1T@10 ID 05/05/19 10:00 05/03/19 10:30 DC Non-Formulary Medication ( See Comment Field Below ) SEE LABEL COMMENTS DAILY XX 05/03/19 09:00 05/03/19 10:50 DC Pantoprazole Sodium (Protonix) 40 mg DAILY PO 05/02/19 09:00 05/04/19 08:04 Propranolol HCl (Inderal) 10 mg TID PO 05/01/19 16:00 05/04/19 08:05 Trazodone HCl (Desyrel) 50 mg QHSP PRN PO INSOMNIA 05/01/19 12:30 05/03/19 00:37 Venlafaxine HCl (Effexor Xr) 150 mg DAILY PO 05/02/19 09:00 05/04/19 08:04 Allergies Coded Allergies: Cephalosporins (Verified Allergy, Intermediate, HIVES, 04/29/19) haloperidol (Verified Adverse Reaction, Severe, SEIZURES, 04/29/19) ziprasidone (Verified Adverse Reaction, Mild, VOMITING, 04/29/19) MICHELLE ARELLANO DO May 04, 2019 10:00 am
[2019-05-04] MEDS: OLANZapine ORAL DISINTEGRATING TAB 5MG PO PRN (12:06)
[2019-05-04 16:22] VITALS: BP 135/90
[2019-05-04] MEDS: traZODone 50 MG TAB PO PRN (21:08)
[2019-05-05] MEDS: VENLAFAXINE **XR** 75MG CAPSULE PO SCH (08:13)
[2019-05-05] MEDS: FOLIC ACID 1 MG TAB PO SCH (08:14)
[2019-05-05] MEDS: PANTOPRAZOLE 40MG TAB (PROTONIX) PO SCH (08:14)
[2019-05-05] MEDS: GABAPENTIN 300 MG CAP PO SCH ×3 (08:14→21:18)
[2019-05-05] MEDS: DOCUSATE SODIUM 100 MG CAP PO SCH ×2 (08:14→21:17)
[2019-05-05] MEDS: NICOTINE POLACRILEX 2 MG GUM PO PRN ×5 (08:14→17:20)
[2019-05-05] MEDS: LITHIUM CARBONATE 300 MG **CR** TAB PO SCH (08:14)
[2019-05-05] MEDS: PROPRANOLOL 10 MG TAB PO SCH ×3 (08:14→21:17)
[2019-05-05] MEDS: chlorproMAZINE 25 MG TAB (Q0161) PO SCH ×2 (08:14→21:18)
[2019-05-05] MEDS: LORazepam 2 MG TAB PO PRN (09:42)
[2019-05-05] MEDS ORDERED: PPD DOCUMENTATION ENTRY MISC ID SCH (10:00)
[2019-05-05] MEDS ORDERED: PPD DOCUMENTATION ENTRY MISC XX ONE (11:00)
[2019-05-05] MEDS: OLANZapine ORAL DISINTEGRATING TAB 5MG PO PRN (13:37)
[2019-05-05] MEDS ORDERED: chlorproMAZINE INJ 50MG/2ML AMP (J3230) IM STA (13:59)
[2019-05-05] MEDS ORDERED: LORazepam 2 MG/ML VIAL (J2060) IM STA (13:59)
[2019-05-05 16:10] VITALS: BP 124/89
[2019-05-05] MEDS: traZODone 50 MG TAB PO PRN (21:18)
[2019-05-06] MEDS: LORazepam 2 MG TAB PO PRN ×3 (05:51→18:10)
[2019-05-06] MEDS: NICOTINE POLACRILEX 2 MG GUM PO PRN ×7 (05:51→20:08)
[2019-05-06 06:55] VITALS: BP 128/80
[2019-05-06] MEDS: DOCUSATE SODIUM 100 MG CAP PO SCH ×2 (08:07→20:08)
[2019-05-06] MEDS: LITHIUM CARBONATE 300 MG **CR** TAB PO SCH (08:07)
[2019-05-06] MEDS: chlorproMAZINE 25 MG TAB (Q0161) PO SCH ×2 (08:07→21:00)
[2019-05-06] MEDS: GABAPENTIN 300 MG CAP PO SCH ×3 (08:07→20:09)
[2019-05-06] MEDS: PROPRANOLOL 10 MG TAB PO SCH ×3 (08:07→20:09)
[2019-05-06] MEDS: FOLIC ACID 1 MG TAB PO SCH (08:07)
[2019-05-06] MEDS: PANTOPRAZOLE 40MG TAB (PROTONIX) PO SCH (08:07)
[2019-05-06] MEDS: VENLAFAXINE **XR** 75MG CAPSULE PO SCH (08:08)
--- NOTE | 2019-05-06 09:04 | MHIPNPDOC ---
[facility] Progress Note Progress Note DATE OF SERVICE: 05/06/19 HISTORY: Patient is a 33 -year-old , male, with a history of schizophrenia who was recently d/c from [facility] s/p OD last week who was consulted on while on medical floor for SA via left arm laceration. Per Dr. Aleman's admit note: "He is 33 years old. He has a long history of psychiatric difficulties, has been diagnosed with schizophrenia, has had several inpatient hospitalizations, has made several suicide attempts, including, on one occasion, jumping off a bridge, breaking his back, for which he required surgery. He was just recently discharged from the inpatient psychiatry unit here at [facility], about 4 days ago, Dr. Arellano discharge summary is reviewed. He was discharged after a 7-day stay. Please refer to the discharge summary for details related to the circumstances of the hospitalization, as well as the hospital course itself. On discharge, he was discharged on chlorpromazine 50 mg twice a day, lithium 600 mg daily, Inderal 10 mg three times a day, venlafaxine 150 mg a day, trazodone 50 mg at night as needed for insomnia. I had seen him at the time of admission, had seen on the consult service, within the last couple of weeks, and then in the inpatient unit, during the course of his hospitalization. Please see my consultation note and admission summary for details related to those circumstances and his state at the time of admission. He was quite agitated, required intramuscular medications, also required restraints at various points. He has come in this time around to the hospital as he cut his left wrist in an attempt to kill himself. He apparently used a pocket knife. He has been admitted to the medical floor, has been agitated, on one occasion, per the record, tried pulling his IV line out, and also tried to choke himself. A Code 25 was called this afternoon. He has been give anti-agitation medications. The medications have included a total of 6 mg of lorazepam intravenous in the last 24 hours, and olanzapine 10 mg intramuscular. He is being treated for a urinary tract infection as well, has urinary difficulties, which have been somewhat longstanding, requires regular catheterization. The patient has been sedated, particularly after the anti-agitation medications, and currently is not able to provide much of a history, as is somewhat drowsy but answers questions briefly, coherently. Not much of this history is obtained from him, the bulk is obtained from the medical record itself, and recent past history." Pt had to be coded yesterday during admission from medical floor due to agitation, attempting to harm himself with a pillow case around his neck (this was on medical floor) and trying to fight staff with mechanical and chemical restraints that he tolerated well and feel asleep a little after although was attempting to pull off wrist restraints immediately after restraints but on and staff had to tighten the wrist restraints so the he could get to them with his teeth. Pt was place with a 1:1 sitter for safety and impulsive agitation and aggression. Pt seen this am with 1:1 sitter and states he feels "ok" and admits the reason he cut himself was b/c he wants to be placed back in the [facility] to be close with his family in [place] which was the same reason he OD 2 weeks ago when admitted to [facility] even though on d/c he said he would work with [facility] to be transferred to [place] and was ok residing at [facility] until that occurred. He continues to be labile with impulsive agitation, ag gression, self harm as shortly after I saw him he was attempting to pull out his stitches on his left wrist and was given oral thorazine prn agitation which he took and the behavior stopped with medication and staff redirection. When pt was seen he said he was doing well on his medication and tolerating it well. He is compliant with all his meds. Encouraged to behave and follow unit rules when seen but did not as he attempted to remove his stitches shortly after being seen. States though that he feels safe here. VITAL SIGNS: See below. NEW TEST RESULTS: See below. CURRENT MEDICATIONS: See below. MENTAL STATUS EXAMINATION: General Appearance: unkempt, disheveled, appears stated age, hospital scubs/clothing Build: overweight Demeanor: average, preoccupied (with being close to family in [place]) Eye Contact: fair Activity: average, other (reactive) Behavior: cooperative, impulsive, restless Speech: clear, normal volume, non-spontaneous, impoverished Mood: euthymic, other (reactive) Mood "I'm constipated" Affect: full, labile Thought Process: concrete Thought Content (Delusions): denies SI, HI, AVH (states cut himself b/c he wants to be in [place] close to his family) Thought Content (Other): obsessional (with being in [place] jer to family) Thought Content (Aggressive): aggressive (assess), other (impulsive) Perception (Hallucinations): none reported Perception (Other): none reported Cognition (Impairment of): attention/concentration, ability to abstract Cognition(Intelligence Est.): borderline Oriented: Awake, Alert, Oriented times three Insight: poor Judgment: Poor Psychosis: Abstract Thinking 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 Pt given ativan 2mg and thorazine 100mg IM that called him down and he stopped trying to pull out his stitches. Pt see today with his sitter present endorsing constipation for 3.5 months stating he's a hap small bowel movements during that time with one yesterday. Pt is ask for an enema as he states he likes that it helps him to have a BM and did the last time he took one. Discussed with the pt the need for him to stop pulling at his stitches when he's feeling agitated and anxious. States "I was having schizophrenic problems" yesterday as to why he was pulling at them. pt has been endorsing numbness in the figures of his let had since he cute his writst and knows he is waiting for surgery on it to repair the damage he did and thought the surgery would be last week. Advised pt that the surgeon can't do the surgery with him constatly trying to ripe his stitches out and that he needs to stop so the surgery can be done and he can regain feeling in his figures. Pt seemed to understand this when put in context the he could understand and appears more receptive to not pulling at them. Encouraged to ask for help when he feels agitated or anxious rather than pulling at his stitches and pt stated "OK." Per nursing pt had to be restrained yesterday after he ripped his stitches out of his left arm with chemical (zyprexa 10mg im) and mechanical restraints. Ortho was called to re-suture pt's left arm and pt seen today with new clean stitches in place. Pt calmed after im zyprexa given. Pt encouraged to behave today and not ripe his stitches out again. Complains that he can't feel his fingers today and that that was going on prior to him ripping his stitches out. Pt advised that it's most carl due to him recent cutting his left arm badly and that with time and leaving his stitches alone it should improve which he stated ok to. Pt encouraged to ask for help at times he feels agitated, anxious before he acts to harm himself in any way as he has prn zyprexa zydis, thorazine, and ativan to help him. Advised again that [facility] will be less likely to accept him to their residential treatment if he continues to harm himself and be agitated to encourage him to not do such things as he admits what he wants most is to go to the [facility] for residential services to be close to his family there. States he slept well last night. Feels he is tolerating his medications and they're beneficial. He is attending groups and finding them helpful. Pt feels s afe here. MANAGEMENT PLAN: Continue plan. start [facility] started. thorazine 100mg bid effexor xr 150mg daily lithium 600mg qhs, inderal 10mg tid thorazine 100mg q4hr prn anxiety/agitation ativan 2mg q4hr prn anxiety/agitation zyprexa zydis 10mg q4hr prn anxiety/agitation TIME SPENT: 30 minutes. Vital Signs Vital Signs Date Time Temp Pulse Resp B/P (MAP) Pulse Ox O2 Delivery O2 Flow Rate FiO2 05/06/19 08:07 88 128/80 05/06/19 06:55 97.6 18 Room Air 05/02/19 17:30 96 Current Medications Current Medications Medications (Trade) Dose Ordered Sig/Ivette Route PRN Reason Start Time Stop Time Status Last Admin Dose Admin Acetaminophen (Tylenol Tab) 650 mg Q6HP PRN PO HEADACHE or DISCOMFORT 05/01/19 12:30 05/04/19 13:46 Al Hydrox/Mg Hydrox/Simethicone (Mylanta) 30 ml Q4HP PRN PO HEARTBURN/INDIGESTION 05/01/19 12:30 Chlorpromazine HCl (Thorazine) 50 mg BID PO 05/01/19 09:00 05/06/19 08:07 Chlorpromazine HCl (Thorazine) 100 mg Q4HP PRN PO AGITATION 05/02/19 09:30 05/02/19 15:52 Chlorpromazine HCl (Thorazine) 100 mg STAT STAT IM 05/05/19 13:59 05/05/19 14:01 DC 05/05/19 14:08 Chlorpromazine HCl (Thorazine) 100 mg STAT STAT PO 05/01/19 18:16 05/01/19 18:18 DC 05/01/19 18:26 Docusate Sodium (Colace) 200 mg BID PO 05/01/19 21:00 05/06/19 08:07 Folic Acid (Folic Acid) 1 mg DAILY PO 05/02/19 09:00 05/06/19 08:07 Gabapentin (Neurontin) 600 mg TID PO 05/01/19 16:00 05/06/19 08:07 [place] Carbonate (Lithobid Cr) 600 mg DAILY PO 05/02/19 09:00 05/06/19 08:07 Lorazepam (Ativan) 2 mg Q4HP PRN PO ANXIETY/AGITATION 05/02/19 09:30 05/06/19 05:51 Lorazepam (Ativan) 2 mg STAT STAT IM 05/05/19 13:59 05/05/19 14:01 DC 05/05/19 14:08 Lorazepam (Ativan) 2 mg STAT STAT PO 05/01/19 18:16 05/01/19 18:18 DC 05/01/19 18:26 Magnesium Hydroxide (Milk Of Magnesia) 30 ml DAILYPRN PRN PO CONSTIPATION 05/01/19 12:30 05/04/19 07:32 Nicotine (Nicorette) 2 mg Q2HP PRN PO NICOTINE WITHDRAWAL 05/01/19 14:00 05/06/19 08:08 Non-Formulary Medication ( See Comment Field Below ) SEE COMMENTS SECTION 1T@10 ID 05/05/19 10:00 05/03/19 10:30 DC Non-Formulary Medication ( See Comment Field Below ) SEE LABEL COMMENTS DAILY XX 05/03/19 09:00 05/03/19 10:50 DC Olanzapine (ZyPREXA ZYDIS) 10 mg Q4HP PRN PO ANXIETY/AGITATION 05/04/19 10:00 05/05/19 13:37 Pantoprazole Sodium (Protonix) 40 mg DAILY PO 05/02/19 09:00 05/06/19 08:07 Propranolol HCl (Inderal) 10 mg TID PO 05/01/19 16:00 05/06/19 08:07 Trazodone HCl (Desyrel) 50 mg QHSP PRN PO INSOMNIA 05/01/19 12:30 05/05/19 21:18 Venlafaxine HCl (Effexor Xr) 150 mg DAILY PO 05/02/19 09:00 05/06/19 08:08 Allergies Coded Allergies: Cephalosporins (Verified Allergy, Intermediate, HIVES, 04/29/19) haloperidol (Verified Adverse Reaction, Severe, SEIZURES, 04/29/19) ziprasidone (Verified Adverse Reaction, Mild, VOMITING, 04/29/19) MICHELLE ARELLANO DO May 06, 2019 9:04 am
[2019-05-06] MEDS: chlorproMAZINE 25 MG TAB (Q0161) PO PRN (12:27)
[2019-05-06] MEDS ORDERED: LORazepam 2 MG/ML VIAL (J2060) IM STA (13:59)
[2019-05-06] MEDS ORDERED: chlorproMAZINE INJ 50MG/2ML AMP (J3230) IM STA ×2 (13:59→17:05)
[2019-05-06 16:25] VITALS: BP 142/93
[2019-05-06 16:50] VITALS: BP 135/77
[2019-05-06 17:05] VITALS: BP 135/77
[2019-05-06 17:20] VITALS: BP 141/81
[2019-05-06 17:30] VITALS: BP 144/79
[2019-05-06] MEDS: IBUPROFEN 400 MG TAB PO PRN (18:16)
--- NOTE | 2019-05-06 19:37 | MHIR ---
DATE: 05/06/2019 This is a note for restraint. The patient had been seen a little earlier today. I had attempted seeing him, he declined and then agreed to see me afterwards when he indicated that things were essentially the same for him, I had come to do a confirmatory consult. Soon after I had left, I was called as the patient had become agitated, had started punching himself, and was not amenable to directions, and was placed in 4-point restraints. I was called by staff, and the patient was giving Thorazine at 50 mg intramuscular. I saw him about 10 minutes later, after I was called, and he was in restraints, he indicated that he had been thinking of his family, felt stressed, and had started hitting himself. Says has been feeling somewhat calmer. He is coherent, in restraints, less agitated with a somewhat restricted affect. PLAN: I would suggest that he is to be released from restraints as soon as it is feasible. He has just received Thorazine, had received some earlier in the afternoon as well, as well as some Ativan. We will continue monitoring him on a one-to-one basis. We will continue monitoring him. We will also look at prescribing him analgesic top help with pain, other than Tylenol temporarily.
[2019-05-06] MEDS: traZODone 50 MG TAB PO PRN (20:08)
[2019-05-07] MEDS: NICOTINE POLACRILEX 2 MG GUM PO PRN ×6 (06:53→21:48)
[2019-05-07] MEDS: LORazepam 2 MG TAB PO PRN (06:53)
[2019-05-07] MEDS: chlorproMAZINE 25 MG TAB (Q0161) PO SCH ×2 (08:06→21:48)
[2019-05-07] MEDS: VENLAFAXINE **XR** 75MG CAPSULE PO SCH (08:07)
[2019-05-07] MEDS: FOLIC ACID 1 MG TAB PO SCH (08:07)
[2019-05-07] MEDS: PANTOPRAZOLE 40MG TAB (PROTONIX) PO SCH (08:07)
[2019-05-07] MEDS: LITHIUM CARBONATE 300 MG **CR** TAB PO SCH (08:07)
[2019-05-07] MEDS: DOCUSATE SODIUM 100 MG CAP PO SCH ×2 (08:07→21:48)
[2019-05-07] MEDS: PROPRANOLOL 10 MG TAB PO SCH ×3 (08:07→21:58)
[2019-05-07] MEDS: GABAPENTIN 300 MG CAP PO SCH ×3 (08:08→21:48)
--- NOTE | 2019-05-07 09:28 | MHIPNPDOC ---
[facility] Progress Note Progress Note DATE OF SERVICE: 05/07/19 HISTORY: Patient is a 33 -year-old , male, with a history of schizophrenia who was recently d/c from [facility] s/p OD last week who was consulted on while on medical floor for SA via left arm laceration. Per Dr. Aleman's admit note: "He is 33 years old. He has a long history of psychiatric difficulties, has been diagnosed with schizophrenia, has had several inpatient hospitalizations, has made several suicide attempts, including, on one occasion, jumping off a bridge, breaking his back, for which he required surgery. He was just recently discharged from the inpatient psychiatry unit here at [facility], about 4 days ago, Dr. Arellano discharge summary is reviewed. He was discharged after a 7-day stay. Please refer to the discharge summary for details related to the circumstances of the hospitalization, as well as the hospital course itself. On discharge, he was discharged on chlorpromazine 50 mg twice a day, lithium 600 mg daily, Inderal 10 mg three times a day, venlafaxine 150 mg a day, trazodone 50 mg at night as needed for insomnia. I had seen him at the time of admission, had seen on the consult service, within the last couple of weeks, and then in the inpatient unit, during the course of his hospitalization. Please see my consultation note and admission summary for details related to those circumstances and his state at the time of admission. He was quite agitated, required intramuscular medications, also required restraints at various points. He has come in this time around to the hospital as he cut his left wrist in an attempt to kill himself. He apparently used a pocket knife. He has been admitted to the medical floor, has been agitated, on one occasion, per the record, tried pulling his IV line out, and also tried to choke himself. A Code 25 was called this afternoon. He has been give anti-agitation medications. The medications have included a total of 6 mg of lorazepam intravenous in the last 24 hours, and olanzapine 10 mg intramuscular. He is being treated for a urinary tract infection as well, has urinary difficulties, which have been somewhat longstanding, requires regular catheterization. The patient has been sedated, particularly after the anti-agitation medications, and currently is not able to provide much of a history, as is somewhat drowsy but answers questions briefly, coherently. Not much of this history is obtained from him, the bulk is obtained from the medical record itself, and recent past history." Pt had to be coded yesterday during admission from medical floor due to agitation, attempting to harm himself with a pillow case around his neck (this was on medical floor) and trying to fight staff with mechanical and chemical restraints that he tolerated well and feel asleep a little after although was attempting to pull off wrist restraints immediately after restraints but on and staff had to tighten the wrist restraints so the he could get to them with his teeth. Pt was place with a 1:1 sitter for safety and impulsive agitation and aggression. Pt seen this am with 1:1 sitter and states he feels "ok" and admits the reason he cut himself was b/c he wants to be placed back in the [facility] to be close with his family in [place] which was the same reason he OD 2 weeks ago when admitted to [facility] even though on d/c he said he would work with [facility] to be transferred to [place] and was ok residing at [facility] until that occurred. He continues to be labile with impulsive agitation, a ggression, self harm as shortly after I saw him he was attempting to pull out his stitches on his left wrist and was given oral thorazine prn agitation which he took and the behavior stopped with medication and staff redirection. When pt was seen he said he was doing well on his medication and tolerating it well. He is compliant with all his meds. Encouraged to behave and follow unit rules when seen but did not as he attempted to remove his stitches shortly after being seen. States though that he feels safe here. VITAL SIGNS: See below. NEW TEST RESULTS: See below. CURRENT MEDICATIONS: See below. MENTAL STATUS EXAMINATION: General Appearance: unkempt, disheveled, appears stated age, hospital scubs/clothing Build: overweight Demeanor: average, preoccupied (with being close to family in [place]) Eye Contact: fair Activity: average, other (reactive) Behavior: cooperative, impulsive, restless Speech: clear, normal volume, non-spontaneous, impoverished Mood: euthymic, other (reactive) Mood "better" Affect: full, labile Thought Process: concrete Thought Content (Delusions): denies SI, HI, AVH (states cut himself b/c he w ants to be in [place] close to his family) Thought Content (Other): obsessional (with being in [place] jer to family) Thought Content (Aggressive): aggressive (assess), other (impulsive) Perception (Hallucinations): none reported Perception (Other): none reported Cognition (Impairment of): attention/concentration, ability to abstract Cognition(Intelligence Est.): borderline Oriented: Awake, Alert, Oriented times three Insight: poor Judgment: Poor Psychosis: Abstract Thinking 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 Aleman was on. Pt see today with his sitter present stating he feels "better". Showed me where he pulled out his stitches and no stitches replaced as his cuts to his left arm appear to being healing well with early scar formation. Encouraged again to ask for help when he feels agitated or anxious rather than becoming physically aggressive to himself and pt stated again "OK." Pt encouraged to behave today. Complains that he can't feel his fingers today and advised it should improve as his cuts to his arm continue to heal. Pt advised that it's most likely due to him recent cutting his left arm badly and that with time it should improve which he stated ok to. Pt has prn zyprexa zydis, thorazine, and ativan to help him with anxiety/agitation. Advised daily that [facility] will be less likely to accept him to their residential treatment if he continues to harm himself and be agitated to encourage him to not do such things as he admits what he wants most is to go to the [facility] for residential services to be close to his family there. States he slept well last night. Feels he is tolerating his medications and they're beneficial. He is attending groups and finding them helpful. Pt feels safe here. MANAGEMENT PLAN: Continue plan. will start prolixin 10mg bid for continued psychosis/agitation/self harm. referred [facility]. prolixin 10mg bid thorazine 100mg bid effexor xr 150mg daily lithium 600mg qhs, inderal 10mg tid thorazine 100mg q4hr prn anxiety/agitation ativan 2mg q4hr prn anxiety/agitation zyprexa zydis 10mg q4hr prn anxiety/agitation TIME SPENT: 30 minutes. Vital Signs Vital Signs Date Time Temp Pulse Resp B/P (MAP) Pulse Ox O2 Delivery O2 Flow Rate FiO2 05/07/19 08:07 111 132/77 05/06/19 17:30 98.7 18 99 Room Air Current Medications Current Medications Medications (Trade) Dose Ordered Sig/Ivette Route PRN Reason Start Time Stop Time Status Last Admin Dose Admin Acetaminophen (Tylenol Tab) 650 mg Q6HP PRN PO HEADACHE or DISCOMFORT 05/01/19 12:30 05/04/19 13:46 Al Hydrox/Mg Hydrox/Simethicone (Mylanta) 30 ml Q4HP PRN PO HEARTBURN/INDIGESTION 05/01/19 12:30 Chlorpromazine HCl (Thorazine) 50 mg BID PO 05/01/19 09:00 05/07/19 08:06 Chlorpromazine HCl (Thorazine) 50 mg STAT STAT IM 05/06/19 17:05 05/06/19 17:06 DC 05/06/19 17:12 Chlorpromazine HCl (Thorazine) 100 mg Q4HP PRN PO AGITATION 05/02/19 09:30 05/02/19 15:52 Chlorpromazine HCl (Thorazine) 100 mg STAT STAT IM 05/06/19 13:59 05/06/19 14:01 DC 05/06/19 14:28 Chlorpromazine HCl (Thorazine) 100 mg STAT STAT IM 05/05/19 13:59 05/05/19 14:01 DC 05/05/19 14:08 Chlorpromazine HCl (Thorazine) 100 mg STAT STAT PO 05/01/19 18:16 05/01/19 18:18 DC 05/01/19 18:26 Docusate Sodium (Colace) 200 mg BID PO 05/01/19 21:00 05/07/19 08:07 Folic Acid (Folic Acid) 1 mg DAILY PO 05/02/19 09:00 05/07/19 08:07 Gabapentin (Neurontin) 600 mg TID PO 05/01/19 16:00 05/07/19 08:08 Ibuprofen (Advil) 400 mg BIDP PRN PO PAIN 05/06/19 17:45 05/07/19 17:00 05/06/19 18:16 [place] Carbonate (Lithobid Cr) 600 mg DAILY PO 05/02/19 09:00 05/07/19 08:07 Lorazepam (Ativan) 2 mg Q4HP PRN PO ANXIETY/AGITATION 05/02/19 09:30 05/07/19 06:53 Lorazepam (Ativan) 2 mg STAT STAT IM 05/06/19 13:59 05/06/19 14:01 DC 05/06/19 14:28 Lorazepam (Ativan) 2 mg STAT STAT IM 05/05/19 13:59 05/05/19 14:01 DC 05/05/19 14:08 Lorazepam (Ativan) 2 mg STAT STAT PO 05/01/19 18:16 05/01/19 18:18 DC 05/01/19 18:26 Magnesium Hydroxide (Milk Of Magnesia) 30 ml DAILYPRN PRN PO CONSTIPATION 05/01/19 12:30 05/04/19 07:32 Nicotine (Nicorette) 2 mg Q2HP PRN PO NICOTINE WITHDRAWAL 05/01/19 14:00 05/07/19 09:00 Non-Formulary Medication ( See Comment Field Below ) SEE COMMENTS SECTION 1T@10 ID 05/05/19 10:00 05/03/19 10:30 DC Non-Formulary Medication ( See Comment Field Below ) SEE LABEL COMMENTS DAILY XX 05/03/19 09:00 05/03/19 10:50 DC Olanzapine (ZyPREXA ZYDIS) 10 mg Q4HP PRN PO ANXIETY/AGITATION 05/04/19 10:00 05/05/19 13:37 Pantoprazole Sodium (Protonix) 40 mg DAILY PO 05/02/19 09:00 05/07/19 08:07 Propranolol HCl (Inderal) 10 mg TID PO 05/01/19 16:00 05/07/19 08:07 Trazodone HCl (Desyrel) 50 mg QHSP PRN PO INSOMNIA 05/01/19 12:30 05/06/19 20:08 Venlafaxine HCl (Effexor Xr) 150 mg DAILY PO 05/02/19 09:00 05/07/19 08:07 Allergies Coded Allergies: Cephalosporins (Verified Allergy, Intermediate, HIVES, 04/29/19) haloperidol (Verified Adverse Reaction, Severe, SEIZURES, 04/29/19) ziprasidone (Verified Adverse Reaction, Mild, VOMITING, 04/29/19) MICHELLE ARELLANO DO May 07, 2019 9:28 am
[2019-05-07] MEDS: MOM 30ML SUSPENSION UDC PO PRN (10:01)
[2019-05-07] MEDS ORDERED: diphenhydrAMINE INJ 50MG/ML VIAL (J1200) IM STA ×2 (11:30→17:28)
[2019-05-07] MEDS ORDERED: LORazepam 2 MG/ML VIAL (J2060) IM STA ×2 (11:30→17:28)
[2019-05-07] MEDS ORDERED: chlorproMAZINE INJ 50MG/2ML AMP (J3230) IM STA ×2 (11:30→17:28)
[2019-05-07] MEDS: IBUPROFEN 400 MG TAB PO PRN (13:01)
[2019-05-07 15:45] VITALS: BP 112/57
--- NOTE | 2019-05-07 16:41 | IPNPDOC ---
Text Note Date of Service The patient was seen on 05/07/19. NOTE Brief Synopsis: 33-year-old M who was initially admitted for suicide attempt by lacerating his right wrist c/b pulling out his sutures and hurting himself by banging his head with episodes of 4 point restraints for whom medicine was called for follow up of his chronic self cath that he self reports that he is having reduced urine output despite having adequate PO. He denies abdominal, suprapubic or new back pain. Instead he requested a 1 time percocet for R 5th digit pain and limited ROM due to the recent injury to which I referred back to his current pain regimen and if he is having mobility of his hand issues given the recent injury would warrant evaluation by surgery. PHYSICAL EXAMINATION: VITAL SIGNS: Please see below. GENERAL: NAD HEENT: Has bruise on forehead from repeatedly banging his head, otherwise PERRLA, EOMI, MMM NECK: Supple CARDIOVASCULAR EXAMINATION: RRR RESPIRATORY EXAMINATION: Speaking in full sentences with no accessory muscle use, no wheezing ABDOMINAL EXAMINATION: Obese, nontender EXTREMITIES: WWP, no LE edema SKIN: bruising on forehead, otherwise no rash noted NEUROLOGICAL EXAMINATION: no focal deficits, normal gait PSYCHIATRIC EXAMINATION: Initially cooperative but became visibly upset and banging his head after I declined to write a one time percocet order LABORATORY DATA: None done recently in the last 24h MICROBIOLOGY: Please see below. ASSESSMENT: 33-year-old male who was initially admitted for suicide attempt by cutting his right wrist now admitted to inpatient mental health unit for further evaluation and treatment for whom medicine is following up in reduced urine output as reported by patient. . PLAN: 1. Suicide attempt and self harm behavior: Management as per primary team 2. Decreased urine output: -With the lack of bladder scan in the [facility], will order a renal US to r/o obstructive uropathy -will also order BMP - I will follow up on the results of these tests 3.R finger complaints: -continue pain management as currently prescribed, if function is limited, may contact surgery though I would imagine this is likely to be determined to be something he can follow up as an outpatient 4. Constipation -Schedule the milk of mag for daily instead of being PRN because he has seldom received it. VS,Fishbone, I+O VS, Fishbone, I+O Vital Signs Date Time Temp Pulse Resp B/P (MAP) Pulse Ox O2 Delivery O2 Flow Rate FiO2 05/07/19 15:48 94 112/57 05/07/19 15:45 97.8 18 05/06/19 17:30 99 Room Air LION RECIO MD May 07, 2019 16:41
[2019-05-07 18:04] LABS: BLOOD UREA NITROGEN 17 MG/DL (7-18); CALCIUM LEVEL 8.8 MG/DL (8.5-10.1); CARBON DIOXIDE LEVEL 29 MEQ/L (21-32); CHLORIDE LEVEL 106 MEQ/L (98-107); CREATININE FOR GFR 0.96 MG/DL (0.70-1.30); GLOMERULAR FILTRATION RATE > 60.0 (>60); GLUCOSE, FASTING 101 MG/DL (70-100); POTASSIUM SERUM 4.3 MEQ/L (3.5-5.1); SODIUM LEVEL 140 MEQ/L (136-145)
[2019-05-07] MEDS: traZODone 50 MG TAB PO PRN (21:48)
[2019-05-08 07:18] VITALS: BP 138/81
--- NOTE | 2019-05-08 07:29 | REP ---
Clinical: Decreased urinary output. Technique: Real time scherer scale ultrasound examination using curved array transducer. Findings: Right kidney is normal in contour, size, echogenicity, and reniform shape without hydronephrosis, nephrolithiasis, cystic or renal mass lesion. Kidney measures 12.1 x 6.2 x 6.6 cm. The left kidney measures 10.7 x 6.5 x 5.1 cm and demonstrates mid pole cortical scar without hydronephrosis, nephrolithiasis, cystic or renal mass lesion. Impression: Left kidney suggesting prior focal scarring. No hydronephrosis. Electronically Signed by Isma Rodriguez MD 05/07/2019 05:02 P
[2019-05-08] MEDS: MOM 30ML SUSPENSION UDC PO SCH (07:49)
[2019-05-08] MEDS: PANTOPRAZOLE 40MG TAB (PROTONIX) PO SCH (07:50)
[2019-05-08] MEDS: VENLAFAXINE **XR** 75MG CAPSULE PO SCH (07:50)
[2019-05-08] MEDS: LITHIUM CARBONATE 300 MG **CR** TAB PO SCH (07:50)
[2019-05-08] MEDS: FOLIC ACID 1 MG TAB PO SCH (07:50)
[2019-05-08] MEDS: GABAPENTIN 300 MG CAP PO SCH ×3 (07:50→20:05)
[2019-05-08] MEDS: NICOTINE POLACRILEX 2 MG GUM PO PRN ×5 (07:50→20:04)
[2019-05-08] MEDS: PROPRANOLOL 10 MG TAB PO SCH ×3 (07:51→20:05)
[2019-05-08] MEDS: DOCUSATE SODIUM 100 MG CAP PO SCH ×2 (07:51→20:04)
[2019-05-08] MEDS: chlorproMAZINE 25 MG TAB (Q0161) PO SCH ×2 (07:51→20:05)
[2019-05-08] MEDS: LORazepam 2 MG TAB PO PRN ×2 (08:50→13:44)
--- NOTE | 2019-05-08 09:30 | MHIPNPDOC ---
[facility] Progress Note Progress Note DATE OF SERVICE: 05/08/19 HISTORY: Patient is a 33 -year-old , male, with a history of schizophrenia who was recently d/c from [facility] s/p OD last week who was consulted on while on medical floor for SA via left arm laceration. Per Dr. Aleman's admit note: "He is 33 years old. He has a long history of psychiatric difficulties, has been diagnosed with schizophrenia, has had several inpatient hospitalizations, has made several suicide attempts, including, on one occasion, jumping off a bridge, breaking his back, for which he required surgery. He was just recently discharged from the inpatient psychiatry unit here at [facility], about 4 days ago, Dr. Arellano discharge summary is reviewed. He was discharged after a 7-day stay. Please refer to the discharge summary for details related to the circumstances of the hospitalization, as well as the hospital course itself. On discharge, he was discharged on chlorpromazine 50 mg twice a day, lithium 600 mg daily, Inderal 10 mg three times a day, venlafaxine 150 mg a day, trazodone 50 mg at night as needed for insomnia. I had seen him at the time of admission, had seen on the consult service, within the last couple of weeks, and then in the inpatient unit, during the course of his hospitalization. Please see my consultation note and admission summary for details related to those circumstances and his state at the time of admission. He was quite agitated, required intramuscular medications, also required restraints at various points. He has come in this time around to the hospital as he cut his left wrist in an attempt to kill himself. He apparently used a pocket knife. He has been admitted to the medical floor, has been agitated, on one occasion, per the record, tried pulling his IV line out, and also tried to choke himself. A Code 25 was called this afternoon. He has been give anti-agitation medications. The medications have included a total of 6 mg of lorazepam intravenous in the last 24 hours, and olanzapine 10 mg intramuscular. He is being treated for a urinary tract infection as well, has urinary difficulties, which have been somewhat longstanding, requires regular catheterization. The patient has been sedated, particularly after the anti-agitation medications, and currently is not able to provide much of a history, as is somewhat drowsy but answers questions briefly, coherently. Not much of this history is obtained from him, the bulk is obtained from the medical record itself, and recent past history." Pt had to be coded yesterday during admission from medical floor due to agitation, attempting to harm himself with a pillow case around his neck (this was on medical floor) and trying to fight staff with mechanical and chemical restraints that he tolerated well and feel asleep a little after although was attempting to pull off wrist restraints immediately after restraints but on and staff had to tighten the wrist restraints so the he could get to them with his teeth. Pt was place with a 1:1 sitter for safety and impulsive agitation and aggression. Pt seen this am with 1:1 sitter and states he feels "ok" and admits the reason he cut himself was b/c he wants to be placed back in the [facility] to be close with his family in [place] which was the same reason he OD 2 weeks ago when admitted to [facility] even though on d/c he said he would work with [facility] to be transferred to [place] and was ok residing at [facility] until that occurred. He continues to be labile with impulsive agitation, aggression, self harm as shortly after I saw him he was attempting to pull out his stitches on his left wrist and was given oral thorazine prn agitation which he took and the behavior stopped with medication and staff redirection. When pt was seen he said he was doing well on his medication and tolerating it well. He is compliant with all his meds. Encouraged to behave and follow unit rules when seen but did not as he attempted to remove his stitches shortly after being seen. States though that he feels safe here. VITAL SIGNS: See below. NEW TEST RESULTS: See below. CURRENT MEDICATIONS: See below. MENTAL STATUS EXAMINATION: General Appearance: unkempt, disheveled, appears stated age, hospital scubs/clothing Build: overweight Demeanor: average, preoccupied (with being close to family in [place]) Eye Contact: fair Activity: average, other (reactive) Behavior: cooperative, impulsive, restless Speech: clear, normal volume, non-spontaneous, impoverished Mood: euthymic, other (reactive) Mood "ok" Affect: full, labile Thought Process: concrete Thought Content (Delusions): denies SI, HI, AVH (states cut himself b/c he wants to be in [place] close to his family) Thought Content (Other): obsessional (with being in [place] jer to family) Thought Content (Aggressive): aggressive (assess), other (impulsive) Perception (Hallucinations): none reported Perception (Other): none reported Cognition (Impairment of): attention/concentration, ability to abstract Cognition(Intelligence Est.): borderline Oriented: Awake, Alert, Oriented times three Insight: poor Judgment: Poor Psychosis: Abstract Thinking 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 Pt's episodes appear to be behavioral due to him seeking medications as per nursing pt seen by medicine yesterday regarding wrist cuts and asking for Percocet which he was declined so therefore he started to bang his head on the wall due to being refused it. Pt see today with his sitter and nurse present stating he feels "ok". Spoke with pt again encouraging him to control his behavior which he is capable of doing and to ask for help before he reacts and starts banging his head when he's anxious or agitated. Pt reminded that he needs to work on controlling his behavior if he wants [facility] to accept him as they will not if he continues to act as he is now on the unit. Admits he really wants to go to [facility] to be close to his family there. Pt has prn zyprexa zydis, thorazine, and ativan to help him with anxiety/agitation. States he slept well last night. Feels he is tolerating his medications and they're beneficial. Appears to be tolerating prolixin well even though he says it's made him vomit in the past as he is not vomiting after taking it last night and this morning. He is attending groups and finding them helpful. Pt feels safe here. MANAGEMENT PLAN: Continue plan. referred to [facility] for usp treatment started. prolixin 10mg bid thorazine 100mg bid effexor xr 150mg daily lithium 600mg qhs inderal 10mg tid thorazine 100mg q4hr prn anxiety/agitation ativan 2mg q4hr prn anxiety/agitation zyprexa zydis 10mg q4hr prn anxiety/agitation TIME SPENT: 30 minutes. Vital Signs Vital Signs Date Time Temp Pulse Resp B/P (MAP) Pulse Ox O2 Delivery O2 Flow Rate FiO2 05/08/19 07:51 99 138/81 05/08/19 07:18 98.1 16 05/06/19 17:30 99 Room Air Laboratory Data 24H Labs Laboratory Tests 2 05/07/19 16:24: Anion Gap 5L, Glomerular Filtration Rate > 60.0, Calcium Level 8.8 CBC/BMP Laboratory Tests 05/07/19 16:24 Current Medications Current Medications Medications (Trade) Dose Ordered Sig/Ivette Route PRN Reason Start Time Stop Time Status Last Admin Dose Admin Acetaminophen (Tylenol Tab) 650 mg Q6HP PRN PO HEADACHE or DISCOMFORT 05/01/19 12:30 05/04/19 13:46 Al Hydrox/Mg Hydrox/Simethicone (Mylanta) 30 ml Q4HP PRN PO HEARTBURN/INDIGESTION 05/01/19 12:30 Chlorpromazine HCl (Thorazine) 50 mg BID PO 05/01/19 09:00 05/08/19 07:51 Chlorpromazine HCl (Thorazine) 50 mg STAT STAT IM 05/06/19 17:05 05/06/19 17:06 DC 05/06/19 17:12 Chlorpromazine HCl (Thorazine) 100 mg Q4HP PRN PO AGITATION 05/02/19 09:30 05/02/19 15:52 Chlorpromazine HCl (Thorazine) 100 mg STAT STAT IM 05/06/19 13:59 05/06/19 14:01 DC 05/06/19 14:28 Chlorpromazine HCl (Thorazine) 100 mg STAT STAT IM 05/07/19 11:30 05/07/19 11:32 DC 05/07/19 11:59 Chlorpromazine HCl (Thorazine) 100 mg STAT STAT IM 05/07/19 17:28 05/07/19 17:30 DC 05/07/19 17:49 Chlorpromazine HCl (Thorazine) 100 mg STAT STAT IM 05/05/19 13:59 05/05/19 14:01 DC 05/05/19 14:08 Chlorpromazine HCl (Thorazine) 100 mg STAT STAT PO 05/01/19 18:16 05/01/19 18:18 DC 05/01/19 18:26 Diphenhydramine HCl (Benadryl) 50 mg STAT STAT IM 05/07/19 11:30 05/07/19 11:32 DC 05/07/19 11:59 Diphenhydramine HCl (Benadryl) 50 mg STAT STAT IM 05/07/19 17:28 05/07/19 17:30 DC 05/07/19 17:50 Docusate Sodium (Colace) 200 mg BID PO 05/01/19 21:00 05/08/19 07:51 Fluphenazine HCl (Prolixin) 10 mg BID PO 05/07/19 21:00 05/08/19 07:51 Folic Acid (Folic Acid) 1 mg DAILY PO 05/02/19 09:00 05/08/19 07:50 Gabapentin (Neurontin) 600 mg TID PO 05/01/19 16:00 05/08/19 07:50 Ibuprofen (Advil) 400 mg BIDP PRN PO PAIN 05/06/19 17:45 05/07/19 17:00 DC 05/07/19 13:01 [place] Carbonate (Lithobid Cr) 600 mg DAILY PO 05/02/19 09:00 05/08/19 07:50 Lorazepam (Ativan) 2 mg Q4HP PRN PO ANXIETY/AGITATION 05/02/19 09:30 05/08/19 08:50 Lorazepam (Ativan) 2 mg STAT STAT IM 05/06/19 13:59 05/06/19 14:01 DC 05/06/19 14:28 Lorazepam (Ativan) 2 mg STAT STAT IM 05/07/19 11:30 05/07/19 11:32 DC 05/07/19 11:59 Lorazepam (Ativan) 2 mg STAT STAT IM 05/07/19 17:28 05/07/19 17:30 DC 05/07/19 17:50 Lorazepam (Ativan) 2 mg STAT STAT IM 05/05/19 13:59 05/05/19 14:01 DC 05/05/19 14:08 Lorazepam (Ativan) 2 mg STAT STAT PO 05/01/19 18:16 05/01/19 18:18 DC 05/01/19 18:26 Magnesium Hydroxide (Milk Of Magnesia) 30 ml DAILY PO 05/08/19 09:00 05/08/19 07:49 Magnesium Hydroxide (Milk Of Magnesia) 30 ml DAILYPRN PRN PO CONSTIPATION 05/01/19 12:30 05/07/19 16:41 DC 05/07/19 10:01 Nicotine (Nicorette) 2 mg Q2HP PRN PO NICOTINE WITHDRAWAL 05/01/19 14:00 05/08/19 07:50 Non-Formulary Medication ( See Comment Field Below ) SEE COMMENTS SECTION 1T@10 ID 05/05/19 10:00 05/03/19 10:30 DC Non-Formulary Medication ( See Comment Field Below ) SEE LABEL COMMENTS DAILY XX 05/03/19 09:00 05/03/19 10:50 DC Olanzapine (ZyPREXA ZYDIS) 10 mg Q4HP PRN PO ANXIETY/AGITATION 05/04/19 10:00 05/05/19 13:37 Pantoprazole Sodium (Protonix) 40 mg DAILY PO 05/02/19 09:00 05/08/19 07:50 Propranolol HCl (Inderal) 10 mg TID PO 05/01/19 16:00 05/08/19 07:51 Trazodone HCl (Desyrel) 50 mg QHSP PRN PO INSOMNIA 05/01/19 12:30 05/07/19 21:48 Venlafaxine HCl (Effexor Xr) 150 mg DAILY PO 05/02/19 09:00 05/08/19 07:50 Allergies Coded Allergies: Cephalosporins (Verified Allergy, Intermediate, HIVES, 04/29/19) haloperidol (Verified Adverse Reaction, Severe, SEIZURES, 04/29/19) ziprasidone (Verified Adverse Reaction, Mild, VOMITING, 04/29/19) MICHELLE ARELLANO DO May 08, 2019 9:30 am
--- NOTE | 2019-05-08 12:35 | IPNPDOC ---
Text Note Date of Service The patient was seen on 05/08/19. NOTE Subjective: -No acute complaints this morning EXAM: NO EXAM DONE THIS AM: Spoke with nursing that confirmed that he straight cath 900cc of urine this morning. LABORATORY DATA: BMP within normal limites with Cr 0.96 at his baseline. MICROBIOLOGY: None IMAGING: renal US - No hydronephrosis. ASSESSMENT: 33-year-old man who was initially admitted for suicide attempt by cutting his right wrist now admitted to inpatient mental health unit for further evaluation and treatment for whom medicine is following up in reduced urine output as reported by patient whose studies suggest no acute pathology at this time. . PLAN: 1. Suicide attempt and self harm behavior: Management as per primary team 2. Decreased urine output: -renal US without evidence of obstructive uropathy and Cr at baseline -to continue straight cath per baseline and increase PO fluid intake 4. Constipation -Daily milk of mag Medicine will sign off at this time. Please let us know if medical issues arise. VS,Fishbone, I+O VS, Fishbone, I+O Laboratory Tests 05/07/19 16:24 Vital Signs Date Time Temp Pulse Resp B/P (MAP) Pulse Ox O2 Delivery O2 Flow Rate FiO2 05/07/19 21:58 96 131/80 05/07/19 15:45 97.8 18 05/06/19 17:30 99 Room Air LION RECIO MD May 08, 2019 07:35
[2019-05-08 17:16] VITALS: BP 138/75
[2019-05-09] MEDS: NICOTINE POLACRILEX 2 MG GUM PO PRN ×5 (05:12→16:29)
[2019-05-09] MEDS: LORazepam 2 MG TAB PO PRN ×2 (05:47→13:53)
[2019-05-09 06:09] VITALS: BP 140/83
[2019-05-09] MEDS: PANTOPRAZOLE 40MG TAB (PROTONIX) PO SCH (08:13)
[2019-05-09] MEDS: DOCUSATE SODIUM 100 MG CAP PO SCH ×2 (08:14→21:06)
[2019-05-09] MEDS: FOLIC ACID 1 MG TAB PO SCH (08:14)
[2019-05-09] MEDS: LITHIUM CARBONATE 300 MG **CR** TAB PO SCH (08:14)
[2019-05-09] MEDS: VENLAFAXINE **XR** 75MG CAPSULE PO SCH (08:14)
[2019-05-09] MEDS: GABAPENTIN 300 MG CAP PO SCH ×3 (08:15→21:06)
[2019-05-09] MEDS: chlorproMAZINE 25 MG TAB (Q0161) PO SCH ×2 (08:15→21:07)
[2019-05-09] MEDS: PROPRANOLOL 10 MG TAB PO SCH ×3 (08:16→21:07)
--- NOTE | 2019-05-09 08:24 | MHIPNPDOC ---
[facility] Progress Note Progress Note Inpatient Progress Note Ofe Rayo MRN: N/A Date of : N/A Date of Service: 05/09/2019 History of Present Illness The patient, a 33-year-old man with likely history of intellectual disability and who had presented after cutting his wrist, he underwent some medical treatment and was brought back onto the unit. He has had a protracted course primarily needing a one-to-one for the majority of his stay. Interval History Narrative: The patient is met within the group format, he reports he is doing much better and eventually wants to leave to go back to [facility]. Affective: The patient reports improved depressive symptoms, less low mood, less problems with interest and behavior problems. Psychotic: The patient denies any at this time. Anxiety: The patient reports much less anxiety. Eating and sleeping behaviors: Normalizing. Group Attendance: Some at times, but very few. Medication Side effects: See ROS below Behavioral problems/significant events overnight: The patient was successfully taken off one-to-one sitter with no behavioral problems afterwards. Staff Report: The patient has returned to his baseline mental status. Review Of Systems General: Denies fever or appetite changes Cardiovascular: Denies Chest pain or palpations GI: Denies Nausea, vomiting, or bowel changes Respiratory: Denies shortness of breath or cough Neuro: Denies dizziness, tremors Derm: Denies any rashes or pruritus : Denies any dysuria or urinary problems MSK: Denies any muscle tightness or stiffness HEENT: Denies any vision changes or headaches Psychotherapy None on this visit. Vital Signs Reviewed. Mental Status Examination General: Fair hygiene. Speech: Improved Thought processes: Linear. MSK: Smooth and coordinated gait, no signs of tremors or involuntary orofacial movements Thought content: More future orientated. Abstract reasoning, and computation: Improved. Description of associations: Improved. Description of abnormal or psychotic thoughts: Denies suicidal or homicidal ideation. Denies any auditory or visual hallucinations. Judgment: Improved. Insight: Improved. Orientation: Alert and orientated 3 Cognition: Appears at baseline. Recent and remote memory: Intact Attention span and concentration: Improved. Fund of knowledge: Likely, IQ of 60 and below. Mood: "I'm feeling better." Affect: More euthymic and reactive. Diagnoses Intellectual disability [id number]. Borderline/antisocial personality. Strong concern for malingering. Unspecified impulse/conduct disorder. Potentially TBI. Assessment and Plan Borderline personality/antisocial: Continue patient's current medication regimens as they have strong evidence for antiaggressive control. Intellectual disability: Likely will need IQ testing as outpatient. Strong concern for malingering: The patient had admitted the prior day as per Dr. Arellano' notes that he in fact was primarily here attempting to malinger his way again to getting into [facility] and had done his various cutting behaviors in order to get to that end. The patient does have significant suicide attempts when he does likely from a TBI versus intermittent explosive; however, he does have secondary gain as well. Unspecified impulse/conduct disorder: Continue above medication. Disposition Discharge tomorrow to [facility]. We will coordinate with AOT coordinator and TLS for a more proper safety planning to prevent readmissions unlikely to meet criteria for long-term admission and the patient at this time declines it, would be unlikely to be successful in a administrative hearing. Time Spent 15 minutes. Vital Signs Vital Signs Date Time Temp Pulse Resp B/P (MAP) Pulse Ox O2 Delivery O2 Flow Rate FiO2 05/09/19 08:16 101 130/77 05/09/19 06:09 98.0 16 05/06/19 17:30 99 Room Air Current Medications Current Medications Medications (Trade) Dose Ordered Sig/Ivette Route PRN Reason Start Time Stop Time Status Last Admin Dose Admin Acetaminophen (Tylenol Tab) 650 mg Q6HP PRN PO HEADACHE or DISCOMFORT 05/01/19 12:30 05/04/19 13:46 Al Hydrox/Mg Hydrox/Simethicone (Mylanta) 30 ml Q4HP PRN PO HEARTBURN/INDIGESTION 05/01/19 12:30 Chlorpromazine HCl (Thorazine) 50 mg BID PO 05/01/19 09:00 05/09/19 08:15 Chlorpromazine HCl (Thorazine) 50 mg STAT STAT IM 05/06/19 17:05 05/06/19 17:06 DC 05/06/19 17:12 Chlorpromazine HCl (Thorazine) 100 mg Q4HP PRN PO AGITATION 05/02/19 09:30 05/02/19 15:52 Chlorpromazine HCl (Thorazine) 100 mg STAT STAT IM 05/06/19 13:59 05/06/19 14:01 DC 05/06/19 14:28 Chlorpromazine HCl (Thorazine) 100 mg STAT STAT IM 05/07/19 11:30 05/07/19 11:32 DC 05/07/19 11:59 Chlorpromazine HCl (Thorazine) 100 mg STAT STAT IM 05/07/19 17:28 05/07/19 17:30 DC 05/07/19 17:49 Chlorpromazine HCl (Thorazine) 100 mg STAT STAT IM 05/05/19 13:59 05/05/19 14:01 DC 05/05/19 14:08 Chlorpromazine HCl (Thorazine) 100 mg STAT STAT PO 05/01/19 18:16 05/01/19 18:18 DC 05/01/19 18:26 Diphenhydramine HCl (Benadryl) 50 mg STAT STAT IM 05/07/19 11:30 05/07/19 11:32 DC 05/07/19 11:59 Diphenhydramine HCl (Benadryl) 50 mg STAT STAT IM 05/07/19 17:28 05/07/19 17:30 DC 05/07/19 17:50 Docusate Sodium (Colace) 200 mg BID PO 05/01/19 21:00 05/09/19 08:14 Fluphenazine HCl (Prolixin) 10 mg BID PO 05/07/19 21:00 05/09/19 08:15 Folic Acid (Folic Acid) 1 mg DAILY PO 05/02/19 09:00 05/09/19 08:14 Gabapentin (Neurontin) 600 mg TID PO 05/01/19 16:00 05/09/19 08:15 Ibuprofen (Advil) 400 mg BIDP PRN PO PAIN 05/06/19 17:45 05/07/19 17:00 DC 05/07/19 13:01 [place] Carbonate (Lithobid Cr) 600 mg DAILY PO 05/02/19 09:00 05/09/19 08:14 Lorazepam (Ativan) 2 mg Q4HP PRN PO ANXIETY/AGITATION 05/02/19 09:30 05/09/19 05:47 Lorazepam (Ativan) 2 mg STAT STAT IM 05/06/19 13:59 05/06/19 14:01 DC 05/06/19 14:28 Lorazepam (Ativan) 2 mg STAT STAT IM 05/07/19 11:30 05/07/19 11:32 DC 05/07/19 11:59 Lorazepam (Ativan) 2 mg STAT STAT IM 05/07/19 17:28 05/07/19 17:30 DC 05/07/19 17:50 Lorazepam (Ativan) 2 mg STAT STAT IM 05/05/19 13:59 05/05/19 14:01 DC 05/05/19 14:08 Lorazepam (Ativan) 2 mg STAT STAT PO 05/01/19 18:16 05/01/19 18:18 DC 05/01/19 18:26 Magnesium Hydroxide (Milk Of Magnesia) 30 ml DAILY PO 05/08/19 09:00 05/08/19 07:49 Magnesium Hydroxide (Milk Of Magnesia) 30 ml DAILYPRN PRN PO CONSTIPATION 05/01/19 12:30 05/07/19 16:41 DC 05/07/19 10:01 Nicotine (Nicorette) 2 mg Q2HP PRN PO NICOTINE WITHDRAWAL 05/01/19 14:00 05/09/19 08:16 Non-Formulary Medication ( See Comment Field Below ) SEE COMMENTS SECTION 1T@10 ID 05/05/19 10:00 05/03/19 10:30 DC Non-Formulary Medication ( See Comment Field Below ) SEE LABEL COMMENTS DAILY XX 05/03/19 09:00 05/03/19 10:50 DC Olanzapine (ZyPREXA ZYDIS) 10 mg Q4HP PRN PO ANXIETY/AGITATION 05/04/19 10:00 05/05/19 13:37 Pantoprazole Sodium (Protonix) 40 mg DAILY PO 05/02/19 09:00 05/09/19 08:13 Propranolol HCl (Inderal) 10 mg TID PO 05/01/19 16:00 05/09/19 08:16 Trazodone HCl (Desyrel) 50 mg QHSP PRN PO INSOMNIA 05/01/19 12:30 05/07/19 21:48 Venlafaxine HCl (Effexor Xr) 150 mg DAILY PO 05/02/19 09:00 05/09/19 08:14 Allergies Coded Allergies: Cephalosporins (Verified Allergy, Intermediate, HIVES, 04/29/19) haloperidol (Verified Adverse Reaction, Severe, SEIZURES, 04/29/19) ziprasidone (Verified Adverse Reaction, Mild, VOMITING, 04/29/19) OFE WHITFIELD DO May 09, 2019 08:24
[2019-05-09] MEDS: MOM 30ML SUSPENSION UDC PO SCH (09:14)
[2019-05-09] MEDS ORDERED: BENZTROPINE 0.5 MG TAB PO STA ×2 (12:53→13:17)
[2019-05-09] MEDS ORDERED: BENZTROPINE 0.5 MG TAB PO PRN ×2 (13:30→18:30)
[2019-05-09 16:30] VITALS: BP 145/83
[2019-05-09] MEDS ORDERED: ACETAMINOPHEN TAB 650MG DOSE (2X325MG) PO PRN (18:30)
[2019-05-09] MEDS ORDERED: OLANZapine ORAL DISINTEGRATING TAB 5MG PO PRN (18:30)
[2019-05-09] MEDS ORDERED: LORazepam 2 MG TAB PO PRN (18:30)
[2019-05-09] MEDS ORDERED: chlorproMAZINE 25 MG TAB (Q0161) PO PRN (18:30)
[2019-05-09] MEDS ORDERED: MAALOX 30 ML SUSP *UDC PO PRN (18:30)
[2019-05-09] MEDS ORDERED: traZODone 50 MG TAB PO PRN (18:30)
[2019-05-10] MEDS ORDERED: MOM 30ML SUSPENSION UDC As Ordered ONE (05:06)
[2019-05-10] MEDS ORDERED: FLEET ENEMA PR PRN (06:15)
[2019-05-10 06:24] VITALS: BP 136/90
[2019-05-10] MEDS: NICOTINE POLACRILEX 2 MG GUM PO PRN ×3 (06:29→08:32)
[2019-05-10] MEDS: DOCUSATE SODIUM 100 MG CAP PO SCH (08:06)
[2019-05-10] MEDS: chlorproMAZINE 25 MG TAB (Q0161) PO SCH (08:06)
[2019-05-10] MEDS: GABAPENTIN 300 MG CAP PO SCH (08:07)
[2019-05-10 08:09] VITALS: BP 160/95
[2019-05-10] MEDS: PROPRANOLOL 10 MG TAB PO SCH (08:09)
--- NOTE | 2019-05-10 08:27 | MHDSPDOC ---
[facility] Discharge Summary Discharge Summary DATE OF ADMISSION: May 01, 2019 at 12:19 DATE OF DISCHARGE: 05/10/19 Discharge Ofe Rayo MRN: N/A Date of : N/A Date of Service: 05/10/2019 Diagnoses Intellectual disability [id number]. Borderline/antisocial personality. Malingering. Unspecified impulse/conduct disorder. Potentially TBI. Opioid use disorder, severe. Benzodiazepine use disorder, severe. History of Present Illness The patient, a 33-year-old man with likely history of intellectual disability and who had presented after cutting his wrist, he underwent some medical tr eatment and was brought back onto the unit. He has had a protracted course primarily needing a one-to-one for the majority of his stay. Consultants Involved Hospitalist/PCP screening Treatment and Progress On The Unit The patient was admitted to the unit after reportedly cutting his wrists after being resumed on his home medications and going through a complex behavioral admission where he specifically attempted to stay on a 1:1 sitter. He specifically admitted to the prior attending that he had done all of his various actions in order to "get the [facility] The patient would attempt to use different self-injurious behavior in order to get Ativan, Suboxone and other addictive medications. After some time, the patient became bored with this setting and subsequently redacted any suicidal or homicidal ideation, was taken off from 1:1 sitter, observed for 24 hours where he was in behavioral control. The patient appears highly likely that he has been malingering the entire time, although he has some inhibition problems and can harm himself to significant increase when he wants to. The patient appeared highly focused on getting to [facility] and did not demonstrate any significant psychotic symptoms. I disagree with the previous attendings assessment that the patient has schizoaffective disorder as the patient demonstrated over my observation of him over his extremely long admission that he had any signs objectively of psychotic symptoms. The patient's subsequent sudden resolve when he became "bored" as he reported to me further increase my suspicion that he is primarily malingering. The patient had a meeting with AOT as well as TLS in order to ascertain various ways to help keep him from engaging in more self-injurious behavior. He appeared highly focused on getting medications for any variety of illness, problems and appeared focused on staff splitting during the entirety of this admission. Discharge Assessment 33-year-old man with a likely history of intellectual disability, borderline personality disorder and malingering who has a chronic TBI, presented after reportedly cutting his wrist. He needs some medical treatment; however, after an extended period of observation over several weeks it appears quite clear even by his own admission that he had been malingering for [facility]. After observation, there had been a thought to sent patient to [facility]; however, the patient would not meet criteria for their long-term inpatient as his significant behavioral problems and TBI would be contraindicated as well as his overt admission of malingering on our unit for drugs and attention. After the patient became "bored" he suddenly redacted all of the suicidal and homicidal ideation and returned to a baseline mental status. His IQ is likely somewhat below 60 and on the day of discharge he is denying any suicidal or homicidal ideations, cooperative with our assessment, has been off a 1:1 sitter for 24 hours without any self-injurious behavior and relatively impressive behavioral control when it suites his needs as is consistent with antisocial personality characteristics and thus has returned to his chronic baseline level of risk for self-harm and harm towards others. His dynamic factors have more or less resolved and thus in my clinical judgment at this time he does not meet involuntary criteria for further extension of his admission. He declines further voluntary admission and wants to return to [facility]. Mental Status Examination General: Well dressed with good hygiene Speech: Spontaneous and fluid Thought processes: Linear and logical MSK: Smooth and coordinated gait, no signs of tremors or involuntary orofacial m ovements Thought content: Future orientated Abstract reasoning, and computation: Intact Description of associations: Intact Description of abnormal or psychotic thoughts: Denies any suicidal or homicidal ideation. Denies any auditory or visual hallucinations. Does not appear to be responding to internal stimuli. Does not appear to be endorsing any bizarre or paranoid ideation. Judgment: Chronically limited Insight: Chronically limited Orientation: Alert and orientated 3 Cognition: Grossly normal Recent and remote memory: Intact Attention span and concentration: Intact Fund of knowledge: Adequate Mood: "okay" Affect: Euthymic with a full range Follow Up The social work team worked during the predischarge meeting in order to evaluate for further issues of lethality address them fully before discharge. They worked on safety planning with the patient's family members in order to ensure that the patient will have a safe and effective discharge. Time Spent The amount of time spent in the coordination of care for this patient was approximately 60 minutes. Monday Vital Signs/I&Os Vital Signs Date Time Temp Pulse Resp B/P (MAP) Pulse Ox O2 Delivery O2 Flow Rate FiO2 05/10/19 08:09 110 160/95 05/10/19 06:24 98.0 18 05/06/19 17:30 99 Room Air Medications Scheduled Chlorpromazine HCl (Chlorpromazine HCl) 100 Mg Tablet, 50 MG PO BID, (Reported) Docusate Sodium (Colace) 100 Mg Capsule, 200 MG PO BID, (Reported) Fluphenazine HCl (Fluphenazine HCl) 10 Mg Tablet, 10 MG PO BID, (Reported) Folic Acid (Folic Acid) 1 Mg Tablet, 1 MG PO DAILY, (Reported) Gabapentin (Gabapentin) 300 Mg Capsule, 600 MG PO TID, (Reported) [place] Carbonate ([place] Carbonate ER) 300 Mg Tablet.er, 600 MG PO DAILY, (Reported) Pantoprazole Sodium (Pantoprazole Sodium) 40 Mg Tablet.dr, 40 MG PO DAILY, (Reported) Propranolol HCl (Propranolol HCl) 10 Mg Tablet, 10 MG PO TID, (Reported) Trazodone HCl (Trazodone HCl) 50 Mg Tablet, 50 MG PO QHS, (Reported) Venlafaxine HCl (Venlafaxine HCl ER) 75 Mg Cap.er.24h, 150 MG PO DAILY, (Reported) Scheduled PRN Benztropine Mesylate (Benztropine Mesylate) 0.5 Mg Tablet, 0.5 MG PO TID PRN for EPS SYMPTOMS, (Reported) Lorazepam (Lorazepam) 2 Mg Tablet, 2 MG PO Q4H PRN for ANXIETY/AGITATION, (Reported) Olanzapine (Olanzapine) 10 Mg Tablet, 10 MG PO DAILY PRN for ANXIETY/AGITATION, (Reported) Allergies Coded Allergies: Cephalosporins (Verified Allergy, Intermediate, HIVES, 05/12/19) haloperidol (Verified Adverse Reaction, Severe, SEIZURES, 05/12/19) ziprasidone (Verified Adverse Reaction, Mild, VOMITING, 05/12/19) OFE WHITFIELD DO May 10, 2019 08:27
[2019-05-10] MEDS ORDERED: LORA2TA PO (08:52)
[2019-05-10] MEDS ORDERED: OLAN5ZYD PO (08:52)
[2019-05-10] MEDS ORDERED: FLUP5TA PO (08:52)
[2019-05-10] MEDS ORDERED: BENZ0.5T23 PO (08:52)
[2019-05-10] MEDS ORDERED: LITHIUM CARBONATE 300 MG **CR** TAB PO SCH (09:00)
[2019-05-10] MEDS ORDERED: VENLAFAXINE **XR** 75MG CAPSULE PO SCH (09:00)
[2019-05-10] MEDS ORDERED: FOLIC ACID 1 MG TAB PO SCH (09:00)
[2019-05-10] MEDS ORDERED: PANTOPRAZOLE 40MG TAB (PROTONIX) PO SCH (09:00)
[2019-05-10] MEDS ORDERED: MOM 30ML SUSPENSION UDC PO SCH (09:00)
[2019-05-10] MEDS ORDERED: OLAN10TA2 PO ×2 (11:57→12:04)
== END 2019-05-10 10:55 | disposition home or self-care (01) | DRG 883 ==
LOC: M PSY 12:19
PROVIDERS: ADMIT Psychiatry & Neurology Psychiatry; ATTEND Psychiatry & Neurology Addiction Medicine
DX: F60.3 Borderline personality disorder (principal); F72 Severe intellectual disabilities; F60.2 Antisocial personality disorder; Z76.5 Malingerer [conscious simulation]; F11.90 Opioid use, unspecified, uncomplicated; F63.9 Impulse disorder, unspecified; F15.90 Other stimulant use, unspecified, uncomplicated; Z79.899 Other long term (current) drug therapy; Z88.8 Allergy status to other drugs, medicaments and biological substances; K59.00 Constipation, unspecified

== ENCOUNTER 2019-05-12 21:11 | Inpatient (IN) | payer MEDICARE, MEDICAID ==
[~2019-05-12] VITALS: Ht 172.7 cm; Wt 113.9 kg
[~2019-05-12 21:11] MED LIST changes: +BENZ0.5T23 PO; +FLUP5TA PO; +LORA2TA PO; +OLAN10TA2 PO; +OLAN5ZYD PO
[2019-05-12 21:46] LABS: HEMATOCRIT 38.7 % (42.0-52.0); HEMOGLOBIN 12.6 g/dl (13.5-17.5); MEAN CORPUSCULAR HEMOGLOBIN 29.5 pg (27.0-33.0); MEAN CORPUSCULAR HGB CONC 32.6 g/dl (32.0-36.5); MEAN CORPUSCULAR VOLUME 90.6 fl (80.0-96.0); PLATELET COUNT, AUTOMATED 288 10^3/uL (150-450); RED BLOOD COUNT 4.27 10^6/uL (4.30-6.10); WHITE BLOOD COUNT 9.3 10^3/uL (4.0-10.0)
[2019-05-12] MEDS ORDERED: LIDOCAINE W/EPINEPHRINE 1% 20ML VIAL SC ONE (22:00)
[2019-05-12] MEDS ORDERED: LORazepam 2 MG/ML VIAL (J2060) IV STA (22:55)
[2019-05-12 23:06] LABS: AMPHETAMINES LEVEL URINE NEGATIVE (NEGATIVE); BARBITURATES URINE NEGATIVE (NEGATIVE); BENZODIAZEPINES URINE NEGATIVE (NEGATIVE); CANNABINOIDS URINE POSITIVE (NEGATIVE); COCAINE METABOLITE URINE NEGATIVE (NEGATIVE); METHADONE URINE NEGATIVE (NEGATIVE); OPIATES URINE NEGATIVE (NEGATIVE); PHENCYCLIDINE URINE NEGATIVE (NEGATIVE)
[2019-05-12 23:36] LABS: ACETAMINOPHEN LEVEL < 2.0 UG/ML (10.0-30.0); ALBUMIN 3.4 GM/DL (3.2-5.2); ALT/SGPT 31 U/L (12-78); BILIRUBIN,DIRECT 0.1 MG/DL (0.0-0.2); BILIRUBIN,TOTAL 0.3 MG/DL (0.2-1.0); BLOOD UREA NITROGEN 20 MG/DL (7-18); CALCIUM LEVEL 8.2 MG/DL (8.5-10.1); CARBON DIOXIDE LEVEL 25 MEQ/L (21-32); CHLORIDE LEVEL 107 MEQ/L (98-107); CREATININE FOR GFR 0.93 MG/DL (0.70-1.30); ETHYL ALCOHOL (ETHANOL) < 0.003 % (0.000-0.010); GLOMERULAR FILTRATION RATE > 60.0 (>60); GLUCOSE, FASTING 103 MG/DL (70-100); SALICYLATE LEVEL < 1.7 MG/DL (5.0-30.0); SODIUM LEVEL 138 MEQ/L (136-145); TOTAL PROTEIN 6.8 GM/DL (6.4-8.2)
[2019-05-13] MEDS ORDERED: FLUP10TA11 PO (06:43)
[2019-05-13] MEDS ORDERED: LORA2TAB14 PO (06:43)
[2019-05-13] MEDS ORDERED: BENZ0.5T23 PO (06:43)
[2019-05-13] MEDS ORDERED: OLAN10TA2 PO (06:43)
[2019-05-13] MEDS ORDERED: GABAPENTIN 300 MG CAP PO ONE (07:45)
[2019-05-13] MEDS ORDERED: VENLAFAXINE 37.5 MG TAB PO ONE (07:45)
[2019-05-13] MEDS ORDERED: DOCUSATE SODIUM 100 MG CAP PO ONE (07:45)
[2019-05-13] MEDS ORDERED: FOLIC ACID 1 MG TAB PO ONE (07:45)
[2019-05-13] MEDS ORDERED: VENLAFAXINE **XR** 75MG CAPSULE PO ONE (07:45)
[2019-05-13] MEDS ORDERED: LITHIUM CARBONATE 600 MG CAP PO ONE (07:45)
[2019-05-13] MEDS ORDERED: PANTOPRAZOLE 40MG TAB (PROTONIX) PO ONE (07:45)
[2019-05-13] MEDS ORDERED: PROPRANOLOL 10 MG TAB PO ONE (07:45)
[2019-05-13] MEDS ORDERED: chlorproMAZINE 25 MG TAB (Q0161) PO ONE (07:45)
[2019-05-13] MEDS ORDERED: LITHIUM CARBONATE 300 MG **CR** TAB PO ONE (08:00)
[2019-05-13] MEDS: DOCUSATE SODIUM 100 MG CAP PO SCH ×2 (09:00→20:08)
[2019-05-13] MEDS ORDERED: BENZTROPINE 0.5 MG TAB PO ONE (09:15)
[2019-05-13] MEDS ORDERED: LORazepam 2 MG TAB PO ONE (09:15)
[2019-05-13] MEDS ORDERED: NICOTINE 21MG/24HR 1 EA TRANSDERMAL TD ONE (10:30)
[2019-05-13] MEDS ORDERED: MOM 30ML SUSPENSION UDC PO PRN (13:00)
[2019-05-13] MEDS ORDERED: MAALOX 30 ML SUSP *UDC PO PRN (13:00)
[2019-05-13] MEDS ORDERED: ACETAMINOPHEN TAB 650MG DOSE (2X325MG) PO PRN (13:00)
[2019-05-13] MEDS: PANTOPRAZOLE 40MG TAB (PROTONIX) PO SCH (14:37)
[2019-05-13] MEDS: LITHIUM CARBONATE 300 MG **CR** TAB PO SCH (14:37)
[2019-05-13] MEDS: VENLAFAXINE **XR** 75MG CAPSULE PO SCH (14:37)
[2019-05-13] MEDS: GABAPENTIN 300 MG CAP PO SCH ×3 (14:38→20:07)
[2019-05-13] MEDS: chlorproMAZINE 25 MG TAB (Q0161) PO SCH ×2 (14:38→20:07)
[2019-05-13] MEDS: FOLIC ACID 1 MG TAB PO SCH (14:38)
[2019-05-13 16:25] VITALS: BP 135/78
[2019-05-13] MEDS: PROPRANOLOL 10 MG TAB PO SCH ×2 (16:57→20:08)
[2019-05-13] MEDS: NICOTINE POLACRILEX 2 MG GUM PO PRN ×3 (16:57→21:44)
[2019-05-13] MEDS ORDERED: chlorproMAZINE INJ 50MG/2ML AMP (J3230) IM ONE (18:30)
[2019-05-13] MEDS ORDERED: LORazepam 2 MG/ML VIAL (J2060) IM ONE (18:30)
[2019-05-13] MEDS: traZODone 50 MG TAB PO SCH (20:08)
[2019-05-13] MEDS: OLANZapine ORAL DISINTEGRATING TAB 5MG PO PRN (20:10)
[2019-05-13] MEDS: BENZTROPINE 0.5 MG TAB PO PRN (20:10)
[2019-05-13] MEDS ORDERED: chlorproMAZINE INJ 50MG/2ML AMP (J3230) IM STA (20:51)
[2019-05-13] MEDS ORDERED: LORazepam 2 MG/ML VIAL (J2060) IM STA (20:51)
[2019-05-14] MEDS: GABAPENTIN 300 MG CAP PO SCH ×3 (08:20→20:20)
[2019-05-14] MEDS: BENZTROPINE 0.5 MG TAB PO PRN ×2 (08:20→16:54)
[2019-05-14] MEDS: chlorproMAZINE 25 MG TAB (Q0161) PO SCH (08:20)
[2019-05-14] MEDS: VENLAFAXINE **XR** 75MG CAPSULE PO SCH (08:20)
[2019-05-14] MEDS: DOCUSATE SODIUM 100 MG CAP PO SCH ×2 (08:20→20:21)
[2019-05-14] MEDS: FOLIC ACID 1 MG TAB PO SCH (08:21)
[2019-05-14] MEDS: PROPRANOLOL 10 MG TAB PO SCH ×3 (08:21→20:21)
[2019-05-14] MEDS: NICOTINE POLACRILEX 2 MG GUM PO PRN ×6 (08:21→20:21)
[2019-05-14] MEDS: LITHIUM CARBONATE 300 MG **CR** TAB PO SCH (08:21)
[2019-05-14] MEDS: PANTOPRAZOLE 40MG TAB (PROTONIX) PO SCH (08:21)
[2019-05-14] MEDS: SENOKOT S TAB PO SCH ×2 (09:00→20:20)
[2019-05-14] MEDS ORDERED: INFLUENZA QUADRIVALENT PF VACCINE 0.5ML SYRINGE (90686) IM ONE (09:00)
--- NOTE | 2019-05-14 09:43 | MHHPEPDOC ---
[facility] History & Physical History and Physical DATE OF ADMISSION: May 13, 2019 at 12:44 New Patient Ofe Rayo MRN: N/A Date of : N/A Date of Service: 05/14/2019 Chief Complaint "I just did it again." History of Present Illness The patient is a 33-year-old man presents to [facility] after being discharged from the inpatient unit. He reportedly had become impulsive and began to cut his arm where he was brought in and treated. It was sutured effect ively and the patient was admitted When I met the patient he reported no significant changes to his symptoms. The patient reports that he still wants to go to [facility] and felt that this would get him faster. The patient continues to have behavioral problems of hitting his head whenever he does not get Ativan specifically trying to malinger for various drugs. He generally does not engage well in an interview due to his likely low IQ. Review Of Systems Depression: No changes. Anxiety: No changes. Adrianna: No changes. Psychotic: No changes. Trauma: No changes. Borderline: No changes. Past Psychiatric History Has a reported diagnosis of schizophrenia in the past likely combination of intellectual impulse problems and TBI. Multiple admissions to [facility] in the past. Multiple suicide attempts with overdoses, cutting and jumping off a bridge. Currently follows up at [facility] tried on a number of antipsychotics, lithium, Depakote, Thorazine, Inderal, Zyprexa and a number of others. Allergies Please see below. Family Psychiatric History The patient denies/is unaware any history of mental health history including addictions and suicide. Social History The patient is born and raised [place] his family resides. Has consistently want to try to get admission closer to them. Denies in the past any abuse or trauma. Currently resides in the [place]. He had some high school and is currently on disability. Reported by family no legal problems, single, never with no children. Substance Abuse History Has an extensive history of opioid use disorder by his own report, cannabis abuse. Medical History Has a history of needing to be self-treated for self-cath after jumping off a bridge. Mental Status Examination General: Poor hygiene Speech: Monotone Thought processes: Linear MSK: Smooth and coordinated gait, no signs of tremors or involuntary orofacial movements Thought content: Focused on medications Abstract reasoning, and computation: Intact Description of associations: Intact Description of abnormal or psychotic thoughts: Reports some suicidal thoughts Judgment: Limited Insight: Limited Orientation: Alert and orientated 3 Cognition: Grossly normal Recent and remote memory: Intact Attention span and concentration: Intact Fund of knowledge: Likely low secondary to IQ. Mood: "okay" Affect: Flat with little reactivity Diagnoses Intellectual disability [id number]. Borderline/antisocial personality. Malingering. Unspecified impulse/conduct disorder. Potentially TBI. Opioid use disorder, severe. Benzodiazepine use disorder, severe. Assessment and Plan Intellectual disability/borderline/malingering/TBI: Will likely need some form of psychometric testing as [facility] will be unlikely to accept without some demonstration of symptoms objectively due to complicated case. Unspecified impulse conduct disorder: Will discontinue the majority of his medications other than lithium 600 mg daily, start clozapine 12.5 mg BID with aggressive bowel prophylaxis, engaged. Discussed with patient risks and benefits as well as potential alternatives. Patient open to this at this time. Will monitor closely for bowel and urine problems. Disposition Patient will need a further inpatient admission due to his severe suicide attempts. He will likely be referred to [facility] as he has not been able to remain safe as an outpatient. Problem List 1. Risk for suicide. 2. Depression/ineffective coping. Initial Treatment Plan 1. Patient was admitted on a 9.39 legal status. 2. Complete history was obtained. 3. With patients permission, family will be contacted and database will be expanded. 4. Patients medication regimen will be reviewed and changed accordingly. 5. Patient will be provided with protected environment. 6. Patient will be treated with individual, group, and milieu therapies. 7. Patient will receive supportive psych-education. 8. Discharge planning will commence immediately. 9. Outpatient follow-up treatment will be strongly recommended. 10. The initial treatment plan will focus initially on: Estimated Length Of Stay 10 days. Time Spent 70 minutes. Monday Vital Signs Vital Signs Date Time Temp Pulse Resp B/P (MAP) Pulse Ox O2 Delivery O2 Flow Rate FiO2 05/14/19 08:21 104 138/82 05/13/19 16:30 97.4 17 98 Room Air Laboratory Data 24H Labs Laboratory Tests 2 05/13/19 15:05: [place] Level 0.60 Medications Scheduled Chlorpromazine HCl (Chlorpromazine HCl) 100 Mg Tablet, 50 MG PO BID, (Reported) Docusate Sodium (Colace) 100 Mg Capsule, 200 MG PO BID, (Reported) Fluphenazine HCl (Fluphenazine HCl) 10 Mg Tablet, 10 MG PO BID, (Reported) Folic Acid (Folic Acid) 1 Mg Tablet, 1 MG PO DAILY, (Reported) Gabapentin (Gabapentin) 300 Mg Capsule, 600 MG PO TID, (Reported) [place] Carbonate ([place] Carbonate ER) 300 Mg Tablet.er, 600 MG PO DAILY, (Reported) Pantoprazole Sodium (Pantoprazole Sodium) 40 Mg Tablet.dr, 40 MG PO DAILY, (Reported) Propranolol HCl (Propranolol HCl) 10 Mg Tablet, 10 MG PO TID, (Reported) Trazodone HCl (Trazodone HCl) 50 Mg Tablet, 50 MG PO QHS, (Reported) Venlafaxine HCl (Venlafaxine HCl ER) 75 Mg Cap.er.24h, 150 MG PO DAILY, (Reported) Scheduled PRN Benztropine Mesylate (Benztropine Mesylate) 0.5 Mg Tablet, 0.5 MG PO TID PRN for EPS SYMPTOMS, (Reported) Lorazepam (Lorazepam) 2 Mg Tablet, 2 MG PO Q4H PRN for ANXIETY/AGITATION, (Reported) Olanzapine (Olanzapine) 10 Mg Tablet, 10 MG PO DAILY PRN for ANXIETY/AGITATION, (Reported) Allergies Coded Allergies: Cephalosporins (Verified Allergy, Intermediate, HIVES, 05/12/19) haloperidol (Verified Adverse Reaction, Severe, SEIZURES, 05/12/19) ziprasidone (Verified Adverse Reaction, Mild, VOMITING, 05/12/19) OFE WHITFIELD DO May 14, 2019 09:43
[2019-05-14] MEDS ORDERED: cloZAPine 25 MG TAB (S0136) PO ONE (11:15)
--- NOTE | 2019-05-14 15:54 | HPEPDOC ---
General Date of Admission May 13, 2019 at 12:44 Date of Service: May 14, 2019 Chief Complaint The patient is a 33-year-old male admitted with a reason for visit of Impulse/Conduct Disorder. History of Present Illness 33 year old male presents with lacerations to L forearm in apparent suicide attempt. Seen and examined at bedside, awake and answering questions appropriately. States tried to "kill myself, just don't want to live" when asked about laceration to L forearm. Sutures placed in ED. Denies fever/chills, N/V/D, abdominal pain, headaches, shortness of breath/cough, chest pain. Home Medications Scheduled Chlorpromazine HCl (Chlorpromazine HCl) 100 Mg Tablet, 50 MG PO BID, (Reported) Docusate Sodium (Colace) 100 Mg Capsule, 200 MG PO BID, (Reported) Fluphenazine HCl (Fluphenazine HCl) 10 Mg Tablet, 10 MG PO BID, (Reported) Folic Acid (Folic Acid) 1 Mg Tablet, 1 MG PO DAILY, (Reported) Gabapentin (Gabapentin) 300 Mg Capsule, 600 MG PO TID, (Reported) [place] Carbonate ([place] Carbonate ER) 300 Mg Tablet.er, 600 MG PO DAILY, (Reported) Pantoprazole Sodium (Pantoprazole Sodium) 40 Mg Tablet.dr, 40 MG PO DAILY, (Reported) Propranolol HCl (Propranolol HCl) 10 Mg Tablet, 10 MG PO TID, (Reported) Trazodone HCl (Trazodone HCl) 50 Mg Tablet, 50 MG PO QHS, (Reported) Venlafaxine HCl (Venlafaxine HCl ER) 75 Mg Cap.er.24h, 150 MG PO DAILY, (Reported) Scheduled PRN Benztropine Mesylate (Benztropine Mesylate) 0.5 Mg Tablet, 0.5 MG PO TID PRN for EPS SYMPTOMS, (Reported) Lorazepam (Lorazepam) 2 Mg Tablet, 2 MG PO Q4H PRN for ANXIETY/AGITATION, (Reported) Olanzapine (Olanzapine) 10 Mg Tablet, 10 MG PO DAILY PRN for ANXIETY/AGITATION, (Reported) Allergies Coded Allergies: Cephalosporins (Verified Allergy, Intermediate, HIVES, 05/12/19) haloperidol (Verified Adverse Reaction, Severe, SEIZURES, 05/12/19) ziprasidone (Verified Adverse Reaction, Mild, VOMITING, 05/12/19) Past Medical History Medical History Impulse/conduct disorder Surgical History ?back surgery cholecystectomy Family History Significant Family History: No pertinent family hx Social History * Smoker: Denies Alcohol: Denies Drugs: denies A-FIB/CHADSVASC A-FIB History Current/History of A-Fib/PAF?: No Review of Systems Constitutional: Reports: Fatigue; Denies: Chills, Fever, Night Sweats Eyes: Denies: Pain, Vision change ENT: Denies: Head Aches, Ear Pain, Dysphagia Skin: Denies: Rash, Lesions, Breakdown Pulmonary: Denies: Dyspnea, Cough Cardiovascular: Denies: Chest Pain, Palpitations, Orthopnea, Paroxysmal Noc. Dyspnea, Lt Headedness Gastrointestinal: Denies: Nausea, Vomiting, Abdominal Pain, Diarrhea Genitourinary: Denies: Dysuria, Frequency, Incontinence, Retention Hematologic: Denies: Bruising, Bleeding Excessively Musculoskeletal: Denies: Neck Pain, Back Pain, Joint Pain, Muscle Pain, Spasms Neurological: Denies: Weakness, Numbness, Change in speech, Confusion Psych: Reports: Mood Normal, Depression, Thoughts of Self Harm, Other Psych (flat affect); Denies: Memory Issues Physical Examination General Exam: Positive: Alert, No Acute Distress Eye Exam: Positive: PERRLA, Conjunctiva & lids normal, EOMI; Negative: Sclera icteric ENT Exam: Positive: Atraumatic, Mucous membr. moist/pink, Pharynx Normal Neck Exam: Positive: Supple; Negative: JVD, thyromegaly Chest Exam: Positive: Clear to auscultation, Normal air movement Heart Exam: Positive: Rate Normal, Regular Rhythm, Normal S1, Normal S2; Negative: Murmurs, Rubs Telemetry: Positive: No significant arrhythmia Abdomen Exam: Positive: Normal bowel sounds, Soft; Negative: Tenderness, Hepatospenomegaly Extremity Exam: Positive: Normal pulses; Negative: Clubbing, Cyanosis, Edema Skin Exam: Positive: Nl turgor and temperature, Rash, Pruritus, Other skin issue (multiple lacerations to L forearm with sutures); Negative: Breakdown, Lesion Neuro Exam: Positive: Normal Gait, Normal Speech, Cranial Nerves 3-12 NL, Reflexes 2+ Psych Exam: Positive: Mental status NL, Mood NL, Oriented x 3 Vital Signs Vital Signs Date Time Temp Pulse Resp B/P (MAP) Pulse Ox O2 Delivery O2 Flow Rate FiO2 2/18/20 08:21 104 138/82 05/13/19 16:30 97.4 17 98 Room Air Assessment/Plan 1. Suicide attempt - management per psychiatry. - continue 1:1 sitter. 2. impulse/conduct disorder - management per psychiatry. 3. hx prior back surgery - unclear, stable. 4. hx cholecystectomy - stable, monitor. Thank you for this consultation, no active medical issues at this time, please reconsult as needed. Plan / VTE VTE Prophylaxis Ordered?: No ASH MENDOZA MD May 14, 2019 15:54
[2019-05-14 16:25] VITALS: BP 143/80
[2019-05-14] MEDS ORDERED: cloZAPine 25 MG TAB (S0136) PO STA (18:04)
[2019-05-14] MEDS: PILL CUTTER 1 EACH XX PRN (18:11)
[2019-05-14] MEDS ORDERED: chlorproMAZINE 25 MG TAB (Q0161) PO ONE (19:15)
[2019-05-14] MEDS ORDERED: LORazepam 2 MG/ML VIAL (J2060) IM STA (19:24)
[2019-05-14] MEDS ORDERED: diphenhydrAMINE INJ 50MG/ML VIAL (J1200) IM STA (19:24)
[2019-05-14] MEDS ORDERED: chlorproMAZINE INJ 50MG/2ML AMP (J3230) IM STA (19:24)
--- NOTE | 2019-05-14 20:16 | ROOPDOC ---
[facility] Report Of Operation Report of Operation DATE OF PROCEDURE: 05/14/19 PREPROCEDURE DIAGNOSES: Ripped stitches, self-inflicted lacerations. POSTPROCEDURE DIAGNOSES: Ripped stitches, self-inflicted lacerations. PROCEDURE: Laceration repair. SURGEON: Alan Dunne DO HOUSEKEEPING ROOM INSPECTOR: none ANESTHESIA: Ativan ESTIMATED BLOOD LOSS: Approximately 5 mL. COMPLICATIONS: none. REMARKS: I was called to [facility] because the patient had been playing with his stitches and removed most of them on two self-inflicted lacerations that then began to gape. PROCEDURE NOTE: The patient was given ativan and placed in the supine position. The wounds were irrigated and cleaned with normal saline. The lacerations were repaired with 3-0 ethilon suture with interrupted stitches. The wound was then cleaned with normal saline, and dressed with bacitracin ointment, gauze, and wrapped with coban dressing. Nurses were given instructions to not remove the dressing until 24 hours later, and then to gently irrigated with normal saline, reapply bacitracin ointment, and re-wrap with coban daily thereafter. Stitches can be removed in 7-10 days. There was approximately 5 mL of blood loss, and the patient tolerated the procedure well. There were no complications. GME ATTESTATION GME ATTESTATION My faculty preceptor for this patient encounter was physically present during the encounter and was fully available. All aspects of the patient interview, examination, medical decision making process, and medical care plan development were reviewed and approved by the faculty preceptor. The faculty preceptor is aware and concurs with the plan as stated in the body of this note and will attest to such by his/her cosignature. ALAN DUNNE D.O. May 14, 2019 20:16
[2019-05-14] MEDS: traZODone 50 MG TAB PO SCH (20:21)
[2019-05-14] MEDS ORDERED: cloZAPine 25 MG TAB (S0136) PO SCH (21:00)
[2019-05-15] MEDS: NICOTINE POLACRILEX 2 MG GUM PO PRN ×8 (03:31→23:07)
[2019-05-15 05:49] VITALS: BP 120/77
[2019-05-15] MEDS: PILL CUTTER 1 EACH XX PRN ×2 (09:46→20:07)
[2019-05-15] MEDS: PANTOPRAZOLE 40MG TAB (PROTONIX) PO SCH (09:47)
[2019-05-15] MEDS: SENOKOT S TAB PO SCH ×2 (09:47→20:06)
[2019-05-15] MEDS: LITHIUM CARBONATE 300 MG **CR** TAB PO SCH (09:47)
[2019-05-15] MEDS: DOCUSATE SODIUM 100 MG CAP PO SCH ×2 (09:48→20:11)
[2019-05-15] MEDS: cloZAPine 25 MG TAB (S0136) PO SCH ×2 (09:48→20:08)
[2019-05-15] MEDS: VENLAFAXINE **XR** 75MG CAPSULE PO SCH (09:48)
[2019-05-15] MEDS: PROPRANOLOL 10 MG TAB PO SCH ×3 (09:48→20:11)
[2019-05-15] MEDS: GABAPENTIN 300 MG CAP PO SCH ×3 (09:48→20:08)
[2019-05-15] MEDS: BENZTROPINE 0.5 MG TAB PO PRN ×2 (09:50→20:12)
--- NOTE | 2019-05-15 09:57 | MHIPNPDOC ---
[facility] Progress Note Progress Note Inpatient Progress Note Ofe Rayo MRN: N/A Date of : N/A Date of Service: 05/15/2019 History of Present Illness The patient is a 33-year-old man presents to [facility] after being discharged from the inpatient unit. He reportedly had become impulsive and began to cut his arm where he was brought in and treated. It was sutured effectively and the patient was admitted When I met the patient he reported no significant changes to his symptoms. The patient reports that he still wants to go to [facility] and felt that this would get him faster. The patient continues to have behavioral problems of hitting his head whenever he does not get Ativan specifically trying to malinger for various drugs. He generally does not engage well in an interview due to his likely low IQ. Interval History Narrative: The patient is met with. He still is engaging in self-mutilative behavior, trying to pick out his stitches, does not engage in interview well. Affective: The patient still reports being "down." Does not appear to be significantly paranoid. Psychotic: Anxiety: Unknown. Eating and sleeping behaviors: Within normal limits. Group Attendance: Nearly none. Medication Side effects: See ROS below Behavioral problems/significant events overnight: Patient continues to pick at stitches, needing one-to-one sitter. Staff Report: Patient is generally attention seeking and focused on getting attention and medications whenever he engages in self-mutilation. Review Of Systems Reports that his cuts "itch," unable to engage in more extensive conversation. Psychotherapy None on this visit. Vital Signs Reviewed. Mental Status Examination General: Poor hygiene Speech: Monotone Thought processes: Linear MSK: Smooth and coordinated gait, no signs of tremors or involuntary orofacial movements Thought content: Focused on medications Abstract reasoning, and computation: Intact Description of associations: Intact Description of abnormal or psychotic thoughts: Reports some suicidal thoughts Judgment: Limited Insight: Limited Orientation: Alert and orientated 3 Cognition: Grossly normal Recent and remote memory: Intact Attention span and concentration: Intact Fund of knowledge: Likely low secondary to IQ. Mood: "okay" Affect: Flat with little reactivity Diagnoses Intellectual disability [id number]. Borderline/antisocial personality. Malingering. Unspecified impulse/conduct disorder. Potentially TBI. Opioid use disorder, severe. Benzodiazepine use disorder, severe. Assessment and Plan Intellectual disability/borderline/malingering/TBI: Will likely need some form of psychometric testing as [facility] will be unlikely to accept without some demonstration of symptoms objectively due to complicated case. Unspecified conduct disorder: Continue lithium and clozapine at this time. Switch to lactulose for bowel control. Disposition Patient will need further inpatient admission, likely referral to long-term due to his inability to keep himself safe, quite impulsive at baseline. Time Spent 15 minutes. Monday Vital Signs Vital Signs Date Time Temp Pulse Resp B/P (MAP) Pulse Ox O2 Delivery O2 Flow Rate FiO2 05/15/19 09:48 102 138/86 05/15/19 05:49 98.5 18 05/13/19 16:30 98 Room Air Current Medications Current Medications Medications (Trade) Dose Ordered Sig/Ivette Route PRN Reason Start Time Stop Time Status Last Admin Dose Admin Acetaminophen (Tylenol Tab) 650 mg Q6HP PRN PO HEADACHE or DISCOMFORT 05/13/19 13:00 Al Hydrox/Mg Hydrox/Simethicone (Mylanta) 30 ml Q4HP PRN PO HEARTBURN/INDIGESTION 05/13/19 13:00 Benztropine Mesylate (Cogentin) 0.5 mg TID PRN PO EPS SYMPTOMS 05/13/19 13:00 05/15/19 09:50 Chlorpromazine HCl (Thorazine) 50 mg BID PO 05/13/19 09:00 05/14/19 10:44 DC 05/14/19 08:20 Chlorpromazine HCl (Thorazine) 100 mg STAT STAT IM 05/13/19 20:51 05/13/19 20:53 DC 05/13/19 22:01 Chlorpromazine HCl (Thorazine) 100 mg STAT STAT IM 05/14/19 19:24 05/14/19 19:26 DC 05/14/19 19:34 Clozapine (Clozaril) 12.5 mg BID PO 05/14/19 21:00 05/14/19 18:05 DC Clozapine (Clozaril) 12.5 mg BID PO 05/15/19 09:00 05/15/19 09:48 Clozapine (Clozaril) 12.5 mg STAT STAT PO 05/14/19 18:04 05/14/19 18:10 DC 05/14/19 18:15 Diphenhydramine HCl (Benadryl) 50 mg STAT STAT IM 05/14/19 19:24 05/14/19 19:26 DC 05/14/19 19:34 Docusate Sodium (Colace) 200 mg BID PO 05/13/19 09:00 05/15/19 09:48 Fluphenazine HCl (Prolixin) 10 mg BID PO 05/13/19 21:00 05/14/19 10:44 DC 05/14/19 08:20 Folic Acid (Folic Acid) 1 mg DAILY PO 05/13/19 09:00 05/14/19 10:44 DC 05/14/19 08:21 Gabapentin (Neurontin) 600 mg TID PO 05/13/19 09:00 05/15/19 09:48 Home Med (Med Rec Complete!) ASDIRECTED XX 05/13/19 08:00 05/13/19 07:56 DC Ibuprofen (Advil) 400 mg Q6HP PRN PO PAIN 05/13/19 13:00 [place] Carbonate (Lithobid Cr) 600 mg DAILY PO 05/13/19 09:00 05/15/19 09:47 Lorazepam (Ativan) 2 mg STAT STAT IM 05/13/19 20:51 05/13/19 20:53 DC 05/13/19 21:03 Lorazepam (Ativan) 2 mg STAT STAT IM 05/14/19 19:24 05/14/19 19:26 DC 05/14/19 19:34 Lorazepam (Ativan) 2 mg STAT STAT IV 05/12/19 22:55 05/12/19 22:57 DC 05/12/19 23:14 Magnesium Hydroxide (Milk Of Magnesia) 30 ml DAILYPRN PRN PO CONSTIPATION 05/13/19 13:00 Nicotine (Nicorette) 2 mg Q2HP PRN PO SMOKING CESSATION 05/13/19 16:45 05/15/19 09:47 Olanzapine (ZyPREXA ZYDIS) 5 mg Q4HP PRN PO AGITATION 05/13/19 13:00 05/13/19 20:10 Pantoprazole Sodium (Protonix) 40 mg DAILY PO 05/13/19 09:00 05/15/19 09:47 Propranolol HCl (Inderal) 10 mg TID PO 05/13/19 16:00 05/15/19 09:48 Senna/Docusate Sodium (Senokot S) 1 tab BID PO 05/14/19 09:00 05/15/19 09:47 Trazodone HCl (Desyrel) 50 mg QHS PO 05/13/19 21:00 05/14/19 20:21 Venlafaxine HCl (Effexor Xr) 150 mg DAILY PO 05/13/19 09:00 05/15/19 09:48 Allergies Coded Allergies: Cephalosporins (Verified Allergy, Intermediate, HIVES, 05/12/19) haloperidol (Verified Adverse Reaction, Severe, SEIZURES, 05/12/19) ziprasidone (Verified Adverse Reaction, Mild, VOMITING, 05/12/19) OFE WHITFIELD DO May 15, 2019 09:57
[2019-05-15] MEDS: LACTULOSE 20 GM/30 ML SYRUP UD PO SCH ×2 (10:40→20:09)
[2019-05-15] MEDS ORDERED: chlorproMAZINE INJ 50MG/2ML AMP (J3230) IM STA ×2 (15:08→21:01)
[2019-05-15] MEDS ORDERED: BENZTROPINE MESYLATE 2MG/2ML VIAL IM STA (15:08)
[2019-05-15 16:00] VITALS: BP 133/77
[2019-05-15] MEDS: traZODone 50 MG TAB PO SCH (20:11)
[2019-05-15] MEDS ORDERED: chlorproMAZINE 25 MG TAB (Q0161) PO ONE (21:00)
[2019-05-15] MEDS ORDERED: LORazepam 2 MG/ML VIAL (J2060) IM STA (22:03)
--- NOTE | 2019-05-16 09:42 | MHIPNPDOC ---
[facility] Progress Note Progress Note DATE OF SERVICE: 05/16/19 HISTORY: Per Dr. Park: "The patient is a 33-year-old [facility] unit. He reportedly had become impulsive and began to cut his arm where he was brought in and treated. It was sutured effectively and the patient was admitted When I met the patient he reported no significant changes to his symptoms. The patient reports that he still wants to go to [facility] and felt that this would get him faster. The patient continues to have behavioral problems of hitting his head whenever he does not get Ativan specifically trying to malinger for various drugs. He generally does not engage well in an interview due to his likely low IQ." VITAL SIGNS: See below. NEW TEST RESULTS: See below. CURRENT MEDICATIONS: See below. MENTAL STATUS EXAMINATION: Currently Sleeping and MSE per Dr. Soto 05/15/19 General: Poor hygiene Speech: Monotone Thought processes: Linear MSK: Smooth and coordinated gait, no signs of tremors or involuntary orofacial movements Thought content: Focused on medications Abstract reasoning, and computation: Intact Description of associations: Intact Description of abnormal or psychotic thoughts: Reports some suicidal thoughts Judgment: Limited Insight: Limited Orientation: Alert and orientated 3 Cognition: Grossly normal Recent and remote memory: Intact Attention span and concentration: Intact Fund of knowledge: Likely low secondary to IQ. Mood: "okay" Affect: Flat with little reactivity DIAGNOSES: Paranoid Schizophrenia Intellectual disability [id number]. Borderline/antisocial personality. Malingering. Unspecified impulse/conduct disorder. Potentially TBI. Opioid use disorder, severe. Benzodiazepine use disorder, severe. ASSESSMENT:Pt seen in his room in bed with sitter present and was sleeping. Pt left sleeping due to agitation and self aggression when awake. MANAGEMENT PLAN: continue plan and referral to [facility]. Chlorpromazine HCl (Chlorpromazine HCl) 100 Mg Tablet, 50 MG PO BID, (Reported) Fluphenazine HCl (Fluphenazine HCl) 10 Mg Tablet, 10 MG PO BID, (Reported) Gabapentin (Gabapentin) 300 Mg Capsule, 600 MG PO TID, (Reported) [place] Carbonate (Colt Carbonate ER) 300 Mg Tablet.er, 600 MG PO DAILY, (Reported) Propranolol HCl (Propranolol HCl) 10 Mg Tablet, 10 MG PO TID, (Reported) Trazodone HCl (Trazodone HCl) 50 Mg Tablet, 50 MG PO QHS, (Reported) Venlafaxine HCl (Venlafaxine HCl ER) 75 Mg Cap.er.24h, 150 MG PO DAILY, (Reported) TIME SPENT: 30 minutes. Vital Signs Vital Signs Date Time Temp Pulse Resp B/P (MAP) Pulse Ox O2 Delivery O2 Flow Rate FiO2 05/16/19 00:00 16 05/15/19 22:00 98.2 94 98 Room Air 05/15/19 20:11 142/86 Current Medications Current Medications Medications (Trade) Dose Ordered Sig/Ivette Route PRN Reason Start Time Stop Time Status Last Admin Dose Admin Acetaminophen (Tylenol Tab) 650 mg Q6HP PRN PO HEADACHE or DISCOMFORT 05/13/19 13:00 Al Hydrox/Mg Hydrox/Simethicone (Mylanta) 30 ml Q4HP PRN PO HEARTBURN/INDIGESTION 05/13/19 13:00 Benztropine Mesylate (Cogentin) 0.5 mg STAT STAT IM 05/15/19 15:08 05/15/19 15:13 DC 05/15/19 15:24 Benztropine Mesylate (Cogentin) 0.5 mg TID PRN PO EPS SYMPTOMS 05/13/19 13:00 05/15/19 20:12 Chlorpromazine HCl (Thorazine) 50 mg BID PO 05/13/19 09:00 05/14/19 10:44 DC 05/14/19 08:20 Chlorpromazine HCl (Thorazine) 50 mg STAT STAT IM 05/15/19 15:08 05/15/19 15:13 DC 05/15/19 15:24 Chlorpromazine HCl (Thorazine) 100 mg STAT STAT IM 05/13/19 20:51 05/13/19 20:53 DC 05/13/19 22:01 Chlorpromazine HCl (Thorazine) 100 mg STAT STAT IM 05/14/19 19:24 05/14/19 19:26 DC 05/14/19 19:34 Chlorpromazine HCl (Thorazine) 100 mg STAT STAT IM 05/15/19 21:01 05/15/19 21:03 DC 05/15/19 21:22 Clozapine (Clozaril) 12.5 mg BID PO 05/14/19 21:00 05/14/19 18:05 DC Clozapine (Clozaril) 12.5 mg BID PO 05/15/19 09:00 05/15/19 20:08 Clozapine (Clozaril) 12.5 mg STAT STAT PO 05/14/19 18:04 05/14/19 18:10 DC 05/14/19 18:15 Diphenhydramine HCl (Benadryl) 50 mg STAT STAT IM 05/14/19 19:24 05/14/19 19:26 DC 05/14/19 19:34 Docusate Sodium (Colace) 200 mg BID PO 05/13/19 09:00 05/15/19 20:11 Fluphenazine HCl (Prolixin) 10 mg BID PO 05/13/19 21:00 05/14/19 10:44 DC 05/14/19 08:20 Folic Acid (Folic Acid) 1 mg DAILY PO 05/13/19 09:00 05/14/19 10:44 DC 05/14/19 08:21 Gabapentin (Neurontin) 600 mg TID PO 05/13/19 09:00 05/15/19 20:08 Home Med (Med Rec Complete!) ASDIRECTED XX 05/13/19 08:00 05/13/19 07:56 DC Ibuprofen (Advil) 400 mg Q6HP PRN PO PAIN 05/13/19 13:00 Lactulose (Cephulac) 15 ml BID PO 05/15/19 09:00 05/15/19 20:09 [place] Carbonate (Lithobid Cr) 600 mg DAILY PO 05/13/19 09:00 05/15/19 09:47 Lorazepam (Ativan) 2 mg STAT STAT IM 05/13/19 20:51 05/13/19 20:53 DC 05/13/19 21:03 Lorazepam (Ativan) 2 mg STAT STAT IM 05/14/19 19:24 05/14/19 19:26 DC 05/14/19 19:34 Lorazepam (Ativan) 2 mg STAT STAT IM 05/15/19 22:03 05/15/19 22:05 DC 05/15/19 22:45 Lorazepam (Ativan) 2 mg STAT STAT IV 05/12/19 22:55 05/12/19 22:57 DC 05/12/19 23:14 Magnesium Hydroxide (Milk Of Magnesia) 30 ml DAILYPRN PRN PO CONSTIPATION 05/13/19 13:00 Nicotine (Nicorette) 2 mg Q2HP PRN PO SMOKING CESSATION 05/13/19 16:45 05/15/19 23:07 Olanzapine (ZyPREXA ZYDIS) 5 mg Q4HP PRN PO AGITATION 05/13/19 13:00 05/13/19 20:10 Pantoprazole Sodium (Protonix) 40 mg DAILY PO 05/13/19 09:00 05/15/19 09:47 Propranolol HCl (Inderal) 10 mg TID PO 05/13/19 16:00 05/15/19 20:11 Senna/Docusate Sodium (Senokot S) 1 tab BID PO 05/14/19 09:00 05/15/19 20:06 Trazodone HCl (Desyrel) 50 mg QHS PO 05/13/19 21:00 05/15/19 20:11 Venlafaxine HCl (Effexor Xr) 150 mg DAILY PO 05/13/19 09:00 05/15/19 09:48 Allergies Coded Allergies: Cephalosporins (Verified Allergy, Intermediate, HIVES, 05/12/19) haloperidol (Verified Adverse Reaction, Severe, SEIZURES, 05/12/19) ziprasidone (Verified Adverse Reaction, Mild, VOMITING, 05/12/19) MICHELLE CONLEY DO May 16, 2019 9:42 am
[2019-05-16] MEDS: LACTULOSE 20 GM/30 ML SYRUP UD PO SCH ×2 (10:19→23:12)
[2019-05-16] MEDS: GABAPENTIN 300 MG CAP PO SCH ×3 (10:21→23:12)
[2019-05-16] MEDS: PANTOPRAZOLE 40MG TAB (PROTONIX) PO SCH (10:21)
[2019-05-16] MEDS: LITHIUM CARBONATE 300 MG **CR** TAB PO SCH (10:21)
[2019-05-16] MEDS: DOCUSATE SODIUM 100 MG CAP PO SCH ×2 (10:22→23:13)
[2019-05-16] MEDS: VENLAFAXINE **XR** 75MG CAPSULE PO SCH (10:22)
[2019-05-16] MEDS: SENOKOT S TAB PO SCH ×2 (10:22→23:13)
[2019-05-16] MEDS: PROPRANOLOL 10 MG TAB PO SCH ×3 (10:25→23:13)
[2019-05-16] MEDS: cloZAPine 25 MG TAB (S0136) PO SCH ×2 (10:26→23:13)
[2019-05-16] MEDS: NICOTINE POLACRILEX 2 MG GUM PO PRN ×5 (10:27→23:12)
[2019-05-16] MEDS: BENZTROPINE 0.5 MG TAB PO PRN (11:35)
[2019-05-16] MEDS: OLANZapine ORAL DISINTEGRATING TAB 5MG PO PRN (11:36)
[2019-05-16] MEDS ORDERED: diphenhydrAMINE INJ 50MG/ML VIAL (J1200) IM ONE (12:00)
[2019-05-16] MEDS ORDERED: LORazepam 2 MG/ML VIAL (J2060) IM ONE (12:00)
[2019-05-16] MEDS ORDERED: chlorproMAZINE INJ 50MG/2ML AMP (J3230) IM ONE (12:00)
[2019-05-16] MEDS ORDERED: BACITRACIN OINT 30GM TOP PRN (12:00)
[2019-05-16 16:00] VITALS: BP 129/90
[2019-05-16] MEDS ORDERED: chlorproMAZINE 25 MG TAB (Q0161) PO PRN (16:00)
[2019-05-16] MEDS: diphenhydrAMINE 50 MG CAP PO PRN (17:42)
[2019-05-16] MEDS: chlorproMAZINE 25 MG TAB (Q0161) PO PRN (17:44)
[2019-05-16] MEDS: LORazepam 1 MG TAB PO PRN (17:44)
[2019-05-16] MEDS: traZODone 50 MG TAB PO SCH (23:12)
[2019-05-17 06:56] VITALS: BP 108/64
[2019-05-17] MEDS ORDERED: BACTRIM 160MG/800MG DS TAB PO SCH ×2 (09:00)
--- NOTE | 2019-05-17 09:12 | MHIPNPDOC ---
[facility] [place] Progress Note Progress Note DATE OF SERVICE: 05/17/19 HISTORY: Per Dr. Park: "The patient is a 33-year-old man presents to [facility] after being discharged from the inpatient unit. He reportedly had become impulsive and began to cut his arm where he was brought in and treated. It was sutured effectively and the patient was admitted When I met the patient he reported no significant changes to his symptoms. The patient reports that he still wants to go to [facility] and felt that this would get him faster. The patient continues to have behavioral problems of hitting his head whenever he does not get Ativan specifically trying to malinger for various drugs. He generally does not engage well in an interview due to his likely low IQ." VITAL SIGNS: See below. NEW TEST RESULTS: See below. CURRENT MEDICATIONS: See below. MENTAL STATUS EXAMINATION: General: Poor hygiene Speech: Monotone Thought processes: Linear MSK: Smooth and coordinated gait, no signs of tremors or involuntary orofacial movements Thought content: Focused on medications and desire to live in [facility] to be close to his family Abstract reasoning, and computation: Intact Description of associations: Intact Description of abnormal or psychotic thoughts: impulsive self-harm Judgment: Limited Insight: Limited Orientation: Alert and orientated 3 Cognition: Grossly normal Recent and remote memory: Intact Attention span and concentration: Intact Fund of knowledge: Likely low secondary to IQ. Mood: "alright" Affect: euthymic, labile, reactive DIAGNOSES: Paranoid Schizophrenia Intellectual disability [id number]. Borderline/antisocial personality. Malingering. Unspecified impulse/conduct disorder. Potentially TBI. Opioid use disorder, severe. Benzodiazepine use disorder, severe. ASSESSMENT:Pt seen in his room in bed with sitter present eating his breakfast. States he feels "alright" today. Pt requested IM thorazine, ativan, and benadryl yesterday for anxiety/agitation causing him to want to pull on his stitches on his left forearm where he had cut his arm as prior to admission. Pt was doing this previously when admitted to [facility] and appears to be mostly behavior due to him wanting medication more than do to a organic psychiatric symptom. Pt's behavioral self aggression and harm appears to be predominately motivated by him wanting to be relocated to the [facility] to be closer to his family. Do to his highly impulsive and behavioral serious and potential lethal self harm recommend pt be referred to [facility] for ferry terminal supervisor treatment of behavioral symptoms and impulsive self harm as d/c of him with his current behavior is highly dangerous at this time. MANAGEMENT PLAN: continue plan and referral [facility] Chlorpromazine 50 MG PO BID Fluphenazine 10 MG PO BID Gabapentin 600 MG PO TID [place] 600 MG PO DAILY Propranolol 10 MG PO TID Trazodone 50 MG PO QHS Venlafaxine ER 150 MG PO DAILY Chlorpromazine 100mg q4hr prn anxiety/agitation ativan 2mg q4hr prn anxiety/agitation benadryl 50mg q4hr prn anxiety/agitation TIME SPENT: 30 minutes. Vital Signs Vital Signs Date Time Temp Pulse Resp B/P (MAP) Pulse Ox O2 Delivery O2 Flow Rate FiO2 05/17/19 06:56 98.8 68 14 108/64 (79) 05/15/19 22:00 98 Room Air Current Medications Current Medications Medications (Trade) Dose Ordered Sig/Ivette Route PRN Reason Start Time Stop Time Status Last Admin Dose Admin Acetaminophen (Tylenol Tab) 650 mg Q6HP PRN PO HEADACHE or DISCOMFORT 05/13/19 13:00 Al Hydrox/Mg Hydrox/Simethicone (Mylanta) 30 ml Q4HP PRN PO HEARTBURN/INDIGESTION 05/13/19 13:00 Bacitracin (Bacitracin Oint) Apply to lacerations on l... DAILYPRN PRN TOP REDNESS/IRRITATION 05/16/19 12:00 05/16/19 15:33 Benztropine Mesylate (Cogentin) 0.5 mg STAT STAT IM 05/15/19 15:08 05/15/19 15:13 DC 05/15/19 15:24 Benztropine Mesylate (Cogentin) 0.5 mg TID PRN PO EPS SYMPTOMS 05/13/19 13:00 05/16/19 11:35 Chlorpromazine HCl (Thorazine) 50 mg BID PO 05/13/19 09:00 05/14/19 10:44 DC 05/14/19 08:20 Chlorpromazine HCl (Thorazine) 50 mg STAT STAT IM 05/15/19 15:08 05/15/19 15:13 DC 05/15/19 15:24 Chlorpromazine HCl (Thorazine) 100 mg Q4HP PRN PO AGITATION 05/16/19 12:30 05/16/19 17:44 Chlorpromazine HCl (Thorazine) 100 mg Q4HP PRN PO AGITATION 05/16/19 16:00 05/16/19 12:30 DC Chlorpromazine HCl (Thorazine) 100 mg STAT STAT IM 05/13/19 20:51 05/13/19 20:53 DC 05/13/19 22:01 Chlorpromazine HCl (Thorazine) 100 mg STAT STAT IM 05/14/19 19:24 05/14/19 19:26 DC 05/14/19 19:34 Chlorpromazine HCl (Thorazine) 100 mg STAT STAT IM 05/15/19 21:01 05/15/19 21:03 DC 05/15/19 21:22 Clozapine (Clozaril) 12.5 mg BID PO 05/14/19 21:00 05/14/19 18:05 DC Clozapine (Clozaril) 12.5 mg BID PO 05/15/19 09:00 05/16/19 23:13 Clozapine (Clozaril) 12.5 mg STAT STAT PO 05/14/19 18:04 05/14/19 18:10 DC 05/14/19 18:15 Diphenhydramine HCl (Benadryl) 50 mg Q4HP PRN PO ANXIETY/AGITATION 05/16/19 16:00 05/16/19 17:42 Diphenhydramine HCl (Benadryl) 50 mg STAT STAT IM 05/14/19 19:24 05/14/19 19:26 DC 05/14/19 19:34 Docusate Sodium (Colace) 200 mg BID PO 05/13/19 09:00 05/16/19 23:13 Fluphenazine HCl (Prolixin) 10 mg BID PO 05/13/19 21:00 05/14/19 10:44 DC 05/14/19 08:20 Folic Acid (Folic Acid) 1 mg DAILY PO 05/13/19 09:00 05/14/19 10:44 DC 05/14/19 08:21 Gabapentin (Neurontin) 600 mg TID PO 05/13/19 09:00 05/16/19 23:12 Home Med (Med Rec Complete!) ASDIRECTED XX 05/13/19 08:00 05/13/19 07:56 DC Ibuprofen (Advil) 400 mg Q6HP PRN PO PAIN 05/13/19 13:00 Lactulose (Cephulac) 15 ml BID PO 05/15/19 09:00 05/16/19 23:12 [place] Carbonate (Lithobid Cr) 600 mg DAILY PO 05/13/19 09:00 05/16/19 10:21 Lorazepam (Ativan) 1 mg Q4HP PRN PO ANXIETY 05/16/19 16:00 05/16/19 17:44 Lorazepam (Ativan) 2 mg STAT STAT IM 05/13/19 20:51 05/13/19 20:53 DC 05/13/19 21:03 Lorazepam (Ativan) 2 mg STAT STAT IM 05/14/19 19:24 05/14/19 19:26 DC 05/14/19 19:34 Lorazepam (Ativan) 2 mg STAT STAT IM 05/15/19 22:03 05/15/19 22:05 DC 05/15/19 22:45 Lorazepam (Ativan) 2 mg STAT STAT IV 05/12/19 22:55 05/12/19 22:57 DC 05/12/19 23:14 Magnesium Hydroxide (Milk Of Magnesia) 30 ml DAILYPRN PRN PO CONSTIPATION 05/13/19 13:00 Nicotine (Nicorette) 2 mg Q2HP PRN PO SMOKING CESSATION 05/13/19 16:45 05/16/19 23:12 Olanzapine (ZyPREXA ZYDIS) 5 mg Q4HP PRN PO AGITATION 05/13/19 13:00 05/16/19 11:36 Pantoprazole Sodium (Protonix) 40 mg DAILY PO 05/13/19 09:00 05/16/19 10:21 Propranolol HCl (Inderal) 10 mg TID PO 05/13/19 16:00 05/16/19 23:13 Senna/Docusate Sodium (Senokot S) 1 tab BID PO 05/14/19 09:00 05/16/19 23:13 Trazodone HCl (Desyrel) 50 mg QHS PO 05/13/19 21:00 05/16/19 23:12 Venlafaxine HCl (Effexor Xr) 150 mg DAILY PO 05/13/19 09:00 05/16/19 10:22 Allergies Coded Allergies: Cephalosporins (Verified Allergy, Intermediate, HIVES, 05/12/19) haloperidol (Verified Adverse Reaction, Severe, SEIZURES, 05/12/19) ziprasidone (Verified Adverse Reaction, Mild, VOMITING, 05/12/19) MICHELLE CONLEY DO May 17, 2019 9:12 am
[2019-05-17] MEDS: GABAPENTIN 300 MG CAP PO SCH ×3 (09:25→23:01)
[2019-05-17] MEDS: VENLAFAXINE **XR** 75MG CAPSULE PO SCH (09:25)
[2019-05-17] MEDS: LACTULOSE 20 GM/30 ML SYRUP UD PO SCH ×2 (09:25→21:00)
[2019-05-17] MEDS: DOCUSATE SODIUM 100 MG CAP PO SCH ×2 (09:25→22:37)
[2019-05-17] MEDS: NICOTINE POLACRILEX 2 MG GUM PO PRN ×6 (09:26→19:53)
[2019-05-17] MEDS: PANTOPRAZOLE 40MG TAB (PROTONIX) PO SCH (09:26)
[2019-05-17] MEDS: PROPRANOLOL 10 MG TAB PO SCH ×3 (09:26→21:00)
[2019-05-17] MEDS: LITHIUM CARBONATE 300 MG **CR** TAB PO SCH (09:26)
[2019-05-17] MEDS: PILL CUTTER 1 EACH XX PRN (09:26)
[2019-05-17] MEDS: SENOKOT S TAB PO SCH ×2 (09:26→22:37)
[2019-05-17] MEDS: cloZAPine 25 MG TAB (S0136) PO SCH ×2 (09:27→22:38)
[2019-05-17] MEDS: BENZTROPINE 0.5 MG TAB PO PRN (09:27)
[2019-05-17] MEDS: diphenhydrAMINE 50 MG CAP PO PRN ×2 (10:26→19:34)
[2019-05-17] MEDS: chlorproMAZINE 25 MG TAB (Q0161) PO PRN ×2 (10:26→19:34)
[2019-05-17] MEDS: LORazepam 1 MG TAB PO PRN ×2 (10:26→19:34)
[2019-05-17] MEDS ORDERED: LORazepam 2 MG/ML VIAL (J2060) IM ONE (14:15)
[2019-05-17] MEDS ORDERED: diphenhydrAMINE INJ 50MG/ML VIAL (J1200) IM ONE (14:15)
[2019-05-17] MEDS ORDERED: chlorproMAZINE INJ 50MG/2ML AMP (J3230) IM ONE (14:15)
[2019-05-17 16:51] VITALS: BP 140/89
[2019-05-17] MEDS: CLINDAMYCIN 150 MG CAP PO SCH ×2 (16:54→22:38)
--- NOTE | 2019-05-17 16:57 | IPNPDOC ---
Subjective Date Seen The patient was seen on 05/17/19. Subjective Chief Complaint/HPI Called to evaluate patient by nursing staff. Patient increasingly agitated and pulling out stitches of L arm. General: Reports: ROS Unobtainable, Normal Appetite; Denies: Chills, Night Sweats, Fatigue, Malaise Constitutional: Denies: Chills, Fever, Night Sweats Eyes: Denies: Pain, Vision change ENT: Denies: Head Aches, Ear Pain, Dysphagia Skin: Denies: Rash, Lesions, Breakdown Pulmonary: Denies: Dyspnea, Cough Cardiovascular: Denies: Chest Pain, Palpitations, Orthopnea, Paroxysmal Noc. Dyspnea, Lt Headedness Gastrointestinal: Denies: Nausea, Vomiting, Abdominal Pain, Diarrhea, Constipation Genitourinary: Denies: Dysuria, Frequency, Incontinence, Retention Hematologic: Denies: Bruising, Bleeding Excessively Musculoskeletal: Denies: Neck Pain, Back Pain, Joint Pain, Muscle Pain, Spasms Neurological: Denies: Weakness, Numbness, Change in speech, Confusion Psych: Reports: Mood Normal; Denies: Depression, Memory Issues Objective Physical Examination General Exam: Positive: Alert, No Acute Distress, Mild Distress, Other (agitated) Eye Exam: Positive: PERRLA, Conjunctiva & lids normal, EOMI; Negative: Sclera icteric ENT Exam: Positive: Atraumatic, Mucous membr. moist/pink, Pharynx Normal Neck Exam: Positive: Supple; Negative: JVD, thyromegaly Chest Exam: Positive: Clear to auscultation, Normal air movement Heart Exam: Positive: Rate Normal, Regular Rhythm, Normal S1, Normal S2; Negative: Murmurs, Rubs Telemetry: Positive: No significant arrhythmia Abdomen Exam: Positive: Normal bowel sounds, Soft; Negative: Tenderness, Hepatospenomegaly Extremity Exam: Positive: Normal pulses; Negative: Clubbing, Cyanosis, Edema Skin Exam: Positive: Nl turgor and temperature, Rash, Pruritus, Other skin issue (multiple lacerations to L forearm with stitches, open wound 3 inches, some blood at site, surrounding erythema.); Negative: Breakdown, Lesion Neuro Exam: Positive: Normal Gait, Normal Speech, Cranial Nerves 3-12 NL, Reflexes 2+ Psych Exam: Positive: Mental status NL, Mood NL, Oriented x 3 Assessment /Plan Assessment 1. multiple laceration L forearm - patient increasingly agitated and has removed stitches placed in ED. - would start patient on clindamycin, local cleansing of wound daily with dressing changes, topical bacitracin ointment. Please reconsult as needed. Plan/VTE VTE Prophylaxis Ordered?: No VS, I&O, 24H, Fishbone Vital Signs/I&O Vital Signs Date Time Temp Pulse Resp B/P (MAP) Pulse Ox O2 Delivery O2 Flow Rate FiO2 05/17/19 15:21 98 140/89 05/17/19 06:56 98.8 14 05/15/19 22:00 98 Room Air Laboratory Data Microbiology Microbiology 05/15/19 Urine Culture - Final, Complete Escherichia Coli ASH MENDOZA MD May 17, 2019 16:57
[2019-05-17] MEDS: BACITRACIN OINT 30GM TOP SCH ×2 (17:42→21:00)
[2019-05-17] MEDS ORDERED: LIDOCAINE 5% (LIDODERM) PATCH TD ONE (19:30)
[2019-05-17] MEDS ORDERED: LORazepam 2 MG/ML VIAL (J2060) IM STA ×2 (20:30→23:10)
[2019-05-17] MEDS ORDERED: diphenhydrAMINE INJ 50MG/ML VIAL (J1200) IM STA (20:30)
[2019-05-17] MEDS ORDERED: OLANZapine ORAL DISINTEGRATING TAB 5MG PO STA (20:30)
[2019-05-17 21:00] VITALS: BP 139/74
[2019-05-17] MEDS: **NOTE PATIENT COMMENT** MISC XX SCH (21:00)
[2019-05-17 21:15] VITALS: BP 144/98
[2019-05-17 21:30] VITALS: BP 133/77
[2019-05-17] MEDS ORDERED: chlorproMAZINE INJ 50MG/2ML AMP (J3230) IM STA (22:04)
[2019-05-17] MEDS: traZODone 50 MG TAB PO SCH (22:37)
[2019-05-17] MEDS ORDERED: NICOTINE 21MG/24HR 1 EA TRANSDERMAL TD ONE (23:15)
[2019-05-17 23:45] VITALS: BP 135/73
[2019-05-18] MEDS ORDERED: chlorproMAZINE INJ 50MG/2ML AMP (J3230) IM STA (00:22)
[2019-05-18] MEDS: NICOTINE POLACRILEX 2 MG GUM PO PRN ×3 (02:48→10:22)
[2019-05-18 06:20] VITALS: BP 118/75
[2019-05-18] MEDS: LACTULOSE 20 GM/30 ML SYRUP UD PO SCH ×2 (08:18→21:00)
[2019-05-18] MEDS: PILL CUTTER 1 EACH XX PRN (08:19)
[2019-05-18] MEDS: GABAPENTIN 300 MG CAP PO SCH ×3 (08:19→21:00)
[2019-05-18] MEDS: CLINDAMYCIN 150 MG CAP PO SCH ×4 (08:19→21:00)
[2019-05-18] MEDS: LITHIUM CARBONATE 300 MG **CR** TAB PO SCH (08:20)
[2019-05-18] MEDS: PANTOPRAZOLE 40MG TAB (PROTONIX) PO SCH (08:20)
[2019-05-18] MEDS: VENLAFAXINE **XR** 75MG CAPSULE PO SCH (08:20)
[2019-05-18] MEDS: cloZAPine 25 MG TAB (S0136) PO SCH ×2 (08:20→21:00)
[2019-05-18] MEDS: SENOKOT S TAB PO SCH ×2 (08:20→21:00)
[2019-05-18] MEDS: DOCUSATE SODIUM 100 MG CAP PO SCH ×2 (08:20→21:00)
[2019-05-18] MEDS: PROPRANOLOL 10 MG TAB PO SCH ×3 (08:20→21:00)
[2019-05-18] MEDS: BENZTROPINE 0.5 MG TAB PO PRN (08:24)
[2019-05-18] MEDS: OLANZapine ORAL DISINTEGRATING TAB 5MG PO PRN (09:01)
[2019-05-18] MEDS: BACITRACIN OINT 30GM TOP SCH ×2 (09:46→21:00)
[2019-05-18] MEDS: diphenhydrAMINE 50 MG CAP PO PRN (10:26)
[2019-05-18] MEDS: LORazepam 1 MG TAB PO PRN (10:26)
[2019-05-18] MEDS: chlorproMAZINE 25 MG TAB (Q0161) PO PRN (10:27)
--- NOTE | 2019-05-18 19:51 | MHIPNPDOC ---
[facility] Progress Note Progress Note DATE OF SERVICE: 05/17/19 Restraints The staff contacted this typewriter tester and said he was very agitated, he was punching himself in the face at 19:30 on 05/17/2019. He received Thorazine, Benadryl and Ativan (orally). Shortly after he was found with medical tape around his neck in an attempt to strangle himself. Staff provided support, tried to de escalate him and of course, removed the tape around his neck. he had requested to be electric brain wave equipment mechanic ally restrained and staff walked with him towards the restraint room but shortly after he started to punch himself in the face once again and he verbalized that he was going to hit the sitter. IM medications were ordered and I indicated he needed to be coded. Staff reported he went into the restraining room when he saw more staff members coming for the code. The staff was supportive, tried to re direct him multiple times but he kept on yelling, he kept on threatening staff, was very disruptive, disorganized, impulsive, was dangerous to self and others. Besides his PRN medications, he received Benadryl 50 mgs IM at 20:48, Lorazepam 2 mgs IM at 20:48, Olanzapine ( Zyprexa Zydis) 10 mgs ODT at 20:48 too. He didn't calm down with these medications. I didn't want to give him more Thorazine because he already had received his PRN doses during the day and for that reason I ordered Zyprexa Zydis but this medication, the Benadryl and the Ativan were ineffective to control his impulsivity and his anger. At 22:17 I ordered Thorazine 100 mgs IM and because he kept complaining of not having nicotine gum ( the Staff and I felt it would be dangerous to give him Nicotine gum because he was laying down with restraints and he could choke on it) I indicated that maybe he would calm down if he was offered a Nicotine Patch. He accepted the patch but continued to be agitated. he received the patch at 23:25 with 2 mgs of Ativan IM. The staff reported that they had observed that Ativan was agitating him more. Staff contacted me again past midnight, already 05/18/2019 because he was still agitated, yelling screaming, threatening staff and I ordered once again, Thorazine 100 mgs IM which was administered at 00:35 a.m. During the time he was in restraints staff monitored him and informed me about his physical and mental health. They said they were monitoring his V/S but at a certain point he refused to cooperate with it, but they were observing his skin color, his level of consciousness, his circulation. The patient was let out of the restraints past midnight because of the level of his agitation. After all this time he was able to calm down and sleep. Vital Signs Vital Signs Date Time Temp Pulse Resp B/P (MAP) Pulse Ox O2 Delivery O2 Flow Rate FiO2 05/18/19 08:20 100 130/88 05/18/19 06:20 97.5 18 05/15/19 22:00 98 Room Air Current Medications Current Medications Medications (Trade) Dose Ordered Sig/Ivette Route PRN Reason Start Time Stop Time Status Last Admin Dose Admin Acetaminophen (Tylenol Tab) 650 mg Q6HP PRN PO HEADACHE or DISCOMFORT 05/13/19 13:00 Al Hydrox/Mg Hydrox/Simethicone (Mylanta) 30 ml Q4HP PRN PO HEARTBURN/INDIGESTION 05/13/19 13:00 Bacitracin (Bacitracin Oint) Apply to lacerations on l... BID TOP 05/17/19 16:45 05/18/19 09:46 Bacitracin (Bacitracin Oint) Apply to lacerations on l... DAILYPRN PRN TOP REDNESS/IRRITATION 05/16/19 12:00 05/17/19 17:00 DC 05/16/19 15:33 Benztropine Mesylate (Cogentin) 0.5 mg STAT STAT IM 05/15/19 15:08 05/15/19 15:13 DC 05/15/19 15:24 Benztropine Mesylate (Cogentin) 0.5 mg TID PRN PO EPS SYMPTOMS 05/13/19 13:00 05/18/19 08:24 Chlorpromazine HCl (Thorazine) 50 mg BID PO 05/13/19 09:00 05/14/19 10:44 DC 05/14/19 08:20 Chlorpromazine HCl (Thorazine) 50 mg STAT STAT IM 05/15/19 15:08 05/15/19 15:13 DC 05/15/19 15:24 Chlorpromazine HCl (Thorazine) 100 mg Q4HP PRN PO AGITATION 05/16/19 12:30 05/18/19 10:27 Chlorpromazine HCl (Thorazine) 100 mg Q4HP PRN PO AGITATION 05/16/19 16:00 05/16/19 12:30 DC Chlorpromazine HCl (Thorazine) 100 mg STAT STAT IM 05/13/19 20:51 05/13/19 20:53 DC 05/13/19 22:01 Chlorpromazine HCl (Thorazine) 100 mg STAT STAT IM 05/14/19 19:24 05/14/19 19:26 DC 05/14/19 19:34 Chlorpromazine HCl (Thorazine) 100 mg STAT STAT IM 05/15/19 21:01 05/15/19 21:03 DC 05/15/19 21:22 Chlorpromazine HCl (Thorazine) 100 mg STAT STAT IM 05/17/19 22:04 05/17/19 22:05 DC 05/17/19 22:17 Chlorpromazine HCl (Thorazine) 100 mg STAT STAT IM 05/18/19 00:22 05/18/19 00:23 DC 05/18/19 00:39 Clindamycin HCl (Cleocin) 300 mg QID PO 05/17/19 17:00 05/18/19 08:19 Clozapine (Clozaril) 12.5 mg BID PO 05/14/19 21:00 05/14/19 18:05 DC Clozapine (Clozaril) 12.5 mg BID PO 05/15/19 09:00 05/18/19 08:20 Clozapine (Clozaril) 12.5 mg STAT STAT PO 05/14/19 18:04 05/14/19 18:10 DC 05/14/19 18:15 Diphenhydramine HCl (Benadryl) 50 mg Q4HP PRN PO ANXIETY/AGITATION 05/16/19 16:00 05/18/19 10:26 Diphenhydramine HCl (Benadryl) 50 mg STAT STAT IM 05/14/19 19:24 05/14/19 19:26 DC 05/14/19 19:34 Diphenhydramine HCl (Benadryl) 50 mg STAT STAT IM 05/17/19 20:30 05/17/19 20:34 DC 05/17/19 20:48 Docusate Sodium (Colace) 200 mg BID PO 05/13/19 09:00 05/18/19 08:20 Fluphenazine HCl (Prolixin) 10 mg BID PO 05/13/19 21:00 05/14/19 10:44 DC 05/14/19 08:20 Folic Acid (Folic Acid) 1 mg DAILY PO 05/13/19 09:00 05/14/19 10:44 DC 05/14/19 08:21 Gabapentin (Neurontin) 600 mg TID PO 05/13/19 09:00 05/18/19 08:19 Home Med (Med Rec Complete!) ASDIRECTED XX 05/13/19 08:00 05/13/19 07:56 DC Ibuprofen (Advil) 400 mg Q6HP PRN PO PAIN 05/13/19 13:00 Lactulose (Cephulac) 15 ml BID PO 05/15/19 09:00 05/18/19 08:18 [place] Carbonate (Lithobid Cr) 600 mg DAILY PO 05/13/19 09:00 05/18/19 08:20 Lorazepam (Ativan) 1 mg Q4HP PRN PO ANXIETY 05/16/19 16:00 05/18/19 10:26 Lorazepam (Ativan) 2 mg STAT STAT IM 05/13/19 20:51 05/13/19 20:53 DC 05/13/19 21:03 Lorazepam (Ativan) 2 mg STAT STAT IM 05/14/19 19:24 05/14/19 19:26 DC 05/14/19 19:34 Lorazepam (Ativan) 2 mg STAT STAT IM 05/15/19 22:03 05/15/19 22:05 DC 05/15/19 22:45 Lorazepam (Ativan) 2 mg STAT STAT IM 05/17/19 20:30 05/17/19 20:34 DC 05/17/19 20:48 Lorazepam (Ativan) 2 mg STAT STAT IM 05/17/19 23:10 05/17/19 23:15 DC 05/17/19 23:25 Lorazepam (Ativan) 2 mg STAT STAT IV 05/12/19 22:55 05/12/19 22:57 DC 05/12/19 23:14 Magnesium Hydroxide (Milk Of Magnesia) 30 ml DAILYPRN PRN PO CONSTIPATION 05/13/19 13:00 Nicotine (Nicorette) 2 mg Q2HP PRN PO SMOKING CESSATION 05/13/19 16:45 05/18/19 10:22 Non-Formulary Medication ( See Comment Field Below ) REMOVE LIDODERM PATCH DAILY@21 XX 05/17/19 21:00 Olanzapine (ZyPREXA ZYDIS) 5 mg Q4HP PRN PO AGITATION 05/13/19 13:00 05/18/19 09:01 Olanzapine (ZyPREXA ZYDIS) 10 mg STAT STAT PO 05/17/19 20:30 05/17/19 20:33 DC 05/17/19 20:48 Pantoprazole Sodium (Protonix) 40 mg DAILY PO 05/13/19 09:00 05/18/19 08:20 Propranolol HCl (Inderal) 10 mg TID PO 05/13/19 16:00 05/18/19 08:20 Senna/Docusate Sodium (Senokot S) 1 tab BID PO 05/14/19 09:00 05/18/19 08:20 Trazodone HCl (Desyrel) 50 mg QHS PO 05/13/19 21:00 05/17/19 22:37 Trimethoprim/ Sulfamethoxazole (Bactrim Ds, Septra Ds 160mg/ 800mg) 1 tab BID PO 05/17/19 09:00 05/17/19 16:40 DC 05/17/19 11:33 Trimethoprim/ Sulfamethoxazole (Bactrim Ds, Septra Ds 160mg/ 800mg) 1 tab DAILY PO 05/17/19 09:00 05/17/19 11:03 DC Venlafaxine HCl (Effexor Xr) 150 mg DAILY PO 05/13/19 09:00 05/18/19 08:20 Allergies Coded Allergies: Cephalosporins (Verified Allergy, Intermediate, HIVES, 05/12/19) haloperidol (Verified Adverse Reaction, Severe, SEIZURES, 05/12/19) ziprasidone (Verified Adverse Reaction, Mild, VOMITING, 05/12/19) GROVER ARREGUIN MD May 18, 2019 19:26
--- NOTE | 2019-05-18 19:58 | MHIPNPDOC ---
[facility] Progress Note Progress Note DATE OF SERVICE: 05/18/19 HISTORY: This automobile and property underwriter attempted to meet with 33 year old male patient with h/o Schizophrenia, substance abuse, antisocial/borderline PD who has had multiple admissions for suicide attempts. He came this last time to the hospital because he had cut his arm and because h voiced SI/intent. This morning he was seen in the lounge by staff members, he had breakfast. When I attempted to see him, he was sleeping. He has been on a 1:1 sitter and he has been Ok. I walked inside of hr room and he was snoring and I didn't attempt to wake him up because he needs to rext, since he was awake and very agitated almost all night last night. He continues to be monitored by his sitter. will f/u tomorrow. Vital Signs Vital Signs Date Time Temp Pulse Resp B/P (MAP) Pulse Ox O2 Delivery O2 Flow Rate FiO2 05/18/19 08:20 100 130/88 05/18/19 06:20 97.5 18 05/15/19 22:00 98 Room Air Current Medications Current Medications Medications (Trade) Dose Ordered Sig/Ivette Route PRN Reason Start Time Stop Time Status Last Admin Dose Admin Acetaminophen (Tylenol Tab) 650 mg Q6HP PRN PO HEADACHE or DISCOMFORT 05/13/19 13:00 Al Hydrox/Mg Hydrox/Simethicone (Mylanta) 30 ml Q4HP PRN PO HEARTBURN/INDIGESTION 05/13/19 13:00 Bacitracin (Bacitracin Oint) Apply to lacerations on l... BID TOP 05/17/19 16:45 05/18/19 09:46 Bacitracin (Bacitracin Oint) Apply to lacerations on l... DAILYPRN PRN TOP REDNESS/IRRITATION 05/16/19 12:00 05/17/19 17:00 DC 05/16/19 15:33 Benztropine Mesylate (Cogentin) 0.5 mg STAT STAT IM 05/15/19 15:08 05/15/19 15:13 DC 05/15/19 15:24 Benztropine Mesylate (Cogentin) 0.5 mg TID PRN PO EPS SYMPTOMS 05/13/19 13:00 05/18/19 08:24 Chlorpromazine HCl (Thorazine) 50 mg BID PO 05/13/19 09:00 05/14/19 10:44 DC 05/14/19 08:20 Chlorpromazine HCl (Thorazine) 50 mg STAT STAT IM 05/15/19 15:08 05/15/19 15:13 DC 05/15/19 15:24 Chlorpromazine HCl (Thorazine) 100 mg Q4HP PRN PO AGITATION 05/16/19 12:30 05/18/19 10:27 Chlorpromazine HCl (Thorazine) 100 mg Q4HP PRN PO AGITATION 05/16/19 16:00 05/16/19 12:30 DC Chlorpromazine HCl (Thorazine) 100 mg STAT STAT IM 05/13/19 20:51 05/13/19 20:53 DC 05/13/19 22:01 Chlorpromazine HCl (Thorazine) 100 mg STAT STAT IM 05/14/19 19:24 05/14/19 19:26 DC 05/14/19 19:34 Chlorpromazine HCl (Thorazine) 100 mg STAT STAT IM 05/15/19 21:01 05/15/19 21:03 DC 05/15/19 21:22 Chlorpromazine HCl (Thorazine) 100 mg STAT STAT IM 05/17/19 22:04 05/17/19 22:05 DC 05/17/19 22:17 Chlorpromazine HCl (Thorazine) 100 mg STAT STAT IM 05/18/19 00:22 05/18/19 00:23 DC 05/18/19 00:39 Clindamycin HCl (Cleocin) 300 mg QID PO 05/17/19 17:00 05/18/19 08:19 Clozapine (Clozaril) 12.5 mg BID PO 05/14/19 21:00 05/14/19 18:05 DC Clozapine (Clozaril) 12.5 mg BID PO 05/15/19 09:00 05/18/19 08:20 Clozapine (Clozaril) 12.5 mg STAT STAT PO 05/14/19 18:04 05/14/19 18:10 DC 05/14/19 18:15 Diphenhydramine HCl (Benadryl) 50 mg Q4HP PRN PO ANXIETY/AGITATION 05/16/19 16:00 05/18/19 10:26 Diphenhydramine HCl (Benadryl) 50 mg STAT STAT IM 05/14/19 19:24 05/14/19 19:26 DC 05/14/19 19:34 Diphenhydramine HCl (Benadryl) 50 mg STAT STAT IM 05/17/19 20:30 05/17/19 20:34 DC 05/17/19 20:48 Docusate Sodium (Colace) 200 mg BID PO 05/13/19 09:00 05/18/19 08:20 Fluphenazine HCl (Prolixin) 10 mg BID PO 05/13/19 21:00 05/14/19 10:44 DC 05/14/19 08:20 Folic Acid (Folic Acid) 1 mg DAILY PO 05/13/19 09:00 05/14/19 10:44 DC 05/14/19 08:21 Gabapentin (Neurontin) 600 mg TID PO 05/13/19 09:00 05/18/19 08:19 Home Med (Med Rec Complete!) ASDIRECTED XX 05/13/19 08:00 05/13/19 07:56 DC Ibuprofen (Advil) 400 mg Q6HP PRN PO PAIN 05/13/19 13:00 Lactulose (Cephulac) 15 ml BID PO 05/15/19 09:00 05/18/19 08:18 [place] Carbonate (Lithobid Cr) 600 mg DAILY PO 05/13/19 09:00 05/18/19 08:20 Lorazepam (Ativan) 1 mg Q4HP PRN PO ANXIETY 05/16/19 16:00 05/18/19 10:26 Lorazepam (Ativan) 2 mg STAT STAT IM 05/13/19 20:51 05/13/19 20:53 DC 05/13/19 21:03 Lorazepam (Ativan) 2 mg STAT STAT IM 05/14/19 19:24 05/14/19 19:26 DC 05/14/19 19:34 Lorazepam (Ativan) 2 mg STAT STAT IM 05/15/19 22:03 05/15/19 22:05 DC 05/15/19 22:45 Lorazepam (Ativan) 2 mg STAT STAT IM 05/17/19 20:30 05/17/19 20:34 DC 05/17/19 20:48 Lorazepam (Ativan) 2 mg STAT STAT IM 05/17/19 23:10 05/17/19 23:15 DC 05/17/19 23:25 Lorazepam (Ativan) 2 mg STAT STAT IV 05/12/19 22:55 05/12/19 22:57 DC 05/12/19 23:14 Magnesium Hydroxide (Milk Of Magnesia) 30 ml DAILYPRN PRN PO CONSTIPATION 05/13/19 13:00 Nicotine (Nicorette) 2 mg Q2HP PRN PO SMOKING CESSATION 05/13/19 16:45 05/18/19 10:22 Non-Formulary Medication ( See Comment Field Below ) REMOVE LIDODERM PATCH DAILY@21 XX 05/17/19 21:00 Olanzapine (ZyPREXA ZYDIS) 5 mg Q4HP PRN PO AGITATION 05/13/19 13:00 05/18/19 09:01 Olanzapine (ZyPREXA ZYDIS) 10 mg STAT STAT PO 05/17/19 20:30 05/17/19 20:33 DC 05/17/19 20:48 Pantoprazole Sodium (Protonix) 40 mg DAILY PO 05/13/19 09:00 05/18/19 08:20 Propranolol HCl (Inderal) 10 mg TID PO 05/13/19 16:00 05/18/19 08:20 Senna/Docusate Sodium (Senokot S) 1 tab BID PO 05/14/19 09:00 05/18/19 08:20 Trazodone HCl (Desyrel) 50 mg QHS PO 05/13/19 21:00 05/17/19 22:37 Trimethoprim/ Sulfamethoxazole (Bactrim Ds, Septra Ds 160mg/ 800mg) 1 tab BID PO 05/17/19 09:00 05/17/19 16:40 DC 05/17/19 11:33 Trimethoprim/ Sulfamethoxazole (Bactrim Ds, Septra Ds 160mg/ 800mg) 1 tab DAILY PO 05/17/19 09:00 05/17/19 11:03 DC Venlafaxine HCl (Effexor Xr) 150 mg DAILY PO 05/13/19 09:00 05/18/19 08:20 Allergies Coded Allergies: Cephalosporins (Verified Allergy, Intermediate, HIVES, 05/12/19) haloperidol (Verified Adverse Reaction, Severe, SEIZURES, 05/12/19) ziprasidone (Verified Adverse Reaction, Mild, VOMITING, 05/12/19) GROVER ARREGUIN MD May 18, 2019 19:53
[2019-05-18] MEDS: traZODone 50 MG TAB PO SCH (21:00)
[2019-05-18] MEDS: **NOTE PATIENT COMMENT** MISC XX SCH (21:00)
[2019-05-19] MEDS: NICOTINE POLACRILEX 2 MG GUM PO PRN ×6 (05:11→22:06)
[2019-05-19] MEDS: chlorproMAZINE 25 MG TAB (Q0161) PO PRN ×3 (06:23→15:13)
[2019-05-19] MEDS: LORazepam 1 MG TAB PO PRN ×3 (06:23→15:12)
[2019-05-19 06:42] VITALS: BP 138/115
[2019-05-19] MEDS: BENZTROPINE 0.5 MG TAB PO PRN ×2 (07:55→15:13)
[2019-05-19] MEDS: LACTULOSE 20 GM/30 ML SYRUP UD PO SCH ×2 (08:03→21:25)
[2019-05-19] MEDS: GABAPENTIN 300 MG CAP PO SCH ×3 (08:04→21:28)
[2019-05-19] MEDS: SENOKOT S TAB PO SCH ×2 (08:05→21:28)
[2019-05-19] MEDS: cloZAPine 25 MG TAB (S0136) PO SCH ×2 (08:06→21:26)
[2019-05-19] MEDS: CLINDAMYCIN 150 MG CAP PO SCH ×4 (08:07→21:29)
[2019-05-19] MEDS: DOCUSATE SODIUM 100 MG CAP PO SCH ×2 (08:07→21:29)
[2019-05-19] MEDS: LITHIUM CARBONATE 300 MG **CR** TAB PO SCH (08:12)
[2019-05-19] MEDS: VENLAFAXINE **XR** 75MG CAPSULE PO SCH (08:13)
[2019-05-19] MEDS: PROPRANOLOL 10 MG TAB PO SCH ×3 (08:13→21:29)
[2019-05-19] MEDS: PANTOPRAZOLE 40MG TAB (PROTONIX) PO SCH (08:13)
[2019-05-19] MEDS: BACITRACIN OINT 30GM TOP SCH ×2 (09:00→21:30)
[2019-05-19] MEDS: diphenhydrAMINE 50 MG CAP PO PRN ×2 (10:33→15:12)
[2019-05-19] MEDS ORDERED: LIDOCAINE 5% (LIDODERM) PATCH TD ONE (14:00)
[2019-05-19 16:00] VITALS: BP 147/89
[2019-05-19] MEDS ORDERED: FLEET ENEMA PR ONE (18:00)
[2019-05-19] MEDS ORDERED: **NOTE PATIENT COMMENT** MISC XX SCH (21:00)
[2019-05-19] MEDS: traZODone 50 MG TAB PO SCH (21:29)
[2019-05-19] MEDS: **NOTE PATIENT COMMENT** MISC XX SCH (21:38)
[2019-05-20] MEDS: NICOTINE POLACRILEX 2 MG GUM PO PRN ×6 (03:22→21:17)
[2019-05-20] MEDS: GABAPENTIN 300 MG CAP PO SCH ×3 (08:05→20:59)
[2019-05-20] MEDS: VENLAFAXINE **XR** 75MG CAPSULE PO SCH (08:05)
[2019-05-20] MEDS: SENOKOT S TAB PO SCH ×2 (08:05→20:59)
[2019-05-20] MEDS: CLINDAMYCIN 150 MG CAP PO SCH ×4 (08:05→20:59)
[2019-05-20] MEDS: cloZAPine 25 MG TAB (S0136) PO SCH ×2 (08:05→21:00)
[2019-05-20] MEDS: PANTOPRAZOLE 40MG TAB (PROTONIX) PO SCH (08:05)
[2019-05-20] MEDS: DOCUSATE SODIUM 100 MG CAP PO SCH ×2 (08:06→20:59)
[2019-05-20] MEDS: LIDOCAINE 5% (LIDODERM) PATCH TD SCH (08:06)
[2019-05-20] MEDS: LITHIUM CARBONATE 300 MG **CR** TAB PO SCH (08:06)
[2019-05-20] MEDS: PROPRANOLOL 10 MG TAB PO SCH ×3 (08:06→21:02)
[2019-05-20] MEDS: LACTULOSE 20 GM/30 ML SYRUP UD PO SCH ×2 (08:07→21:00)
[2019-05-20] MEDS: diphenhydrAMINE 50 MG CAP PO PRN ×2 (09:19→14:05)
[2019-05-20] MEDS: chlorproMAZINE 25 MG TAB (Q0161) PO PRN ×2 (09:19→14:06)
[2019-05-20] MEDS: LORazepam 1 MG TAB PO PRN ×2 (09:19→14:05)
[2019-05-20] MEDS: OLANZapine ORAL DISINTEGRATING TAB 5MG PO PRN (11:17)
[2019-05-20] MEDS: BENZTROPINE 0.5 MG TAB PO PRN (14:06)
[2019-05-20 15:52] VITALS: BP 132/76
[2019-05-20] MEDS: BACITRACIN OINT 30GM TOP SCH ×2 (15:52→20:59)
[2019-05-20] MEDS ORDERED: diphenhydrAMINE INJ 50MG/ML VIAL (J1200) IM STA (16:38)
[2019-05-20] MEDS ORDERED: LORazepam 2 MG/ML VIAL (J2060) IM STA (16:38)
[2019-05-20] MEDS ORDERED: chlorproMAZINE INJ 50MG/2ML AMP (J3230) IM STA (16:38)
[2019-05-20 17:00] VITALS: BP 146/83
[2019-05-20 17:15] VITALS: BP 131/91
[2019-05-20 17:30] VITALS: BP 130/76
[2019-05-20 17:45] VITALS: BP 150/81
[2019-05-20] MEDS: PILL CUTTER 1 EACH XX PRN (20:59)
[2019-05-20] MEDS: traZODone 50 MG TAB PO SCH (20:59)
[2019-05-20] MEDS: **NOTE PATIENT COMMENT** MISC XX SCH (21:20)
[2019-05-21 07:04] VITALS: BP 130/75
[2019-05-21] MEDS: NICOTINE POLACRILEX 2 MG GUM PO PRN ×5 (07:20→20:46)
[2019-05-21] MEDS: GABAPENTIN 300 MG CAP PO SCH ×3 (08:11→20:45)
[2019-05-21] MEDS: BENZTROPINE 0.5 MG TAB PO PRN (08:11)
[2019-05-21] MEDS: cloZAPine 25 MG TAB (S0136) PO SCH ×2 (08:11→20:44)
[2019-05-21] MEDS: SENOKOT S TAB PO SCH ×2 (08:12→20:46)
[2019-05-21] MEDS: PANTOPRAZOLE 40MG TAB (PROTONIX) PO SCH (08:12)
[2019-05-21] MEDS: CLINDAMYCIN 150 MG CAP PO SCH ×4 (08:13→20:47)
[2019-05-21] MEDS: VENLAFAXINE **XR** 75MG CAPSULE PO SCH (08:13)
[2019-05-21] MEDS: LITHIUM CARBONATE 300 MG **CR** TAB PO SCH (08:14)
[2019-05-21] MEDS: BACITRACIN OINT 30GM TOP SCH ×2 (08:14→20:46)
[2019-05-21] MEDS: DOCUSATE SODIUM 100 MG CAP PO SCH ×2 (08:14→20:46)
[2019-05-21] MEDS: LIDOCAINE 5% (LIDODERM) PATCH TD SCH (08:15)
[2019-05-21] MEDS: LACTULOSE 20 GM/30 ML SYRUP UD PO SCH ×2 (08:16→20:44)
[2019-05-21] MEDS: PROPRANOLOL 10 MG TAB PO SCH ×3 (08:18→20:46)
[2019-05-21] MEDS: diphenhydrAMINE 50 MG CAP PO PRN (08:56)
[2019-05-21] MEDS: LORazepam 1 MG TAB PO PRN (08:56)
[2019-05-21] MEDS: chlorproMAZINE 25 MG TAB (Q0161) PO PRN (08:57)
[2019-05-21] MEDS ORDERED: diphenhydrAMINE INJ 50MG/ML VIAL (J1200) IM ONE (12:00)
[2019-05-21] MEDS ORDERED: chlorproMAZINE INJ 50MG/2ML AMP (J3230) IM ONE (12:00)
[2019-05-21] MEDS ORDERED: LORazepam 2 MG/ML VIAL (J2060) IM ONE (12:00)
[2019-05-21] MEDS ORDERED: LORazepam 2 MG/ML VIAL (J2060) As Ordered ONE (12:21)
[2019-05-21] MEDS: traZODone 50 MG TAB PO SCH (20:47)
[2019-05-21] MEDS: **NOTE PATIENT COMMENT** MISC XX SCH (20:50)
--- NOTE | 2019-05-21 23:10 | MHIPN ---
DATE: 05/21/2019 The patient today continues to be actively psychotic. He keeps saying that both he and his family are in danger. He was very agitated and had to be given constant as needed medications in the form of Thorazine 100 mg, Benadryl 50 mg, and Ativan 2 mg, which he actually willingly takes and requests. Last night he had to be given the same medications because he was actually saying that he could not stop himself from banging his head on the wall, and so he was given as needed medication. MENTAL STATUS EXAM: He is alert and oriented to person. He basically is laying in bed and constantly talking about his delusions that he and his family are in danger, and it is difficult to get him to focus. The patient's mood is labile. He was not voicing any suicidal or homicidal ideations. Concentration is poor. Insight and judgment poor. DIAGNOSIS: Schizophrenia. TREATMENT PLAN: At this point, we will continue the patient on one-to-one observation. He will continue to receive as needed medications as indicated and hopefully he will eventually stabilize on medication and psychotic symptoms will be resolved.
[2019-05-22 06:58] VITALS: BP 134/74
[2019-05-22] MEDS: NICOTINE POLACRILEX 2 MG GUM PO PRN ×6 (07:02→20:27)
[2019-05-22] MEDS: LACTULOSE 20 GM/30 ML SYRUP UD PO SCH ×2 (08:15→20:20)
[2019-05-22] MEDS: LITHIUM CARBONATE 300 MG **CR** TAB PO SCH (08:15)
[2019-05-22] MEDS: SENOKOT S TAB PO SCH ×2 (08:16→20:23)
[2019-05-22] MEDS: CLINDAMYCIN 150 MG CAP PO SCH ×4 (08:16→20:22)
[2019-05-22] MEDS: VENLAFAXINE **XR** 75MG CAPSULE PO SCH (08:16)
[2019-05-22] MEDS: PANTOPRAZOLE 40MG TAB (PROTONIX) PO SCH (08:16)
[2019-05-22] MEDS: DOCUSATE SODIUM 100 MG CAP PO SCH ×2 (08:16→20:21)
[2019-05-22] MEDS: GABAPENTIN 300 MG CAP PO SCH ×3 (08:16→20:22)
[2019-05-22] MEDS: PROPRANOLOL 10 MG TAB PO SCH ×3 (08:16→20:27)
[2019-05-22] MEDS: cloZAPine 25 MG TAB (S0136) PO SCH ×2 (08:17→20:24)
[2019-05-22] MEDS: LIDOCAINE 5% (LIDODERM) PATCH TD SCH (08:18)
[2019-05-22] MEDS: BACITRACIN OINT 30GM TOP SCH ×2 (08:18→20:20)
[2019-05-22] MEDS: BENZTROPINE 0.5 MG TAB PO PRN ×2 (09:12→18:11)
[2019-05-22] MEDS: chlorproMAZINE 25 MG TAB (Q0161) PO PRN ×3 (09:12→18:11)
[2019-05-22] MEDS: diphenhydrAMINE 50 MG CAP PO PRN ×3 (09:12→18:11)
[2019-05-22] MEDS: LORazepam 1 MG TAB PO PRN ×3 (09:12→18:11)
--- NOTE | 2019-05-22 10:06 | MHIPNPDOC ---
[facility] Progress Note Progress Note Ofe Rayo Inpatient Progress Note Ofe Rayo Select Gender MRN: N/A Date of : MM/DD/YYYY Date of Service: 05/22/2019 History of Present Illness The patient is a 33-year-old man presents to [facility] after being discharged from the inpatient unit. He reportedly had become impulsive and began to cut his arm where he was brought in and treated. It was sutured effectively and the patient was admitted When I met the patient he reported no significant changes to his symptoms. The patient reports that he still wants to go to [facility] and felt that this would get him faster. The patient continues to have behavioral problems of hitting his head whenever he does not get Ativan specifically trying to malinger for various drugs. He generally does not engage well in an interview due to his likely low IQ. Interval History Narrative: The patient is met with. He has little to say other than "things are good". The patient has generally been fairly upset with this provider when he has refused opioids. Affective: The patient generally has little to say about his mood at this time "okay" that is generally all he says. Psychotic: None elicited at this time. Anxiety: The patient reports worries at times and "being bored." Eating and sleeping behaviors: Within normal limits. Group Attendance: Nearly none. Medication Side effects: See ROS below Behavioral problems/significant events overnight: Patient continues to pick at stitches, needing one-to-one sitter. Staff Report: Patient is generally attention seeking and focused on getting attention and medications whenever he engages in self-mutilation. Review Of Systems Generally does not state any physical concerns at this time. Psychotherapy None on this visit. Vital Signs Reviewed. Mental Status Examination General: Poor hygiene Speech: Monotone Thought processes: Linear MSK: Smooth and coordinated gait, no signs of tremors or involuntary orofacial movements Thought content: Focused on medications Abstract reasoning, and computation: Intact Description of associations: Intact Description of abnormal or psychotic thoughts: Reports some suicidal thoughts Judgment: Limited Insight: Limited Orientation: Alert and orientated 3 Cognition: Grossly normal Recent and remote memory: Intact Attention span and concentration: Intact Fund of knowledge: Likely low secondary to IQ. Mood: "okay" Affect: Flat with little reactivity Diagnoses Intellectual disability [id number]. Borderline/antisocial personality. Malingering. Unspecified impulse/conduct disorder. Potentially TBI. Opioid use disorder, severe. Benzodiazepine use disorder, severe. Assessment and Plan Intellectual disability/borderline/malingering/TBI: Will likely need some form of psychometric testing as [facility] will be unlikely to accept without some demonstration of symptoms objectively due to complicated case. Unspecified conduct/impasse disorder: Continue medications as below. Patient restarted on some of previous neuroleptics given, currently still on Clozapine, order renewed, however, CBC drawn, ANC normal today. We'll continue to monitor for bowel control and prophylaxis. Disposition The patient is currently being referred for [facility], as multiple admissions have unable to been keeping him safe, he presents again after mutilating himself severely, he generally has little ability to keep himself safe with multiple severe suicide attempts. Time Spent 15 minutes. Vital Signs Vital Signs Date Time Temp Pulse Resp B/P (MAP) Pulse Ox O2 Delivery O2 Flow Rate FiO2 05/22/19 08:16 82 134/74 05/22/19 06:58 97.6 12 Current Medications Current Medications Medications (Trade) Dose Ordered Sig/Ivette Route PRN Reason Start Time Stop Time Status Last Admin Dose Admin Acetaminophen (Tylenol Tab) 650 mg Q6HP PRN PO HEADACHE or DISCOMFORT 05/13/19 13:00 05/19/19 11:27 Al Hydrox/Mg Hydrox/Simethicone (Mylanta) 30 ml Q4HP PRN PO HEARTBURN/INDIGESTION 05/13/19 13:00 Bacitracin (Bacitracin Oint) Apply to lacerations on l... BID TOP 05/17/19 16:45 05/22/19 08:18 Bacitracin (Bacitracin Oint) Apply to lacerations on l... DAILYPRN PRN TOP REDNESS/IRRITATION 05/16/19 12:00 05/17/19 17:00 DC 05/16/19 15:33 Benztropine Mesylate (Cogentin) 0.5 mg STAT STAT IM 05/15/19 15:08 05/15/19 15:13 DC 05/15/19 15:24 Benztropine Mesylate (Cogentin) 0.5 mg TID PRN PO EPS SYMPTOMS 05/13/19 13:00 05/22/19 09:12 Chlorpromazine HCl (Thorazine) 50 mg BID PO 05/13/19 09:00 05/14/19 10:44 DC 05/14/19 08:20 Chlorpromazine HCl (Thorazine) 50 mg STAT STAT IM 05/15/19 15:08 05/15/19 15:13 DC 05/15/19 15:24 Chlorpromazine HCl (Thorazine) 100 mg Q4HP PRN PO AGITATION 05/16/19 12:30 05/22/19 09:12 Chlorpromazine HCl (Thorazine) 100 mg Q4HP PRN PO AGITATION 05/16/19 16:00 05/16/19 12:30 DC Chlorpromazine HCl (Thorazine) 100 mg STAT STAT IM 05/13/19 20:51 05/13/19 20:53 DC 05/13/19 22:01 Chlorpromazine HCl (Thorazine) 100 mg STAT STAT IM 05/14/19 19:24 05/14/19 19:26 DC 05/14/19 19:34 Chlorpromazine HCl (Thorazine) 100 mg STAT STAT IM 05/15/19 21:01 05/15/19 21:03 DC 05/15/19 21:22 Chlorpromazine HCl (Thorazine) 100 mg STAT STAT IM 05/17/19 22:04 05/17/19 22:05 DC 05/17/19 22:17 Chlorpromazine HCl (Thorazine) 100 mg STAT STAT IM 05/18/19 00:22 05/18/19 00:23 DC 05/18/19 00:39 Chlorpromazine HCl (Thorazine) 100 mg STAT STAT IM 05/20/19 16:38 05/20/19 16:41 DC 05/20/19 16:55 Clindamycin HCl (Cleocin) 300 mg QID PO 05/17/19 17:00 05/22/19 08:16 Clozapine (Clozaril) 12.5 mg BID PO 05/14/19 21:00 05/14/19 18:05 DC Clozapine (Clozaril) 12.5 mg BID PO 05/15/19 09:00 05/22/19 08:17 Clozapine (Clozaril) 12.5 mg STAT STAT PO 05/14/19 18:04 05/14/19 18:10 DC 05/14/19 18:15 Diphenhydramine HCl (Benadryl) 50 mg Q4HP PRN PO ANXIETY/AGITATION 05/16/19 16:00 05/22/19 09:12 Diphenhydramine HCl (Benadryl) 50 mg STAT STAT IM 05/14/19 19:24 05/14/19 19:26 DC 05/14/19 19:34 Diphenhydramine HCl (Benadryl) 50 mg STAT STAT IM 05/17/19 20:30 05/17/19 20:34 DC 05/17/19 20:48 Diphenhydramine HCl (Benadryl) 50 mg STAT STAT IM 05/20/19 16:38 05/20/19 16:41 DC 05/20/19 16:55 Docusate Sodium (Colace) 200 mg BID PO 05/13/19 09:00 05/22/19 08:16 Fluphenazine HCl (Prolixin) 10 mg BID PO 05/13/19 21:00 05/14/19 10:44 DC 05/14/19 08:20 Folic Acid (Folic Acid) 1 mg DAILY PO 05/13/19 09:00 05/14/19 10:44 DC 05/14/19 08:21 Gabapentin (Neurontin) 600 mg TID PO 05/13/19 09:00 05/22/19 08:16 Home Med (Med Rec Complete!) ASDIRECTED XX 05/13/19 08:00 05/13/19 07:56 DC Ibuprofen (Advil) 400 mg Q6HP PRN PO PAIN 05/13/19 13:00 Lactulose (Cephulac) 15 ml BID PO 05/15/19 09:00 05/22/19 08:15 Lidocaine (Lidoderm Patch) 1 patch DAILY TD 05/20/19 09:00 05/22/19 08:18 [place] Carbonate (Lithobid Cr) 600 mg DAILY PO 05/13/19 09:00 05/22/19 08:15 Lorazepam (Ativan) 1 mg Q4HP PRN PO ANXIETY 05/16/19 16:00 05/22/19 09:12 Lorazepam (Ativan) 2 mg STAT STAT IM 05/13/19 20:51 05/13/19 20:53 DC 05/13/19 21:03 Lorazepam (Ativan) 2 mg STAT STAT IM 05/14/19 19:24 05/14/19 19:26 DC 05/14/19 19:34 Lorazepam (Ativan) 2 mg STAT STAT IM 05/15/19 22:03 05/15/19 22:05 DC 05/15/19 22:45 Lorazepam (Ativan) 2 mg STAT STAT IM 05/17/19 20:30 05/17/19 20:34 DC 05/17/19 20:48 Lorazepam (Ativan) 2 mg STAT STAT IM 05/17/19 23:10 05/17/19 23:15 DC 05/17/19 23:25 Lorazepam (Ativan) 2 mg STAT STAT IM 05/20/19 16:38 05/20/19 16:41 DC 05/20/19 16:55 Lorazepam (Ativan) 2 mg STAT STAT IV 05/12/19 22:55 05/12/19 22:57 DC 05/12/19 23:14 Magnesium Hydroxide (Milk Of Magnesia) 30 ml DAILYPRN PRN PO CONSTIPATION 05/13/19 13:00 Miscellaneous (Unresolved Clarification Entry) SEE LABEL COMMENTS DAILY XX 05/22/19 09:00 Nicotine (Nicorette) 2 mg Q2HP PRN PO SMOKING CESSATION 05/13/19 16:45 05/22/19 09:12 Non-Formulary Medication ( See Comment Field Below ) REMOVE LIDODERM PATCH DAILY@21 XX 05/17/19 21:00 05/19/19 13:28 DC Non-Formulary Medication ( See Comment Field Below ) REMOVE LIDODERM PATCH DAILY@21 XX 05/19/19 21:00 05/19/19 13:27 DC Non-Formulary Medication ( See Comment Field Below ) REMOVE LIDODERM PATCH DAILY@21 XX 05/19/19 21:00 05/21/19 20:50 Olanzapine (ZyPREXA ZYDIS) 5 mg Q4HP PRN PO AGITATION 05/13/19 13:00 05/20/19 11:17 Olanzapine (ZyPREXA ZYDIS) 10 mg STAT STAT PO 05/17/19 20:30 05/17/19 20:33 DC 05/17/19 20:48 Pantoprazole Sodium (Protonix) 40 mg DAILY PO 05/13/19 09:00 05/22/19 08:16 Propranolol HCl (Inderal) 10 mg TID PO 05/13/19 16:00 05/22/19 08:16 Senna/Docusate Sodium (Senokot S) 1 tab BID PO 05/14/19 09:00 05/22/19 08:16 Trazodone HCl (Desyrel) 50 mg QHS PO 05/13/19 21:00 05/21/19 20:47 Trimethoprim/ Sulfamethoxazole (Bactrim Ds, Septra Ds 160mg/ 800mg) 1 tab BID PO 05/17/19 09:00 05/17/19 16:40 DC 05/17/19 11:33 Trimethoprim/ Sulfamethoxazole (Bactrim Ds, Septra Ds 160mg/ 800mg) 1 tab DAILY PO 05/17/19 09:00 05/17/19 11:03 DC Venlafaxine HCl (Effexor Xr) 150 mg DAILY PO 05/13/19 09:00 05/22/19 08:16 Allergies Coded Allergies: Cephalosporins (Verified Allergy, Intermediate, HIVES, 05/12/19) haloperidol (Verified Adverse Reaction, Severe, SEIZURES, 05/12/19) ziprasidone (Verified Adverse Reaction, Mild, VOMITING, 05/12/19) OFE WHITFIELD DO May 22, 2019 10:06
[2019-05-22 12:08] LABS: BASO % 0.5 % (0.0-1.0); EOS # 0.5 10^3/uL (0.0-0.5); EOS % 6.2 % (0.0-3.0); HEMATOCRIT 38.2 % (42.0-52.0); HEMOGLOBIN 12.2 g/dl (13.5-17.5); LYMPH # 2.5 10^3/uL (1.5-5.0); LYMPH % 33.2 % (24.0-44.0); MEAN CORPUSCULAR HEMOGLOBIN 29.3 pg (27.0-33.0); MEAN CORPUSCULAR HGB CONC 31.9 g/dl (32.0-36.5); MEAN CORPUSCULAR VOLUME 91.8 fl (80.0-96.0); MONO # 0.9 10^3/uL (0.0-0.8); MONO % 11.9 % (0.0-5.0); NEUTROPHILS # 3.6 10^3/uL (1.5-8.5); NEUTROPHILS % 47.9 % (36.0-66.0); PLATELET COUNT, AUTOMATED 286 10^3/uL (150-450); RED BLOOD COUNT 4.16 10^6/uL (4.30-6.10); WHITE BLOOD COUNT 7.4 10^3/uL (4.0-10.0)
[2019-05-22 16:00] VITALS: BP 130/70
[2019-05-22] MEDS: traZODone 50 MG TAB PO SCH (20:27)
[2019-05-22] MEDS: **NOTE PATIENT COMMENT** MISC XX SCH (20:30)
[2019-05-23 06:40] VITALS: BP 150/46
[2019-05-23] MEDS: BACITRACIN OINT 30GM TOP SCH ×2 (08:16→20:06)
[2019-05-23] MEDS: LIDOCAINE 5% (LIDODERM) PATCH TD SCH (08:16)
[2019-05-23] MEDS: PROPRANOLOL 10 MG TAB PO SCH ×3 (08:17→20:42)
[2019-05-23] MEDS: LORazepam 1 MG TAB PO PRN ×2 (08:17→14:36)
[2019-05-23] MEDS: VENLAFAXINE **XR** 75MG CAPSULE PO SCH (08:17)
[2019-05-23] MEDS: LITHIUM CARBONATE 300 MG **CR** TAB PO SCH (08:18)
[2019-05-23] MEDS: diphenhydrAMINE 50 MG CAP PO PRN ×2 (08:18→14:36)
[2019-05-23] MEDS: SENOKOT S TAB PO SCH ×2 (08:18→20:07)
[2019-05-23] MEDS: GABAPENTIN 300 MG CAP PO SCH ×3 (08:18→20:06)
[2019-05-23] MEDS: PANTOPRAZOLE 40MG TAB (PROTONIX) PO SCH (08:18)
[2019-05-23] MEDS: LACTULOSE 20 GM/30 ML SYRUP UD PO SCH ×2 (08:18→20:13)
[2019-05-23] MEDS: BENZTROPINE 0.5 MG TAB PO PRN (08:18)
[2019-05-23] MEDS: DOCUSATE SODIUM 100 MG CAP PO SCH ×2 (08:18→20:06)
[2019-05-23] MEDS: CLINDAMYCIN 150 MG CAP PO SCH ×4 (08:19→20:06)
[2019-05-23] MEDS: NICOTINE POLACRILEX 2 MG GUM PO PRN ×4 (08:19→20:13)
[2019-05-23] MEDS: cloZAPine 25 MG TAB (S0136) PO SCH ×2 (08:19→20:07)
[2019-05-23] MEDS: chlorproMAZINE 25 MG TAB (Q0161) PO PRN ×2 (08:19→14:36)
--- NOTE | 2019-05-23 08:50 | MHIPNPDOC ---
[facility] [place] Progress Note Progress Note Ofe Rayo Inpatient Progress Note Ofe Rayo Select Gender MRN: N/A Date of : MM/DD/YYYY Date of Service: 05/23/2019 History of Present Illness The patient is a 33-year-old man presents to [facility] after being discharged from the inpatient unit. He reportedly had become impulsive and began to cut his arm where he was brought in and treated. It was sutured effectively and the patient was admitted When I met the patient he reported no significant changes to his symptoms. The patient reports that he still wants to go to [facility] and felt that this would get him faster. The patient continues to have behavioral problems of hitting his head whenever he does not get Ativan specifically trying to malinger for various drugs. He generally does not engage well in an interview due to his likely low IQ. Interval History Narrative: The patient is attempted to be met with, however he is asleep and refuses to wake up. Affective: Unknown for today. Psychotic: None elicited at this time. Anxiety: Unknown at this time. Eating and sleeping behaviors: Generally sleeping more, eating normally. Group Attendance: Nearly none. Medication Side effects: See ROS below Behavioral problems/significant events overnight: Patient continues to pick at stitches, needing one-to-one sitter. Staff Report: Patient is generally attention seeking and focused on getting attention and medications whenever he engages in self-mutilation. Review Of Systems Unable to determine due to patient refusal. Psychotherapy None on this visit. Vital Signs Reviewed. Mental Status Examination General: Poor hygiene Speech: Monotone Thought processes: Linear MSK: Smooth and coordinated gait, no signs of tremors or involuntary orofacial movements Thought content: Unknown Abstract reasoning, and computation: Unknown Description of associations: Unknown Description of abnormal or psychotic thoughts: Unknown Judgment: Limited Insight: Limited Orientation: Generally sleepy, uninterested in engaging Cognition: Grossly normal Recent and remote memory: Intact Attention span and concentration: Intact Fund of knowledge: Likely low secondary to IQ. Mood: "..." Affect: Flat with little reactivity Diagnoses Intellectual disability [id number]. Borderline/antisocial personality. Malingering. Unspecified impulse/conduct disorder. Potentially TBI. Opioid use disorder, severe. Benzodiazepine use disorder, severe. Assessment and Plan Intellectual disability/borderline/malingering/TBI: Will likely need some form of psychometric testing as [facility] will be unlikely to accept without some demonstration of symptoms objectively due to complicated case. Unspecified conduct/impasse disorder: Continue medications as below, continue bowel prophylaxis for clozapine, Cogentin will be increased to 1 mg Q6H as it appears to help patient with tremors and shakes that he gets at times. Disposition The patient is currently being referred for [facility], as multiple admissions have unable to been keeping him safe, he presents again after mutilating himself severely, he generally has little ability to keep himself safe with multiple severe suicide attempts. Time Spent 15 minutes. Vital Signs Vital Signs Date Time Temp Pulse Resp B/P (MAP) Pulse Ox O2 Delivery O2 Flow Rate FiO2 05/23/19 08:17 70 146/68 05/23/19 06:40 97.7 18 Laboratory Data 24H Labs Laboratory Tests 2 05/22/19 11:26: Immature Granulocyte % (Auto) 0.3, Neutrophils (%) (Auto) 47.9, Lymphocytes (%) (Auto) 33.2, Monocytes (%) (Auto) 11.9H, Eosinophils (%) (Auto) 6.2H, Basophils (%) (Auto) 0.5, Neutrophils # (Auto) 3.6, Lymphocytes # (Auto) 2.5, Monocytes # (Auto) 0.9H, Eosinophils # (Auto) 0.5, Basophils # (Auto) 0.0, Nucleated Red Blood Cells % (auto) 0.0 CBC/BMP Laboratory Tests 05/22/19 11:26 Current Medications Current Medications Medications (Trade) Dose Ordered Sig/Ivette Route PRN Reason Start Time Stop Time Status Last Admin Dose Admin Acetaminophen (Tylenol Tab) 650 mg Q6HP PRN PO HEADACHE or DISCOMFORT 05/13/19 13:00 05/19/19 11:27 Al Hydrox/Mg Hydrox/Simethicone (Mylanta) 30 ml Q4HP PRN PO HEARTBURN/INDIGESTION 05/13/19 13:00 Bacitracin (Bacitracin Oint) Apply to lacerations on l... BID TOP 05/17/19 16:45 05/23/19 08:16 Bacitracin (Bacitracin Oint) Apply to lacerations on l... DAILYPRN PRN TOP REDNESS/IRRITATION 05/16/19 12:00 05/17/19 17:00 DC 05/16/19 15:33 Benztropine Mesylate (Cogentin) 0.5 mg STAT STAT IM 05/15/19 15:08 05/15/19 15:13 DC 05/15/19 15:24 Benztropine Mesylate (Cogentin) 0.5 mg TID PRN PO EPS SYMPTOMS 05/13/19 13:00 05/23/19 08:18 Chlorpromazine HCl (Thorazine) 50 mg BID PO 05/13/19 09:00 05/14/19 10:44 DC 05/14/19 08:20 Chlorpromazine HCl (Thorazine) 50 mg STAT STAT IM 05/15/19 15:08 05/15/19 15:13 DC 05/15/19 15:24 Chlorpromazine HCl (Thorazine) 100 mg Q4HP PRN PO AGITATION 05/16/19 12:30 05/23/19 08:19 Chlorpromazine HCl (Thorazine) 100 mg Q4HP PRN PO AGITATION 05/16/19 16:00 05/16/19 12:30 DC Chlorpromazine HCl (Thorazine) 100 mg STAT STAT IM 05/13/19 20:51 05/13/19 20:53 DC 05/13/19 22:01 Chlorpromazine HCl (Thorazine) 100 mg STAT STAT IM 05/14/19 19:24 05/14/19 19:26 DC 05/14/19 19:34 Chlorpromazine HCl (Thorazine) 100 mg STAT STAT IM 05/15/19 21:01 05/15/19 21:03 DC 05/15/19 21:22 Chlorpromazine HCl (Thorazine) 100 mg STAT STAT IM 05/17/19 22:04 05/17/19 22:05 DC 05/17/19 22:17 Chlorpromazine HCl (Thorazine) 100 mg STAT STAT IM 05/18/19 00:22 05/18/19 00:23 DC 05/18/19 00:39 Chlorpromazine HCl (Thorazine) 100 mg STAT STAT IM 05/20/19 16:38 05/20/19 16:41 DC 05/20/19 16:55 Clindamycin HCl (Cleocin) 300 mg QID PO 05/17/19 17:00 05/24/19 09:00 05/23/19 08:19 Clozapine (Clozaril) 12.5 mg BID PO 05/14/19 21:00 05/14/19 18:05 DC Clozapine (Clozaril) 12.5 mg BID PO 05/15/19 09:00 05/23/19 08:19 Clozapine (Clozaril) 12.5 mg STAT STAT PO 05/14/19 18:04 05/14/19 18:10 DC 05/14/19 18:15 Diphenhydramine HCl (Benadryl) 50 mg Q4HP PRN PO ANXIETY/AGITATION 05/16/19 16:00 05/23/19 08:18 Diphenhydramine HCl (Benadryl) 50 mg STAT STAT IM 05/14/19 19:24 05/14/19 19:26 DC 05/14/19 19:34 Diphenhydramine HCl (Benadryl) 50 mg STAT STAT IM 05/17/19 20:30 05/17/19 20:34 DC 05/17/19 20:48 Diphenhydramine HCl (Benadryl) 50 mg STAT STAT IM 05/20/19 16:38 05/20/19 16:41 DC 05/20/19 16:55 Docusate Sodium (Colace) 200 mg BID PO 05/13/19 09:00 05/23/19 08:18 Fluphenazine HCl (Prolixin) 10 mg BID PO 05/13/19 21:00 05/14/19 10:44 DC 05/14/19 08:20 Folic Acid (Folic Acid) 1 mg DAILY PO 05/13/19 09:00 05/14/19 10:44 DC 05/14/19 08:21 Gabapentin (Neurontin) 600 mg TID PO 05/13/19 09:00 05/23/19 08:18 Home Med (Med Rec Complete!) ASDIRECTED XX 05/13/19 08:00 05/13/19 07:56 DC Ibuprofen (Advil) 400 mg Q6HP PRN PO PAIN 05/13/19 13:00 Lactulose (Cephulac) 15 ml BID PO 05/15/19 09:00 05/23/19 08:18 Lidocaine (Lidoderm Patch) 1 patch DAILY TD 05/20/19 09:00 05/23/19 08:16 [place] Carbonate (Lithobid Cr) 600 mg DAILY PO 05/13/19 09:00 05/23/19 08:18 Lorazepam (Ativan) 1 mg Q4HP PRN PO ANXIETY 05/16/19 16:00 05/23/19 08:17 Lorazepam (Ativan) 2 mg STAT STAT IM 05/13/19 20:51 05/13/19 20:53 DC 05/13/19 21:03 Lorazepam (Ativan) 2 mg STAT STAT IM 05/14/19 19:24 05/14/19 19:26 DC 05/14/19 19:34 Lorazepam (Ativan) 2 mg STAT STAT IM 05/15/19 22:03 05/15/19 22:05 DC 05/15/19 22:45 Lorazepam (Ativan) 2 mg STAT STAT IM 05/17/19 20:30 05/17/19 20:34 DC 05/17/19 20:48 Lorazepam (Ativan) 2 mg STAT STAT IM 05/17/19 23:10 05/17/19 23:15 DC 05/17/19 23:25 Lorazepam (Ativan) 2 mg STAT STAT IM 05/20/19 16:38 05/20/19 16:41 DC 05/20/19 16:55 Lorazepam (Ativan) 2 mg STAT STAT IV 05/12/19 22:55 05/12/19 22:57 DC 05/12/19 23:14 Magnesium Hydroxide (Milk Of Magnesia) 30 ml DAILYPRN PRN PO CONSTIPATION 05/13/19 13:00 Miscellaneous (Unresolved Clarification Entry) SEE LABEL COMMENTS DAILY XX 05/22/19 09:00 05/22/19 14:54 DC Nicotine (Nicorette) 2 mg Q2HP PRN PO SMOKING CESSATION 05/13/19 16:45 05/23/19 08:19 Non-Formulary Medication ( See Comment Field Below ) REMOVE LIDODERM PATCH DAILY@21 XX 05/17/19 21:00 05/19/19 13:28 DC Non-Formulary Medication ( See Comment Field Below ) REMOVE LIDODERM PATCH DAILY@21 XX 05/19/19 21:00 05/19/19 13:27 DC Non-Formulary Medication ( See Comment Field Below ) REMOVE LIDODERM PATCH DAILY@21 XX 05/19/19 21:00 05/22/19 20:30 Olanzapine (ZyPREXA ZYDIS) 5 mg Q4HP PRN PO AGITATION 05/13/19 13:00 05/20/19 11:17 Olanzapine (ZyPREXA ZYDIS) 10 mg STAT STAT PO 05/17/19 20:30 05/17/19 20:33 DC 05/17/19 20:48 Pantoprazole Sodium (Protonix) 40 mg DAILY PO 05/13/19 09:00 05/23/19 08:18 Propranolol HCl (Inderal) 10 mg TID PO 05/13/19 16:00 05/23/19 08:17 Senna/Docusate Sodium (Senokot S) 1 tab BID PO 05/14/19 09:00 05/23/19 08:18 Trazodone HCl (Desyrel) 50 mg QHS PO 05/13/19 21:00 05/22/19 20:27 Trimethoprim/ Sulfamethoxazole (Bactrim Ds, Septra Ds 160mg/ 800mg) 1 tab BID PO 05/17/19 09:00 05/17/19 16:40 DC 05/17/19 11:33 Trimethoprim/ Sulfamethoxazole (Bactrim Ds, Septra Ds 160mg/ 800mg) 1 tab DAILY PO 05/17/19 09:00 05/17/19 11:03 DC Venlafaxine HCl (Effexor Xr) 150 mg DAILY PO 05/13/19 09:00 05/23/19 08:17 Allergies Coded Allergies: Cephalosporins (Verified Allergy, Intermediate, HIVES, 05/12/19) haloperidol (Verified Adverse Reaction, Severe, SEIZURES, 05/12/19) ziprasidone (Verified Adverse Reaction, Mild, VOMITING, 05/12/19) OFE WHITFIELD DO May 23, 2019 08:50
[2019-05-23 18:06] VITALS: BP 144/79
[2019-05-23] MEDS: traZODone 50 MG TAB PO SCH (20:06)
[2019-05-23] MEDS: **NOTE PATIENT COMMENT** MISC XX SCH (20:17)
[2019-05-24] MEDS: NICOTINE POLACRILEX 2 MG GUM PO PRN ×6 (07:35→21:14)
[2019-05-24] MEDS: LITHIUM CARBONATE 300 MG **CR** TAB PO SCH (08:06)
[2019-05-24] MEDS: PROPRANOLOL 10 MG TAB PO SCH ×3 (08:06→20:27)
[2019-05-24] MEDS: PANTOPRAZOLE 40MG TAB (PROTONIX) PO SCH (08:06)
[2019-05-24] MEDS: GABAPENTIN 300 MG CAP PO SCH ×3 (08:07→20:21)
[2019-05-24] MEDS: CLINDAMYCIN 150 MG CAP PO SCH (08:07)
[2019-05-24] MEDS: LACTULOSE 20 GM/30 ML SYRUP UD PO SCH ×2 (08:07→20:22)
[2019-05-24] MEDS: VENLAFAXINE **XR** 75MG CAPSULE PO SCH (08:07)
[2019-05-24] MEDS: BACITRACIN OINT 30GM TOP SCH ×2 (08:08→20:22)
[2019-05-24] MEDS: LIDOCAINE 5% (LIDODERM) PATCH TD SCH (08:08)
[2019-05-24] MEDS: cloZAPine 25 MG TAB (S0136) PO SCH ×2 (08:08→20:22)
[2019-05-24] MEDS: DOCUSATE SODIUM 100 MG CAP PO SCH ×2 (08:10→20:21)
[2019-05-24] MEDS: SENOKOT S TAB PO SCH ×2 (08:10→20:21)
[2019-05-24] MEDS: LORazepam 1 MG TAB PO PRN ×2 (08:54→14:07)
[2019-05-24] MEDS: BENZTROPINE 0.5 MG TAB PO PRN (08:54)
[2019-05-24] MEDS: chlorproMAZINE 25 MG TAB (Q0161) PO PRN ×2 (08:54→14:08)
[2019-05-24] MEDS: diphenhydrAMINE 50 MG CAP PO PRN ×2 (08:54→14:07)
[2019-05-24 16:00] VITALS: BP 132/62
[2019-05-24] MEDS: **NOTE PATIENT COMMENT** MISC XX SCH (16:13)
[2019-05-24] MEDS: traZODone 50 MG TAB PO SCH (20:21)
[2019-05-25] MEDS: diphenhydrAMINE 50 MG CAP PO PRN ×3 (00:52→13:47)
[2019-05-25] MEDS: IBUPROFEN 400 MG TAB PO PRN (00:58)
[2019-05-25] MEDS: NICOTINE POLACRILEX 2 MG GUM PO PRN ×5 (05:52→18:20)
[2019-05-25] MEDS: chlorproMAZINE 25 MG TAB (Q0161) PO PRN ×2 (06:40→13:48)
[2019-05-25] MEDS: LORazepam 1 MG TAB PO PRN ×2 (06:40→13:47)
[2019-05-25 06:46] VITALS: BP 152/92
[2019-05-25] MEDS: PANTOPRAZOLE 40MG TAB (PROTONIX) PO SCH (08:08)
[2019-05-25] MEDS: BACITRACIN OINT 30GM TOP SCH ×2 (08:08→21:53)
[2019-05-25] MEDS: DOCUSATE SODIUM 100 MG CAP PO SCH ×2 (08:09→21:53)
[2019-05-25] MEDS: GABAPENTIN 300 MG CAP PO SCH ×3 (08:09→21:52)
[2019-05-25] MEDS: cloZAPine 25 MG TAB (S0136) PO SCH ×2 (08:09→21:51)
[2019-05-25] MEDS: LITHIUM CARBONATE 300 MG **CR** TAB PO SCH (08:09)
[2019-05-25] MEDS: VENLAFAXINE **XR** 75MG CAPSULE PO SCH (08:09)
[2019-05-25] MEDS: SENOKOT S TAB PO SCH ×2 (08:09→21:52)
[2019-05-25] MEDS: PROPRANOLOL 10 MG TAB PO SCH ×3 (08:10→21:52)
[2019-05-25] MEDS: LIDOCAINE 5% (LIDODERM) PATCH TD SCH (08:10)
[2019-05-25] MEDS: LACTULOSE 20 GM/30 ML SYRUP UD PO SCH ×2 (08:10→21:51)
[2019-05-25] MEDS: **NOTE PATIENT COMMENT** MISC XX SCH (16:06)
[2019-05-25 16:20] VITALS: BP 126/68
[2019-05-25] MEDS: traZODone 50 MG TAB PO SCH (21:52)
[2019-05-26] MEDS: diphenhydrAMINE 50 MG CAP PO PRN ×3 (06:41→23:28)
[2019-05-26] MEDS: chlorproMAZINE 25 MG TAB (Q0161) PO PRN ×3 (06:41→23:28)
[2019-05-26] MEDS: LORazepam 1 MG TAB PO PRN ×3 (06:41→23:27)
[2019-05-26] MEDS: NICOTINE POLACRILEX 2 MG GUM PO PRN ×7 (06:41→21:43)
[2019-05-26] MEDS: PROPRANOLOL 10 MG TAB PO SCH ×3 (08:11→21:37)
[2019-05-26] MEDS: LACTULOSE 20 GM/30 ML SYRUP UD PO SCH ×2 (08:11→21:38)
[2019-05-26] MEDS: LIDOCAINE 5% (LIDODERM) PATCH TD SCH (08:11)
[2019-05-26] MEDS: SENOKOT S TAB PO SCH ×2 (08:11→21:37)
[2019-05-26] MEDS: VENLAFAXINE **XR** 75MG CAPSULE PO SCH (08:11)
[2019-05-26] MEDS: GABAPENTIN 300 MG CAP PO SCH ×3 (08:11→21:38)
[2019-05-26] MEDS: LITHIUM CARBONATE 300 MG **CR** TAB PO SCH (08:12)
[2019-05-26] MEDS: PANTOPRAZOLE 40MG TAB (PROTONIX) PO SCH (08:12)
[2019-05-26] MEDS: BACITRACIN OINT 30GM TOP SCH ×2 (08:12→21:37)
[2019-05-26] MEDS: cloZAPine 25 MG TAB (S0136) PO SCH ×2 (08:12→21:38)
[2019-05-26] MEDS: DOCUSATE SODIUM 100 MG CAP PO SCH ×2 (08:12→21:37)
[2019-05-26 16:14] VITALS: BP 156/85
[2019-05-26] MEDS: traZODone 50 MG TAB PO SCH (21:38)
[2019-05-26] MEDS: **NOTE PATIENT COMMENT** MISC XX SCH (21:44)
[2019-05-27] MEDS: IBUPROFEN 400 MG TAB PO PRN (02:49)
[2019-05-27 06:30] VITALS: BP 135/73
[2019-05-27] MEDS: LACTULOSE 20 GM/30 ML SYRUP UD PO SCH ×2 (08:07→20:34)
[2019-05-27] MEDS: LIDOCAINE 5% (LIDODERM) PATCH TD SCH (08:07)
[2019-05-27] MEDS: DOCUSATE SODIUM 100 MG CAP PO SCH ×2 (08:08→20:31)
[2019-05-27] MEDS: SENOKOT S TAB PO SCH ×2 (08:08→20:27)
[2019-05-27] MEDS: cloZAPine 25 MG TAB (S0136) PO SCH ×2 (08:08→20:27)
[2019-05-27] MEDS: VENLAFAXINE **XR** 75MG CAPSULE PO SCH (08:08)
[2019-05-27] MEDS: GABAPENTIN 300 MG CAP PO SCH ×3 (08:08→20:31)
[2019-05-27] MEDS: PANTOPRAZOLE 40MG TAB (PROTONIX) PO SCH (08:08)
[2019-05-27] MEDS: LITHIUM CARBONATE 300 MG **CR** TAB PO SCH (08:09)
[2019-05-27] MEDS: PROPRANOLOL 10 MG TAB PO SCH ×3 (08:09→20:31)
[2019-05-27] MEDS: BACITRACIN OINT 30GM TOP SCH ×2 (08:09→20:26)
[2019-05-27] MEDS: chlorproMAZINE 25 MG TAB (Q0161) PO PRN ×2 (08:11→13:19)
[2019-05-27] MEDS: NICOTINE POLACRILEX 2 MG GUM PO PRN ×5 (08:11→21:43)
[2019-05-27] MEDS: diphenhydrAMINE 50 MG CAP PO PRN ×2 (08:11→13:19)
[2019-05-27] MEDS: LORazepam 1 MG TAB PO PRN ×2 (08:11→13:19)
--- NOTE | 2019-05-27 13:03 | MHIPN ---
DATE: 05/26/2019 He is asleep at present, I have attempted to wake him up, he is snoring. He had been asleep earlier in the day as well. He remains on one-on-one observation, and for now, we will continue with that, and this will be reassessed by the treatment team and the assigned psychiatrist tomorrow.
[2019-05-27 14:47] VITALS: BP 134/92
[2019-05-27] MEDS ORDERED: LORazepam 0.5 MG TAB PO ONE (16:00)
[2019-05-27 16:25] VITALS: BP 134/92
[2019-05-27] MEDS ORDERED: LORazepam 2 MG/ML VIAL (J2060) IM STA (16:57)
[2019-05-27] MEDS ORDERED: diphenhydrAMINE INJ 50MG/ML VIAL (J1200) IM STA (16:57)
[2019-05-27] MEDS ORDERED: chlorproMAZINE INJ 50MG/2ML AMP (J3230) IM STA (16:57)
--- NOTE | 2019-05-27 17:24 | MHIR ---
General Date: May 27, 2019 Time Initiated: 04:30 (pm) Restraint Documentation Order/Evaluation FACE TO FACE: Yes PHYSICIAN ASSESSMENT: combative, self-injuring REASON FOR RESTRAINT: Patient poses imminent danger of harming self or others: as above DE-ESCALATION INTERVENTIONS ATTEMPTED BEFORE USE OF RESTRAINTS: offering POs, redirection [MECHANICAL AND/OR CHEMICAL] RESTRAINTS USED: IM thorazine/Ativan/diphen, 4 point restraints/seclusion LENGTH OF TIME ORDERED IN RESTRAINTS: 240 minutes. WHEN TO DISCONTINUE RESTRAINTS: When the patient is no longer a threat to themselves or others Post evaluation of restraint due in 24 hours. OFE WHITFIELD DO May 27, 2019 17:24
[2019-05-27 18:46] VITALS: BP 155/93
[2019-05-27 19:31] VITALS: BP 159/81
[2019-05-27] MEDS: **NOTE PATIENT COMMENT** MISC XX SCH (20:23)
[2019-05-27] MEDS: traZODone 50 MG TAB PO SCH (20:27)
[2019-05-28] MEDS: NICOTINE POLACRILEX 2 MG GUM PO PRN ×7 (04:48→20:33)
[2019-05-28] MEDS: BENZTROPINE 0.5 MG TAB PO PRN (06:30)
[2019-05-28] MEDS: LORazepam 1 MG TAB PO PRN ×2 (06:33→15:38)
[2019-05-28 06:41] VITALS: BP 141/83
[2019-05-28] MEDS: LACTULOSE 20 GM/30 ML SYRUP UD PO SCH ×2 (08:11→20:33)
[2019-05-28] MEDS: PANTOPRAZOLE 40MG TAB (PROTONIX) PO SCH (08:12)
[2019-05-28] MEDS: BACITRACIN OINT 30GM TOP SCH ×2 (08:12→20:31)
[2019-05-28] MEDS: GABAPENTIN 300 MG CAP PO SCH ×3 (08:12→20:31)
[2019-05-28] MEDS: PROPRANOLOL 10 MG TAB PO SCH ×3 (08:13→20:33)
[2019-05-28] MEDS: VENLAFAXINE **XR** 75MG CAPSULE PO SCH (08:13)
[2019-05-28] MEDS: LITHIUM CARBONATE 300 MG **CR** TAB PO SCH (08:13)
[2019-05-28] MEDS: SENOKOT S TAB PO SCH ×2 (08:13→20:30)
[2019-05-28] MEDS: cloZAPine 25 MG TAB (S0136) PO SCH ×2 (08:13→20:30)
[2019-05-28] MEDS: DOCUSATE SODIUM 100 MG CAP PO SCH ×2 (08:14→20:32)
[2019-05-28] MEDS: LIDOCAINE 5% (LIDODERM) PATCH TD SCH (08:14)
[2019-05-28] MEDS: IBUPROFEN 400 MG TAB PO PRN (09:27)
--- NOTE | 2019-05-28 13:27 | MHIPNPDOC ---
[facility] Progress Note Progress Note DATE OF SERVICE: 05/28/19 HISTORY: As per previous notes: "The patient is a 33-year-old man presents to [facility] after being discharged from the inpatient unit. He reportedly had become impulsive and began to cut his arm where he was brought in and treated. It was sutured effectively and the patient was admitted" VITAL SIGNS: See below. NEW TEST RESULTS: See below CURRENT MEDICATIONS: See below. MENTAL STATUS EXAMINATION: Patient is a 33-year old male, who is alert, superficially cooperative, sleepy, disheveled, unkempt, dressed in hospital clothes. Speech: Is monotone, impoverished, non spontaneous. Thought processes including: concrete. Thought content: not future orientated, not suicidal, not homicidal at this time. Description of associations: loose Description of abnormal or psychotic thoughts: He denies TAV hallucinations, not responding to internal stimuli at this time. Judgment: Poor Insight: Poor. Orientation: x 3 Recent and remote memory: intact. Attention span and concentration: intact Mood:" Blah". Affect: Constricted, flat. DIAGNOSES: Diagnoses Intellectual disability [id number]. Borderline/antisocial personality. Malingering. Unspecified impulse/conduct disorder. Potentially TBI. Opioid use disorder, severe. Benzodiazepine use disorder, severe. ASSESSMENT: the patient has opened wounds on his left arm, he continues to pick on the wound, he removes the stitches. He said during treatment team he had done that last night when he hit a wall. His Nurse will apply steri strips to his wounds. MANAGEMENT PLAN: will continue with current treatment plan. pending transfer to [facility]. Agree with Dr. Park about psychometric testing, he most likely will need that because [facility] probably won't take him unless he has it done. TIME SPENT: 15 minutes. Vital Signs Vital Signs Date Time Temp Pulse Resp B/P (MAP) Pulse Ox O2 Delivery O2 Flow Rate FiO2 05/28/19 08:13 114 128/75 05/28/19 06:41 98.3 14 Room Air 05/27/19 19:31 97 Current Medications Current Medications Medications (Trade) Dose Ordered Sig/Ivette Route PRN Reason Start Time Stop Time Status Last Admin Dose Admin Acetaminophen (Tylenol Tab) 650 mg Q6HP PRN PO HEADACHE or DISCOMFORT 05/13/19 13:00 05/19/19 11:27 Al Hydrox/Mg Hydrox/Simethicone (Mylanta) 30 ml Q4HP PRN PO HEARTBURN/INDIGESTION 05/13/19 13:00 Bacitracin (Bacitracin Oint) Apply to lacerations on l... BID TOP 05/17/19 16:45 05/28/19 08:12 Bacitracin (Bacitracin Oint) Apply to lacerations on l... DAILYPRN PRN TOP REDNESS/IRRITATION 05/16/19 12:00 05/17/19 17:00 DC 05/16/19 15:33 Benztropine Mesylate (Cogentin) 0.5 mg STAT STAT IM 05/15/19 15:08 05/15/19 15:13 DC 05/15/19 15:24 Benztropine Mesylate (Cogentin) 0.5 mg TID PRN PO EPS SYMPTOMS 05/13/19 13:00 05/28/19 06:30 Chlorpromazine HCl (Thorazine) 50 mg BID PO 05/13/19 09:00 05/14/19 10:44 DC 05/14/19 08:20 Chlorpromazine HCl (Thorazine) 50 mg STAT STAT IM 05/15/19 15:08 05/15/19 15:13 DC 05/15/19 15:24 Chlorpromazine HCl (Thorazine) 50 mg STAT STAT IM 05/27/19 16:57 05/27/19 17:06 DC 05/27/19 17:08 Chlorpromazine HCl (Thorazine) 100 mg Q4HP PRN PO AGITATION 05/16/19 12:30 05/27/19 13:19 Chlorpromazine HCl (Thorazine) 100 mg Q4HP PRN PO AGITATION 05/16/19 16:00 05/16/19 12:30 DC Chlorpromazine HCl (Thorazine) 100 mg STAT STAT IM 05/13/19 20:51 05/13/19 20:53 DC 05/13/19 22:01 Chlorpromazine HCl (Thorazine) 100 mg STAT STAT IM 05/14/19 19:24 05/14/19 19:26 DC 05/14/19 19:34 Chlorpromazine HCl (Thorazine) 100 mg STAT STAT IM 05/15/19 21:01 05/15/19 21:03 DC 05/15/19 21:22 Chlorpromazine HCl (Thorazine) 100 mg STAT STAT IM 05/17/19 22:04 05/17/19 22:05 DC 05/17/19 22:17 Chlorpromazine HCl (Thorazine) 100 mg STAT STAT IM 05/18/19 00:22 05/18/19 00:23 DC 05/18/19 00:39 Chlorpromazine HCl (Thorazine) 100 mg STAT STAT IM 05/20/19 16:38 05/20/19 16:41 DC 05/20/19 16:55 Clindamycin HCl (Cleocin) 300 mg QID PO 05/17/19 17:00 05/24/19 09:00 DC 05/24/19 08:07 Clozapine (Clozaril) 12.5 mg BID PO 05/14/19 21:00 05/14/19 18:05 DC Clozapine (Clozaril) 12.5 mg BID PO 05/15/19 09:00 05/28/19 08:13 Clozapine (Clozaril) 12.5 mg STAT STAT PO 05/14/19 18:04 05/14/19 18:10 DC 05/14/19 18:15 Diphenhydramine HCl (Benadryl) 50 mg Q4HP PRN PO ANXIETY/AGITATION 05/16/19 16:00 05/27/19 13:19 Diphenhydramine HCl (Benadryl) 50 mg STAT STAT IM 05/14/19 19:24 05/14/19 19:26 DC 05/14/19 19:34 Diphenhydramine HCl (Benadryl) 50 mg STAT STAT IM 05/17/19 20:30 05/17/19 20:34 DC 05/17/19 20:48 Diphenhydramine HCl (Benadryl) 50 mg STAT STAT IM 05/20/19 16:38 05/20/19 16:41 DC 05/20/19 16:55 Diphenhydramine HCl (Benadryl) 50 mg STAT STAT IM 05/27/19 16:57 05/27/19 17:07 DC 05/27/19 17:08 Docusate Sodium (Colace) 200 mg BID PO 05/13/19 09:00 3/3/20 08:14 Fluphenazine HCl (Prolixin) 10 mg BID PO 05/13/19 21:00 05/14/19 10:44 DC 05/14/19 08:20 Folic Acid (Folic Acid) 1 mg DAILY PO 05/13/19 09:00 05/14/19 10:44 DC 05/14/19 08:21 Gabapentin (Neurontin) 600 mg TID PO 05/13/19 09:00 05/28/19 08:12 Home Med (Med Rec Complete!) ASDIRECTED XX 05/13/19 08:00 05/13/19 07:56 DC Ibuprofen (Advil) 400 mg Q6HP PRN PO PAIN 05/13/19 13:00 05/28/19 09:27 Lactulose (Cephulac) 15 ml BID PO 05/15/19 09:00 05/28/19 08:11 Lidocaine (Lidoderm Patch) 1 patch DAILY TD 05/20/19 09:00 05/28/19 08:14 [place] Carbonate (Lithobid Cr) 600 mg DAILY PO 05/13/19 09:00 05/28/19 08:13 Lorazepam (Ativan) 0.5 mg STAT STAT IM 05/27/19 16:57 05/27/19 17:06 DC 05/27/19 17:08 Lorazepam (Ativan) 1 mg Q4HP PRN PO ANXIETY 05/16/19 16:00 05/28/19 06:33 Lorazepam (Ativan) 2 mg STAT STAT IM 05/13/19 20:51 05/13/19 20:53 DC 05/13/19 21:03 Lorazepam (Ativan) 2 mg STAT STAT IM 05/14/19 19:24 05/14/19 19:26 DC 05/14/19 19:34 Lorazepam (Ativan) 2 mg STAT STAT IM 05/15/19 22:03 05/15/19 22:05 DC 05/15/19 22:45 Lorazepam (Ativan) 2 mg STAT STAT IM 05/17/19 20:30 05/17/19 20:34 DC 05/17/19 20:48 Lorazepam (Ativan) 2 mg STAT STAT IM 05/17/19 23:10 05/17/19 23:15 DC 05/17/19 23:25 Lorazepam (Ativan) 2 mg STAT STAT IM 05/20/19 16:38 05/20/19 16:41 DC 05/20/19 16:55 Lorazepam (Ativan) 2 mg STAT STAT IV 05/12/19 22:55 05/12/19 22:57 DC 05/12/19 23:14 Magnesium Hydroxide (Milk Of Magnesia) 30 ml DAILYPRN PRN PO CONSTIPATION 05/13/19 13:00 Miscellaneous (Unresolved Clarification Entry) SEE LABEL COMMENTS DAILY XX 05/22/19 09:00 05/22/19 14:54 DC Miscellaneous (Unresolved Clarification Entry) SEE LABEL COMMENTS DAILY XX 05/26/19 09:00 05/27/19 11:13 DC Miscellaneous (Unresolved Clarification Entry) SEE LABEL COMMENTS DAILY XX 05/28/19 09:00 Nicotine (Nicorette) 2 mg Q2HP PRN PO SMOKING CESSATION 05/13/19 16:45 05/28/19 10:09 Non-Formulary Medication ( See Comment Field Below ) REMOVE LIDODERM PATCH DAILY@ XX 05/17/19 21:00 05/19/19 13:28 DC Non-Formulary Medication ( See Comment Field Below ) REMOVE LIDODERM PATCH DAILY@ XX 05/19/19 21:00 05/19/19 13:27 DC Non-Formulary Medication ( See Comment Field Below ) REMOVE LIDODERM PATCH DAILY@ XX 05/19/19 21:00 05/27/19 20:23 Olanzapine (ZyPREXA ZYDIS) 5 mg Q4HP PRN PO AGITATION 05/13/19 13:00 05/20/19 11:17 Olanzapine (ZyPREXA ZYDIS) 10 mg STAT STAT PO 05/17/19 20:30 05/17/19 20:33 DC 05/17/19 20:48 Pantoprazole Sodium (Protonix) 40 mg DAILY PO 05/13/19 09:00 05/28/19 08:12 Propranolol HCl (Inderal) 10 mg TID PO 05/13/19 16:00 05/28/19 08:13 Senna/Docusate Sodium (Senokot S) 1 tab BID PO 05/14/19 09:00 05/28/19 08:13 Trazodone HCl (Desyrel) 50 mg QHS PO 05/13/19 21:00 05/27/19 20:27 Trimethoprim/ Sulfamethoxazole (Bactrim Ds, Septra Ds 160mg/ 800mg) 1 tab BID PO 05/17/19 09:00 05/17/19 16:40 DC 05/17/19 11:33 Trimethoprim/ Sulfamethoxazole (Bactrim Ds, Septra Ds 160mg/ 800mg) 1 tab DAILY PO 05/17/19 09:00 05/17/19 11:03 DC Venlafaxine HCl (Effexor Xr) 150 mg DAILY PO 05/13/19 09:00 05/28/19 08:13 Allergies Coded Allergies: Cephalosporins (Verified Allergy, Intermediate, HIVES, 05/12/19) haloperidol (Verified Adverse Reaction, Severe, SEIZURES, 05/12/19) ziprasidone (Verified Adverse Reaction, Mild, VOMITING, 05/12/19) GROVER ARREGUIN MD May 28, 2019 13:24
[2019-05-28 16:08] VITALS: BP 130/81
[2019-05-28] MEDS: chlorproMAZINE 25 MG TAB (Q0161) PO PRN (18:06)
[2019-05-28] MEDS: diphenhydrAMINE 50 MG CAP PO PRN (18:06)
[2019-05-28] MEDS: traZODone 50 MG TAB PO SCH (20:32)
[2019-05-28] MEDS: **NOTE PATIENT COMMENT** MISC XX SCH (20:35)
[2019-05-29] MEDS: NICOTINE POLACRILEX 2 MG GUM PO PRN ×7 (04:52→22:08)
[2019-05-29 06:33] VITALS: BP 144/98
[2019-05-29] MEDS: diphenhydrAMINE 50 MG CAP PO PRN (07:00)
[2019-05-29] MEDS: chlorproMAZINE 25 MG TAB (Q0161) PO PRN (07:00)
[2019-05-29] MEDS: LORazepam 1 MG TAB PO PRN (07:00)
[2019-05-29] MEDS: LITHIUM CARBONATE 300 MG **CR** TAB PO SCH (08:05)
[2019-05-29] MEDS: VENLAFAXINE **XR** 75MG CAPSULE PO SCH (08:05)
[2019-05-29] MEDS: PANTOPRAZOLE 40MG TAB (PROTONIX) PO SCH (08:05)
[2019-05-29] MEDS: PROPRANOLOL 10 MG TAB PO SCH ×3 (08:05→22:00)
[2019-05-29] MEDS: GABAPENTIN 300 MG CAP PO SCH ×3 (08:05→21:59)
[2019-05-29] MEDS: SENOKOT S TAB PO SCH ×2 (08:05→21:57)
[2019-05-29] MEDS: DOCUSATE SODIUM 100 MG CAP PO SCH ×2 (08:05→21:59)
[2019-05-29] MEDS: BACITRACIN OINT 30GM TOP SCH ×2 (08:06→21:58)
[2019-05-29] MEDS: LACTULOSE 20 GM/30 ML SYRUP UD PO SCH ×2 (08:06→21:58)
[2019-05-29] MEDS: cloZAPine 25 MG TAB (S0136) PO SCH ×2 (08:06→21:57)
[2019-05-29] MEDS: LIDOCAINE 5% (LIDODERM) PATCH TD SCH (08:06)
[2019-05-29 16:28] VITALS: BP 140/84
[2019-05-29] MEDS: **NOTE PATIENT COMMENT** MISC XX SCH (21:00)
[2019-05-29] MEDS: traZODone 50 MG TAB PO SCH (21:59)
[2019-05-29] MEDS: PILL CUTTER 1 EACH XX PRN (22:06)
--- NOTE | 2019-05-29 22:53 | MHIPN ---
DATE: 05/29/2019 He remains on one-on-one observation. He has been sleep for most of the morning and I have not woken him up. Staff has indicated that he has been active for brief periods within the unit. We will continue with current care and observation.
[2019-05-30] MEDS: NICOTINE POLACRILEX 2 MG GUM PO PRN ×7 (04:36→19:20)
[2019-05-30 07:17] VITALS: BP 122/82
[2019-05-30] MEDS: LIDOCAINE 5% (LIDODERM) PATCH TD SCH (08:04)
[2019-05-30] MEDS: LACTULOSE 20 GM/30 ML SYRUP UD PO SCH ×2 (08:04→20:11)
[2019-05-30] MEDS: VENLAFAXINE **XR** 75MG CAPSULE PO SCH (08:05)
[2019-05-30] MEDS: PROPRANOLOL 10 MG TAB PO SCH ×3 (08:05→20:12)
[2019-05-30] MEDS: SENOKOT S TAB PO SCH ×2 (08:05→20:11)
[2019-05-30] MEDS: BACITRACIN OINT 30GM TOP SCH ×2 (08:05→20:12)
[2019-05-30] MEDS: PANTOPRAZOLE 40MG TAB (PROTONIX) PO SCH (08:05)
[2019-05-30] MEDS: DOCUSATE SODIUM 100 MG CAP PO SCH ×2 (08:05→20:12)
[2019-05-30] MEDS: GABAPENTIN 300 MG CAP PO SCH ×3 (08:06→20:12)
[2019-05-30] MEDS: LITHIUM CARBONATE 300 MG **CR** TAB PO SCH (08:06)
[2019-05-30] MEDS: cloZAPine 25 MG TAB (S0136) PO SCH ×2 (08:06→20:12)
--- NOTE | 2019-05-30 09:49 | MHIPNPDOC ---
[facility] Progress Note Progress Note DATE OF SERVICE: 05/30/19 HISTORY: Per Dr. Park: "The patient is a 33-year-old man presents to [facility] after being discharged from the inpatient unit. He reportedly had become impulsive and began to cut his arm where he was brought in and treated. It was sutured effectively and the patient was admitted When I met the patient he reported no significant changes to his symptoms. The patient reports that he still wants to go to [facility] and felt that this would get him faster. The patient continues to have behavioral problems of hitting his head whenever he does not get Ativan specifically trying to malinger for various drugs. He generally does not engage well in an interview due to his likely low IQ." VITAL SIGNS: See below. NEW TEST RESULTS: See below. CURRENT MEDICATIONS: See below. MENTAL STATUS EXAMINATION: General: Poor hygiene Speech: Monotone Thought processes: Linear MSK: Smooth and coordinated gait, no signs of tremors or involuntary orofacial movements Thought content: Focused on medications and desire to live in [facility] to be close to his family Abstract reasoning, and computation: Intact Description of associations: Intact Description of abnormal or psychotic thoughts: improved impulsive self-harm Judgment: Limited Insight: Limited Orientation: Alert and orientated 3 Cognition: Grossly normal Recent and remote memory: Intact Attention span and concentration: Intact Fund of knowledge: Likely low secondary to IQ. Mood: "ok" Affect: euthymic DIAGNOSES: Paranoid Schizophrenia Intellectual disability [id number]. Borderline/antisocial personality. Malingering. Unspecified impulse/conduct disorder. Potentially TBI. Opioid use disorder, severe. Benzodiazepine use disorder, severe. ASSESSMENT:Pt seen in milieu with sitter present. States he feels "ok" today. Behavior on unit is improved with treatment and medications since admission. Is tolerating clozaril well and appears beneficial. 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 MANAGEMENT PLAN: continue plan and referral to [facility]. Clazaril 12.5mg bid Gabapentin 600 MG PO TID [place] 600 MG PO DAILY Propranolol 10 MG PO TID Trazodone 50 MG PO QHS Venlafaxine ER 150 MG PO DAILY Chlorpromazine 100mg q4hr prn anxiety/agitation TIME SPENT: 30 minutes. Vital Signs Vital Signs Date Time Temp Pulse Resp B/P (MAP) Pulse Ox O2 Delivery O2 Flow Rate FiO2 05/30/19 08:05 99 134/94 05/30/19 07:17 99.1 16 05/28/19 06:41 Room Air 05/27/19 19:31 97 Current Medications Current Medications Medications (Trade) Dose Ordered Sig/Ivette Route PRN Reason Start Time Stop Time Status Last Admin Dose Admin Acetaminophen (Tylenol Tab) 650 mg Q6HP PRN PO HEADACHE or DISCOMFORT 05/13/19 13:00 05/19/19 11:27 Al Hydrox/Mg Hydrox/Simethicone (Mylanta) 30 ml Q4HP PRN PO HEARTBURN/INDIGESTION 05/13/19 13:00 Bacitracin (Bacitracin Oint) Apply to lacerations on l... BID TOP 05/17/19 16:45 05/30/19 08:05 Bacitracin (Bacitracin Oint) Apply to lacerations on l... DAILYPRN PRN TOP REDNESS/IRRITATION 05/16/19 12:00 05/17/19 17:00 DC 05/16/19 15:33 Benztropine Mesylate (Cogentin) 0.5 mg STAT STAT IM 05/15/19 15:08 05/15/19 15:13 DC 05/15/19 15:24 Benztropine Mesylate (Cogentin) 0.5 mg TID PRN PO EPS SYMPTOMS 05/13/19 13:00 05/28/19 06:30 Chlorpromazine HCl (Thorazine) 50 mg BID PO 05/13/19 09:00 05/14/19 10:44 DC 05/14/19 08:20 Chlorpromazine HCl (Thorazine) 50 mg STAT STAT IM 05/15/19 15:08 05/15/19 15:13 DC 05/15/19 15:24 Chlorpromazine HCl (Thorazine) 50 mg STAT STAT IM 05/27/19 16:57 05/27/19 17:06 DC 05/27/19 17:08 Chlorpromazine HCl (Thorazine) 100 mg Q4HP PRN PO AGITATION 05/16/19 12:30 05/29/19 07:00 Chlorpromazine HCl (Thorazine) 100 mg Q4HP PRN PO AGITATION 05/16/19 16:00 05/16/19 12:30 DC Chlorpromazine HCl (Thorazine) 100 mg STAT STAT IM 05/13/19 20:51 05/13/19 20:53 DC 05/13/19 22:01 Chlorpromazine HCl (Thorazine) 100 mg STAT STAT IM 05/14/19 19:24 05/14/19 19:26 DC 05/14/19 19:34 Chlorpromazine HCl (Thorazine) 100 mg STAT STAT IM 05/15/19 21:01 05/15/19 21:03 DC 05/15/19 21:22 Chlorpromazine HCl (Thorazine) 100 mg STAT STAT IM 05/17/19 22:04 05/17/19 22:05 DC 05/17/19 22:17 Chlorpromazine HCl (Thorazine) 100 mg STAT STAT IM 05/18/19 00:22 05/18/19 00:23 DC 05/18/19 00:39 Chlorpromazine HCl (Thorazine) 100 mg STAT STAT IM 05/20/19 16:38 05/20/19 16:41 DC 05/20/19 16:55 Clindamycin HCl (Cleocin) 300 mg QID PO 05/17/19 17:00 05/24/19 09:00 DC 05/24/19 08:07 Clozapine (Clozaril) 12.5 mg BID PO 05/14/19 21:00 05/14/19 18:05 DC Clozapine (Clozaril) 12.5 mg BID PO 05/15/19 09:00 05/30/19 08:06 Clozapine (Clozaril) 12.5 mg STAT STAT PO 05/14/19 18:04 05/14/19 18:10 DC 05/14/19 18:15 Diphenhydramine HCl (Benadryl) 50 mg Q4HP PRN PO ANXIETY/AGITATION 05/16/19 16:00 05/29/19 07:00 Diphenhydramine HCl (Benadryl) 50 mg STAT STAT IM 05/14/19 19:24 05/14/19 19:26 DC 05/14/19 19:34 Diphenhydramine HCl (Benadryl) 50 mg STAT STAT IM 05/17/19 20:30 05/17/19 20:34 DC 05/17/19 20:48 Diphenhydramine HCl (Benadryl) 50 mg STAT STAT IM 05/20/19 16:38 05/20/19 16:41 DC 05/20/19 16:55 Diphenhydramine HCl (Benadryl) 50 mg STAT STAT IM 05/27/19 16:57 05/27/19 17:07 DC 05/27/19 17:08 Docusate Sodium (Colace) 200 mg BID PO 05/13/19 09:00 05/30/19 08:05 Fluphenazine HCl (Prolixin) 10 mg BID PO 05/13/19 21:00 05/14/19 10:44 DC 05/14/19 08:20 Folic Acid (Folic Acid) 1 mg DAILY PO 05/13/19 09:00 05/14/19 10:44 DC 05/14/19 08:21 Gabapentin (Neurontin) 600 mg TID PO 05/13/19 09:00 05/30/19 08:06 Home Med (Med Rec Complete!) ASDIRECTED XX 05/13/19 08:00 05/13/19 07:56 DC Ibuprofen (Advil) 400 mg Q6HP PRN PO PAIN 05/13/19 13:00 05/28/19 09:27 Lactulose (Cephulac) 15 ml BID PO 05/15/19 09:00 05/30/19 08:04 Lidocaine (Lidoderm Patch) 1 patch DAILY TD 05/20/19 09:00 05/30/19 08:04 [place] Carbonate (Lithobid Cr) 600 mg DAILY PO 05/13/19 09:00 05/30/19 08:06 Lorazepam (Ativan) 0.5 mg STAT STAT IM 05/27/19 16:57 05/27/19 17:06 DC 05/27/19 17:08 Lorazepam (Ativan) 1 mg Q4HP PRN PO ANXIETY 05/16/19 16:00 05/29/19 07:00 Lorazepam (Ativan) 2 mg STAT STAT IM 05/13/19 20:51 05/13/19 20:53 DC 05/13/19 21:03 Lorazepam (Ativan) 2 mg STAT STAT IM 05/14/19 19:24 05/14/19 19:26 DC 05/14/19 19:34 Lorazepam (Ativan) 2 mg STAT STAT IM 05/15/19 22:03 05/15/19 22:05 DC 05/15/19 22:45 Lorazepam (Ativan) 2 mg STAT STAT IM 05/17/19 20:30 05/17/19 20:34 DC 05/17/19 20:48 Lorazepam (Ativan) 2 mg STAT STAT IM 05/17/19 23:10 05/17/19 23:15 DC 05/17/19 23:25 Lorazepam (Ativan) 2 mg STAT STAT IM 05/20/19 16:38 05/20/19 16:41 DC 05/20/19 16:55 Lorazepam (Ativan) 2 mg STAT STAT IV 05/12/19 22:55 05/12/19 22:57 DC 05/12/19 23:14 Magnesium Hydroxide (Milk Of Magnesia) 30 ml DAILYPRN PRN PO CONSTIPATION 05/13/19 13:00 Miscellaneous (Unresolved Clarification Entry) SEE LABEL COMMENTS DAILY XX 05/22/19 09:00 05/22/19 14:54 DC Miscellaneous (Unresolved Clarification Entry) SEE LABEL COMMENTS DAILY XX 05/26/19 09:00 05/27/19 11:13 DC Miscellaneous (Unresolved Clarification Entry) SEE LABEL COMMENTS DAILY XX 05/28/19 09:00 05/28/19 13:45 DC Nicotine (Nicorette) 2 mg Q2HP PRN PO SMOKING CESSATION 05/13/19 16:45 05/30/19 08:57 Non-Formulary Medication ( See Comment Field Below ) REMOVE LIDODERM PATCH DAILY@ XX 05/17/19 21:00 05/19/19 13:28 DC Non-Formulary Medication ( See Comment Field Below ) REMOVE LIDODERM PATCH DAILY@ XX 05/19/19 21:00 05/19/19 13:27 DC Non-Formulary Medication ( See Comment Field Below ) REMOVE LIDODERM PATCH DAILY@ XX 05/19/19 21:00 05/29/19 21:00 Olanzapine (ZyPREXA ZYDIS) 5 mg Q4HP PRN PO AGITATION 05/13/19 13:00 05/20/19 11:17 Olanzapine (ZyPREXA ZYDIS) 10 mg STAT STAT PO 05/17/19 20:30 05/17/19 20:33 DC 05/17/19 20:48 Pantoprazole Sodium (Protonix) 40 mg DAILY PO 05/13/19 09:00 05/30/19 08:05 Propranolol HCl (Inderal) 10 mg TID PO 05/13/19 16:00 05/30/19 08:05 Senna/Docusate Sodium (Senokot S) 1 tab BID PO 05/14/19 09:00 05/30/19 08:05 Trazodone HCl (Desyrel) 50 mg QHS PO 05/13/19 21:00 05/29/19 21:59 Trimethoprim/ Sulfamethoxazole (Bactrim Ds, Septra Ds 160mg/ 800mg) 1 tab BID PO 05/17/19 09:00 05/17/19 16:40 DC 05/17/19 11:33 Trimethoprim/ Sulfamethoxazole (Bactrim Ds, Septra Ds 160mg/ 800mg) 1 tab DAILY PO 05/17/19 09:00 05/17/19 11:03 DC Venlafaxine HCl (Effexor Xr) 150 mg DAILY PO 05/13/19 09:00 05/30/19 08:05 Allergies Coded Allergies: Cephalosporins (Verified Allergy, Intermediate, HIVES, 05/12/19) haloperidol (Verified Adverse Reaction, Severe, SEIZURES, 05/12/19) ziprasidone (Verified Adverse Reaction, Mild, VOMITING, 05/12/19) MICHELLE CONLEY DO May 30, 2019 9:49 am
[2019-05-30 16:25] VITALS: BP 149/94
[2019-05-30] MEDS: LORazepam 1 MG TAB PO PRN (17:08)
[2019-05-30] MEDS: traZODone 50 MG TAB PO SCH (20:12)
[2019-05-30] MEDS: **NOTE PATIENT COMMENT** MISC XX SCH (20:38)
[2019-05-31] MEDS: NICOTINE POLACRILEX 2 MG GUM PO PRN ×7 (05:01→20:42)
[2019-05-31] MEDS: chlorproMAZINE 25 MG TAB (Q0161) PO PRN (06:09)
[2019-05-31] MEDS: diphenhydrAMINE 50 MG CAP PO PRN (06:09)
[2019-05-31] MEDS: LORazepam 1 MG TAB PO PRN ×2 (06:09→14:24)
[2019-05-31 06:57] VITALS: BP 145/83
[2019-05-31] MEDS: LIDOCAINE 5% (LIDODERM) PATCH TD SCH (08:06)
[2019-05-31] MEDS: VENLAFAXINE **XR** 75MG CAPSULE PO SCH (08:07)
[2019-05-31] MEDS: LACTULOSE 20 GM/30 ML SYRUP UD PO SCH ×2 (08:07→20:39)
[2019-05-31] MEDS: BACITRACIN OINT 30GM TOP SCH ×2 (08:07→20:35)
[2019-05-31] MEDS: cloZAPine 25 MG TAB (S0136) PO SCH ×2 (08:07→20:36)
[2019-05-31] MEDS: GABAPENTIN 300 MG CAP PO SCH ×3 (08:07→20:36)
[2019-05-31] MEDS: DOCUSATE SODIUM 100 MG CAP PO SCH ×2 (08:07→20:36)
[2019-05-31] MEDS: LITHIUM CARBONATE 300 MG **CR** TAB PO SCH (08:08)
[2019-05-31] MEDS: SENOKOT S TAB PO SCH ×2 (08:08→20:36)
[2019-05-31] MEDS: PROPRANOLOL 10 MG TAB PO SCH ×3 (08:08→20:39)
[2019-05-31] MEDS: PANTOPRAZOLE 40MG TAB (PROTONIX) PO SCH (08:08)
--- NOTE | 2019-05-31 09:16 | MHIPNPDOC ---
[facility] Progress Note Progress Note DATE OF SERVICE: 05/31/19 HISTORY: Per Dr. Park: "The patient is a 33-year-old man presents to [facility] after being discharged from the inpatient unit. He reportedly had become impulsive and began to cut his arm where he was brought in and treated. It was sutured effectively and the patient was admitted When I met the patient he reported no significant changes to his symptoms. The patient reports that he still wants to go to [facility] and felt that this would get him faster. The patient continues to have behavioral problems of hitting his head whenever he does not get Ativan specifically trying to malinger for various drugs. He generally does not engage well in an interview due to his likely low IQ." VITAL SIGNS: See below. NEW TEST RESULTS: See below. CURRENT MEDICATIONS: See below. MENTAL STATUS EXAMINATION: No change from yesterday. General: Poor hygiene Speech: Monotone Thought processes: Linear MSK: Smooth and coordinated gait, no signs of tremors or involuntary orofacial movements Thought content: Focused on medications and desire to live in [facility] to be close to his family Abstract reasoning, and computation: Intact Description of associations: Intact Description of abnormal or psychotic thoughts: improved impulsive self-harm Judgment: Limited Insight: Limited Orientation: Alert and orientated 3 Cognition: Grossly normal Recent and remote memory: Intact Attention span and concentration: Intact Fund of knowledge: Likely low secondary to IQ. Mood: "ok" Affect: euthymic DIAGNOSES: Paranoid Schizophrenia Intellectual disability [id number]. Borderline/antisocial personality. Malingering. Unspecified impulse/conduct disorder. Potentially TBI. Opioid use disorder, severe. Benzodiazepine use disorder, severe. ASSESSMENT:Pt seen in his room with sitter present. States he feels "alright" today. Behavior on unit continues to be improved with treatment and medications since admission. Is tolerating clozaril well and appears beneficial. Referred to [facility] for terminal carman treatment of behavioral symptoms and impulsive self harm and awaited admission date. MANAGEMENT PLAN: continue plan and referral to [facility]. Clazaril 12.5mg bid Gabapentin 600 MG PO TID [place] 600 MG PO DAILY Propranolol 10 MG PO TID Trazodone 50 MG PO QHS Venlafaxine ER 150 MG PO DAILY Chlorpromazine 100mg q4hr prn anxiety/agitation TIME SPENT: 30 minutes. Vital Signs Vital Signs Date Time Temp Pulse Resp B/P (MAP) Pulse Ox O2 Delivery O2 Flow Rate FiO2 05/31/19 08:08 98 138/95 05/31/19 06:57 96.5 16 05/28/19 06:41 Room Air 05/27/19 19:31 97 Current Medications Current Medications Medications (Trade) Dose Ordered Sig/Ivette Route PRN Reason Start Time Stop Time Status Last Admin Dose Admin Acetaminophen (Tylenol Tab) 650 mg Q6HP PRN PO HEADACHE or DISCOMFORT 05/13/19 13:00 05/19/19 11:27 Al Hydrox/Mg Hydrox/Simethicone (Mylanta) 30 ml Q4HP PRN PO HEARTBURN/INDIGESTION 05/13/19 13:00 Bacitracin (Bacitracin Oint) Apply to lacerations on l... BID TOP 05/17/19 16:45 05/31/19 08:07 Bacitracin (Bacitracin Oint) Apply to lacerations on l... DAILYPRN PRN TOP REDNESS/IRRITATION 05/16/19 12:00 05/17/19 17:00 DC 05/16/19 15:33 Benztropine Mesylate (Cogentin) 0.5 mg STAT STAT IM 05/15/19 15:08 05/15/19 15:13 DC 05/15/19 15:24 Benztropine Mesylate (Cogentin) 0.5 mg TID PRN PO EPS SYMPTOMS 05/13/19 13:00 05/28/19 06:30 Chlorpromazine HCl (Thorazine) 50 mg BID PO 05/13/19 09:00 05/14/19 10:44 DC 05/14/19 08:20 Chlorpromazine HCl (Thorazine) 50 mg STAT STAT IM 05/15/19 15:08 05/15/19 15:13 DC 05/15/19 15:24 Chlorpromazine HCl (Thorazine) 50 mg STAT STAT IM 05/27/19 16:57 05/27/19 17:06 DC 05/27/19 17:08 Chlorpromazine HCl (Thorazine) 100 mg Q4HP PRN PO AGITATION 05/16/19 12:30 05/31/19 06:09 Chlorpromazine HCl (Thorazine) 100 mg Q4HP PRN PO AGITATION 05/16/19 16:00 05/16/19 12:30 DC Chlorpromazine HCl (Thorazine) 100 mg STAT STAT IM 05/13/19 20:51 05/13/19 20:53 DC 05/13/19 22:01 Chlorpromazine HCl (Thorazine) 100 mg STAT STAT IM 05/14/19 19:24 05/14/19 19:26 DC 05/14/19 19:34 Chlorpromazine HCl (Thorazine) 100 mg STAT STAT IM 05/15/19 21:01 05/15/19 21:03 DC 05/15/19 21:22 Chlorpromazine HCl (Thorazine) 100 mg STAT STAT IM 05/17/19 22:04 05/17/19 22:05 DC 05/17/19 22:17 Chlorpromazine HCl (Thorazine) 100 mg STAT STAT IM 05/18/19 00:22 05/18/19 00:23 DC 05/18/19 00:39 Chlorpromazine HCl (Thorazine) 100 mg STAT STAT IM 05/20/19 16:38 05/20/19 16:41 DC 05/20/19 16:55 Clindamycin HCl (Cleocin) 300 mg QID PO 05/17/19 17:00 05/24/19 09:00 DC 05/24/19 08:07 Clozapine (Clozaril) 12.5 mg BID PO 05/14/19 21:00 05/14/19 18:05 DC Clozapine (Clozaril) 12.5 mg BID PO 05/15/19 09:00 05/31/19 08:07 Clozapine (Clozaril) 12.5 mg STAT STAT PO 05/14/19 18:04 05/14/19 18:10 DC 05/14/19 18:15 Diphenhydramine HCl (Benadryl) 50 mg Q4HP PRN PO ANXIETY/AGITATION 05/16/19 16:00 05/31/19 06:09 Diphenhydramine HCl (Benadryl) 50 mg STAT STAT IM 05/14/19 19:24 05/14/19 19:26 DC 05/14/19 19:34 Diphenhydramine HCl (Benadryl) 50 mg STAT STAT IM 05/17/19 20:30 05/17/19 20:34 DC 05/17/19 20:48 Diphenhydramine HCl (Benadryl) 50 mg STAT STAT IM 05/20/19 16:38 05/20/19 16:41 DC 05/20/19 16:55 Diphenhydramine HCl (Benadryl) 50 mg STAT STAT IM 05/27/19 16:57 05/27/19 17:07 DC 05/27/19 17:08 Docusate Sodium (Colace) 200 mg BID PO 05/13/19 09:00 05/31/19 08:07 Fluphenazine HCl (Prolixin) 10 mg BID PO 05/13/19 21:00 05/14/19 10:44 DC 05/14/19 08:20 Folic Acid (Folic Acid) 1 mg DAILY PO 05/13/19 09:00 05/14/19 10:44 DC 05/14/19 08:21 Gabapentin (Neurontin) 600 mg TID PO 05/13/19 09:00 05/31/19 08:07 Home Med (Med Rec Complete!) ASDIRECTED XX 05/13/19 08:00 05/13/19 07:56 DC Ibuprofen (Advil) 400 mg Q6HP PRN PO PAIN 05/13/19 13:00 05/28/19 09:27 Lactulose (Cephulac) 15 ml BID PO 05/15/19 09:00 05/31/19 08:07 Lidocaine (Lidoderm Patch) 1 patch DAILY TD 05/20/19 09:00 05/31/19 08:06 [place] Carbonate (Lithobid Cr) 600 mg DAILY PO 05/13/19 09:00 05/31/19 08:08 Lorazepam (Ativan) 0.5 mg STAT STAT IM 05/27/19 16:57 05/27/19 17:06 DC 05/27/19 17:08 Lorazepam (Ativan) 1 mg Q4HP PRN PO ANXIETY 05/16/19 16:00 05/31/19 06:09 Lorazepam (Ativan) 2 mg STAT STAT IM 05/13/19 20:51 05/13/19 20:53 DC 05/13/19 21:03 Lorazepam (Ativan) 2 mg STAT STAT IM 05/14/19 19:24 05/14/19 19:26 DC 05/14/19 19:34 Lorazepam (Ativan) 2 mg STAT STAT IM 05/15/19 22:03 05/15/19 22:05 DC 05/15/19 22:45 Lorazepam (Ativan) 2 mg STAT STAT IM 05/17/19 20:30 05/17/19 20:34 DC 05/17/19 20:48 Lorazepam (Ativan) 2 mg STAT STAT IM 05/17/19 23:10 05/17/19 23:15 DC 05/17/19 23:25 Lorazepam (Ativan) 2 mg STAT STAT IM 05/20/19 16:38 05/20/19 16:41 DC 05/20/19 16:55 Lorazepam (Ativan) 2 mg STAT STAT IV 05/12/19 22:55 05/12/19 22:57 DC 05/12/19 23:14 Magnesium Hydroxide (Milk Of Magnesia) 30 ml DAILYPRN PRN PO CONSTIPATION 05/13/19 13:00 Miscellaneous (Unresolved Clarification Entry) SEE LABEL COMMENTS DAILY XX 05/22/19 09:00 05/22/19 14:54 DC Miscellaneous (Unresolved Clarification Entry) SEE LABEL COMMENTS DAILY XX 05/26/19 09:00 05/27/19 11:13 DC Miscellaneous (Unresolved Clarification Entry) SEE LABEL COMMENTS DAILY XX 05/28/19 09:00 05/28/19 13:45 DC Nicotine (Nicorette) 2 mg Q2HP PRN PO SMOKING CESSATION 05/13/19 16:45 05/31/19 09:01 Non-Formulary Medication ( See Comment Field Below ) REMOVE LIDODERM PATCH DAILY@ XX 05/17/19 21:00 05/19/19 13:28 DC Non-Formulary Medication ( See Comment Field Below ) REMOVE LIDODERM PATCH DAILY@ XX 05/19/19 21:00 05/19/19 13:27 DC Non-Formulary Medication ( See Comment Field Below ) REMOVE LIDODERM PATCH DAILY@ XX 05/19/19 21:00 05/30/19 20:38 Olanzapine (ZyPREXA ZYDIS) 5 mg Q4HP PRN PO AGITATION 05/13/19 13:00 05/20/19 11:17 Olanzapine (ZyPREXA ZYDIS) 10 mg STAT STAT PO 05/17/19 20:30 05/17/19 20:33 DC 05/17/19 20:48 Pantoprazole Sodium (Protonix) 40 mg DAILY PO 05/13/19 09:00 05/31/19 08:08 Propranolol HCl (Inderal) 10 mg TID PO 05/13/19 16:00 05/31/19 08:08 Senna/Docusate Sodium (Senokot S) 1 tab BID PO 05/14/19 09:00 05/31/19 08:08 Trazodone HCl (Desyrel) 50 mg QHS PO 05/13/19 21:00 05/30/19 20:12 Trimethoprim/ Sulfamethoxazole (Bactrim Ds, Septra Ds 160mg/ 800mg) 1 tab BID PO 05/17/19 09:00 05/17/19 16:40 DC 05/17/19 11:33 Trimethoprim/ Sulfamethoxazole (Bactrim Ds, Septra Ds 160mg/ 800mg) 1 tab DAILY PO 05/17/19 09:00 05/17/19 11:03 DC Venlafaxine HCl (Effexor Xr) 150 mg DAILY PO 05/13/19 09:00 05/31/19 08:07 Allergies Coded Allergies: Cephalosporins (Verified Allergy, Intermediate, HIVES, 05/12/19) haloperidol (Verified Adverse Reaction, Severe, SEIZURES, 05/12/19) ziprasidone (Verified Adverse Reaction, Mild, VOMITING, 05/12/19) MICHELLE CONLEY DO May 31, 2019 9:16 am
[2019-05-31 16:13] VITALS: BP 120/78
[2019-05-31] MEDS: traZODone 50 MG TAB PO SCH (20:36)
[2019-05-31] MEDS: **NOTE PATIENT COMMENT** MISC XX SCH (20:39)
[2019-06-01] MEDS: NICOTINE POLACRILEX 2 MG GUM PO PRN ×5 (05:25→20:58)
[2019-06-01 05:54] VITALS: BP 149/81
[2019-06-01] MEDS: diphenhydrAMINE 50 MG CAP PO PRN (06:21)
[2019-06-01] MEDS: chlorproMAZINE 25 MG TAB (Q0161) PO PRN (06:21)
[2019-06-01] MEDS: LORazepam 1 MG TAB PO PRN ×2 (06:21→15:40)
[2019-06-01] MEDS: LIDOCAINE 5% (LIDODERM) PATCH TD SCH (08:11)
[2019-06-01] MEDS: BACITRACIN OINT 30GM TOP SCH ×2 (08:11→20:58)
[2019-06-01] MEDS: LACTULOSE 20 GM/30 ML SYRUP UD PO SCH ×2 (08:11→20:58)
[2019-06-01] MEDS: VENLAFAXINE **XR** 75MG CAPSULE PO SCH (08:14)
[2019-06-01] MEDS: GABAPENTIN 300 MG CAP PO SCH ×3 (08:14→20:55)
[2019-06-01] MEDS: LITHIUM CARBONATE 300 MG **CR** TAB PO SCH (08:15)
[2019-06-01] MEDS: PROPRANOLOL 10 MG TAB PO SCH ×3 (08:15→20:57)
[2019-06-01] MEDS: PANTOPRAZOLE 40MG TAB (PROTONIX) PO SCH (08:15)
[2019-06-01] MEDS: DOCUSATE SODIUM 100 MG CAP PO SCH ×2 (08:15→20:55)
[2019-06-01] MEDS: SENOKOT S TAB PO SCH ×2 (08:15→20:55)
[2019-06-01] MEDS: PILL CUTTER 1 EACH XX PRN (08:15)
[2019-06-01] MEDS: cloZAPine 25 MG TAB (S0136) PO SCH ×2 (08:15→20:58)
[2019-06-01 16:14] VITALS: BP 127/87
[2019-06-01] MEDS: traZODone 50 MG TAB PO SCH (20:55)
[2019-06-01] MEDS: **NOTE PATIENT COMMENT** MISC XX SCH (21:00)
[2019-06-02] MEDS: LORazepam 1 MG TAB PO PRN ×2 (06:09→13:13)
[2019-06-02] MEDS: diphenhydrAMINE 50 MG CAP PO PRN (06:09)
[2019-06-02] MEDS: NICOTINE POLACRILEX 2 MG GUM PO PRN ×7 (06:09→21:38)
[2019-06-02] MEDS: chlorproMAZINE 25 MG TAB (Q0161) PO PRN (06:09)
[2019-06-02 06:22] VITALS: BP 141/76
[2019-06-02] MEDS: LIDOCAINE 5% (LIDODERM) PATCH TD SCH (08:00)
[2019-06-02] MEDS: LACTULOSE 20 GM/30 ML SYRUP UD PO SCH ×2 (08:00→20:52)
[2019-06-02] MEDS: DOCUSATE SODIUM 100 MG CAP PO SCH ×2 (08:01→20:53)
[2019-06-02] MEDS: VENLAFAXINE **XR** 75MG CAPSULE PO SCH (08:01)
[2019-06-02] MEDS: PANTOPRAZOLE 40MG TAB (PROTONIX) PO SCH (08:01)
[2019-06-02] MEDS: BACITRACIN OINT 30GM TOP SCH ×2 (08:01→20:53)
[2019-06-02] MEDS: PROPRANOLOL 10 MG TAB PO SCH ×3 (08:01→20:54)
[2019-06-02] MEDS: GABAPENTIN 300 MG CAP PO SCH ×3 (08:01→20:54)
[2019-06-02] MEDS: SENOKOT S TAB PO SCH ×2 (08:02→20:53)
[2019-06-02] MEDS: cloZAPine 25 MG TAB (S0136) PO SCH ×2 (08:02→20:53)
[2019-06-02] MEDS: PILL CUTTER 1 EACH XX PRN (08:02)
[2019-06-02] MEDS: LITHIUM CARBONATE 300 MG **CR** TAB PO SCH (08:02)
--- NOTE | 2019-06-02 08:43 | MHIPN ---
DATE OF SERVICE: 06/01/2019 The patient refused to see me today.
[2019-06-02 16:22] VITALS: BP 140/90
[2019-06-02] MEDS: traZODone 50 MG TAB PO SCH (20:53)
[2019-06-02] MEDS: **NOTE PATIENT COMMENT** MISC XX SCH (21:04)
[2019-06-03] MEDS: NICOTINE POLACRILEX 2 MG GUM PO PRN ×7 (05:43→21:19)
[2019-06-03] MEDS: chlorproMAZINE 25 MG TAB (Q0161) PO PRN ×2 (06:18→14:02)
[2019-06-03] MEDS: LORazepam 1 MG TAB PO PRN ×2 (06:18→14:00)
[2019-06-03] MEDS: diphenhydrAMINE 50 MG CAP PO PRN ×2 (06:18→14:00)
[2019-06-03 06:19] VITALS: BP 134/82
[2019-06-03] MEDS: PROPRANOLOL 10 MG TAB PO SCH ×3 (08:04→20:36)
[2019-06-03] MEDS: PANTOPRAZOLE 40MG TAB (PROTONIX) PO SCH (08:04)
[2019-06-03] MEDS: GABAPENTIN 300 MG CAP PO SCH ×3 (08:04→20:36)
[2019-06-03] MEDS: SENOKOT S TAB PO SCH ×2 (08:04→20:36)
[2019-06-03] MEDS: DOCUSATE SODIUM 100 MG CAP PO SCH ×2 (08:04→20:36)
[2019-06-03] MEDS: LITHIUM CARBONATE 300 MG **CR** TAB PO SCH (08:04)
[2019-06-03] MEDS: VENLAFAXINE **XR** 75MG CAPSULE PO SCH (08:05)
[2019-06-03] MEDS: LACTULOSE 20 GM/30 ML SYRUP UD PO SCH ×2 (08:05→20:36)
[2019-06-03] MEDS: cloZAPine 25 MG TAB (S0136) PO SCH ×2 (08:05→20:36)
[2019-06-03] MEDS: BACITRACIN OINT 30GM TOP SCH ×2 (08:05→20:36)
[2019-06-03] MEDS: LIDOCAINE 5% (LIDODERM) PATCH TD SCH (08:10)
--- NOTE | 2019-06-03 10:00 | MHIPNPDOC ---
[facility] Progress Note Progress Note DATE OF SERVICE: 06/03/19 HISTORY: Per Dr. Park: "The patient is a 33-year-old man presents to [facility] after being discharged from the inpatient unit. He reportedly had become impulsive and began to cut his arm where he was brought in and treated. It was sutured effectively and the patient was admitted When I met the patient he reported no significant changes to his symptoms. The patient reports that he still wants to go to [facility] and felt that this would get him faster. The patient continues to have behavioral problems of hitting his head whenever he does not get Ativan specifically trying to malinger for various drugs. He generally does not engage well in an interview due to his likely low IQ." VITAL SIGNS: See below. NEW TEST RESULTS: See below. CURRENT MEDICATIONS: See below. MENTAL STATUS EXAMINATION: No change from yesterday. General: Poor hygiene Speech: Monotone Thought processes: Linear MSK: Smooth and coordinated gait, no signs of tremors or involuntary orofacial movements Thought content: Focused on medications and desire to live in [facility] to be close to his family Abstract reasoning, and computation: Intact Description of associations: Intact Description of abnormal or psychotic thoughts: improved impulsive self-harm Judgment: Limited Insight: Limited Orientation: Alert and orientated 3 Cognition: Grossly normal Recent and remote memory: Intact Attention span and concentration: Intact Fund of knowledge: Likely low secondary to IQ. Mood: "ok" Affect: euthymic DIAGNOSES: Paranoid Schizophrenia Intellectual disability [id number]. Borderline/antisocial personality. Malingering. Unspecified impulse/conduct disorder. Potentially TBI. Opioid use disorder, severe. Benzodiazepine use disorder, severe. ASSESSMENT:Pt seen in his room with sitter present. Asking if he can be discharged back to [facility] and told no b/c each time he is discharged back there he harms himself worse than the previous time due to his desire to live in [facility] to be close to his family. Asking to be taken off 1:1 sitter and pt has been behaving well on the unit thus far so advised will give him a trial of being off 1:1 today to see if he can behave himself and follow unit orders. Advised should he do anything to harm himself or violate unit orders he will be put back on 1:1 sitter. States he feels "ok" today. Behavior on unit continues to be improved with treatment and medications since admission. Is tolerating clozaril well and appears beneficial. Referred to [facility] for shelter treatment of behavioral symptoms and impulsive self harm and awaited admission date. MANAGEMENT PLAN: continue plan and referral to [facility]. Clazaril 12.5mg bid Gabapentin 600 MG PO TID Olyphant 600 MG PO DAILY Propranolol 10 MG PO TID Trazodone 50 MG PO QHS Venlafaxine ER 150 MG PO DAILY Chlorpromazine 100mg q4hr prn anxiety/agitation TIME SPENT: 30 minutes. Vital Signs Vital Signs Date Time Temp Pulse Resp B/P (MAP) Pulse Ox O2 Delivery O2 Flow Rate FiO2 06/03/19 08:04 112 137/97 06/03/19 06:19 97.8 14 05/28/19 06:41 Room Air Current Medications Current Medications Medications (Trade) Dose Ordered Sig/Ivette Route PRN Reason Start Time Stop Time Status Last Admin Dose Admin Acetaminophen (Tylenol Tab) 650 mg Q6HP PRN PO HEADACHE or DISCOMFORT 05/13/19 13:00 05/19/19 11:27 Al Hydrox/Mg Hydrox/Simethicone (Mylanta) 30 ml Q4HP PRN PO HEARTBURN/INDIGESTION 05/13/19 13:00 Bacitracin (Bacitracin Oint) Apply to lacerations on l... BID TOP 05/17/19 16:45 06/03/19 08:05 Bacitracin (Bacitracin Oint) Apply to lacerations on l... DAILYPRN PRN TOP REDNESS/IRRITATION 05/16/19 12:00 05/17/19 17:00 DC 05/16/19 15:33 Benztropine Mesylate (Cogentin) 0.5 mg STAT STAT IM 05/15/19 15:08 05/15/19 15:13 DC 05/15/19 15:24 Benztropine Mesylate (Cogentin) 0.5 mg TID PRN PO EPS SYMPTOMS 05/13/19 13:00 05/28/19 06:30 Chlorpromazine HCl (Thorazine) 50 mg BID PO 05/13/19 09:00 05/14/19 10:44 DC 05/14/19 08:20 Chlorpromazine HCl (Thorazine) 50 mg STAT STAT IM 05/15/19 15:08 05/15/19 15:13 DC 05/15/19 15:24 Chlorpromazine HCl (Thorazine) 50 mg STAT STAT IM 05/27/19 16:57 05/27/19 17:06 DC 05/27/19 17:08 Chlorpromazine HCl (Thorazine) 100 mg Q4HP PRN PO AGITATION 05/16/19 12:30 06/03/19 06:18 Chlorpromazine HCl (Thorazine) 100 mg Q4HP PRN PO AGITATION 05/16/19 16:00 05/16/19 12:30 DC Chlorpromazine HCl (Thorazine) 100 mg STAT STAT IM 05/13/19 20:51 05/13/19 20:53 DC 05/13/19 22:01 Chlorpromazine HCl (Thorazine) 100 mg STAT STAT IM 05/14/19 19:24 05/14/19 19:26 DC 05/14/19 19:34 Chlorpromazine HCl (Thorazine) 100 mg STAT STAT IM 05/15/19 21:01 05/15/19 21:03 DC 05/15/19 21:22 Chlorpromazine HCl (Thorazine) 100 mg STAT STAT IM 05/17/19 22:04 05/17/19 22:05 DC 05/17/19 22:17 Chlorpromazine HCl (Thorazine) 100 mg STAT STAT IM 05/18/19 00:22 05/18/19 00:23 DC 05/18/19 00:39 Chlorpromazine HCl (Thorazine) 100 mg STAT STAT IM 05/20/19 16:38 05/20/19 16:41 DC 05/20/19 16:55 Clindamycin HCl (Cleocin) 300 mg QID PO 05/17/19 17:00 05/24/19 09:00 DC 05/24/19 08:07 Clozapine (Clozaril) 12.5 mg BID PO 05/14/19 21:00 05/14/19 18:05 DC Clozapine (Clozaril) 12.5 mg BID PO 05/15/19 09:00 06/03/19 08:05 Clozapine (Clozaril) 12.5 mg STAT STAT PO 05/14/19 18:04 05/14/19 18:10 DC 05/14/19 18:15 Diphenhydramine HCl (Benadryl) 50 mg Q4HP PRN PO ANXIETY/AGITATION 05/16/19 16:00 06/03/19 06:18 Diphenhydramine HCl (Benadryl) 50 mg STAT STAT IM 05/14/19 19:24 05/14/19 19:26 DC 05/14/19 19:34 Diphenhydramine HCl (Benadryl) 50 mg STAT STAT IM 05/17/19 20:30 05/17/19 20:34 DC 05/17/19 20:48 Diphenhydramine HCl (Benadryl) 50 mg STAT STAT IM 05/20/19 16:38 05/20/19 16:41 DC 05/20/19 16:55 Diphenhydramine HCl (Benadryl) 50 mg STAT STAT IM 05/27/19 16:57 05/27/19 17:07 DC 05/27/19 17:08 Docusate Sodium (Colace) 200 mg BID PO 05/13/19 09:00 06/03/19 08:04 Fluphenazine HCl (Prolixin) 10 mg BID PO 05/13/19 21:00 05/14/19 10:44 DC 05/14/19 08:20 Folic Acid (Folic Acid) 1 mg DAILY PO 05/13/19 09:00 05/14/19 10:44 DC 05/14/19 08:21 Gabapentin (Neurontin) 600 mg TID PO 05/13/19 09:00 06/03/19 08:04 Home Med (Med Rec Complete!) ASDIRECTED XX 05/13/19 08:00 05/13/19 07:56 DC Ibuprofen (Advil) 400 mg Q6HP PRN PO PAIN 05/13/19 13:00 05/28/19 09:27 Lactulose (Cephulac) 15 ml BID PO 05/15/19 09:00 06/03/19 08:05 Lidocaine (Lidoderm Patch) 1 patch DAILY TD 05/20/19 09:00 06/03/19 08:10 Olyphant Carbonate (Lithobid Cr) 600 mg DAILY PO 05/13/19 09:00 06/03/19 08:04 Lorazepam (Ativan) 0.5 mg STAT STAT IM 05/27/19 16:57 05/27/19 17:06 DC 05/27/19 17:08 Lorazepam (Ativan) 1 mg Q4HP PRN PO ANXIETY 05/16/19 16:00 06/03/19 06:18 Lorazepam (Ativan) 2 mg STAT STAT IM 05/13/19 20:51 05/13/19 20:53 DC 05/13/19 21:03 Lorazepam (Ativan) 2 mg STAT STAT IM 05/14/19 19:24 05/14/19 19:26 DC 05/14/19 19:34 Lorazepam (Ativan) 2 mg STAT STAT IM 05/15/19 22:03 05/15/19 22:05 DC 05/15/19 22:45 Lorazepam (Ativan) 2 mg STAT STAT IM 05/17/19 20:30 05/17/19 20:34 DC 05/17/19 20:48 Lorazepam (Ativan) 2 mg STAT STAT IM 05/17/19 23:10 05/17/19 23:15 DC 05/17/19 23:25 Lorazepam (Ativan) 2 mg STAT STAT IM 05/20/19 16:38 05/20/19 16:41 DC 05/20/19 16:55 Lorazepam (Ativan) 2 mg STAT STAT IV 05/12/19 22:55 05/12/19 22:57 DC 05/12/19 23:14 Magnesium Hydroxide (Milk Of Magnesia) 30 ml DAILYPRN PRN PO CONSTIPATION 05/13/19 13:00 Miscellaneous (Unresolved Clarification Entry) SEE LABEL COMMENTS DAILY XX 05/22/19 09:00 05/22/19 14:54 DC Miscellaneous (Unresolved Clarification Entry) SEE LABEL COMMENTS DAILY XX 05/26/19 09:00 05/27/19 11:13 DC Miscellaneous (Unresolved Clarification Entry) SEE LABEL COMMENTS DAILY XX 05/28/19 09:00 05/28/19 13:45 DC Miscellaneous (Unresolved Clarification Entry) SEE LABEL COMMENTS DAILY XX 06/02/19 09:00 06/02/19 16:14 DC Nicotine (Nicorette) 2 mg Q2HP PRN PO SMOKING CESSATION 05/13/19 16:45 06/03/19 08:05 Non-Formulary Medication ( See Comment Field Below ) REMOVE LIDODERM PATCH DAILY@21 XX 05/17/19 21:00 05/19/19 13:28 DC Non-Formulary Medication ( See Comment Field Below ) REMOVE LIDODERM PATCH DAILY@ XX 05/19/19 21:00 05/19/19 13:27 DC Non-Formulary Medication ( See Comment Field Below ) REMOVE LIDODERM PATCH DAILY@ XX 05/19/19 21:00 06/02/19 21:04 Olanzapine (ZyPREXA ZYDIS) 5 mg Q4HP PRN PO AGITATION 05/13/19 13:00 05/20/19 11:17 Olanzapine (ZyPREXA ZYDIS) 10 mg STAT STAT PO 05/17/19 20:30 05/17/19 20:33 DC 05/17/19 20:48 Pantoprazole Sodium (Protonix) 40 mg DAILY PO 05/13/19 09:00 06/03/19 08:04 Propranolol HCl (Inderal) 10 mg TID PO 05/13/19 16:00 06/03/19 08:04 Senna/Docusate Sodium (Senokot S) 1 tab BID PO 05/14/19 09:00 06/03/19 08:04 Trazodone HCl (Desyrel) 50 mg QHS PO 05/13/19 21:00 06/02/19 20:53 Trimethoprim/ Sulfamethoxazole (Bactrim Ds, Septra Ds 160mg/ 800mg) 1 tab BID PO 05/17/19 09:00 05/17/19 16:40 DC 05/17/19 11:33 Trimethoprim/ Sulfamethoxazole (Bactrim Ds, Septra Ds 160mg/ 800mg) 1 tab DAILY PO 05/17/19 09:00 05/17/19 11:03 DC Venlafaxine HCl (Effexor Xr) 150 mg DAILY PO 05/13/19 09:00 06/03/19 08:05 Allergies Coded Allergies: Cephalosporins (Verified Allergy, Intermediate, HIVES, 05/12/19) haloperidol (Verified Adverse Reaction, Severe, SEIZURES, 05/12/19) ziprasidone (Verified Adverse Reaction, Mild, VOMITING, 05/12/19) MICHELLE CONLEY DO Jun 03, 2019 10:00 am
[2019-06-03 15:41] VITALS: BP 140/94
--- NOTE | 2019-06-03 17:53 | MHIPN ---
DATE: 06/02/2019 The patient today states that he is doing okay. He was actually in his room taking a nap. The staff informed me that the patient has been out and has even been going to some groups. The patient awoke easily. He told me that he is doing good. He has no complaints. MENTAL STATUS EXAM: This patient is alert and oriented times three. Eye contact is poor. Psychomotor activity is decreased. There is no formal thought disorder noted. He says his mood is fine. His affect is flat. He denies being suicidal or homicidal. I did not elicit any psychotic symptoms. Concentration is fair. Insight and judgment is poor. DIAGNOSES: Paranoid schizophrenia. Intellectual disability, moderate. Borderline antisocial personality disorder. Unspecified impulsive control disorder. History of traumatic brain injury. Opioid use disorder, severe. Benzodiazepine use disorder, severe. TREATMENT PLAN: At this point, we will continue to monitor the patient for his impulsive, aggressive and self injurious behavior. They are in the process of trying to stabilize him on Clozaril. He seems to be having less aggressive behavior over the past couple of days and he is attending group now.
[2019-06-03] MEDS: traZODone 50 MG TAB PO SCH (20:36)
[2019-06-03] MEDS: **NOTE PATIENT COMMENT** MISC XX SCH ×2 (20:41→20:47)
[2019-06-03 21:10] LABS: BASO # 0.1 10^3/uL (0.0-0.2); EOS # 0.5 10^3/uL (0.0-0.5); EOS % 5.4 % (0.0-3.0); HEMATOCRIT 41.1 % (42.0-52.0); HEMOGLOBIN 13.4 g/dl (13.5-17.5); LYMPH # 3.2 10^3/uL (1.5-5.0); LYMPH % 36.2 % (24.0-44.0); MEAN CORPUSCULAR HEMOGLOBIN 29.8 pg (27.0-33.0); MEAN CORPUSCULAR HGB CONC 32.6 g/dl (32.0-36.5); MEAN CORPUSCULAR VOLUME 91.3 fl (80.0-96.0); MONO # 0.9 10^3/uL (0.0-0.8); MONO % 10.8 % (0.0-5.0); PLATELET COUNT, AUTOMATED 353 10^3/uL (150-450); WHITE BLOOD COUNT 8.7 10^3/uL (4.0-10.0)
[2019-06-04] MEDS ORDERED: chlorproMAZINE INJ 50MG/2ML AMP (J3230) IM SCH
[2019-06-04] MEDS ORDERED: diphenhydrAMINE INJ 50MG/ML VIAL (J1200) IM SCH
[2019-06-04] MEDS: LORazepam 1 MG TAB PO PRN (06:12)
[2019-06-04] MEDS: diphenhydrAMINE 50 MG CAP PO PRN ×2 (06:12→10:01)
[2019-06-04] MEDS: NICOTINE POLACRILEX 2 MG GUM PO PRN ×4 (06:12→13:15)
[2019-06-04] MEDS: chlorproMAZINE 25 MG TAB (Q0161) PO PRN ×2 (06:12→10:00)
[2019-06-04 06:22] VITALS: BP 136/99
[2019-06-04] MEDS: BACITRACIN OINT 30GM TOP SCH (08:09)
[2019-06-04] MEDS: DOCUSATE SODIUM 100 MG CAP PO SCH (08:09)
[2019-06-04] MEDS: LITHIUM CARBONATE 300 MG **CR** TAB PO SCH (08:09)
[2019-06-04] MEDS: GABAPENTIN 300 MG CAP PO SCH (08:10)
[2019-06-04] MEDS: cloZAPine 25 MG TAB (S0136) PO SCH (08:10)
[2019-06-04] MEDS: LACTULOSE 20 GM/30 ML SYRUP UD PO SCH (08:11)
[2019-06-04] MEDS: PANTOPRAZOLE 40MG TAB (PROTONIX) PO SCH (08:12)
[2019-06-04] MEDS: SENOKOT S TAB PO SCH (08:12)
[2019-06-04] MEDS: LIDOCAINE 5% (LIDODERM) PATCH TD SCH (08:12)
[2019-06-04 08:18] VITALS: BP 158/96
[2019-06-04] MEDS: PROPRANOLOL 10 MG TAB PO SCH (08:18)
[2019-06-04] MEDS: VENLAFAXINE **XR** 75MG CAPSULE PO SCH (08:18)
--- NOTE | 2019-06-04 08:50 | MHDSPDOC ---
[facility] Discharge Summary Discharge Summary DATE OF ADMISSION: May 13, 2019 at 12:44 pm DATE OF DISCHARGE: Jun 04, 2019 DISCHARGE DIAGNOSES: Paranoid Schizophrenia Intellectual disability [id number]. Borderline/antisocial personality. Unspecified impulse/conduct disorder. Potentially TBI. Opioid use disorder, severe. Benzodiazepine use disorder, severe. REASON FOR ADMISSION: Per Dr. Park: "The patient is a 33-year-old man presents to [facility] after being discharged from the inpatient unit. He reportedly had become impulsive and began to cut his arm where he was brought in and treated. It was sutured effectively and the patient was admitted When I met the patient he reported no significant changes to his symptoms. The patient reports that he still wants to go to [facility] and felt that this would get him faster. The patient continues to have behavioral problems of hitting his head whenever he does not get Ativan specifically trying to malinger for various drugs. He generally does not engage well in an interview due to his likely low IQ." CONSULTANTS INVOLVED: Surgery for cuts to left forearm now healed. TEST RESULTS: lithium level: 34.0 ANC: 4941.9 wnl TREATMENT AND PROGRESS ON THE UNIT : Pt was admitted to [facility], seen for psychiatric assessment and restarted on his outpatient medication thorazine incr eased to 100mg bid and lithium 600mg nightly. Pt had to be restrained 4times during the beginning of his admission due to acts to harm himself such as banging his head on the wall and was given prn thorazine 100mg im, ativan 2mg im, and benadryl 100mg im that calmed his behavior. He was placed on a 1:1 sitter during most of his stay for safety that was discontinued just prior to discharge. His medications were adjusted during his stay and he was discontinued off thorazine and started on clozaril 12.5mg bid that he tolerated well and his symptoms improved greatly. He was also placed on gabapentin 600mg tid for anxiety, propranolol 10 mg tid for anxiety, and Venlafaxine er 150mg daily for mood. He was provided trazodone 50mg qhs prn insomnia. Pt found his medications beneficial and tolerated them well. He attended groups daily during his stay. His symptoms improved with treatment. On day of discharge he denied depression, anxiety, insomnia, SI/HI, hallucinations, delusions. He was discharged to [facility] for extermination inspector psychiatric treatment. He felt safe for discharge. DISCHARGE ASSESSMENT: Pt seen in his room and states he feels "good" today. Behavior on unit has improved with treatment and medications since admission. He is tolerating clozaril well and appears beneficial. He feels ready to go to [facility] for alf treatment of behavioral symptoms and impulsive self harm today. MENTAL STATUS EXAMINATION ON DISCHARGE: General: Poor hygiene Speech: Monotone Thought processes: Linear MSK: Smooth and coordinated gait, no signs of tremors or involuntary orofacial movements Thought content: Focused on medications and desire to live in [facility] to be close to his family Abstract reasoning, and computation: Intact Description of associations: Intact Description of abnormal or psychotic thoughts: improved impulsive self-harm Judgment: Limited Insight: Limited Orientation: Alert and orientated 3 Cognition: Grossly normal Recent and remote memory: Intact Attention span and concentration: Intact Fund of knowledge: Likely low secondary to IQ. Mood: "ok" Affect: euthymic MEDICATIONS ON DISCHARGE: Clazaril 12.5mg bid Gabapentin 600 MG PO TID [place] 600 MG PO DAILY Propranolol 10 MG PO TID Trazodone 50 MG PO QHS Venlafaxine ER 150 MG PO DAILY PLAN/FOLLOWUP ARRANGEMENTS: D/c to [facility] for alf psychiatric treatment. The amount of time spent in the coordination of care for this patient was approximately 30 minutes. Vital Signs/I&Os Vital Signs Date Time Temp Pulse Resp B/P (MAP) Pulse Ox O2 Delivery O2 Flow Rate FiO2 06/04/19 08:18 110 158/96 06/04/19 06:22 95.9 18 Laboratory Data Labs 24H Laboratory Tests 2 06/03/19 20:48: Immature Granulocyte % (Auto) 0.6, Neutrophils (%) (Auto) 46.0, Lymphocytes (%) (Auto) 36.2, Monocytes (%) (Auto) 10.8H, Eosinophils (%) (Auto) 5.4H, Basophils (%) (Auto) 1.0, Neutrophils # (Auto) 4.0, Lymphocytes # (Auto) 3.2, Monocytes # (Auto) 0.9H, Eosinophils # (Auto) 0.5, Basophils # (Auto) 0.1, Nucleated Red Blood Cells % (auto) 0.0, [place] Level 0.34L CBC/BMP Laboratory Tests 06/03/19 20:48 Medications Scheduled Chlorpromazine HCl (Chlorpromazine HCl) 100 Mg Tablet, 50 MG PO BID, (Reported) Docusate Sodium (Colace) 100 Mg Capsule, 200 MG PO BID, (Reported) Fluphenazine HCl (Fluphenazine HCl) 10 Mg Tablet, 10 MG PO BID, (Reported) Folic Acid (Folic Acid) 1 Mg Tablet, 1 MG PO DAILY, (Reported) Gabapentin (Gabapentin) 300 Mg Capsule, 600 MG PO TID, (Reported) [place] Carbonate ([place] Carbonate ER) 300 Mg Tablet.er, 600 MG PO DAILY, (Reported) Pantoprazole Sodium (Pantoprazole Sodium) 40 Mg Tablet.dr, 40 MG PO DAILY, (R eported) Propranolol HCl (Propranolol HCl) 10 Mg Tablet, 10 MG PO TID, (Reported) Trazodone HCl (Trazodone HCl) 50 Mg Tablet, 50 MG PO QHS, (Reported) Venlafaxine HCl (Venlafaxine HCl ER) 75 Mg Cap.er.24h, 150 MG PO DAILY, (Reported) Scheduled PRN Benztropine Mesylate (Benztropine Mesylate) 0.5 Mg Tablet, 0.5 MG PO TID PRN for EPS SYMPTOMS, (Reported) Lorazepam (Lorazepam) 2 Mg Tablet, 2 MG PO Q4H PRN for ANXIETY/AGITATION, (Reported) Olanzapine (Olanzapine) 10 Mg Tablet, 10 MG PO DAILY PRN for ANXIETY/AGITATION, (Reported) Allergies Coded Allergies: Cephalosporins (Verified Allergy, Intermediate, HIVES, 05/12/19) haloperidol (Verified Adverse Reaction, Severe, SEIZURES, 05/12/19) ziprasidone (Verified Adverse Reaction, Mild, VOMITING, 05/12/19) MICHELLE CONLEY DO Jun 04, 2019 8:50 am
[2019-06-04] MEDS ORDERED: LORazepam 2 MG TAB PO ONE (12:30)
== END 2019-06-04 13:45 | DRG 885 ==
LOC: M ED 21:11 → M ED INP 05-13 12:44 → M PSY 05-13 16:33
PROVIDERS: ADMIT Psychiatry & Neurology Addiction Medicine; ATTEND Psychiatry & Neurology Psychiatry
DX: F20.0 Paranoid schizophrenia (principal); F11.90 Opioid use, unspecified, uncomplicated; F60.2 Antisocial personality disorder; F60.3 Borderline personality disorder; F63.9 Impulse disorder, unspecified; F13.90 Sedative, hypnotic, or anxiolytic use, unspecified, uncomplicated; Z79.899 Other long term (current) drug therapy; Z88.8 Allergy status to other drugs, medicaments and biological substances

== ENCOUNTER → 2019-09-25 | Outpatient (REF) | payer MEDICARE, MEDICAID ==
[~2019-09-25] MED LIST changes: +CHLO100T30 PO; -CHLOR10TAB PO; +FLUP10TA11 PO; +LORA2TAB14 PO; +PANT40TA29 PO; -PANT40TA3 PO
[2019-09-25 17:44] LABS: APPEARANCE, URINE TURBID (CLEAR); BACTERIA, URINE AUTO 1+ (NEGATIVE); BILIRUBIN, URINE AUTO NEGATIVE (NEGATIVE); BLOOD, URINE BLOOD 1+ (NEGATIVE); COLOR, URINE YELLOW (YELLOW); GLUCOSE, URINE (UA) AUTO NEGATIVE (NEGATIVE); KETONE, URINE AUTO NEGATIVE (NEGATIVE); LEUKOCYTE ESTERASE, URINE AUTO 3+ (NEGATIVE); NITRITE, URINE AUTO NEGATIVE (NEGATIVE); PROTEIN, URINE AUTO 1+ mg/dL (NEGATIVE); RBC, URINE AUTO 16 /HPF (0-3); SPECIFIC GRAVITY URINE AUTO 1.011 (1.002-1.035); SQUAMOUS EPITHELIAL CELL UR AU 0 /HPF (0-6); UROBILINOGEN, URINE AUTO 0.2 mg/dL (0.0-2.0); WBC, URINE AUTO TNTC /HPF (0-3)
== END ==
LOC: M SMT 16:48 → EEVIPCON 16:48
PROVIDERS: ATTEND Nurse Practitioner Women's Health
DX: N39.0 Urinary tract infection, site not specified (principal)
CPT/HCPCS: 51798; 81001; 87088; 87186; G0463

== ENCOUNTER → 2020-03-24 | Outpatient (REF) | payer MEDICARE, MEDICAID ==
[~2020-03-24] MED LIST changes: -FLUP5TA PO; +FLUP5TAB13 PO
[2020-03-24 16:53] LABS: APPEARANCE, URINE CLOUDY (CLEAR); BACTERIA, URINE AUTO NEGATIVE (NEGATIVE); BILIRUBIN, URINE AUTO NEGATIVE (NEGATIVE); BLOOD, URINE BLOOD NEGATIVE (NEGATIVE); COLOR, URINE YELLOW (YELLOW); GLUCOSE, URINE (UA) AUTO NEGATIVE (NEGATIVE); KETONE, URINE AUTO NEGATIVE (NEGATIVE); LEUKOCYTE ESTERASE, URINE AUTO 3+ (NEGATIVE); MUCUS, URINE SMALL (NEGATIVE); NITRITE, URINE AUTO NEGATIVE (NEGATIVE); PROTEIN, URINE AUTO 2+ mg/dL (NEGATIVE); RBC, URINE AUTO 23 /HPF (0-3); SPECIFIC GRAVITY URINE AUTO 1.011 (1.002-1.035); SQUAMOUS EPITHELIAL CELL UR AU 0 /HPF (0-6); UROBILINOGEN, URINE AUTO 0.2 mg/dL (0.0-2.0); WBC, URINE AUTO TNTC /HPF (0-3)
== END ==
LOC: M SMT 16:34
PROVIDERS: ATTEND Nurse Practitioner Women's Health
DX: N39.0 Urinary tract infection, site not specified (principal)
CPT/HCPCS: 81001; 87088; 87186; G0463